=== PATIENT | male | born 1955 | race Caucasian/White ===

== ENCOUNTER → 2017-04-17 06:11 | Outpatient (CLI) | payer BC, SELFPAY ==
--- NOTE | 2017-04-17 06:19 | RAD_ITS ---
STUDY: X-RAY CHEST REASON FOR EXAM: Male, 62 years old. Chest pain. TECHNIQUE: PA and lateral views of the chest. COMPARISON: Comparison is made with prior study dated April 23, 2014. FINDINGS: The lungs are clear and expanded. Stable metallic BB overlying the left breast. There is no demonstrated pleural abnormality. Normal size heart. A left-sided ICD is seen. Normal mediastinum and leo. Normal visualized pulmonary arteries. There is atherosclerotic calcification of the aortic arch with tortuosity. There are degenerative changes of the visualized thoracic spine. Normal visualized ribs, clavicles, and shoulders. There is no demonstrated abnormality of the visualized soft tissue structures of the upper abdomen. RAD/Chest PA and Lateral IMPRESSION: No acute abnormality is seen. Stable examination. Electronically Signed: Richard Hinton MD at 15:49 EST Tel [phone], Service support ,
[2017-04-17 07:55] LABS: Absolute Lymphocyte Count 3.56 X10^3/ul (0.83-4.51); Absolute Neutrophil Count 5.2 X10^3/uL (2.0-7.7); Basophil# 0.11 X10^3/uL; Eosinophil# 0.62 X10^3/uL; Eosinophils% 5.7 % (0-5); Hematocrit 46.3 % (40-54); Lymphocyte # 3.56 X10^3/ul (4.0); Lymphocyte % 32.7 % (19-41); Mean Corp Hgb Conc 32.4 g/gl (32-36); Mean Corpuscular Hgb 31.6 pg (27.0-32.0); Mean Corpuscular Volume 97.7 fL (80-94); Mean Platelet Vol. 10.2 fl (6.2-12.0); Monocyte# 1.31 X10^3/uL; Neutrophil # 5.24 X10^3/uL (2.7-7.7); Neutrophil % 48.1 % (47-70); Platelet Count 333 K/mm3 (150-450); RBC Distribution Width CV 12.9 % (11.6-14.6); Red Blood Count 4.74 M/mm3 (4.6-6.2); White Blood Count 10.9 K/mm3 (4.4-11.0)
[2017-04-17 07:56] LABS: POSITIVE COUNT NO; POSITIVE DIFFERENTIAL NO; POSITIVE MORPHOLOGY NO
[2017-04-17 07:59] LABS: Prothrombin Time (Protime)PT. 12.5 SECONDS (11.7-14.9)
[2017-04-17 08:00] LABS: Partial Thromboplast Time 25.9 Seconds (24.1-36.2)
[2017-04-17 08:21] LABS: Anion Gap 6 (5-15); BUN 21 mg/dL (7-18); BUN/Creat Ratio 22.2 RATIO (10-20); Calcium,Total 9.6 mg/dL (8.5-10.1); Chloride 105 mmol/L (98-107); Creatinine, Serum 0.94 mg/dL (0.70-1.30); EST Glomerular Filtration Rate 86 mL/min (>60); Est Glom Filt Rate - Afr Amer 104 mL/min (>60); Glucose 90 mg/dL (74-106); Potassium 4.4 mmol/L (3.5-5.1); Sodium Level 139 mmol/L (136-145)
== END ==
PROVIDERS: Family Provider Family Medicine; PCP Family Medicine; Visit Provider Physician Assistant Medical
DX: I25.10 Atherosclerotic heart disease of native coronary artery without angina pectoris (principal); I25.5 Ischemic cardiomyopathy; I10 Essential (primary) hypertension; R07.9 Chest pain, unspecified; R06.09 Other forms of dyspnea
CPT/HCPCS: 36415; 71046; 80048; 85025; 85610; 85730

== ENCOUNTER 2017-04-20 07:48 | Day surgery (SDC) | payer BC, SELFPAY ==
[2017-04-20] VITALS (32 sets, daily range): BP systolic 106–160; BP diastolic 64–93; PULSE 60–84; RESP 11–18; TEMP 37.1–37.2; O2SAT 91–97; BMI 29.5; BMI 29.6; BMI 30.1
--- NOTE | 2017-04-20 07:50 | EKG12_ITS ---
Test Reason : PRE CATH Blood Pressure : / mmHG Vent. Rate : 061 BPM Atrial Rate : 061 BPM P-R Int : 138 ms QRS Dur : 092 ms QT Int : 432 ms P-R-T Axes : 000 -39 026 degrees QTc Int : 434 ms Normal sinus rhythm Left axis deviation Septal infarct , age undetermined Abnormal ECG Confirmed by PRASHANT ALVES, MILES ([id number]), editor producer WOLFGANG GOMEZ ([id number] on 04/23/2017 1:27:43 PM Referred By: Miles Cerda Confirmed By:MILES CERDA MD
--- NOTE | 2017-04-20 11:45 | CL.I_ITS ---
Patient Name: MOR SAAVEDRA Study Date: 04/20/2017 Performing: Chapis Courtney MD Ht: inches cm : 1955 Wt: 216.05 lbs 98 kg Age: 62 Gender: male BSA: PROCEDURE(S) PERFORMED [id number] W OR WO PTCA, SINGLE CORONARY ARTERY [id number] W OR WO PTCA, SINGLE CORONARY ARTERY CLINICAL PROFILE AND CO-MORBIDITIES Angina Classification Anginal Classification w/in 2 Weeks: CCS IV CAD Presentations: Unstable angina. CONCLUSIONS Successful PTCA/EULOGIO of the Prox RCA using 3.0x12 mm Resolute Integrity Successful PTCA/EULOGIO of the Mid LAD using Resolute Integrity 2.5x26 mm, post-dilated using 3.0 mm ball oon RECOMMENDATIONS ASA Indefinitley Brilinta for at least 12 months . INTERVENTION INFORMATION LESION SITE: RCA (Proximal) Lesion Complexity: Non-High/Non-C, culprit lesion: Yes Pre Stenosis: 99 % Pre intervention BELKIS flow: 3 PROCEDURE: Drug Eluting Stent with pre and post dilatation Post Stenosis: 0 % Post intervention BELKIS flow: 3 Lesion Devices: Medtronic 6 Fr JL4.0 100cm Guide Catheter Terumo .014 Runthrough Extra Floppy 180cm straight Faheem Sci EMERGE MR 2.50x12 BALLOON Faheem Sci EMERGE PUSH MR 1.50x15 BALLOON Medtronic Resolute RX EULOGIO 3.0x12 Faheem Sci NC EMERGE MR 3.00x12 BALLOON LESION SITE: LAD (Mid) Lesion Complexity: High/C, culprit lesion: Yes Pre Stenosis: 95 % Pre intervention BELKIS flow: 3 PROCEDURE: Drug Eluting Stent with pre and post dilatation Post Stenosis: 0 % Post intervention BELKIS flow: 3 Lesion Devices: Faheem Sci EMERGE MR 2.50x12 BALLOON Faheem Sci NC EMERGE MR 3.00x12 BALLOON Cordis 6 Fr XB3.0 100cm Guide Catheter Medtronic Resolute RX EULOGIO 3.0x26 Medtronic Resolute RX EULOGIO 2.5x26 Faheem Sci .014 Choice Xtra Support wire 182cm Faheem Sci NC EMERGE MR 3.00x15 BALLOON Faheem Sci NC EMERGE MR 3.00x15 BALLOON COMPLICATIONS No Complications PROCEDURE MEDICATIONS Fentanyl 50 mcg IV Versed 1 mg IV Fentanyl 50 mcg IV Versed 1 mg IV Fentanyl 25 mcg IV Versed 1 mg IV Oxygen: 2 L/min via nasal cannula Brilinta 180 mg PO @ 04/20/2017 10:14:28 Heparin diluted in 23cc Heparinized saline. Patient given 10cc IA of this solution. 04/20/2017 09:25: 21 Heparin 7000 unit(s) IV 04/20/2017 10:10:17 Heparin 4000 unit(s) IV 04/20/2017 10:44:42 Heparin 1000 unit(s) IV 04/20/2017 11:02:43 Heparin 1000 unit(s) IV 04/20/2017 11:11:28 Nitro 200 mcg IC 04/20/2017 10:23:21 Nitro 200 mcg IC 04/20/2017 10:23:21 Nitro 200 mcg IC 04/20/2017 10:28:46 Verapamil 2.5mg, Ntg 100mcgs, 2000 units of Heparin diluted in 23cc Heparinized saline. Patient give n 10cc IA of this solution. 04/20/2017 09:25:21 SUMMARY OF HEMODYNAMIC DATA Time AIR REST ECG 08:12:53 ECG 09:08:40 AO 131/78 (100) SA 09:28:28 LV 143/5, 29 09:35:40 LV 147/5, 33 09:35:46 LV 135/12, 32 09:37:16 LVp 144/11, 29 09:37:21 AOp 141/75 (106) 09:37:26 AO 128/73 (96) 10:12:57 Signed By Chapis Courtney MD On 04/20/2017 11:45:34 Chapis Courtney MD
[2017-04-20 11:46] LABS: ACT Activated Clotting Time 263 sec (74-137)
[2017-04-20] MEDS: 0.9% Normal Saline 1,000 ML 75 ML IV (12:00)
[2017-04-20 13:26] LABS: ACT Activated Clotting Time 191 sec (74-137)
--- NOTE | 2017-04-20 13:27 | CRPHASE1 ---
Patient Data/Charges Former Patient:: Phase II Lead Technologist In Cytogenetics:: Chapis Courtney Refer Phase II:: Yes Phase II Referral:: [facility] Start Phase II:: After follow up visit with Lead Technologist In Cytogenetics Phase I Charge:: Level I - Education Risk Factors/Lifestyle Smoking Status: Former smoker Second-Hand Smoke:: Yes - Some with coworkers Hx Hypertension: Yes Hx Diabetes Mellitus Type 1: No Hx Diabetes Mellitus Type 2: No Hx Dyslipidemia: Yes Hx Obesity: Yes Height: 1.8 m Weight:: 97.976 kg BMI: 30.1 Risk Factor for Sedentary Lifestyle: Moderate Risk Family History: Family History (Last Updated 04/13/17 @ 13:28 by Anna Kirkpatrick) Father PVD (peripheral vascular disease) Myocardial infarction Cancer Brother Kidney disease Family History: Cancer, Heart Disease Past Cardiac Illness: Arrhythmias, LV Dysfunction, Ejection Fraction, Coronary Artery Disease, Myocardial Infarction, Previous PCI w/Stent Phase I Education Given On:: [place], Nutrition, Antiplatelet medication, CHF, Smoking cessation Issues Affecting Care:: None Knowledge of Condition:: Yes Learning Preferences: Verbal, Written, Audio/Visual, Demonstration Hospital Course Presenting Symptoms:: heartburn like pain mid sternal area. 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
--- NOTE | 2017-04-20 13:35 | CASEMGMT ---
Intro role of CM to patient in room. Pt is independent, no discharge needs identified. Discussed medication change from Plavix to Brillinta. Savings card given to patient. Discussed insurance coverage related to new year and deductibles. Pt to check if his prescriptions are covered in deductibles. Questions answered. Pt denies any dc needs at this time. Vitaliy STEVENSN RN ACM
--- NOTE | 2017-04-20 13:36 | CRPHASE1_ITS ---
Patient Data/Charges Former Patient:: Phase II Loop Sewer:: Chapis Courtney Refer Phase II:: Yes Phase II Referral:: [facility] Start Phase II:: After follow up visit with Loop Sewer Phase I Charge:: Level I - Education Risk Factors/Lifestyle Smoking Status: Former smoker Second-Hand Smoke:: Yes - Some with coworkers Hx Hypertension: Yes Hx Diabetes Mellitus Type 1: No Hx Diabetes Mellitus Type 2: No Hx Dyslipidemia: Yes Hx Obesity: Yes Height: 1.8 m Weight:: 97.976 kg BMI: 30.1 Risk Factor for Sedentary Lifestyle: Moderate Risk Family History: Family History (Last Updated 04/13/17 @ 13:28 by Anna Kirkpatrick) Father PVD (peripheral vascular disease) Myocardial infarction Cancer Brother Kidney disease Family History: Cancer, Heart Disease Past Cardiac Illness: Arrhythmias, LV Dysfunction, Ejection Fraction, Coronary Artery Disease, Myocardial Infarction, Previous PCI w/Stent Phase I Education Given On:: [place], Nutrition, Antiplatelet medication, CHF, Smoking cessation Issues Affecting Care:: None Knowledge of Condition:: Yes Learning Preferences: Verbal, Written, Audio/Visual, Demonstration Hospital Course Presenting Symptoms:: heartburn like pain mid sternal area. 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
--- NOTE | 2017-04-20 13:36 | CRPH1.INSTRU ---
General Education CAD and cardiac anatomy and function:: Patient communicates acknowledgment, Needs reinforcement Explanation of diagnoses and procedures:: Patient communicates acknowledgment, Needs reinforcement Sign/Symptoms of [place]:: Patient communicates acknowledgment, Needs reinforcement Antiplatelet therapy: Patient communicates acknowledgment Proper use of NTG-SL: Patient communicates acknowledgment, Needs reinforcement Emergency procedures and activation of EMS: Patient communicates acknowledgment, Needs reinforcement Compliance of all prescribed medications: Patient communicates acknowledgment Smoking Patient Nicotine/Smoking Risk Factors Are:: Second-hand smoke Recommendations Include:: Second-hand smoke recommendation, Previous smoker; encourage continued cessation Nicotine/Smoking Response Code:: Patient communicates acknowledgment, Needs reinforcement Dyslipidemia Patient Dyslipidemia Risk Factors Are:: Total Cholesterol, Triglycerides, HDL, LDL Recommendations Include:: Lipid profile not available, Reviewed NCEP/ATP guidelines, Therapeutic Lifestyle Change dietary guidelines Dyslipidemia Response Code:: Patient communicates acknowledgment, Needs reinforcement Overweight/Obesity Patient Overweight/Obesity Risk Factors Are:: Obesity - > or = 30 Recommendations Include:: Weight loss of 5-10%, Reduced calorie diet, Exercise 5-7 times/week Overweight/Obesity:: Needs reinforcement Hypertension Patient Hypertension Risk Factors Are:: No documented hx of HTN Recommendations Include:: Maintain BP <130/85, DASH dietary guidelines, Decrease/maintain normal body weight, Moderation of ETOH Hypertension:: Patient communicates acknowledgment, Needs reinforcement Heart Disease Patient Heart Disease Risk Factors Are:: Family history of heart disease < 65 years old, Previous cardiac event Recommendations Include:: Educated family members of their risk, Educated family members of importance of prevention of heart disease Heart Disease Response Code:: Patient communicates acknowledgment, Needs reinforcement Diabetes Patient Diabetes Risk Factors Are:: No documented hx of diabetes Diabetes:: Not instructed Metabolic Syndrome Patient Metabolic Syndrome Risk Factors Are [3 of 5]:: Waist circumference > 35 [female] or 40 [male], Hypertension, Low HDL <40 [male] or < 50 [female] Recommendations Include:: Encouraged follow-up with Primary Care Physician Metabolic Syndrome Response Code:: Patient communicates acknowledgment Sedentary Patient Sedentary Risk Factors Are:: Lack of regular exercise Recommendations Include:: Aerobic exercise 5-7 times/week for 20-30 minutes continuously, Benefits of regular exercise, Discussed home walking program, Monitored Outpatient Cardiac Rehab Sedentary Response Code:: Patient communicates acknowledgment, Needs reinforcement Stress Stress Response Code:: Not instructed
--- NOTE | 2017-04-20 13:40 | CRPH1.INST_ITS ---
General Education CAD and cardiac anatomy and function:: Patient communicates acknowledgment, Needs reinforcement Explanation of diagnoses and procedures:: Patient communicates acknowledgment, Needs reinforcement Sign/Symptoms of ID:: Patient communicates acknowledgment, Needs reinforcement Antiplatelet therapy: Patient communicates acknowledgment Proper use of NTG-SL: Patient communicates acknowledgment, Needs reinforcement Emergency procedures and activation of EMS: Patient communicates acknowledgment , Needs reinforcement Compliance of all prescribed medications: Patient communicates acknowledgment Smoking Patient Nicotine/Smoking Risk Factors Are:: Second-hand smoke Recommendations Include:: Second-hand smoke recommendation, Previous smoker; encourage continued cessation Nicotine/Smoking Response Code:: Patient communicates acknowledgment, Needs reinforcement Dyslipidemia Patient Dyslipidemia Risk Factors Are:: Total Cholesterol, Triglycerides, HDL, LDL Recommendations Include:: Lipid profile not available, Reviewed NCEP/ATP guidelines, Therapeutic Lifestyle Change dietary guidelines Dyslipidemia Response Code:: Patient communicates acknowledgment, Needs reinforcement Overweight/Obesity Patient Overweight/Obesity Risk Factors Are:: Obesity - > or = 30 Recommendations Include:: Weight loss of 5-10%, Reduced calorie diet, Exercise 5 -7 times/week Overweight/Obesity:: Needs reinforcement Hypertension Patient Hypertension Risk Factors Are:: No documented hx of HTN Recommendations Include:: Maintain BP <130/85, DASH dietary guidelines, Decrease /maintain normal body weight, Moderation of ETOH Hypertension:: Patient communicates acknowledgment, Needs reinforcement Heart Disease Patient Heart Disease Risk Factors Are:: Family history of heart disease < 65 years old, Previous cardiac event Recommendations Include:: Educated family members of their risk, Educated family members of importance of prevention of heart disease Heart Disease Response Code:: Patient communicates acknowledgment, Needs reinforcement Diabetes Patient Diabetes Risk Factors Are:: No documented hx of diabetes Diabetes:: Not instructed Metabolic Syndrome Patient Metabolic Syndrome Risk Factors Are [3 of 5]:: Waist circumference > 35 [female] or 40 [male], Hypertension, Low HDL <40 [male] or < 50 [female] Recommendations Include:: Encouraged follow-up with Primary Care Physician Metabolic Syndrome Response Code:: Patient communicates acknowledgment Sedentary Patient Sedentary Risk Factors Are:: Lack of regular exercise Recommendations Include:: Aerobic exercise 5-7 times/week for 20-30 minutes continuously, Benefits of regular exercise, Discussed home walking program, Monitored Outpatient Cardiac Rehab Sedentary Response Code:: Patient communicates acknowledgment, Needs reinforcement Stress Stress Response Code:: Not instructed
[2017-04-20] MEDS: Furosemide 40 MG/4 ML Vial IV (15:51)
[2017-04-20] MEDS: Atorvastatin Calcium 80 MG Tablet PO (15:51)
[2017-04-20] MEDS: HYDROcodone Bitartrate/Apap 5/325 Tablet PO ×2 (16:45→21:22)
--- NOTE | 2017-04-20 18:07 | NURSING ---
Stent card clipped to Cardiac Rehab book and placed in patient belonging bag in patient room. Yoel education information for cardiac medications (Brilinta, lipitor & Aspirin) reviewed with patient.
--- NOTE | 2017-04-20 18:52 | CL.D_ITS ---
Patient Name: MOR SAAVEDRA Study Date: 04/20/2017 Performing: Miles Zaragoza MD Ht: inches cm : 1955 Wt: 216.3 lbs 98 kg Age: 62 Gender: male BSA: PROCEDURE(S) PERFORMED [id number] W OR WO PTCA, SINGLE CORONARY ARTERY [id number] W OR WO PTCA, SINGLE CORONARY ARTERY CLINICAL PROFILE AND INDICATIONS INDICATIONS: Unstable Angina Stress/Imaging Stress/Image Study Performed: No Angina Classification Anginal Classification w/in 2 Weeks: CCS IV CAD Presentations: Unstable angina. Unstable angina. CONCLUSIONS Elevated Left Ventricular End Diastolic Pressure Segmented LV systolic dysfunction- Mild LVEF: by LV gram 45 % [place] Multivessel CAD Left to Right Collateral Flow Aortic root: Possibly Dilated RECOMMENDATIONS Risk factor modification Medical therapy Referred for immediate PCI DESCRIPTION OF PROCEDURE The patient arrived to the procedure lab. The risks and benefits of the procedure as well as a full d escription of our services here and current unavailability of surgical backup were fully explained to the patient and/or their significant other prior to the catheterization. The Timeout was completed, verifying the correct patient and procedure. The patient's procedural site was prepped and draped in the usual fashion. Local anesthetic was given subcutaneously to right radial region with Lidocaine 2% . Using a modified Seldinger technique, arterial access was obtained via the right radial artery, a 6 Fr sheath was inserted. Left Coronary Artery selective angiography was performed in multiple views u sing a 5 Fr. 4.0 [place] catheter. Right Coronary Artery selective angiography was then performed in mu ltiple views using a 5 Fr. 4.0 [place] catheter. Left Ventriculography was performed in MEDINA projection using a 5 Fr. Pigtail catheter. LV to AO pullback pressures were then recorded. Right Coronary Artery selective angiography was then performed in multiple views using a 5 Fr. 4.0 [place] catheter.The aldo rial sheath was pulled and a TR Band was applied for hemostasis w/ 18ml air CORONARY ANGIOGRAPHY DOMINANCE: Right Dominant LEFT HEART ASSESSMENT Left Ventricular Ejection Fraction: by LV gram 45 % Anterior Hypokinesis. Apical Akinesis Elevated Left Ventricular End Diastolic Pressure LVEDP: 29 mmHg LEFT MAIN: Mild luminal irregularities LEFT ANTERIOR DECENDING ARTERY: PROX LAD: Long: Smooth: 25 % Stenosis MID LAD: Previously placed stent has an instent Hazy: 85 % restenosis, Hazy: 95 % Stenosis (Between t he two stents) DISTAL LAD: 50 % Stenosis CIRCUMFLEX ARTERY: PROX CIRC: Eccentric: 25 % Stenosis OM 1: Proximal - 25-50 % Stenosis RIGHT CORONARY ARTERY: PROX RCA: Eccentric: 25 % Stenosis, is subtotally occluded MID RCA: 25 % Stenosis DISTAL RCA: 25 % Stenosis COLLATERAL FLOW: Collateral flow from Left to Left VALVE FINDINGS: Normal Aortic Valve function Normal Mitral Valve function AORTIC ROOT: Possibly Dilated Possibly Dilated COMPLICATIONS No Complications PROCEDURE MEDICATIONS Fentanyl 50 mcg IV Versed 1 mg IV Fentanyl 50 mcg IV Versed 1 mg IV Fentanyl 25 mcg IV Versed 1 mg IV Oxygen: 2 L/min via nasal cannula Brilinta 180 mg PO @ 04/20/2017 10:14:28 Heparin diluted in 23cc Heparinized saline. Patient given 10cc IA of this solution. 04/20/2017 09:25: 21 Heparin 7000 unit(s) IV 04/20/2017 10:10:17 Heparin 4000 unit(s) IV 04/20/2017 10:44:42 Heparin 1000 unit(s) IV 04/20/2017 11:02:43 Heparin 1000 unit(s) IV 04/20/2017 11:11:28 Nitro 200 mcg IC 04/20/2017 10:23:21 Nitro 200 mcg IC 04/20/2017 10:23:21 Nitro 200 mcg IC 04/20/2017 10:28:46 Verapamil 2.5mg, Ntg 100mcgs, 2000 units of Heparin diluted in 23cc Heparinized saline. Patient give n 10cc IA of this solution. 04/20/2017 09:25:21 SUMMARY OF HEMODYNAMIC DATA Time AIR REST ECG 08:12:53 ECG 09:08:40 AO 131/78 (100) SA 09:28:28 LV 143/5, 29 09:35:40 LV 147/5, 33 09:35:46 LV 135/12, 32 09:37:16 LVp 144/11, 29 09:37:21 AOp 141/75 (106) 09:37:26 AO 128/73 (96) 10:12:57 Signed By Miles Zaragoza MD On 04/20/2017 18:52:19 Miles Zaragoza MD
[2017-04-20] MEDS: TICAGRELOR 90 MG TABLET PO (21:16)
[2017-04-20] MEDS: DiphenhydrAMINE 25 MG Capsule PO (21:21)
[2017-04-21] VITALS (11 sets, daily range): BP systolic 108–133; BP diastolic 67–96; PULSE 56–78; RESP 12–19; TEMP 36.8–37.2; O2SAT 93–95
[2017-04-21 04:35] LABS: Absolute Lymphocyte Count 2.06 X10^3/ul (0.83-4.51); Absolute Neutrophil Count 5.5 X10^3/uL (2.0-7.7); Basophil# 0.07 X10^3/uL; Basophil% 0.7 % (0-1); Eosinophil# 1.19 X10^3/uL; Eosinophils% 11.8 % (0-5); Hemoglobin 14.9 g/dl (13.0-16.5); Lymphocyte # 2.06 X10^3/ul (4.0); Lymphocyte % 20.5 % (19-41); Mean Corp Hgb Conc 33.9 g/gl (32-36); Mean Corpuscular Hgb 32.3 pg (27.0-32.0); Mean Corpuscular Volume 95.2 fL (80-94); Mean Platelet Vol. 9.7 fl (6.2-12.0); Monocyte# 1.21 X10^3/uL; Neutrophil # 5.48 X10^3/uL (2.7-7.7); Neutrophil % 54.4 % (47-70); POSITIVE COUNT NO; POSITIVE DIFFERENTIAL NO; POSITIVE MORPHOLOGY NO; Platelet Count 287 K/mm3 (150-450); RBC Distribution Width CV 12.8 % (11.6-14.6); RBC Distribution Width SD 44.4 fl (35.1-43.9); Red Blood Count 4.62 M/mm3 (4.6-6.2); White Blood Count 10.1 K/mm3 (4.4-11.0)
--- NOTE | 2017-04-21 05:55 | EKG12_ITS ---
Test Reason : AM EKG Blood Pressure : / mmHG Vent. Rate : 059 BPM Atrial Rate : 059 BPM P-R Int : 164 ms QRS Dur : 098 ms QT Int : 428 ms P-R-T Axes : 068 -42 022 degrees QTc Int : 423 ms Sinus bradycardia Left axis deviation Septal infarct , age undetermined Abnormal ECG When compared with ECG of 20-APR-2017 12:07, MANUAL COMPARISON REQUIRED, DATA IS UNCONFIRMED Confirmed by PILY ARMIJO ([id number]), newspaper editor managing WOLFGANG GOMEZ ([id number]) on 04/26/2017 3:04:05 PM Referred By: Miles Zaragoza Confirmed By:PILY ARMIJO
[2017-04-21] MEDS: Multivitamins,Therapeutic Tablet 1 TABLET PO (08:36)
[2017-04-21] MEDS: Aspirin E.C. 81 MG Tablet PO (08:36)
[2017-04-21] MEDS: Ferrous Sulfate 325 MG Tablet PO (08:36)
--- NOTE | 2017-04-21 09:18 | PCM.PN.CARD ---
Subjectve: The patient is awake and alert. He denies any ongoing chest discomfort or difficulty breathing. Objective: Vital Signs Temp Pulse Resp BP Pulse Ox 98.2 F 75 15 113/67 95 04/21/17 04:00 04/21/17 08:00 04/21/17 08:00 04/21/17 08:00 04/21/17 08:00 Oxygen Delivery Method Room Air Weight: 208 lb 12.444 oz Body Mass Index (BMI) 29.5 Intake and Output for Last 24 Hours 04/19/17 04/20/17 04/21/17 23:59 23:59 23:59 Intake Total 1283 / 1283 60 / 60 Output Total 2800 / 2800 Balance -1517 / -1517 60 / 60 General: Awake, Alert, Oriented x 3, Cooperative, No Acute Distress Neck: No JVD Lungs: Clear to auscultation Cardiovascular: Regular Rhythm, Normal S1, Normal S2 Murmur Murmur: Grade 2/6, Harsh, Mid Systolic, LLSB, LVOT Vascular: Normal Radial Pulses Abdomen: Bowel Sounds Present, Soft, Non Tender Extremities: No edema Neurological: No Focal Motor or Sensory Deficit 04/21/17 04:20: WBC 10.1, RBC 4.62, Hgb 14.9, Hct 44.0, MCV 95.2 H, MCH 32.3 H, MCHC 33.9, RDW 12.8, RDW Differential 44.4 H, Plt Count 287, MPV 9.7, Immature Gran % (Auto) 0.600, Neut % (Auto) 54.4, Lymph % (Auto) 20.5, [place] % (Auto) 12.0 H, Eos % (Auto) 11.8 H, Baso % (Auto) 0.7, Absolute Neuts (auto) 5.5, Total Counted Not Reportable Rhythm: Sinus rhythm EKG: Sinus rhythm; septal MN pattern of indeterminate age; no acute ECG changes Cardiac Cath: Please see official report PCI: Please see official report Assessment/Plan 1. Unstable angina pectoris The patient presented with symptoms concerning for unstable angina pectoris. He has undergone diagnostic cardiac catheterization. He was found to have angiographically significant appearing in-stent restenosis involving his LAD stent system and angiographically significant appearing stenosis involving his RCA system. He has subsequently undergone repeat PTCA/stent of the LAD and PTCA/stent of the RCA. He had good angiographic results. He appears to be symptomatically and hemodynamically stable at this time. He is going to continue medical management. 2. CAD status post MN-remote status post LAD PCI-remote The patient has a history of underlying CAD and MN. He is undergone previous LAD PCI on more than one occasion. He has continued medical management. He has presented back with concerns of unstable angina pectoris and has now undergone evaluation care as noted above. He will need continued medical management and outpatient follow-up. 3. Ischemic mediated cardiomyopathy The patient does have an underlying ischemic mediated cardia myopathy with diminished LV systolic function. He is without symptoms of acute CHF/pulmonary edema. He will continue combined medical management as tolerated. 4. Ventricular tachycardia status post ICD The patient does have an underlying ICD. He will continue with outpatient follow-up. 5. Hyperlipidemia The patient will continue medical management and laboratory follow-up. Overall the patient appears to be symptomatically and hemodynamically stable. He will continue medical therapy and outpatient cardiovascular follow-up. This note was generated with [employer] Dictation software. Every effort was made to ensure accuracy, however, computerized sports recruiter mistakes may persist.
--- NOTE | 2017-04-21 09:28 | PN.CARD_ITS ---
Subjectve: The patient is awake and alert. He denies any ongoing chest discomfort or difficulty breathing. Objective: Vital Signs Temp Pulse Resp BP Pulse Ox 98.2 F 75 15 113/67 95 04/21/17 04:00 04/21/17 08:00 04/21/17 08:00 04/21/17 08:00 04/21/17 08:00 Oxygen Delivery Method Room Air Weight: 208 lb 12.444 oz Body Mass Index (BMI) 29.5 Intake and Output for Last 24 Hours 04/19/17 04/20/17 04/21/17 23:59 23:59 23:59 Intake Total 1283 / 1283 60 / 60 Output Total 2800 / 2800 Balance -1517 / -1517 60 / 60 General: Awake, Alert, Oriented x 3, Cooperative, No Acute Distress Neck: No JVD Lungs: Clear to auscultation Cardiovascular: Regular Rhythm, Normal S1, Normal S2 Murmur Murmur: Grade 2/6, Harsh, Mid Systolic, LLSB, LVOT Vascular: Normal Radial Pulses Abdomen: Bowel Sounds Present, Soft, Non Tender Extremities: No edema Neurological: No Focal Motor or Sensory Deficit 04/21/17 04:20: WBC 10.1, RBC 4.62, Hgb 14.9, Hct 44.0, MCV 95.2 H, MCH 32.3 H, MCHC 33.9, RDW 12.8, RDW Differential 44.4 H, Plt Count 287, MPV 9.7, Immature Gran % (Auto) 0.600, Neut % (Auto) 54.4, Lymph % (Auto) 20.5, [place] % (Auto) 12.0 H, Eos % (Auto) 11.8 H, Baso % (Auto) 0.7, Absolute Neuts (auto) 5.5, Total Counted Not Reportable Rhythm: Sinus rhythm EKG: Sinus rhythm; septal NE pattern of indeterminate age; no acute ECG changes Cardiac Cath: Please see official report PCI: Please see official report Assessment/Plan 1. Unstable angina pectoris The patient presented with symptoms concerning for unstable angina pectoris. He has undergone diagnostic cardiac catheterization. He was found to have angiographically significant appearing in-stent restenosis involving his LAD stent system and angiographically significant appearing stenosis involving his RCA system. He has subsequently undergone repeat PTCA/stent of the LAD and PTCA /stent of the RCA. He had good angiographic results. He appears to be symptomatically and hemodynamically stable at this time. He is going to continue medical management. 2. CAD status post NE-remote status post LAD PCI-remote The patient has a history of underlying CAD and NE. He is undergone previous LAD PCI on more than one occasion. He has continued medical management. He has presented back with concerns of unstable angina pectoris and has now undergone evaluation care as noted above. He will need continued medical management and outpatient follow-up. 3. Ischemic mediated cardiomyopathy The patient does have an underlying ischemic mediated cardia myopathy with diminished LV systolic function. He is without symptoms of acute CHF/pulmonary edema. He will continue combined medical management as tolerated. 4. Ventricular tachycardia status post ICD The patient does have an underlying ICD. He will continue with outpatient follow-up. 5. Hyperlipidemia The patient will continue medical management and laboratory follow-up. Overall the patient appears to be symptomatically and hemodynamically stable. He will continue medical therapy and outpatient cardiovascular follow-up. This note was generated with [employer] Dict[employer] software. Every effort was made to ensure accuracy, however, computerized header boss mistakes may persist.
--- NOTE | 2017-04-21 09:37 | PCM.DC.SUM ---
Discharge Date and Diagnosis Date of Admission: 04/20/17 Date of Discharge: 04/21/17 - Primary Discharge Diagnosis Unstable angina pectoris - Secondary Discharge Diagnosis Chronic Problems (Last Updated 04/13/17 @ 13:33 by Anna Kirkpatrick) History of PTCA (Chronic) PTCA with stent to LAD March 2003; 11/18/03 PTCA and stenting of proximal LAD; PTCA/EULOGIO to mid-distal LAD 04/29/14. Cardiac defibrillator in place (Chronic) ICD implant April 2003; cardioverter-defibrillator replacement 03/16 Hypertension (Chronic) Old myocardial infarction (Chronic) Ischemic cardiomyopathy (Chronic) Ventricular tachyarrhythmia (Chronic) Atherosclerosis of artery of extremity with intermittent claudication (Chronic) Shortness of breath (Chronic) Nonspecific elevation of levels of transaminase and lactic acid dehydrogenase (LDH) (Chronic) S/P implantation of automatic cardioverter/defibrillator (AICD) (Chronic) March 2011 Long-term use of high-risk medication (Chronic) Hyperlipidemia (Chronic) Hyperkalemia (Chronic) Claudication (Chronic) Dizziness and giddiness (Chronic) Chest discomfort (Chronic) Cardiovascular function study, abnormal (Chronic) Atherosclerotic heart disease of [place] coronary artery without angina pectoris (Chronic) PTCA with stent to LAD March 2003; 11/18/03 PTCA and stenting of proximal LAD; PTCA/EULOGIO to mid-distal LAD 04/29/14. Hospital Course and Treatment Imaging Results: Please see cardiac catheterization and PCI reports None Procedures: Cardiac catheterization - PCI Summary of Care Provided: The patient is a 62 year old white male with a past cardiovascular history of underlying CAD, [place], ischemic mediated cardiomyopathy, status post LAD PCI-remote, ventricular tachycardia status post ICD placement, hyperlipidemia who presented for evaluation for unstable angina pectoris. The patient was brought to [facility] on 04/20/2017 for outpatient cardiovascular evaluation with diagnostic cardiac catheterization. The patient was found to have angiographically significant appearing in-stent restenosis of his LAD stents and angiographically significant appearing stenosis of his RCA system. He subsequently underwent PCI of both the LAD and RCA system with good angiographic results. He was monitored overnight in the ICU. He remains symptomatically and hemodynamically stable. On 04/21/2017 it was elected to release the patient home for continued outpatient cardiovascular follow-up. [] Discharge Diet: Low fat/ Low Cholesterol Return to work on:: 04/24/17 May shower in (days): 1 May resume sexual activity in: 1 week Call your doctor if your incision/area has: Continuous Slow Oozing, Sudden Increased Bleeding, Increased Pain/ Swelling, Increased Redness Call your doctor if you observe: Fever of 101 or Higher, Shortness of breath, Dizziness, Fainting spells, Chest pain Change Dressing in (Days):: 1 Remove Dressing in (days):: 1 Cleanse incision/area with: Soap & Water Additional Dressing/Incision Instructions:: May not drive: ?24 hours. Avoid heavy exertional activity ?1 week Home Medications: Medications to take at Discharge Aspirin [Aspirin, Baby] 81 mg PO DAILY@0800 04/27/14 Furosemide [Lasix] 20 mg PO DAILY 04/27/14 Multivitamins,Therapeutic [Multivitamin] 1 tab PO DAILY 04/27/14 Nitroglycerin [Nitrostat] 0.4 mg SUBLINGUAL Q5M PRN 04/27/14 PredniSONE 5 mg PO DAILY 04/27/14 atorvastatin 80 mg tablet 80 mg PO QDAY #90 tab 04/13/17 hydrocodone 5 mg-acetaminophen 325 mg tablet 1 cap PO Q8H PRN PRN 30 Days #120 04/13/17 metoprolol succinate ER 100 mg tablet,extended release 24 hr 100 mg PO DAILY #90 tab 04/13/17 Aspirin E.C. [Ecotrin] 81 mg PO DAILY@0800 tablet 04/21/17 Ticagrelor [Brilinta] 90 mg PO BID #60 tab 04/21/17 Following Prescrptions Were Given to Patient: Ticagrelor [Brilinta] 90 mg PO BID #60 tab Primary Care Physician: Tyrese Hall DO [Primary Care Provider] - Please Follow Up With: Miles Zaragoza MD When: As previously scheduled Disposition: Home Minutes spent on discharge:: 30 Patient Condition:: Stable Meaningful Use Info Meaningful Use Diagnoses (Choose all that apply): None applicable
--- NOTE | 2017-04-21 09:43 | DS.PCM_ITS ---
Discharge Date and Diagnosis Date of Admission: 04/20/17 Date of Discharge: 04/21/17 - Primary Discharge Diagnosis Unstable angina pectoris - Secondary Discharge Diagnosis Chronic Problems (Last Updated 04/13/17 @ 13:33 by Anna Kirkpatrick) History of PTCA (Chronic) PTCA with stent to LAD March 2003; 11/18/03 PTCA and stenting of proximal LAD; PTCA/EULOGIO to mid-distal LAD 04/29/14. Cardiac defibrillator in place (Chronic) ICD implant April 2003; cardioverter-defibrillator replacement 03/16 Hypertension (Chronic) Old myocardial infarction (Chronic) Ischemic cardiomyopathy (Chronic) Ventricular tachyarrhythmia (Chronic) Atherosclerosis of artery of extremity with intermittent claudication (Chronic) Shortness of breath (Chronic) Nonspecific elevation of levels of transaminase and lactic acid dehydrogenase ( LDH) (Chronic) S/P implantation of automatic cardioverter/defibrillator (AICD) (Chronic) March 2011 Long-term use of high-risk medication (Chronic) Hyperlipidemia (Chronic) Hyperkalemia (Chronic) Claudication (Chronic) Dizziness and giddiness (Chronic) Chest discomfort (Chronic) Cardiovascular function study, abnormal (Chronic) Atherosclerotic heart disease of [place] coronary artery without angina pectoris (Chronic) PTCA with stent to LAD March 2003; 11/18/03 PTCA and stenting of proximal LAD; PTCA/EULOGIO to mid-distal LAD 04/29/14. Hospital Course and Treatment Imaging Results: Please see cardiac catheterization and PCI reports None Procedures: Cardiac catheterization - PCI Summary of Care Provided: The patient is a 62 year old white male with a past cardiovascular history of underlying CAD, [place], ischemic mediated cardiomyopathy, status post LAD PCI-remote , ventricular tachycardia status post ICD placement, hyperlipidemia who presented for evaluation for unstable angina pectoris. The patient was brought to [facility] on 04/20/2017 for outpatient cardiovascular evaluation with diagnostic cardiac catheterization. The patient was found to have angiographically significant appearing in-stent restenosis of his LAD stents and angiographically significant appearing stenosis of his RCA system. He subsequently underwent PCI of both the LAD and RCA system with good angiographic results. He was monitored overnight in the ICU. He remains symptomatically and hemodynamically stable. On 04/21/2017 it was elected to release the patient home for continued outpatient cardiovascular follow-up. [] Discharge Diet: Low fat/ Low Cholesterol Return to work on:: 04/24/17 May shower in (days): 1 May resume sexual activity in: 1 week Call your doctor if your incision/area has: Continuous Slow Oozing, Sudden Increased Bleeding, Increased Pain/ Swelling, Increased Redness Call your doctor if you observe: Fever of 101 or Higher, Shortness of breath, Dizziness, Fainting spells, Chest pain Change Dressing in (Days):: 1 Remove Dressing in (days):: 1 Cleanse incision/area with: Soap & Water Additional Dressing/Incision Instructions:: May not drive: ?24 hours. Avoid heavy exertional activity ?1 week Home Medications: Medications to take at Discharge Aspirin [Aspirin, Baby] 81 mg PO DAILY@0800 04/27/14 Furosemide [Lasix] 20 mg PO DAILY 04/27/14 Multivitamins,Therapeutic [Multivitamin] 1 tab PO DAILY 04/27/14 Nitroglycerin [Nitrostat] 0.4 mg SUBLINGUAL Q5M PRN 04/27/14 PredniSONE 5 mg PO DAILY 04/27/14 atorvastatin 80 mg tablet 80 mg PO QDAY #90 tab 04/13/17 hydrocodone 5 mg-acetaminophen 325 mg tablet 1 cap PO Q8H PRN PRN 30 Days #120 04/13/17 metoprolol succinate ER 100 mg tablet,extended release 24 hr 100 mg PO DAILY # 90 tab 04/13/17 Aspirin E.C. [Ecotrin] 81 mg PO DAILY@0800 tablet 04/21/17 Ticagrelor [Brilinta] 90 mg PO BID #60 tab 04/21/17 Following Prescrptions Were Given to Patient: Ticagrelor [Brilinta] 90 mg PO BID #60 tab Primary Care Physician: Tyrese Hall DO [Primary Care Provider] - Please Follow Up With: Miles Zaragoza MD When: As previously scheduled Disposition: Home Minutes spent on discharge:: 30 Patient Condition:: Stable Meaningful Use Info Meaningful Use Diagnoses (Choose all that apply): None applicable
[2017-04-21] MEDS: Atorvastatin Calcium 80 MG Tablet PO (10:18)
[2017-04-21] MEDS: Metoprolol(XL)Succ 100 MG Tablet PO (10:19)
[2017-04-21] MEDS: TICAGRELOR 90 MG TABLET PO (10:19)
[2017-04-21 13:26] LABS: Anion Gap 9 (5-15); BUN 14 mg/dL (7-18); BUN/Creat Ratio 22.4 RATIO (10-20); Calcium,Total 8.7 mg/dL (8.5-10.1); Chloride 105 mmol/L (98-107); Creatinine, Serum 0.62 mg/dL (0.70-1.30); EST Glomerular Filtration Rate 139 mL/min (>60); Est Glom Filt Rate - Afr Amer 168 mL/min (>60); Estimated Creatinine Clearance 133.26 ml/min; Glucose 95 mg/dL (74-106); Sodium Level 139 mmol/L (136-145)
== END 2017-04-21 10:37 | disposition home or self-care (01) ==
LOC: CLSP 07:49 → ICU 10:34
PROVIDERS: Family Provider Family Medicine; PCP Family Medicine; Visit Provider Internal Medicine Cardiovascular Disease
DX: I25.110 Atherosclerotic heart disease of native coronary artery with unstable angina pectoris (principal); I70.219 Atherosclerosis of native arteries of extremities with intermittent claudication, unspecified extremity; I10 Essential (primary) hypertension; Z87.891 Personal history of nicotine dependence; Z77.22 Contact with and (suspected) exposure to environmental tobacco smoke (acute) (chronic); I25.5 Ischemic cardiomyopathy; I47.2 Ventricular tachycardia; I25.2 Old myocardial infarction; Z98.61 Coronary angioplasty status; Z95.810 Presence of automatic (implantable) cardiac defibrillator; R06.02 Shortness of breath; R74.0 Nonspecific elevation of levels of transaminase and lactic acid dehydrogenase [LDH]; Z79.899 Other long term (current) drug therapy; Z79.82 Long term (current) use of aspirin; Z79.01 Long term (current) use of anticoagulants; E78.5 Hyperlipidemia, unspecified; E87.5 Hyperkalemia; R42 Dizziness and giddiness; R07.89 Other chest pain; R94.39 Abnormal result of other cardiovascular function study; E66.9 Obesity, unspecified; Z68.30 Body mass index [BMI] 30.0-30.9, adult; T82.855A Stenosis of coronary artery stent, initial encounter
CPT/HCPCS: 80048; 85025; 85347; 92928; 93005; 93458; 99152; 99153; J7030; J7040; Q9967; C1725; C1769; C1874; C1887; C1894; C9600; J1940

== ENCOUNTER → 2017-10-24 14:33 | Outpatient (CLI) | payer BC, SELFPAY ==
[2017-04-20 13:36] VITALS: BMI 30.1
[2017-10-24 16:31] LABS: AST(SGOT) 24 U/L (15-37); Alanine Aminotransfer ALT/SGPT 36 U/L (16-61); Albumin, Serum 3.8 g/dL (3.2-5.0); Alkaline Phosphatase 48 U/L (45-117); Cholesterol 261 mg/dL (200); Globulin 3.5 g/dL (2.2-4.2); High Density Lipoprotein 63 mg/dL; Protein, Total 7.3 g/dL (6.4-8.2); Triglycerides 129 mg/dL; Very Low Density Lipoprotein 26 mg/dL (5-40)
== END ==
PROVIDERS: Family Provider Family Medicine; PCP Family Medicine; Visit Provider Physician Assistant Medical
DX: E78.5 Hyperlipidemia, unspecified (principal); I25.10 Atherosclerotic heart disease of native coronary artery without angina pectoris
CPT/HCPCS: 36415; 80061; 80076

== ENCOUNTER 2018-05-09 10:22 | Day surgery (SDC) | payer OTHER, SELFPAY ==
[2017-04-20 13:36] VITALS: BMI 30.1
[2018-05-03 09:19] VITALS: BMI 30.7
[2018-05-04 08:36] LABS: Bacteria 0 SEEN /hpf (None Seen); Mucous, Urine 0 SEEN /hpf (<or=2+); Red Blood Cells-Urine 0 SEEN /hpf (0-5); Squamous Epithelial Cells - UA 0 SEEN /hpf (0-5); White Blood Cells 0 SEEN /hpf (0-5)
[2018-05-04 08:43] LABS: Hematocrit 45.5 % (40-54); Hemoglobin 14.6 g/dl (13.0-16.5); Mean Corp Hgb Conc 32.1 g/gl (32-36); Mean Corpuscular Hgb 31.3 pg (27.0-32.0); Mean Corpuscular Volume 97.4 fL (80-94); Mean Platelet Vol. 10.6 fl (6.2-12.0); Platelet Count 266 K/mm3 (150-450); RBC Distribution Width SD 46.1 fl (35.1-43.9); Red Blood Count 4.67 M/mm3 (4.6-6.2); White Blood Count 8.4 K/mm3 (4.4-11.0)
[2018-05-04 08:53] LABS: International Normalized Ratio 1.1; Prothrombin Time (Protime)PT. 13.6 SECONDS (11.7-14.9)
[2018-05-04 08:55] LABS: AST(SGOT) 26 U/L (15-37); Alanine Aminotransfer ALT/SGPT 37 U/L (16-61); Albumin, Serum 3.8 g/dL (3.2-5.0); Alkaline Phosphatase 57 U/L (45-117); Anion Gap 10 (5-15); BUN 15 mg/dL (7-18); BUN/Creat Ratio 17.9 RATIO (10-20); Bilirubin, Direct 0.11 mg/dL (0.00-0.30); Calcium,Total 9.2 mg/dL (8.5-10.1); Chloride 103 mmol/L (98-107); Cholesterol 263 mg/dL (200); Creatinine, Serum 0.84 mg/dL (0.70-1.30); EST Glomerular Filtration Rate 99 mL/min (>60); Est Glom Filt Rate - Afr Amer 120 mL/min (>60); Globulin 3.7 g/dL (2.2-4.2); Glucose 109 mg/dL (74-106); High Density Lipoprotein 59 mg/dL; Potassium 4.7 mmol/L (3.5-5.1); Protein, Total 7.5 g/dL (6.4-8.2); Sodium Level 141 mmol/L (136-145); Triglycerides 191 mg/dL; Very Low Density Lipoprotein 38 mg/dL (5-40)
[2018-05-04 09:02] LABS: Color, Urine Yellow (Yellow); Glucose, Dipstick Normal (Normal); Ketone-Dipstick Negative (Negative); Leukocyte Esterase-Dipstick Negative /ul (Negative); Nitrite-Dipstick Negative (Negative); Occult Blood-Urine Negative /ul (Negative); Protein-Dipstick Negative (Negative); Urine Bilirubin Dipstick Negative (Negative); Urine Clarity Clear (Clear); Urine Urobilinogen Normal (Normal)
[2018-05-08 11:36] VITALS: BMI 30.7
--- NOTE | 2018-05-10 09:21 | CL.IE_ITS ---
Patient: MOR SAAVEDRA Study Date: 05/09/2018 Performing: Deni Burgos MD : [id number] Age: 63 Gender: male PROCEDURES PERFORMED [id number] REMOVAL+REPLACEMENT ICD-SINGLE LEAD [id number] POCKET REVISION INDICATIONS End-of-life replacement indicator PROCEDURE DETAILS The patient was brought to the Catheterization Lab in the postabsorptive nonsedated state. Infor med consent was obtained prior to the procedure. Incision was made to the left subclavicular area. D evice pocket was irrigated with antibiotic. ICD generator was attached to the lead(s) and inserted in to pocket. ICD generator was then interrogated by numerical tool programmer. Skin closure was completed with 4-0 Dino ryl. Steri-strips applied to left subclavicular incision. The patient tolerated the procedure well. Estimated Blood Loss: < 10 mls IMPLANTED / EX-PLANTED DEVICES EXPLANTED DEVICE(S): ICD Generator - Railway Signal Technician: [employer], Model # , Serial # IMPLANTED DEVICE(S): ICD Generator - Railway Signal Technician: [employer], Model # D151 , Serial # [id number] DEVICE PARAMETERS DEVICE PARAMETERS: VT detect rate- 185 VF detect rate- 220 saloni rate- 40 CONCLUSIONS / RECOMMENDATIONS Device Conclusions: Successful implantation of a dual chamber pacemaker battery change and replacemen t Device Recommendations: Follow up with Primary Care Physician PROCEDURE MEDICATIONS Fentanyl 50 mcg IV Versed 1 mg IV Fentanyl 25 mcg IV Oxygen: 2 L/min via nasal cannula Signed By Deni Burgos MD On 05/10/2018 09:20:57 Deni Burgos MD
== END 2018-05-09 14:31 | disposition home or self-care (01) ==
LOC: CLSP 10:23
PROVIDERS: Internal Medicine Cardiovascular Disease; Family Provider Family Medicine; PCP Family Medicine; Referring Provider Internal Medicine Cardiovascular Disease; Visit Provider Internal Medicine Cardiovascular Disease
DX: Z45.010 Encounter for checking and testing of cardiac pacemaker pulse generator [battery] (principal); I25.10 Atherosclerotic heart disease of native coronary artery without angina pectoris; Z95.5 Presence of coronary angioplasty implant and graft; I25.5 Ischemic cardiomyopathy; I47.2 Ventricular tachycardia; Z95.810 Presence of automatic (implantable) cardiac defibrillator; I10 Essential (primary) hypertension; E78.00 Pure hypercholesterolemia, unspecified; I25.2 Old myocardial infarction; Z79.82 Long term (current) use of aspirin; Z79.899 Other long term (current) drug therapy; Z87.891 Personal history of nicotine dependence
CPT/HCPCS: 33223; 33262; 36415; 80048; 80061; 80076; 81001; 85027; 85610; 93641; 99152; 99153; J7040; J7050

== ENCOUNTER → 2018-11-09 07:05 | Outpatient (CLI) | payer OTHER, SELFPAY ==
[2017-04-20 13:36] VITALS: BMI 30.1
[2018-11-08 08:39] VITALS: BMI 30.9
[2018-11-09 08:17] LABS: AST(SGOT) 28 U/L (15-37); Alanine Aminotransfer ALT/SGPT 45 U/L (16-61); Albumin, Serum 3.6 g/dL (3.2-5.0); Alkaline Phosphatase 54 U/L (45-117); Bilirubin, Direct 0.11 mg/dL (0.00-0.30); Cholesterol 251 mg/dL (200); Globulin 3.7 g/dL (2.2-4.2); High Density Lipoprotein 54 mg/dL; Protein, Total 7.3 g/dL (6.4-8.2); Triglycerides 199 mg/dL; Very Low Density Lipoprotein 40 mg/dL (5-40)
== END ==
PROVIDERS: Family Provider Family Medicine; PCP Family Medicine; Referring Provider Internal Medicine Cardiovascular Disease; Visit Provider Internal Medicine Cardiovascular Disease
DX: E78.00 Pure hypercholesterolemia, unspecified (principal)
CPT/HCPCS: 36415; 80061; 80076

== ENCOUNTER → 2019-03-04 09:54 | Outpatient (CLI) | payer OTHER, SELFPAY ==
[2017-04-20 13:36] VITALS: BMI 30.1
[2018-11-08 08:39] VITALS: BMI 30.9
[2019-03-04 11:14] LABS: AST(SGOT) 27 U/L (15-37); Alanine Aminotransfer ALT/SGPT 40 U/L (16-61); Albumin, Serum 3.8 g/dL (3.2-5.0); Alkaline Phosphatase 54 U/L (45-117); Bilirubin, Direct 0.14 mg/dL (0.00-0.30); Cholesterol 245 mg/dL (200); Globulin 3.4 g/dL (2.2-4.2); High Density Lipoprotein 60 mg/dL; Protein, Total 7.2 g/dL (6.4-8.2); Triglycerides 181 mg/dL; Very Low Density Lipoprotein 36 mg/dL (5-40)
== END ==
PROVIDERS: Family Provider Student in an Organized Health Care Education/Training Program; PCP Student in an Organized Health Care Education/Training Program; Referring Provider Internal Medicine Cardiovascular Disease; Visit Provider Internal Medicine Cardiovascular Disease
DX: E78.00 Pure hypercholesterolemia, unspecified (principal); I25.10 Atherosclerotic heart disease of native coronary artery without angina pectoris
CPT/HCPCS: 36415; 80061; 80076

== ENCOUNTER → 2020-05-26 06:50 | Outpatient (CLI) | payer BC, SELFPAY ==
[2017-04-20 13:36] VITALS: BMI 30.1
[2019-10-17 11:32] VITALS: BMI 30.7
[2020-05-26 07:28] LABS: Hematocrit 45.3 % (40-54); Hemoglobin 15.2 g/dL (13.0-16.5); Mean Corp Hgb Conc 33.6 g/dL (32-36); Mean Corpuscular Hgb 32.7 pg (27.0-32.0); Mean Corpuscular Volume 97.4 fL (80-94); Mean Platelet Vol. 10.1 fl (6.2-12.0); Platelet Count 284 K/mm3 (150-450); RBC Distribution Width CV 12.8 % (11.6-14.6); RBC Distribution Width SD 45.8 fl (35.1-43.9); Red Blood Count 4.65 M/mm3 (4.6-6.2); White Blood Count 8.4 K/mm3 (4.4-11.0)
[2020-05-26 08:21] LABS: ALB/GLOB Ratio 1.1 RATIO (0.9-2.4); AST(SGOT) 27 U/L (15-37); Alanine Aminotransfer ALT/SGPT 37 U/L (16-61); Albumin, Serum 3.7 g/dL (3.2-5.0); Alkaline Phosphatase 59 U/L (45-117); Anion Gap 4 (5-15); BUN 17 mg/dL (7-18); Bilirubin, Direct 0.12 mg/dL (0.00-0.30); Calcium,Total 9.5 mg/dL (8.5-10.1); Chloride 106 mmol/L (98-107); Cholesterol 277 mg/dL (200); Creatinine, Serum 0.81 mg/dL (0.70-1.30); EST Glomerular Filtration Rate 102 mL/min (>60); Est Glom Filt Rate - Afr Amer 123 mL/min (>60); Globulin 3.5 g/dL (2.2-4.2); Glucose 106 mg/dL (74-106); High Density Lipoprotein 62 mg/dL; Potassium 4.6 mmol/L (3.5-5.1); Protein, Total 7.2 g/dL (6.4-8.2); Sodium Level 136 mmol/L (136-145); Triglycerides 157 mg/dL; Very Low Density Lipoprotein 31 mg/dL (5-40)
== END ==
PROVIDERS: PCP Student in an Organized Health Care Education/Training Program; Referring Provider Internal Medicine Cardiovascular Disease; Visit Provider Internal Medicine Cardiovascular Disease
DX: E78.00 Pure hypercholesterolemia, unspecified (principal); E78.5 Hyperlipidemia, unspecified; I25.10 Atherosclerotic heart disease of native coronary artery without angina pectoris
CPT/HCPCS: 36415; 80053; 80061; 82248; 85027

== ENCOUNTER → 2021-02-24 09:39 | Outpatient (CLI) | payer BC, SELFPAY ==
[2017-04-20 13:36] VITALS: BMI 30.1
[2021-02-24 11:45] LABS: PSA,Total - Annual Screen 1.39 ng/mL (0.00-4.00)
[2021-02-24 12:24] LABS: Hepatitis C Antibody Non-Reactive (Nonreactive)
== END ==
PROVIDERS: PCP Student in an Organized Health Care Education/Training Program; Referring Provider Student in an Organized Health Care Education/Training Program; Visit Provider Student in an Organized Health Care Education/Training Program
DX: Z11.59 Encounter for screening for other viral diseases (principal); Z12.5 Encounter for screening for malignant neoplasm of prostate
CPT/HCPCS: 36415; 84153; 86803; G0103

== ENCOUNTER 2021-03-07 10:19 | Outpatient (CLI) | payer BC, SELFPAY ==
[2017-04-20 13:36] VITALS: BMI 30.1
[2021-03-07 11:19] LABS: AST(SGOT) 15 U/L (15-37); Alanine Aminotransfer ALT/SGPT 23 U/L (16-61); Albumin, Serum 3.2 g/dL (3.2-5.0); Alkaline Phosphatase 54 U/L (45-117); Bilirubin, Direct 0.12 mg/dL (0.00-0.30); Cholesterol 190 mg/dL (200); Globulin 3.7 g/dL (2.2-4.2); High Density Lipoprotein 51 mg/dL; Protein, Total 6.9 g/dL (6.4-8.2); Triglycerides 181 mg/dL; Very Low Density Lipoprotein 36 mg/dL (5-40)
== END 2021-03-07 23:59 | disposition short-term general hospital (02) ==
LOC: LAB 10:22
PROVIDERS: PCP Student in an Organized Health Care Education/Training Program; Visit Provider Internal Medicine Cardiovascular Disease
DX: E78.00 Pure hypercholesterolemia, unspecified (principal); I70.219 Atherosclerosis of native arteries of extremities with intermittent claudication, unspecified extremity; I25.10 Atherosclerotic heart disease of native coronary artery without angina pectoris
CPT/HCPCS: 36415; 80061; 80076

== ENCOUNTER → 2021-10-15 | Outpatient (CLI) | payer OTHER, SELFPAY ==
[2017-04-20 13:36] VITALS: BMI 30.1
[2021-10-15 08:12] LABS: Hematocrit 47.7 % (40-54); Hemoglobin 15.6 g/dL (13.0-16.5); Mean Corp Hgb Conc 32.7 g/dL (32-36); Mean Corpuscular Hgb 31.6 pg (27.0-32.0); Mean Corpuscular Volume 96.8 fL (80-94); Mean Platelet Vol. 10.1 fl (6.2-12.0); Platelet Count 255 K/mm3 (150-450); RBC Distribution Width CV 12.4 % (11.6-14.6); RBC Distribution Width SD 44.5 fl (35.1-43.9); Red Blood Count 4.93 M/mm3 (4.6-6.2); White Blood Count 8.4 K/mm3 (4.4-11.0)
[2021-10-15 09:38] LABS: ALB/GLOB Ratio 0.9 RATIO (0.9-2.4); AST(SGOT) 25 U/L (15-37); Alanine Aminotransfer ALT/SGPT 38 U/L (16-61); Albumin, Serum 3.6 g/dL (3.2-5.0); Alkaline Phosphatase 57 U/L (45-117); Anion Gap 4 (5-15); BUN 11 mg/dL (7-18); BUN/Creat Ratio 14.8 RATIO (10-20); Bilirubin, Direct 0.15 mg/dL (0.00-0.30); Calcium,Total 9.7 mg/dL (8.5-10.1); Chloride 107 mmol/L (98-107); Cholesterol 210 mg/dL (200); Creatinine, Serum 0.74 mg/dL (0.70-1.30); EST Glomerular Filtration Rate 112 mL/min (>60); Est Glom Filt Rate - Afr Amer 136 mL/min (>60); Globulin 3.9 g/dL (2.2-4.2); Glucose 112 mg/dL (74-106); High Density Lipoprotein 54 mg/dL; PSA,Total - Annual Screen 2.41 ng/mL (0.00-4.00); Potassium 4.7 mmol/L (3.5-5.1); Protein, Total 7.5 g/dL (6.4-8.2); Sodium Level 137 mmol/L (136-145); Triglycerides 132 mg/dL; Very Low Density Lipoprotein 26 mg/dL (5-40)
== END | disposition home or self-care (01) ==
PROVIDERS: PCP Student in an Organized Health Care Education/Training Program; Referring Provider Internal Medicine Cardiovascular Disease; Visit Provider Student in an Organized Health Care Education/Training Program
DX: R73.01 Impaired fasting glucose (principal); Z13.6 Encounter for screening for cardiovascular disorders; Z12.5 Encounter for screening for malignant neoplasm of prostate
CPT/HCPCS: 36415; 80053; 80061; 82248; 84153; 85027; G0103

== ENCOUNTER → 2022-04-29 | Outpatient (CLI) | payer OTHER, SELFPAY ==
[2017-04-20 13:36] VITALS: BMI 30.1
--- NOTE | 2022-04-29 07:48 | RAD_ITS ---
STUDY: X-RAY - PELVIS REASON FOR EXAM: Male, 67 years old. PAIN AND RA TECHNIQUE: One view of the pelvis was obtained. COMPARISON: None. FINDINGS: There is a non-specific bowel gas pattern. Normal visualized soft tissue structures. Normal bilateral iliac wings, sacroiliac joints and visualized sacrum. Normal visualized bilateral superior and inferior pubic rami. Normal pubic symphysis. Normal ischial tuberosities. Probable prosthetic calcifications. Vascular calcifications. Normal visualized right femoral head. Normal right acetabulum. Normal right hip joint. Normal visualized left femoral head. Normal left acetabulum. Normal left hip joint. RAD/Pelvis 1 or 2 Views IMPRESSION: Normal x-ray examination of the pelvis. Electronically Signed: Gareth Newsome MD at 22:22 EST ,
[2022-04-29 08:30] LABS: Absolute Lymphocyte Count 2.92 X10^3/uL (0.83-4.51); Absolute Neutrophil Count 3.3 X10^3/uL (2.0-7.7); Basophil# 0.14 X10^3/uL; Basophil% 1.8 % (0-1); Eosinophils% 5.1 % (0-5); Hematocrit 45.2 % (40-54); Hemoglobin 14.6 g/dL (13.0-16.5); Lymphocyte # 2.92 X10^3/ul (0.83-4.51); Lymphocyte % 37.4 % (19-41); Mean Corp Hgb Conc 32.3 g/dL (32-36); Mean Corpuscular Hgb 31.7 pg (27.0-32.0); Mean Corpuscular Volume 98.3 fL (80-94); Mean Platelet Vol. 10.3 fl (6.2-12.0); Monocyte# 1.03 X10^3/uL; Monocyte% 13.2 % (0-10); NRBC Flagged by Analyzer 0 % (0-5); Neutrophil # 3.28 X10^3/uL (2.7-7.7); Platelet Count 286 K/mm3 (150-450); RBC Distribution Width CV 12.9 % (11.6-14.6); RBC Distribution Width SD 46.6 fl (35.1-43.9); White Blood Count 7.8 K/mm3 (4.4-11.0)
[2022-04-29 09:01] LABS: Microalbumin,Random Urine 26.1 mg/L (NO RANGE EST.)
[2022-04-29 09:37] LABS: AST(SGOT) 20 U/L (15-37); Alanine Aminotransfer ALT/SGPT 22 U/L (16-61); Albumin, Serum 3.6 g/dL (3.2-5.0); Alkaline Phosphatase 53 U/L (45-117); Anion Gap 4 (5-15); BUN 17 mg/dL (7-18); BUN/Creat Ratio 20.4 RATIO (10-20); CRP < 2.90 mg/L (0.0-3.0); Calcium,Total 10.3 mg/dL (8.5-10.1); Chloride 110 mmol/L (98-107); Cholesterol 211 mg/dL (200); Creatinine, Serum 0.84 mg/dL (0.70-1.30); EST Glomerular Filtration Rate 98 mL/min (>60); Est Glom Filt Rate - Afr Amer 118 mL/min (>60); Globulin 3.5 g/dL (2.2-4.2); Glucose 102 mg/dL (74-106); High Density Lipoprotein 66 mg/dL; Potassium 4.1 mmol/L (3.5-5.1); Protein, Total 7.1 g/dL (6.4-8.2); Rheumatoid Factor < 10.0 IU/mL (<15); Sodium Level 142 mmol/L (136-145); Triglycerides 90 mg/dL; Uric Acid 6.6 mg/dL (3.5-7.2); Very Low Density Lipoprotein 18 mg/dL (5-40)
[2022-04-29 09:47] LABS: Erythrocyte Sedimentation Rate 5 mm/hr (0-20)
[2022-05-01 09:58] LABS: Hepatitis B Surface Antibody Non-Reactive; Hepatitis B Surface Antigen Non-Reactive (Nonreactive); Hepatitis C Antibody Non-Reactive (Nonreactive)
[2022-05-05 17:28] LABS: CCP IgG Antibodies 0 units (0-19); HLA B27 Positive (.)
== END | disposition home or self-care (01) ==
LOC: LAB 07:10
PROVIDERS: PCP Student in an Organized Health Care Education/Training Program; Referring Provider Student in an Organized Health Care Education/Training Program; Visit Provider Student in an Organized Health Care Education/Training Program
DX: M05.79 Rheumatoid arthritis with rheumatoid factor of multiple sites without organ or systems involvement (principal); I50.9 Heart failure, unspecified; I11.0 Hypertensive heart disease with heart failure; M47.897 Other spondylosis, lumbosacral region; I10 Essential (primary) hypertension; E78.5 Hyperlipidemia, unspecified; I25.10 Atherosclerotic heart disease of native coronary artery without angina pectoris; F32.A Depression, unspecified; H93.13 Tinnitus, bilateral; H91.90 Unspecified hearing loss, unspecified ear; R73.01 Impaired fasting glucose; M10.9 Gout, unspecified; Z95.810 Presence of automatic (implantable) cardiac defibrillator; Z79.52 Long term (current) use of systemic steroids; Z12.5 Encounter for screening for malignant neoplasm of prostate
CPT/HCPCS: 36415; 72170; 80053; 80061; 81374; 82043; 83036; 84550; 85025; 85652; 86140; 86200; 86431; 86706; 86803; 87340

== ENCOUNTER → 2022-12-28 | Outpatient (CLI) | payer OTHER, SELFPAY ==
[2017-04-20 13:36] VITALS: BMI 30.1
--- NOTE | 2022-12-28 07:51 | ECHOCS_ITS ---
Reason For Study: non rheumatic aortic valve Procedure This was a 2D Doppler, Color Flow transthoracic echocardiogram. The study was technically difficult. Due to body habitus. Contrast injection was performed. Exam performed in department. Left Ventricle Normal LV size. Mild concentric left ventricular hypertrophy. The left ventricular ejection fraction is 40 %. Anterior septal and apical severe hypokinesis to akinesis. Anterior hypokinesis. Right Ventricle Normal right ventricle. ICD or pacer leads identified within the right ventricle. Atria The left atrium is severely enlarged. The right atrium is moderately enlarged. ICD or pacer leads identified within the right atrium. Mitral Valve Mild (1+) mitral valve insufficiency. Tricuspid Valve The tricuspid valve is not well visualized. Aortic Valve Trisinus/trileaflet aortic valve. Mild (1+) aortic valve insufficiency. Pulmonic Valve The pulmonic valve is not well visualized. Great Vessels Normal sized aortic root. Pericardium/Pleural No pericardial effusion. Medication 22 gauge I.V. with prn adaptor inserted into right arm. Diluted definity 4.0ml given slow IV push to enhance endocardial definition. MMode/2D Measurements & Calculations LVIDd: 5.4 cm IVSd: 0.95 cm LVOT diam: 2.0 cm LVIDs: 4.4 cm LVPWd: 1.2 cm RVDd: 3.0 cm FS: 18.0 % LVOT area: 3.0 cm2 Ao root diam: 3.0 cm LAV(MOD-bp): 83.9 ml LVAd ap4: 47.5 cm2 LAV(MOD-bp) Indexed: 38.9 ml/m2 LVLd ap4: 10.5 cm LAV(MOD-sp2): 83.4 ml EDV(MOD-sp4): 177.7 ml LAV(MOD-sp4): 83.4 ml EDV(sp4-el): 182.4 ml LVAs ap4: 31.3 cm2 LVLs ap4: 10.1 cm ESV(MOD-sp4): 78.3 ml ESV(sp4-el): 81.9 ml EF(MOD-sp4): 56.0 % EF(sp4-el): 55.1 % LVAd ap2: 41.4 cm2 SV(MOD-sp4): 99.5 ml SV(MOD-sp2): 71.7 ml LVLd ap2: 10.5 cm EDV(MOD-sp2): 133.7 ml EDV(sp2-el): 139.1 ml LVAs ap2: 26.9 cm2 LVLs ap2: 9.4 cm ESV(MOD-sp2): 62.0 ml ESV(sp2-el): 64.9 ml EF(MOD-sp2): 53.6 % SV(sp4-el): 100.5 ml LA dimension(2D): 4.8 cm LA A4 area: 24.0 cm2 RA A4 area: 20.2 cm2 TAPSE: 2.4 cm Time Measurements MV dec time: 0.20 sec Doppler Measurements & Calculations MV E max tien: 119.9 cm/sec Lat Peak E' Tien: 10.0 cm/sec Med Peak E' Tien: 11.3 cm/sec MV A max tien: 42.4 cm/sec E/E' lat: 12.0 E/E' med: 10.6 MV E/A: 2.8 MV V2 max: 143.9 cm/sec MV P1/2t max tien: 131.6 cm/sec Ao V2 max: 179.1 cm/sec MV max P.3 mmHg MV P1/2t: 66.4 msec Ao max P.9 mmHg MV V2 mean: 58.2 cm/sec Ao V2 mean: 119.8 cm/sec MV mean P.9 mmHg MV dec slope: 580.4 cm/sec2 Ao mean P.5 mmHg MV V2 VTI: 39.9 cm MVA(P1/2t): 3.3 cm2 Ao V2 VTI: 39.8 cm AV (velocity ratio): 0.76 MVA(VTI): 2.3 cm2 MIAH(I,D): 2.3 cm2 MIAH(V,D): 2.1 cm2 AI max tien: 424.4 cm/sec LV V1 max: 123.3 cm/sec SV(LVOT): 90.6 ml AI max P.1 mmHg LV V1 max P.1 mmHg AI dec slope: 234.2 cm/sec2 LV V1 mean P.3 mmHg AI P1/2t: 530.8 msec LV V1 mean: 85.8 cm/sec LV V1 VTI: 30.1 cm PA V2 max: 70.3 cm/sec PA V2 mean: 52.2 cm/sec ECHO/Echo Complete W/ Contrast Interpretation Summary The study was technically difficult. Mild concentric left ventricular hypertrophy. The left ventricular ejection fraction is 40 %. Anterior septal and apical severe hypokinesis to akinesis. Anterior hypokinesis . The left atrium is severely enlarged. The right atrium is moderately enlarged. Mild (1+) mitral valve insufficiency. Mild (1+) aortic valve insufficiency. Ordering Physician: Chapis Courtney Referring Physician: Forrest Gomes Performed By: Merissa Meza, RDCS, RVT
== END | disposition home or self-care (01) ==
LOC: CVS 07:50
PROVIDERS: PCP Student in an Organized Health Care Education/Training Program; Referring Provider Internal Medicine Cardiovascular Disease; Visit Provider Internal Medicine Cardiovascular Disease
DX: I35.0 Nonrheumatic aortic (valve) stenosis (principal)
CPT/HCPCS: 93306; Q9957; A4216; C8929

== ENCOUNTER → 2024-07-24 | Outpatient (CLI) | payer OTHER, MEDICARE, SELFPAY ==
[2017-04-20 13:36] VITALS: BMI 30.1
--- NOTE | 2024-07-24 12:39 | ECHOCS_ITS ---
Reason For Study Reason For Study: CHF Procedure This was a 2D Doppler, Color Flow transthoracic echocardiogram. The study was technically difficult. Contrast injection was performed. Exam performed in department. Left Ventricle Normal LV size. The left ventricular ejection fraction is 25 %. Stage 3 diastolic dysfunction. [place] : Dyskinetic. There is moderate to severe global hypokinesis of the left ventricle. There are regional wall motion abnormalities as specified. Right Ventricle Normal RV size. ICD or pacer leads identified within the right ventricle. Normal systolic function. Mitral Valve [place] diffuse mitral valve thickening. Mild (1+) eccentric mitral valve insufficiency. Tricuspid Valve Normal tricuspid valve. Mild (1+) tricuspid valve insufficiency. Pulmonary artery systolic pressure is 36 mmHg. Aortic Valve Trisinus/trileaflet aortic valve. Mild focal aortic valve thickening. Mild (1+) aortic valve insufficiency. Medication 22 gauge I.V. with prn adaptor inserted into right arm. Diluted definity 2ml given slow IV push to enhance endocardial definition. MMode/2D Measurements & Calculations LVIDd: 5.3 cm IVSd: 0.90 cm Ao root diam: 3.0 cm LVIDs: 4.6 cm LVPWd: 0.83 cm RVDd: 4.1 cm FS: 13.6 % LAV(MOD-bp): 74.4 ml SV(MOD-sp4): 79.0 ml LVAd ap4: 49.0 cm2 LAV(MOD-bp) Indexed: 34.9 ml/m2 LVLd ap4: 9.2 cm SI(MOD-sp4): 37.1 ml/m2 LAV(MOD-sp2): 66.2 ml EDV(MOD-sp4): 205.2 ml LAV(MOD-sp4): 74.3 ml EDV(sp4-el): 222.2 ml LVAs ap4: 36.3 cm2 LVLs ap4: 8.4 cm ESV(MOD-sp4): 126.1 ml ESV(sp4-el): 133.8 ml EF(MOD-sp4): 38.5 % EF(sp4-el): 39.8 % SV(sp4-el): 88.4 ml LA A4 area: 23.6 cm2 LA dimension(2D): 4.8 cm TAPSE: 1.8 cm RA A4 area: 21.0 cm2 Time Measurements MV dec time: 0.16 sec Doppler Measurements & Calculations MV E max tien: 107.5 cm/sec Lat Peak E' Tien: 11.1 cm/sec Med Peak E' Tien: 9.5 cm/sec MV A max tien: 25.7 cm/sec E/E' lat: 9.7 E/E' med: 11.4 MV E/A: 4.2 MV V2 max: 144.5 cm/sec MV P1/2t max tien: 145.1 cm/sec Ao V2 max: 187.0 cm/sec MV max P.4 mmHg MV P1/2t: 70.9 msec Ao max P.0 mmHg MV V2 mean: 61.4 cm/sec MV dec slope: 599.2 cm/sec2 Ao V2 mean: 126.1 cm/sec MV mean P.1 mmHg Ao mean P.4 mmHg MV V2 VTI: 41.1 cm MVA(P1/2t): 3.1 cm2 Ao V2 VTI: 45.4 cm AV (velocity ratio): 0.50 AI max tien: 413.9 cm/sec LV V1 max: 85.1 cm/sec MR max tien: 418.7 cm/sec AI max P.5 mmHg LV V1 max P.9 mmHg MR max P.1 mmHg AI dec slope: 217.2 cm/sec2 LV V1 mean P.9 mmHg AI P1/2t: 558.1 msec LV V1 mean: 65.2 cm/sec LV V1 VTI: 22.7 cm TR max tien: 286.6 cm/sec TR max P.9 mmHg ECHO/Echo Complete W/ Contrast Interpretation Summary The left ventricular ejection fraction is 25 %. Normal LV size. ICD or pacer leads identified within the right ventricle. Normal systolic function. Stage 3 diastolic dysfunction. Contrast injection was performed. Ordering Physician: Forrest Villafana Referring Physician: Forrest Villafana Performed By: Ephraim Merchant RCS
== END | disposition home or self-care (01) ==
LOC: CVS 12:38
PROVIDERS: PCP Student in an Organized Health Care Education/Training Program; Referring Provider Internal Medicine Cardiovascular Disease; Visit Provider Internal Medicine Cardiovascular Disease
DX: I25.5 Ischemic cardiomyopathy (principal)
CPT/HCPCS: 93306; Q9957; A4216; C8929

== ENCOUNTER → 2024-10-29 | Outpatient (CLI) | payer MEDICARE, OTHER, SELFPAY ==
[2017-04-20 13:36] VITALS: BMI 30.1
--- NOTE | 2024-10-29 07:48 | ECHOLC_ITS ---
Reason For Study Reason For Study: DILATED CMP Procedure This was a limited 2D transthoracic echocardiogram. The study was technically difficult. D/T suboptimal parasternal imaging windows. Contrast injection was performed. Exam performed in department. Left Ventricle Normal LV size. The left ventricular ejection fraction is 35 %. Apical wall motion abnormality may reflect pacemaker activation. Right Ventricle Normal RV size. ICD or pacer leads identified within the right ventricle. Normal systolic function. Atria Normal left atrium. The right atrium is mildly enlarged. Mitral Valve Normal mitral valve. Tricuspid Valve Normal tricuspid valve. Pulmonic Valve Normal pulmonic valve. Great Vessels Mild to moderately dilated aortic root. The pulmonary artery is normal size. Inferior vena cava collapse with respiration. Pericardium/Pleural No pericardial effusion. Medication 22 gauge I.V. with prn adaptor inserted into right arm. Diluted definity 4.5ml given slow IV push to enhance endocardial definition. MMode/2D Measurements & Calculations LVIDd: 5.5 cm IVSd: 0.92 cm asc Aorta Diam: 4.8 cm LVIDs: 3.9 cm LVPWd: 1.0 cm FS: 29.5 % LAV(MOD-bp): 70.7 ml LVAd ap4: 33.9 cm2 LVAd ap2: 29.2 cm2 LAV(MOD-bp) Indexed: 33.2 ml/m2 LVLd ap4: 9.0 cm LVLd ap2: 8.3 cm LAV(MOD-sp2): 73.6 ml EDV(MOD-sp4): 103.1 ml EDV(MOD-sp2): 82.5 ml LAV(MOD-sp4): 63.8 ml EDV(sp4-el): 108.5 ml EDV(sp2-el): 87.0 ml LVAs ap4: 27.8 cm2 LVAs ap2: 23.0 cm2 LVLs ap4: 8.8 cm LVLs ap2: 8.0 cm ESV(MOD-sp4): 71.2 ml ESV(MOD-sp2): 54.7 ml ESV(sp4-el): 74.1 ml ESV(sp2-el): 55.7 ml EF(MOD-sp4): 31.0 % EF(MOD-sp2): 33.8 % EF(sp4-el): 31.7 % SV(MOD-sp4): 31.9 ml SV(MOD-sp2): 27.9 ml SV(sp4-el): 34.4 ml SI(MOD-sp4): 15.0 ml/m2 SI(MOD-sp2): 13.1 ml/m2 LA A4 area: 21.6 cm2 LA dimension(2D): 4.6 cm RA A4 area: 20.7 cm2 TAPSE: 2.3 cm ECHO/Echo Limited w/Contrast Interpretation Summary Normal LV size. The left ventricular ejection fraction is 35 %. Mild to moderately dilated aortic root. Apical wall motion abnormality may reflect pacemaker activation. ICD or pacer leads identified within the right ventricle. Ordering Physician: Pippa Weston Referring Physician: Forrest Gomes Performed By: Merissa Meza, KALEB, RVT
== END | disposition home or self-care (01) ==
LOC: CVS 07:47
PROVIDERS: PCP Student in an Organized Health Care Education/Training Program; Referring Provider Nurse Practitioner Gerontology; Visit Provider Nurse Practitioner Gerontology
DX: I25.5 Ischemic cardiomyopathy (principal)
CPT/HCPCS: 93308; Q9957; A4216; C8924

== ENCOUNTER → 2025-02-09 | Outpatient (CLI) | payer MEDICARE, OTHER, SELFPAY ==
[2017-04-20 13:36] VITALS: BMI 30.1
[2025-02-09] VITALS (7 sets, daily range): BP systolic 137–154; BP diastolic 62–78; PULSE 49–65; RESP 16; O2SAT 93–96
--- NOTE | 2025-02-09 12:02 | MRI_ITS ---
PROCEDURE: SPINE CERVICAL (ROUTINE) 02/09/2025 REASON FOR EXAM: CARPAL TUNNEL SYNDROME, RIGHT AND LEFT UPPER LIMB TECHNIQUE: Procedure Code: MRISPC Modality: MR Procedure: SPINE CERVICAL (ROUTINE) Multiplanar and multisequence images were obtained without IV contrast administration. COMPARISON: None FINDINGS: Vertebrae: Cervical vertebral body heights are preserved. Bone marrow signal is unremarkable. Alignment: Normal. No spondylolisthesis. Spinal Cord: Cervical spinal cord is of normal size and signal intensities. Structures at the foramen magnum are unremarkable. C1-C2: Predental space is normal. There is some synovial hypertrophy that is mild. Foramen magnum is clear and there is no stenosis at that level. C2-3: Prxj-aq-[id number] facet hypertrophy on the right. Minimal facet hypertrophy on the left. Borderline narrowing right exit foramen from facet disease. No central stenosis. C3-4: Minimal, diffuse disc bulge and uncinate spurring. Central stenosis to 8.6 mm AP. Scant CSF is seen around the cord. No abnormal cord signal. Minimal facet hypertrophy. Bilateral mild exit foraminal narrowing mainly from uncinate spur and disc disease.. C4-5: Minimal, diffuse disc bulge, marginal endplate spurring and uncinate spurring. Severe facet hypertrophy. Marked central stenosis to 6.7 mm AP with the effacement of the surrounding CSF and some mild flattening of the cord. There is no abnormal cord signal. Bilateral exit foramina are narrowed from disc osteophyte, uncinate spur and facet disease. C5-6: Lqqb-fk-xwminrfm loss of disc height. Mild, diffuse disc protrusion and uncinate spurring. Moderate right facet hypertrophy and mild left facet hypertrophy. Borderline central stenosis to 10 mm AP. CSF is seen around the cord. No abnormal cord signal. [id number]-wyqhkax-[id number]-left exit foraminal narrowing. Right side is largely from an uncinate spur and facet hypertrophy. C6-7: Minimal, diffuse disc bulge. Borderline central stenosis, but there is CSF around the cord. No abnormal cord signal. Foramina are borderline narrowed but likely clear. C7-T1: Normal MRI/Spine Cervical (Routine) IMPRESSION: 1. Multilevel degenerative disc disease, uncinate spurring and facet hypertrop hy with central stenosis and exit foraminal narrowing outlined above Reading Location: [id number]
--- NOTE | 2025-02-09 12:02 | MRI_ITS ---
PROCEDURE: SPINE LUMBAR (ROUTINE) 02/09/2025 REASON FOR EXAM: LUMBAR STENOSIS TECHNIQUE: Procedure Code: MRISPL Modality: MR Procedure: SPINE LUMBAR (ROUTINE) COMPARISON: None FINDINGS: Vertebrae: No fracture seen. Minimal bone marrow edema superior endplate of L4. patient has undergone laminectomy at L3 and L4. Alignment: Lumbar lordosis is preserved. Conus Medullaris: Terminates at T12/L1. Normal signal. T12-L1: Normal L1-2: Mild disc desiccation. No central stenosis or exit foraminal narrowing. L2-3: Mild disc desiccation. Mild, diffuse disc bulge is present that is very slightly asymmetric to the left of the level of the foramen and extraforaminal. Mild thickening of ligamentum flavum. Mild facet hypertrophy. No central stenosis. Borderline narrowing of the exit foramina but there is a small amount of fat around the nerve roots. Correlate with L2 radiculopathy. L3-4: Mild disc desiccation. Laminectomy. [id number]-fo-vzmplsmv, diffuse disc bulge. Minimal facet hypertrophy with facet joint effusions. Central canal is widely patent but there is significant exit foraminal narrowing from disc and facet bilaterally. Correlate with bilateral L3 radiculopathy. L4-5: Mild disc desiccation. Laminectomy. Moderate, diffuse disc bulge. Severe right facet hypertrophy. Moderate left facet hypertrophy. There is encroachment of the central canal from disc and facet disease. This contacts the traversing L5 nerve roots in the sub foraminal zone. Also there is exit foraminal narrowing, vufhq-jkyxyvn-rprn-left from disc and facet disease. Correlate with L4 and L5 radiculopathy. L5-S1: Minimal disc desiccation. Mild, diffuse disc bulge. Minimal facet hypertrophy. The exiting nerve roots contact the facets posteriorly and possibly the bulging disc anteroinferiorly. Correlate with L5 radiculopathy. Sacrum: Bone demineralization. No fracture seen, but imaging is limiting MRI/Spine Lumbar (Routine) IMPRESSION: 1. Lower lumbar postsurgical change with laminectomy at L3 and L4 2. Multilevel degenerative disc disease with multiple sites of exit foraminal narrowing outlined above. Reading Location: [id number]
== END | disposition home or self-care (01) ==
LOC: MRI 11:56
PROVIDERS: PCP Student in an Organized Health Care Education/Training Program; Referring Provider Orthopaedic Surgery; Visit Provider Orthopaedic Surgery
DX: M48.061 Spinal stenosis, lumbar region without neurogenic claudication (principal); G56.03 Carpal tunnel syndrome, bilateral upper limbs
CPT/HCPCS: 72141; 72148

== ENCOUNTER → 2025-02-18 | Outpatient (CLI) | payer MEDICARE, OTHER, SELFPAY ==
[2017-04-20 13:36] VITALS: BMI 30.1
--- OUTSIDE RECORDS SUMMARY | 2025-02-18 06:56 | XMS RPT_ITS | CCD ---
Author Organization [facility] Care Team Providers [facility] Consultant Name Role Phone JOSE ETIENNE DO Primary Care Physician [phone] Dr. Jose Etienne Primary Care Provider [phone] Dr. Jose Etienne Referring Provider [phone] Monica Guevara Attending Provider Unavailable Dr. Jose Etienne Primary Care Provider [phone] Dr. Jose Etienne Referring Provider [phone] Monica Guevara Attending Provider Unavailable Dr. Chapis Courtney Attending Provider Enrico ADAMSON, SPEECH AND LANGUAGE ASSISTANT-C Pippa Attending Provider HALKO DO, JOSE Primary Care Unavailable HALKO DO, JOSE Attending Unavailable HALKO DO, JOSE Primary Care Unavailable HALKO DO, JOSE Attending Unavailable HALKO DO, JOSE Attending Unavailable HALKO DO, JOSE Primary Care Unavailable HALKO DO, JOSE Attending Unavailable HALKO DO, JOSE Primary Care Unavailable HALKO DO, JOSE Attending Unavailable HALKO DO, JOSE Primary Care Unavailable HALKO DO, JOSE Primary Care Unavailable LISETH BELTRAN Attending Normani lisale HALKO DO, JOSE Attending Unavailable HALKO DO, JOSE Primary Care Unavailable KERRI DAVIDSON MD Attending Unavailable HALKO DO, JOSE Primary Care Unavailable HALKO DO, JOSE Primary Care Unavailable MIGDALIA LAL Attending Unavailable MALACHI REDMOND PA-C Unavailabl e HALKO DO, JOSE Primary Care Unavailable MIGDALIA LAL Attending Unavailable Dr. Jose Etienne DO Primary Care Provider Dr. Jose Etienne DO Referring Provider Monica Geuvara Attending Provider Unavailable Enrico ADAMSON-C, Pippa Attending Provider Dr. Jose Villafana MD Attending Provider Broderick ALVES, Dr. Clayton Referring Provider Loretta ALVES, Dr. Cheema Attending Provider Jaimie LEE, Dr. Clayton Primary Care Provider Loretta ALVES, Dr. Cheema Attending Provider Dr. Deni Burgos MD Referring Provider Jaimie LEE, Dr. Clayton Referring Provider Jaimie LEE, Jose Primary Care Provider [phone] Italo RN, Meagan Unavailable Unavailable Loretta ALVES, Dr. Cheema Referring Provider Enrico SPEECH AND LANGUAGE ASSISTANT-C, Pippa Referring Provider [phone] Layla DUVALL, Romelia Unavailable NONE, NONE Unavailable Unavailable Jaimie LEE Zana Unavailable Brody ALVES, Shanel Hinton Unavailable [phone] Wilder ROBERTSONN-FOREST FIRE SPECIALIST SUPERVISOR, Louise Unavailable [phone] Monica Guevara Attending Provider Unavailable Dr. Jose Etienne DO Primary Care Physician [phone] Dr. Deni Burgos MD Attending Physician Enrico ADAMSON-Florin, Pippa Attending Physician Dr. Jose Villafana MD Attending Physician [phone] Monica Guevara Attending Physician Unavailable SHANEL CHANDLER Attending Unavailable HALKO, JOSE Primary Care Unavailable SHANEL CHANDLER Admitting Unavailable SHANEL CHANDLER Attending Unavailable HALKO, JOSE Primary Care Unavailable Halko, Jose Primary Care Unavailable Loretta, [place] Attending Unavailable Loretta, [place] Referring Unavailable Halko, Jose Primary Care Unavailable Enrico SPEECH AND LANGUAGE ASSISTANT, Pippa Attending Unavailable Halko, Jose Referring Unavailable Loretta, Deni Attending Unavailable Loretta, Deni Referring Unavailable Halko, Jose Primary Care Unavailable Loretta, [place] Attending Unavailable Halko, Jose Primary Care Unavailable Loretta, [place] Attending Unavailable Halko, Jose Primary Care Unavailable Enrico SPEECH AND LANGUAGE ASSISTANT, Pippa Attending Unavailable Enrico SPEECH AND LANGUAGE ASSISTANT, Pippa Referring Unavailable Halko, Jose Primary Care Unavailable Villafana, Jose Attending Unavailable Villafana, Jose Referring Unavailable Halko, Jose Primary Care Unavailable Enrico ADAMSON, Pippa Attending Unavailable Halko, Jose Primary Care Unavailable Loretta, Deni Attending Unavailable Halko, Jose Primary Care Unavailable Villafana, Jose Attending Unavailable Halko, Jose Primary Care Unavailable Halko, Jose Referring Unavailable Loretta, Deni Attending Unavailable Loretta, Deni Referring Unavailable Halko, Jose Primary Care Unavailable Loretta, Deni Attending Unavailable Halko, Jose Primary Care Unavailable Enrico SPEECH AND LANGUAGE ASSISTANT, Pippa Attending Unavailable Halko, Jose Referring Unavailable Halko, Jose Primary Care Unavailable Loretta, [place] Attending Unavailable Loretta, Deni Referring Unavailable Halko, Jose Primary Care Unavailable Caleb Tran DO Unavailable [phone] Yen Phillips Unavailable Allergies Allergy Classification Reported Allergen(s) Allergy Type Date of Onset Reaction(s) Facility (18 sources) ceFAZolin; Translations: [cefazolin] Drug Allergy 10-03-19 Unknown [facility] (20 sources) Lisinopril; Translations: [lisinopril] Drug Allergy 02-10-20 Unknown (qualifier value) [facility] (20 sources) rosuvastatin; Translations: [rosuvastatin] Drug Allergy 07-15-19 Liver damage (disorder) [facility] (9 sources) ceFAZolin; Translations: [cefazolin sodium] Drug Allergy 02-10-20 Unknown [facility] (9 sources) rosuvastatin; Translations: [rosuvastatin calcium] Drug Allergy 02-10-20 Unknown [facility] (3 sources) Lisinopril Propensity to adverse reactions 10-03-19 [facility] (3 sources) Sulfasalazine Propensity to adverse reactions 10-03-19 [facility] (6 sources) ceFAZolin Drug Allergy 07-15-19 [facility] (6 sources) Lisinopril Drug Allergy 07-15-19 [facility] (1 source) Lisinopril Drug Allergy 08-12-19 [facility] Repository Medications Current Medications Medication Drug Class(es) Dates Sig (Normalized) Sig (Original) alendronic acid 10 mg oral tablet (20 sources) Bisphosphonate Start: 07-28-2021 End: 07-15-2024 take 1 tablet by mouth once daily alendronate (Fos amax) 10 MG tablet every other day. Active aspirin 81 mg delayed release oral tablet (20 sources) Platelet Aggregation Inhibitor, Nonsteroidal Anti-inflammatory Drug Start: 11-07-2018 aspirin 81 mg ora l delayed release tablet Dose : 81 mg = 1 tab(s), Oral, qDay, 0 Refill(s) Start Date: 11/07/18 Status: Ordered Repeat number: 1 Start: 11-07-2018 aspirin 81 mg oral delayed release tablet Dose : 81 mg = 1 tab(s), Oral, qDay, 0 Refill(s) Start Date: 11/07/18 Status: Ordered Start: 04-21-2017 End: 10-24-2017 take 1 tablet by mouth once daily Aspirin 81 MG tablet Discontinued 81 mg PO DAILY@0800 0 April 21, 2017 1:00am October 24, 2017 9:47am Start: 04-27-2014 End: 07-24-2024 take 1 tablet by mouth once daily Aspirin 81 MG tablet,chewable Discontinued 81 mg PO DAILY@0800 April 27, 2014 1:00am July 24, 2024 10:28am heart benzonatate 100 mg oral capsule (1 source) Non-narcotic Antitussive Start: 06-30-2024 End: 07-10-2024 benzonatate 100 mg oral capsule Dose : 100 mg = 1 cap(s), Oral, TID, PRN as needed for cough, X 10 day(s), # 30 cap(s), 0 Refill(s), 07/10/24 2:30:00 PM EDT, Pharmacy: [facility]/pharmacy #[id number], Cough, 179.1, cm, 06/16/24 6:23:00 EDT, Height, kg, 06/16/24 6:23:00 EDT, Dosing Weight Start Date: 06/30/24 Stop Date: 07/10/24 Status: Ordered Quantity: 30.0 Unit: cap(s) Repeat number: 1 Indications: Cough, unspecified; ciprofloxacin 500 mg oral tablet (1 source) Quinolone Antimicrobial Start: 12-26-2023 End: 01-02-2024 Cipro 500 mg oral tablet Dose : 500 mg = 1 tab(s), Oral, q12h, X 7 day(s), # 14 tab(s), 0 Refill(s), 01/02/24 3:23:00 PM EDT, Pharmacy: [facility]/pharmacy #[id number], Acute cystitis with hematuria, 180, cm, 12/26/23 14:33:00 EDT, Height, 94.6, kg, 12/26/23 14:33:00 EDT, Dosing Weight Start Date: 12/26/23 Stop Date: 01/02/24 Status: Ordered clopidogrel 75 mg oral tablet (20 sources) [id number] Platelet Inhibitor Start: 12-06-2022 End: 01-01-2024 take 1 tablet by mouth once daily Start: 04-27-2014 End: 04-21-2017 take 1 tablet by mouth once daily Clopidogrel 75 MG tablet Discontinued 75 mg PO DAILY April 27, 2014 1:00am April 21, 2017 10:31am cholesterol [facility] (14 sources) Start: 03-27-2023 DME [facility] See Instructions, dx G56.00; dispense one right cock-up wrist brace sized to fit patient, # 1 EA, 0 Refill(s), 99.9 Start Date: 03/27/23 Status: Ordered Quantity: 1.0 Unit: EA Repeat number: 1 Start: 03-27-2023 DME [facility] ous See Instructions, dx G56.00; dispense one left cock-up wrist brace sized to fit patient, # 1 EA, 0 Refill(s), 99.9 Start Date: 03/27/23 Status: Ordered Quantity: 1.0 Unit: EA Repeat number: 1 Start: 03-27-2023 DME [facility]ISCellane ous See Instructions, dx G56.00; dispense one right cock-up wrist brace sized to fit patient, # 1 EA, 0 Refill(s), 99.9 Start Date: 03/27/23 Status: Ordered Start: 03-27-2023 DME [facility]IS[facility]ane ous See Instructions, dx G56.00; dispense one left cock-up wrist brace sized to fit patient, # 1 EA, 0 Refill(s), 99.9 Start Date: 03/27/23 Status: Ordered docusate sodium 100 mg oral capsule (2 sources) Start: 10-11-2024 End: 11-10-2024 docusate sodium (Colace) 100 MG capsule Take 1 capsule (100 mg) by mouth 2 times daily. Take by mouth twice daily 60 capsule 10/11/2024 11/10/2024 Active doxycycline hyclate 100 mg oral tablet (2 sources) Tetracycline-clas s Drug Start: 06-30-2024 End: 07-07-2024 doxycycline hyclate 100 mg oral tablet Dose : 100 mg = 1 tab(s), Oral, BID, X 7 day(s), # 14 tab(s), 0 Refill(s), 07/07/24 2:35:00 PM EDT, Pharmacy: [facility]/pharmacy #[id number], Acute sinus infection, 179.1, cm, 06/16/24 6:23:00 EDT, Height, 93.6, kg, 06/16/24 6:23:00 EDT, Dosing Weight Start Date: 06/30/24 Stop Date: 07/07/24 Status: Ordered Quantity: 14.0 Unit: tab(s) Repeat number: 1 Indications: Acute sinusitis, unspecified; Start: 08-22-2022 End: 09-05-2022 doxycycline hyclate 100 mg o ral capsule Dose : 100 mg = 1 cap(s), Oral, BID, X 14 day(s), # 28 cap(s), 0 Refill(s), 09/05/22 8:37:00 EDT, [facility]: [facility][id number], 180.3, cm, 08/22/22 8:19:00 EDT, Height, 96.2 Start Date: 08/22/22 Stop Date: 09/05/22 Status: Ordered empagliflozin 10 mg oral tablet (15 sources) Sodium-Glucose Cotransporter 2 Inhibitor Start: 07-24-2024 take 1 tablet by mouth once daily in the morning Start: 07-24-2024 End: 07-24-2024 take 1 tablet by mouth once daily in the morning Empagliflozin (Jardiance) 25 mg tablet Discontinued 25 mg PO EVERY MORNING 30 July 24, 2024 12:00am July 24, 2024 5:31pm furosemide 40 mg oral tablet (20 sources) Loop Diuretic Start: 08-11-2024 End: 10-11-2024 take 1 tablet by mouth once daily Start: 07-31-2024 End: 08-11-2024 take 2 tablets by mouth once daily Furosemide 20 mg tablet Discontinued 40 mg PO DAILY July 31, 2024 12:54pm August 11, 2024 8:43am Start: 04-27-2014 End: 08-11-2024 take 1 tablet by mouth once daily Furosemide 20 mg tablet Discontinued 40 mg PO DAILY 90 July 31, 2024 12:54pm August 11, 2024 8:43am water pill Multivitamin preparation (14 sources) Start: 11-07-2018 take 1 tablet by mouth once daily Multivitamin Dose = 1 tab(s), Oral, Daily, 0 Refill(s) Start Date: 11/07/18 Status: Ordered Repeat number: 1 Start: 11-07-2018 take 1 tablet by deb once daily Multivitamin Dose = 1 tab(s), Oral, Daily, 0 Refill(s) Start Date: 11/07/18 Status: Ordered oxyCODONE hydrochloride 5 mg oral tablet (8 sources) Opioid Agonist Start: 10-11-2024 End: 10-16-2024 take 2 tablets by mouth every six hours as needed for pain and pain, then take 1 tablet by mouth every six hours as needed for pain and pain oxyCODONE (Roxicodone) 5 MG immediate release tablet Indications: Encounter for postoperative care Take 2 tablets (10 mg) by mouth every 6 hours as needed for severe pain (7-10) for up to 5 days. Take one pill as needed for pain every six hours 40 tablet 10/11/2024 10/16/2024 Active Start: 10-11-2024 End: 10-11-2024 take 1 tablet by mouth every six hours as needed for pain and pain, then take 1 tablet by mouth every six hours as needed for pain and pain oxyCODONE (Roxicodone) 5 MG immediate release tablet Indications: Encounter for postoperative care Take 1 tablet (5 mg) by mouth every 6 hours as needed for severe pain (7-10) for up to 5 days. Take one pill as needed for pain every six hours 20 tablet 10/11/2024 10/11/2024 Discontinued Start: 10-10-2024 End: 10-11-2024 take 1 tablet by mouth every four hours as needed for pain 10 mg, Oral, Every 4 hours PRN, moderate pain (4-6), Starting on Sun10/10/24 at 1006, Phase II/On Unit tamsulosin hydrochloride 0.4 mg oral capsule (20 sources) alpha-Adrenergic Joselo Start: 12-06-2022 End: 10-11-2024 take 1 capsule by mouth once daily TART RON PO (3 sources) TART RON PO every evening. Active Completed/Discontinued Medications Medication Drug Class(es) Dates Sig (Normalized) Sig (Original) acetaminophen 500 mg oral tablet (6 sources) Start: 10-10-2024 End: 10-11-2024 1,000 mg, Oral, 3 times daily, First dose (after last modification) on Sun10/10/24 at 1400, Phase II/On Unit, Maximum dose of acetaminophen is 4000 mg from all sources in 24 hours. Start: 10-09-2024 End: 10-10-2024 take 1 dose by mouth four times daily, then take 4000 mg by mouth every twenty-four hours 650 mg, Oral, Every 6 hours scheduled (4 times per day), First dose on Sun10/09/24 at 1200, Phase II/On Unit, Maximum dose of acetaminophen is 4000 mg from all sources in 24 hours. Start: 10-09-2024 End: 10-09-2024 take 1000 mg by mouth once, then take 4000 mg by mouth every twenty-four hours 1,000 mg, Oral, Once, On Sun10/09/24 at 0600, For 1 dose, Preprocedure, Maximum dose of acetaminophen is 4000 mg from all sources in 24 hours. Do not administer if patient has taken tylenol Start: 10-09-2024 End: 10-09-2024 take 1000 mg by mouth once, then take 4000 mg by mouth every twenty-four hours 1,000 mg, Oral, Once, On Sun10/09/24 at 0600, For 1 dose, Preprocedure, Maximum dose of acetaminophen is 4000 mg from all sources in 24 hours. Do not administer if patient has taken tylenol acetaminophen 325 mg / HYDROcodone bitartrate 5 mg oral tablet (20 sources) Opioid Agonist Start: 04-22-2024 End: 05-22-2024 take 1 tablet by mouth every six hours Wells 325- 5 mg oral tablet Dose = 1 tab(s), Oral, q6hr, oarrs appropriate; to be filled on or after 04/20/2024, # 120 tab(s), 0 Refill(s), [id number], Generalized osteoarthritis Chronic pain, 180, cm, 04/22/24 7:56:00 EST, Height, 94.4, kg, 04/22/24 7:56:00 EST, Dosing Weight Start Date: 04/22/24 Stop Date: 05/22/24 Status: Ordered Quantity: 120.0 Unit: tab(s) Repeat number: 1 Indications: Polyosteoarthritis, unspecified; Other chronic pain; Start: 12-25-2023 End: 02-16-2024 take 1 tablet by mouth every six hours Wells 325- 5 mg oral tablet Dose = 1 tab(s), Oral, q6hr, oarrs appropriate; to be filled on or after 01/24/2024, # 120 tab(s), 0 Refill(s), [id number], Generalized osteoarthritis Chronic pain, 180, cm, 01/17/24 9:05:00 EST, Height, 94.1, kg, 01/17/24 9:00:00 EST, Dosing Weight Start Date: 01/17/24 Stop Date: 02/16/24 Status: Ordered Start: 08-28-2023 End: 09-27-2023 take 1 tablet by mouth every six hours Wells 325- 5 mg oral tablet Dose = 1 tab(s), Oral, q6hr, oarrs appropriate; to be filled on or after 08/28/2023, # 120 tab(s), 0 Refill(s), [id number], Generalized osteoarthritis Chronic pain, 179.2, cm, 08/28/23 8:59:00 EDT, Height, 97.9, kg, 08/28/23 8:59:00 EDT, Dosing Weight Start Date: 08/28/23 Stop Date: 09/27/23 Status: Ordered Start: 02-22-2021 End: 06-21-2023 take 1 tablet by mouth every six hours Wells 325- 5 mg oral tablet Dose = 1 tab(s), Oral, q6hr, oarrs appropriate; to be filled on or after 05/28/2023, # 120 tab(s), 0 Refill(s), [facility]acy: [facility] #[id number], Generalized osteoarthritis Chronic pain, 180, cm, 05/22/23 8:41:00 EDT, Height, 101.2, kg, 05/22/23 8:41:00 EDT, Dosing Weight Start Date: 05/22/23 Stop Date: 06/21/23 Status: Ordered Start: 02-22-2021 take 1 tablet by deb th every six hours Hydrocodone-Acetaminophen Active 1 TABLET PO EVERY 6 HOURS 120 February 22, 2021 3:45pm Start: 12-27-2020 End: 01-26-2021 take 1 tablet by mouth every six hours Wells 325- 5 mg oral tablet Dose = 1 tab(s), Oral, q6hr, oarrs appropriate; to be filled on or after 01/05/2021, # 120 tab(s), 0 Refill(s), [facility]acy: [id number] [facility] [place], Chronic pain Generalized osteoarthritis, 180.5, cm, 12/27/20 8:51:00 EDT, Height, 99.4, kg, 12/27/20 8... Start Date: 12/27/20 Stop Date: 01/26/21 Status: Ordered Start: 04-13-2017 End: 02-22-2021 Hydrocodone-Acetaminophen 5- 325 mg tablet Discontinued 1 NMA PO EVERY 8 HOURS NEEDED as needed for Pain 120 30 0 April 13, 2017 1:00am February 22, 2021 3:47pm Start: 04-13-2017 End: 02-22-2021 take 1 capsule by mouth every eight hours as needed Hydrocodone-Acetaminophen Discontinued 1 CAP PO EVERY 8 HOURS NEEDED 120 30 April 13, 2017 1:00am February 22, 2021 3:47pm Start: 04-27-2014 End: 04-13-2017 Hydrocodone-Acetaminophen 1 EACH tablet Discontinued 1 {tbl} PO EVERY 4 HOURS NEEDED as needed for Pain April 27, 2014 1:00am April 13, 2017 4:51pm Start: 04-27-2014 End: 04-13-2017 take 1 tablet by mouth every four hours as needed Hydrocodone-Acetaminophen Discontinued 1 TABLET PO EVERY 4 HOURS NEEDED April 27, 2014 1:00am April 13, 2017 4:51pm take 1 tablet by deb th every four to six hours as needed for pain hydrocodone 5 mg-acetaminophen 325 mg tablet 1 tablet by mouth every four to six hours as needed for pain active Meagan Phillips [facility] apixaban 5 mg oral tablet (11 sources) Factor Xa Inhibitor Start: 02-04-2021 End: 05-31-2021 take 1 tablet by mouth twice daily Apixaban (Eliquis) 5 mg tablet Discontinued 5 mg PO TWICE A DAY February 22, 2021 1:00am May 31, 2021 9:00am Start: 02-02-2021 End: 02-03-2021 Eliquis 5 mg oral tablet Dos e : 10 mg = 2 tab(s), Oral, BID, # 4 tab(s), 0 Refill(s), Pharmacy: [facility] [address], 182.9, cm, 01/16/21 21:37:00 EST, Height, 91.9, kg, 01/16/21 21:37:00 EST, Dosing Weight Start Date: 02/02/21 Stop Date: 02/03/21 Status: Ordered atorvastatin 80 mg oral tablet (20 sources) HMG-CoA Reductase Inhibitor Start: 04-13-2017 End: 10-24-2017 take 1 tablet by mouth once daily Atorvastatin 80 mg tablet Discontinued 80 mg PO daily 90 3 April 13, 2017 5:21pm October 24, 2017 9:48am Start: 04-13-2017 End: 04-13-2017 Atorvastatin 80 mg tablet Discontinued PO 30 30 0 April 13, 2017 1:00am April 13, 2017 5:24pm Start: 04-27-2014 End: 04-13-2017 take 1 tablet by mouth at bedtime Atorvastatin 40 MG tablet Discontinued 40 mg PO AT BEDTIME April 27, 2014 1:00am April 13, 2017 4:52pm calcium chloride 0.0014 meq/ml / potassium chloride 0.004 meq/ml / sodium chloride 0.103 meq/ml / sodium lactate 0.028 meq/ml injectable solution (2 sources) Start: 10-09-2024 End: 10-09-2024 take 50 mL intravenously every hour 50 mL/hr, IntraVENous, Continuous, Starting on Sun10/09/24 at 0600, Preprocedure, Upon admission to sameday - please start iv if patient does not have iv access. Use 500ml NS for patients on dialysis. ron allergenic extract (9 sources) Start: 02-21-2022 End: 03-23-2022 take 15 mL by mouth twice daily Ron Extract Ron Extract, 15 mL, Oral, BID, # 900 mL, 0 Refill(s), Pharmacy: [facility] #[id number], 180.3, cm, 02/21/22 7:54:00 EST, Height, 94.6 Start Date: 02/21/22 Stop Date: 03/23/22 Status: Ordered Quantity: 900.0 Unit: mL Repeat number: 1 Start: 02-21-2022 End: 03-23-2022 take 15 mL by mouth twice daily Ron Extract Ron Extract, 15 mL, Oral, BID, # 900 mL, 0 Refill(s), Pharmacy: [facility] #[id number], 180.3, cm, 02/21/22 7:54:00 EST, Height, 94.6 Start Date: 02/21/22 Stop Date: 03/23/22 Status: Ordered cholecalciferol 0.025 mg oral tablet (10 sources) Vitamin D Start: 10-10-2024 End: 10-11-2024 take 25 ug by mouth once daily in the evening 25 mcg, Oral, Every evening, First dose on Sun10/10/24 at 1800 Start: 03-17-2024 cholecalcifero l 125 mcg (5000 intl units) oral tablet Dose : 125 mcg = 1 tab(s), Oral, qDay, # 100 tab(s), 1 Refill(s), Pharmacy: [facility]/pharmacy #[id number], 180, cm, 03/17/24 13:22:00 EST, Height, kg, 03/17/24 13:22:00 EST, Dosing Weight Start Date: 03/17/24 Status: Ordered Quantity: 100.0 Unit: tab(s) Repeat number: 2 Start: 11-23-2023 cholecalcifero l 125 mcg (5000 intl units) oral tablet Dose : 125 mcg = 1 tab(s), Oral, qDay, # 100 tab(s), 1 Refill(s), Pharmacy: [facility]/pharmacy #[id number], 179.2, cm, 09/25/23 8:06:00 EDT, Height, kg, 09/25/23 8:08:00 EDT, Dosing Weight Start Date: 11/23/23 Status: Ordered Start: 07-26-2023 cholecalcifero l 50 mcg (2000 intl units) oral capsule Dose : 100 mcg = 2 cap(s), Oral, Daily, 0 Refill(s) Start Date: 07/26/23 Status: Ordered dapagliflozin 5 mg oral tablet (2 sources) Sodium-Glucose Cotransporter 2 Inhibitor Start: 10-10-2024 End: 10-11-2024 take 5 mg by mouth once daily 5 mg, Oral, Daily, First dose on Sun10/10/24 at 0900 ezetimibe 10 mg oral tablet (20 sources) Dietary Cholesterol Absorption Inhibitor Start: 05-26-2020 End: 10-11-2024 take 1 tablet by mouth once daily Ezetimibe (Zetia) 10 mg tablet Discontinued 10 mg PO DAILY 90 July 19, 2022 8:22am November 26, 2023 4:27pm gabapentin 300 mg oral capsule (4 sources) Anti-epileptic Agent Start: 06-03-2024 End: 07-03-2024 gabapentin 300 mg oral capsule Dose : 300 mg = 1 cap(s), Oral, TID, # 90 cap(s), 0 Refill(s), Pharmacy: [facility]/pharmacy #[id number], Lumbar radiculopathy Neck pain, 177, cm, 06/03/24 8:55:00 EDT, Height, 95.5, kg, 06/03/24 8:55:00 EDT, Dosing Weight Start Date: 06/03/24 Stop Date: 07/03/24 Status: Ordered Quantity: 90.0 Unit: cap(s) Repeat number: 1 Indications: Radiculopathy, lumbar region; Cervicalgia; HYDROmorphone (Dilaudid) injection 0.25 mg (2 sources) Start: 10-09-2024 End: 08-09-2025 take 0.25 mg intravenously every four hours as needed for pain HYDROmorphone (Dilaudid) injection 0.25 mg lidocaine 0.04 mg/mg medicated patch (2 sources) Antiarrhythmic, Amide Local Anesthetic Start: 10-09-2024 End: 10-11-2024 apply 1 dose topically once daily, then apply 1 dose topically every twelve hours 1 patch, Topical, Administer over 12 Hours, Daily, First dose on Sun10/09/24 at 1315, Apply patch to affected area. Patch may remain in place for up to 12 hours in any 24 hour period. losartan potassium 25 mg oral tablet (20 sources) Angiotensin 2 Receptor Joselo Start: 02-22-2021 End: 03-11-2021 Losartan 25 mg tablet Discontinued 12.5 mg PO DAILY February 22, 2021 1:00am March 11, 2021 4:11pm Start: 02-22-2021 End: 03-11-2021 take 12.5 mg by mouth once daily Losartan Discontinued 12.5 MG PO DAILY February 22, 2021 1:00am March 11, 2021 4:11pm Start: 02-02-2021 End: 10-11-2024 take 1 tablet by mouth once daily Losartan 25 mg tablet Discontinued 25 mg PO DAILY 90 December 19, 2022 12:42pm November 26, 2023 4:27pm methocarbamol 500 mg oral tablet (6 sources) Muscle Relaxant Start: 10-10-2024 End: 10-11-2024 take 1 dose by mouth three times daily 500 mg, Oral, Every 8 hours scheduled (3 times per day), First dose (after last modification) on Sun10/10/24 at 1400 Start: 10-09-2024 End: 10-10-2024 take 1 tablet by mouth every eight hours as needed 1,000 mg, Oral, Every 8 hours PRN, muscle spasms, Starting on Sun10/09/24 at 1307 Start: 10-09-2024 End: 10-09-2024 1,000 mg, IntraVENous, Admin ister over 5 Minutes, Once, On Sun10/09/24 at 1015, For 1 dose, Recovery (only), Maximum dose: 3 g/day for no more than 3 consecutive days 24 hr metoprolol succinate 100 mg extended release oral tablet (20 sources) beta-Adrenergic Joselo Start: 10-10-2024 End: 10-11-2024 take 100 mg by mouth once daily 100 mg, Oral, Daily, First dose on Sun10/10/24 at 0900, Do not crush or chew. Start: 02-11-2024 take 2 tablets by mo uth twice daily Start: 04-24-2023 End: 07-15-2024 metoprolol succinate 100 mg oral TABLET extended release Dose : 150 mg = 1.5 tab(s), Oral, qDay, # 135 tab(s), 1 Refill(s), Pharmacy: [facility]/pharmacy #[id number], 180, cm, 01/17/24 9:05:00 EST, Height, kg, 01/17/24 9:00:00 EST, Dosing Weight Start Date: 01/17/24 Stop Date: 07/15/24 Status: Ordered Quantity: 135.0 Unit: tab(s) Repeat number: 2 Start: 12-19-2022 End: 03-19-2023 metoprolol succinate 100 mg oral TABLET extended release Dose : 150 mg = 1.5 tab(s), Oral, qDay, # 135 tab(s), 0 Refill(s), Pharmacy: [facility] #[id number], 180, cm, 12/19/22 8:31:00 EDT, Height, kg, 12/19/22 8:31:00 EDT, Dosing Weight Start Date: 12/19/22 Stop Date: 03/19/23 Status: Ordered Start: 12-06-2022 End: 02-11-2024 take 1 tablet by mouth once daily Metoprolol Succinate 200 mg tablet extended release 24 hr Discontinued 200 mg PO DAILY 90 December 06, 2022 12:00am February 11, 2024 9:53am Start: 03-31-2021 End: 05-31-2021 take 1 tablet by mouth once daily Metoprolol Succinate 100 mg tablet extended release 24 hr Discontinued 0 .ROUTE .COMPLEX 90 March 31, 2021 7:24pm May 31, 2021 9:18am take 1 tablet by mouth once daily Start: 03-31-2021 End: 05-31-2021 take 1 tablet by mouth once daily Metoprolol Succinate 100 mg tablet extended release 24 hr Discontinued 0 .ROUTE .COMPLEX 90 March 31, 2021 7:24pm May 31, 2021 9:18am take 1 tablet by mouth once daily Start: 03-31-2021 End: 05-31-2021 take 1 tablet by mouth once daily Metoprolol Succinate Discontinued 0 .ROUTE .COMPLEX 90 March 31, 2021 7:24pm May 31, 2021 9:18am take 1 tablet by mouth once daily Start: 03-31-2021 End: 05-31-2021 take 1 tablet by mouth once daily Metoprolol Succinate Discontinued 0 .ROUTE .COMPLEX 90 March 31, 2021 6:24pm May 31, 2021 8:18am take 1 tablet by mouth once daily Start: 03-22-2021 End: 03-23-2021 Metoprolol Succinate 25 mg t ablet extended release 24 hr Discontinued 50 mg PO TWICE A DAY March 22, 2021 11:01am March 23, 2021 10:00am Start: 03-22-2021 End: 03-23-2021 take 50 mg by mouth twice daily Metoprolol Succinate Discontinued 50 MG PO TWICE A DAY March 22, 2021 11:01am March 23, 2021 10:00am Start: 03-22-2021 End: 12-12-2022 take 1 tablet by mouth once daily Metoprolol Succinate 100 mg tablet extended release 24 hr Discontinued 100 mg PO DAILY 90 March 31, 2022 1:37pm December 12, 2022 10:55am Start: 02-23-2021 Metoprolol Suc cinate ER 25 mg oral TABLET extended release Dose : 25 mg = 1 tab(s), Oral, BID, 0 Refill(s) Start Date: 02/23/21 Status: Ordered Start: 02-22-2021 End: 03-22-2021 take 1 tablet by mouth twice daily Metoprolol Succinate 25 mg tablet extended release 24 hr Discontinued 25 mg PO TWICE A DAY February 22, 2021 4:45pm March 22, 2021 11:01am Start: 02-22-2021 End: 02-22-2021 take 2 tablets by mouth twice daily Metoprolol Succinate 25 mg tablet extended release 24 hr Discontinued 12.5 mg PO TWICE A DAY February 22, 2021 1:00am February 22, 2021 4:46pm Start: 02-22-2021 End: 02-22-2021 take 12.5 mg by mouth twice daily Metoprolol Succinate Discontinued 12.5 MG PO TWICE A DAY February 22, 2021 1:00am February 22, 2021 4:46pm Start: 02-02-2021 take 1 tablet by deb th once daily Toprol-XL 25 mg oral tablet, extended release Dose : 12.5 mg = 0.5 tab(s), Oral, BIDM, please cancel initial 50mg daily dose. This is the correct dose, # 30 tab(s), 0 Refill(s), Pharmacy: [id number], 182.9, cm, 01/16/21 21:37:00 EST, Height, kg, 01/16/21 21:37:00 EST, Dosing Weight Start Date: 02/02/21 Status: Ordered Start: 11-07-2018 Metoprolol Suc cinate ER 100 mg oral tablet, extended release Dose : 100 mg = 1 tab(s), Oral, qDay, 0 Refill(s) Start Date: 11/07/18 Status: Ordered Start: 04-13-2017 End: 02-22-2021 take 1 tablet by mouth once daily Metoprolol Succinate 100 mg tablet extended release 24 hr Discontinued 0 .ROUTE .COMPLEX 90 4 May 27, 2020 8:47am February 22, 2021 3:45pm take 1 tablet by mouth once daily Start: 04-27-2014 End: 04-13-2017 take 1 tablet by mouth once daily Metoprolol Succinate 50 MG tablet Discontinued 50 mg PO DAILY April 27, 2014 1:00am April 13, 2017 5:24pm take 1 tablet by deb every twenty-four hours metoprolol succinate ER 100 mg tablet,extended release 24 hr 1 tablet by mouth as directed active Meagan Phillips LPN [facility] 1 ml morphine sulfate 4 mg/ml cartridge (2 sources) Opioid Agonist Start: 10-09-2024 End: 10-09-2024 1 mg, IntraVENous, Once, On Elizabeth 10/09/24 at 1015, For 1 dose, Recovery (only), Protect from light. Discard any unusued portion. Do not use if color is darker than pale yellow or contains a precipate. Multivitamin With Folic Acid (2 sources) Start: 04-27-2014 End: 07-12-2020 take 1 tablet by mouth once daily Multivitamin With Folic Acid Discontinued 1 TABLET PO DAILY April 27, 2014 1:00am July 12, 2020 11:07am Start: 04-27-2014 End: 07-12-2020 take 1 tablet by mouth once daily Multivitamin With Folic Acid Discontinued 1 TABLET PO DAILY April 27, 2014 12:00am July 12, 2020 10:07am Multivitamin With Folic Acid 1 TABLET tablet (6 sources) Start: 04-27-2014 End: 07-12-2020 take 1 tablet by mouth once daily Multivitamin With Folic Acid 1 TABLET tablet Discontinued 1 {tbl} PO DAILY April 27, 2014 1:00am July 12, 2020 11:07am 1 ml naloxone hydrochloride 0.4 mg/ml injection (2 sources) Opioid Antagonist Start: 10-09-2024 End: 10-11-2024 0.4 mg, IntraVENous, Every 5 min PRN, opioid reversal, respiratory depression, Starting on Sun10/09/24 at 1147, +++ For RR nitroglycerin 0.4 mg sublingual tablet (20 sources) Nitrate Vasodilator Start: 04-27-2014 End: 07-12-2020 Nitroglycerin 0.4 mg tablet, sublingual Discontinued 0.4 mg SL Q5M as needed for Chest Pain 27 05June 09, 2019 9:06am July 12, 2020 11:07am Start: 04-27-2014 End: 07-12-2020 Nitroglycerin Discontinued 0 .4 MG SL Q5M June 09, 2019 9:06am July 12, 2020 11:07am ondansetron ODT (Zofran-ODT) disintegrating tablet 4 mg (2 sources) Start: 10-09-2024 End: 10-11-2024 take 1 tablet by mouth every eight hours as needed for nausea and vomiting ondansetron ODT (Zofran-ODT) disintegrating tablet 4 mg polyethylene glycol [id number] [id number] mg powder for oral solution (2 sources) Osmotic Laxative Start: 10-09-2024 End: 10-11-2024 take 17 g by mouth every twenty-four hours as needed for constipation 17 g, Oral, Daily PRN, constipation, Starting on Sun10/09/24 at 1131, Phase II/On Unit, 1st line for treatment of constipation - give scheduled if no bowel movement in past 24 hours. pravastatin sodium 40 mg oral tablet (20 sources) HMG-CoA Reductase Inhibitor Start: 10-09-2024 End: 10-11-2024 take 80 mg by mouth once daily in the evening 80 mg, Oral, Every evening, First dose on Sun10/09/24 at 2100 Start: 03-07-2019 End: 09-03-2024 take 1 tablet by mouth once daily Pravastatin 80 mg tablet Discontinued 80 mg PO DAILY 90 September 01, 2024 12:01pm September 03, 2024 11:06am Start: 11-21-2018 End: 03-13-2019 take 2 tablets by mouth once daily Pravastatin 40 mg tablet Discontinued 80 mg PO DAILY 30 November 21, 2018 5:10pm March 13, 2019 4:31pm Start: 11-21-2018 End: 03-13-2019 take 80 mg by mouth once daily Pravastatin Discontinue d 80 MG PO DAILY November 21, 2018 5:10pm March 13, 2019 4:31pm Start: 09-11-2018 End: 11-21-2018 take 1 tablet by mouth once daily Pravastatin 40 mg tablet Discontinued 40 mg PO DAILY 30 September 11, 2018 11:52am November 21, 2018 5:11pm Start: 10-29-2017 End: 09-11-2018 take 1 tablet by mouth once daily Pravastatin 20 mg tablet Discontinued 20 mg PO DAILY 30 October 29, 2017 12:00am September 11, 2018 11:52am predniSONE 1 mg oral tablet (20 sources) Start: 10-10-2024 End: 10-11-2024 take 2 mg by mouth once daily 2 mg, Oral, Daily, First dose on Sun10/10/24 at 0900 Start: 07-24-2024 take 3 mg by mouth once daily Start: 04-22-2024 End: 06-21-2024 take 1 tablet by mouth once daily predniSONE 1 mg oral tablet Dose : 3 mg = 3 tab(s), Oral, qDay, on taper, take 6 mg daily prednisone for 2 weeks, then decrease to 5 mg daily for 2 weeks, then 4 mg daily for 2 weeks, then 3 mg daily, # 90 tab(s), 1 Refill(s), Pharmacy: [facility]/pharmacy #[id number], 180, cm, 04/22/24 7:56:00 EST, Height, kg, 04/22/24 7:56:00 EST, Dosing Weight Start Date: 04/22/24 Stop Date: 06/21/24 Status: Ordered Quantity: 90.0 Unit: tab(s) Repeat number: 2 Start: 02-11-2024 End: 07-24-2024 take 1 tablet by mouth once daily Prednisone 20 mg tablet Discontinued 20 mg PO daily February 11, 2024 1:00am July 24, 2024 10:10am take for 2 weeks Start: 01-17-2024 take 3 tablets by mo uth once daily, then take 2 tablets by mouth once daily, then take 1 tablet by mouth once daily predniSONE 20 mg oral tablet See Instructions, start 3 tabs daily x7 days, then 2 tabs daily x14 days, then 1 tab daily, # 70 tab(s), 0 Refill(s), [id number] 180, cm, 01/17/24 9:05:00 EST, Height, kg, 01/17/24 9:00:00 EST, Dosing Weight Start Date: 01/17/24 Status: Ordered Start: 01-24-2022 End: 01-29-2022 predniSONE 50 mg oral tablet Dose : 50 mg = 1 tab(s), Oral, qDayM, X 5 day(s), # 5 tab(s), 0 Refill(s), 01/29/22 10:57:00 EST, Pharmacy: [id number] #[id number], 180.3, cm, 01/24/22 10:30:00 EST, Height Start Date: 01/24/22 Stop Date: 01/29/22 Status: Ordered Start: 01-14-2021 End: 01-19-2021 predniSONE 20 mg oral tablet Dose : 40 mg = 2 tab(s), Oral, qDayM, X 5 day(s), # 10 tab(s), 0 Refill(s), 01/19/21 18:25:00 EST, Pharmacy: [facility] 180.5, cm, 01/03/21 9:41:00 EDT, Height, kg, 01/03/21 9:41:00 EDT, Dosing Weight Start Date: 01/14/21 Stop Date: 01/19/21 Status: Ordered Start: 04-27-2014 End: 07-24-2024 take 1 tablet by mouth once daily Prednisone 5 MG tablet Discontinued 5 mg PO DAILY April 27, 2014 1:00am July 24, 2024 10:11am arthritis take 2 tablets by mo uth once daily predniSONE (Deltasone) 1 MG tablet Take 2 mg by mouth daily. Active spironolactone 25 mg oral tablet (16 sources) Aldosterone Antagonist Start: 10-10-2024 End: 10-11-2024 take 12.5 mg by mouth once daily in the evening 12.5 mg, Oral, Every evening, First dose on Sun10/10/24 at 1800 Start: 07-24-2024 Start: 07-24-2024 End: 08-11-2024 take 1 tablet by mouth once daily Spironolactone 25 mg tablet Discontinued 25 mg PO daily 30 July 24, 2024 12:00am August 11, 2024 8:43am ticagrelor 90 mg oral tablet (20 sources) Start: 07-19-2021 End: 12-12-2022 take 1 tablet by mouth twice daily Ticagrelor (Brilinta) 90 mg tablet Discontinued 0 .ROUTE .COMPLEX 60 September 07, 2022 4:42pm November 29, 2022 2:36pm take 1 tablet by mouth twice a day Start: 05-31-2021 End: 07-19-2021 take 1 tablet by mouth once daily Ticagrelor (Brilinta) 90 mg tablet Discontinued 90 mg PO DAILY May 31, 2021 12:00am July 19, 2021 4:44pm Start: 04-21-2021 ticagrelor 60 mg oral tablet Dose : 60 mg = 1 tab(s), Oral, qDay, # 60 tab(s), 0 Refill(s) Start Date: 04/21/21 Status: Ordered Start: 04-21-2017 End: 02-22-2021 take 1 tablet by mouth twice daily Ticagrelor 90 mg tablet Discontinued 90 mg PO TWICE A DAY 60 November 01, 2020 5:03pm February 22, 2021 3:46pm Problems Active Problems Problem Classification Problem Date Documented Date Episodic/Chronic Anxiety disorders (15 sources) Anxiety 02-07-2019 Chronic Cardiac dysrhythmias (20 sources) Ventricular tachycardia; Translations: [Ventricular premature beats] Onset: 5 06-09-2019 Chronic Cardiac dysrhythmias (1 source) Palpitations 03-22-2021 Episodic Complication of device; implant or graft (4 sources) Disorder of urinary stent 02-07-2019 Episodic Complications of surgical procedures or medical care (3 sources) Under anesthesia; Translations: [Unintended awareness under general anesthesia during procedure, initial encounter] Onset: 5 10-02-2024 Episodic Conditions associated with dizziness or vertigo (8 sources) Dizziness and giddiness; Translations: [Dizziness and giddiness] 04-17-2018 Episodic Conduction disorders (20 sources) Automatic implantable cardiac defibrillator in situ; Translations: [Cardiac pacemaker in situ] Onset: 9 02-07-2019 Chronic Comment on above: cardioverter-defibri llator replacement 03/16D implant April 2003;cardioverter-defibrillator replacement 03/16; Generator change 05/10/18 Congestive heart failure; nonhypertensive (12 sources) Heart failure with reduced ejection fraction 02-12-2021 Chronic Coronary atherosclerosis and other heart disease (20 sources) Congestive heart failure stage B due to ischemic cardiomyopathy; Translations: [Coronary arteriosclerosis in [place] artery] Onset: 5 02-07-2019 Chronic Comment on above: PTCA with stent to L AD March 2003; 11/18/03 PTCA and stenting of proximal LAD; PTCA/EULOGIO to mid-distal LAD 04/29/14; Successful PTCA/EULOGIO of the Prox RCA using 3.0x12 mm Resolute IntegritySuccessful PTCA/EULOGIO of the Mid LAD using Resolute Integrity 2.5x26 mm, post-dilated using 3.0 mm balloon 04/2017. Diabetes mellitus without complication (16 sources) Hyperglycemia; Translations: [Impaired fasting glycemia] 05-28-2020 Episodic Disorders of lipid metabolism (20 sources) Hyperlipidemia; Translations: [Pure hypercholesterolemia] 02-07-2019 Chronic Essential hypertension (20 sources) Hypertensive disorder; Translations: [Essential hypertension] 02-07-2019 Chronic Fluid and electrolyte disorders (20 sources) Hyperkalemia; Translations: [Hyperkalemia] 11-06-2018 Episodic Gout and other crystal arthropathies (11 sources) Gout; Translations: [Gout, unspecified] 02-21-2022 Chronic Heart valve disorders (20 sources) Aortic stenosis, non-rheumatic ; Translations: [Nonrheumatic aortic (valve) stenosis] 02-09-2022 Chronic Hyperplasia of prostate (10 sources) Nocturia due to benign prostatic hypertrophy; Translations: [Benign prostatic hyperplasia with lower urinary tract symptoms] Onset: 4 11-28-2022 Chronic Hypertension with complications and secondary hypertension (11 sources) Hypertensive heart disease with congestive heart failure; Translations: [Hypertensive heart failure] 05-23-2022 Chronic Immunizations and screening for infectious disease (10 sources) Human leukocyte antigen B27 test positive 05-23-2022 Episodic Nonspecific chest pain (8 sources) Chest discomfort; Translations: [Other chest pain] 04-13-2017 Episodic Nutritional deficiencies (4 sources) Vitamin D deficiency 01-17-2024 Chronic Osteoarthritis (15 sources) Degenerative joint disease involving multiple joints 02-07-2019 Chronic Other aftercare (8 sources) H/O: high risk medication; Translations: [Other parts counterman (current) drug therapy] 04-13-2017 Episodic Other aftercare (2 sources) Other usp (current) drug therapy; Translations: [Other usp (current) drug therapy] Onset: 4 Episodic Other aftercare (6 sources) Postoperative visit; Translations: [Encounter for other specified surgical aftercare] Onset: 5 10-09-2024 Episodic Other aftercare (2 sources) Encounter for other specified surgical aftercare; Translations: [Encounter for other specified surgical aftercare] Onset: 5 Episodic Other bone disease and musculoskeletal deformities (15 sources) Osteopenia 02-07-2019 Episodic Other connective tissue disease (4 sources) Polymyalgia rheumatica 01-28-2024 Chronic Other connective tissue disease (12 sources) Pain in toe; Translations: [Pain in unspecified toe(s)] Episodic Other connective tissue disease (10 sources) Rupture of tendon of biceps, long head 03-28-2022 Episodic Other connective tissue disease (8 sources) Triggering of digit 12-19-2022 Episodic Other endocrine disorders (4 sources) Secondary hyperparathyroidism 01-17-2024 Chronic Other infections; including parasitic (10 sources) Erythema chronica migrans 08-22-2022 Episodic Other injuries and conditions due to external causes (1 source) At low risk for fall 06-29-2021 Episodic Other injuries and conditions due to external causes (10 sources) Chilblains 07-20-2022 Episodic Other liver diseases (8 sources) Elevated levels of transaminase & lactic acid dehydrogenase; Translations: [Elevation of level of transaminase and lactic acid dehydrogenase (LDH)] 04-13-2017 Episodic Other lower respiratory disease (5 sources) Fibrosis of lung; Translations: [Pulmonary fibrosis, unspecified] Onset: Chronic Comment on above: seen on CT 02/2024 Other lower respiratory disease (11 sources) Hypoxemia 03-22-2021 Episodic Other lower respiratory disease (8 sources) Dyspnea; Translations: [Shortness of breath] 04-13-2017 Episodic Other nervous system disorders (8 sources) Carpal tunnel syndrome 03-27-2023 Chronic Other nervous system disorders (7 sources) Neuropathy 04-24-2023 Chronic Other nervous system disorders (3 sources) Paresthesia of hand ; Translations: [Paresthesia of skin] Onset: 12-18-2024 Episodic Other nutritional; endocrine; and metabolic disorders (10 sources) Body mass index 30+ - obesity 07-20-2020 Chronic Other nutritional; endocrine; and metabolic disorders (14 sources) Obesity 07-20-2020 Chronic Other nutritional; endocrine; and metabolic disorders (6 sources) Hypercalcemia 08-28-2023 Chronic Other nutritional; endocrine; and metabolic disorders (1 source) Body mass index 25-29 - overweight 08-23-2021 Episodic Other screening for suspected conditions (not mental disorders or infectious disease) (17 sources) Viral screening status; Translations: [Abnormal results of cardiovascular function studies] 07-20-2020 Episodic Other skin disorders (10 sources) Dystrophia unguium 07-20-2022 Episodic Other upper respiratory infections (10 sources) Sinusitis 04-25-2022 Chronic Other upper respiratory infections (15 sources) Acute upper respiratory infection 02-07-2019 Episodic Peripheral and visceral atherosclerosis (20 sources) Peripheral vascular disease; Translations: [Intermittent claudication due to atherosclerosis of artery of limb] 06-09-2019 Chronic Phlebitis; thrombophlebitis and thromboembolism (12 sources) Deep venous thrombosis of lower extremity; Translations: [Deep venous thrombosis of tibial vein] 02-12-2021 Episodic Pneumonia (except that caused by tuberculosis or sexually transmitted disease) (12 sources) Pneumonia (except that caused by tuberculosis or sexually transmitted disease) 02-12-2021 Residual codes; unclassified (15 sources) Chronic pain 02-07-2019 Episodic Residual codes; unclassified (15 sources) Immunization due 11-28-2019 Episodic Residual codes; unclassified (10 sources) Screening due 02-21-2022 Episodic Residual codes; unclassified (3 sources) Difficult venous access; Translations: [Other specified health status] Onset: 5 10-02-2024 Episodic Residual codes; unclassified (7 sources) Other specified postprocedural states; Translations: [Other postprocedural status] Onset: 5 10-24-2024 Episodic Respiratory failure; insufficiency; arrest (adult) (1 source) Acute respiratory failure 02-12-2021 Episodic Rheumatoid arthritis and related disease (10 sources) Rheumatoid arthritis 04-25-2022 Chronic Screening and history of mental health and substance abuse codes (15 sources) Ex-smoker 02-07-2019 Episodic Comment on above: quit 2004, age 47, s moked for 30 yrs, 2-3 ppd Spondylosis; intervertebral disc disorders; other back problems (19 sources) Neck pain; Translations: [Spinal stenosis of lumbar region] Onset: 5 07-04-2024 Episodic Substance-related disorders (15 sources) Continuous opioid dependence 08-01-2019 Chronic Unclassified (15 sources) Drug therapy finding 02-07-2019 Unclassified (15 sources) Long-term current use of steroid 03-07-2019 Unclassified (20 sources) Patient encounter status 07-20-2020 Urinary tract infections (7 sources) Acute cystitis; Translations: [Acute cystitis with hematuria] Onset: 4 12-26-2023 Episodic Viral infection (11 sources) Disease caused by 2019-nCoV 03-22-2021 Past or Other Problems Problem Classification Problem Date Documented Da te Episodic/Chronic Coronary atherosclerosis and other heart disease (20 sources) Stented coronary artery; Translations: [Presence of coronary angioplasty implant and graft] Onset: 04-05-2017 06-09-2019 Episodic Comment on above: PTCA with stent to L AD March 2003; 11/18/03 PTCA and stenting of proximal LAD; PTCA/EULOGIO to mid-distal LAD 04/29/14; Successful PTCA/EULOGIO of the Prox RCA using 3.0x12 mm Resolute Integrity;Successful PTCA/EULOGIO of the Mid LAD using Resolute Integrity 2.5x26 mm, post-dilated using 3.0 mm balloon 04/2017. Substance-related disorders (2 sources) Opioid use, unspecified, uncomplicated; Translations: [Opioid use, unspecified, uncomplicated] Onset: 05-22-2023 Episodic Results Test Name Value Interpretation Reference Range Facility Relevant diagnostic tests/la boratory data Narrativeon 01-09-2025 EMG HX of the left leg on 01/01/2025 at [facility] Work Phone: Fall risk assessment no [employer] Work Phone: MEDS REVIEW Done [employer] Work Phone: MEDS REVIEWD Medications reviewed with changes [employer] Work Phone: Relevant diagnostic tests/la boratory data Narrativeon 12-18-2024 MEDS REVIEW Done [employer] Work Phone: MEDS REVIEWD Medications reviewed without changes [employer] Work Phone: Relevant diagnostic tests/la boratory data Narrativeon 11-28-2024 Fall risk assessment no [employer] Work Phone: MEDS REVIEW Documentation of cur rent medications (procedure) [employer] Work Phone: MEDS REVIEWD Medications reviewed without changes [employer] Work Phone: Relevant diagnostic tests/la boratory data Narrativeon 11-26-2024 Fall risk assessment no [employer] Work Phone: MEDS REVIEWD Medications reviewed without changes [employer] Work Phone: Relevant diagnostic tests/la boratory data Narrativeon 11-24-2024 Fall risk assessment no [employer] Work Phone: MEDS REVIEWD Medications reviewed without changes [employer] Work Phone: Pacemaker Checkon 11-17-2024 Pacemaker Check [facility] [address] [place] [address] Pacemaker Check Date of Service: 11/17/241642 MR#: [id number] Acct: [id number] Name: CLIFFORD ALONZO Rep #: [id number] : 1955 From: Monica Guevara Age/Sex: 69/M Location: [facility] [place] Status: Signed Billing Codes ICD Device Billin ICD Dev Prog Eval, Single Assessment and Plan Assessment and Plan (1) History of implantable cardiac defibrillator (ICD): Status: Chronic Comment: cardioverter-defibrillator replacement 03/16D implant April 2003;cardioverter-defibril lator replacement 03/16; Generator change 05/10/18 (2) Ischemic cardiomyopathy: Status: Chronic (3) Ventricular tachyarrhythmia: Status: Chronic 11/17/241642 Date Monica Raber Niru Signature: Date (if applicable) CC: Normal [facility] Relevant diagnostic tests/la boratory data Narrativeon 11-13-2024 Fall risk assessment no [employer] Work Phone: MEDS REVIEW Done [employer] Work Phone: MEDS REVIEWD Medications reviewed with changes [employer] Work Phone: Relevant diagnostic tests/la boratory data Narrativeon 11-10-2024 Fall risk assessment no [employer] Work Phone: MEDS REVIEW Documentation of cur rent medications (procedure) [employer] Work Phone: MEDS REVIEW Done [employer] Work Phone: MEDS REVIEWD Medications reviewed without changes [employer] Work Phone: Limited echocardiogram repor tOrdered By: Deni Burgos on 11-03-2024 Study report [facility] [place] [address] Echo Limited w/Contrast 10/29/24 0753 MR#: [id number] Acct: [id number] Name: CLIFFORD ALONZO Rep #:[id number] : 1955 69 From: Deni Carmona Attending Dr: Pippa Weston, SPEECH AND LANGUAGE ASSISTANT-C S tatus: REG CLI Ordering Dr: Pippa Weston SPEECH AND LANGUAGE ASSISTANT SPEECH AND LANGUAGE ASSISTANT-C Radames e: 10/29/24 Location: [facility] Sex: M C Admitted: Reason For Study Reason For Study: DILATED CMP Procedure This was a limited 2D transthoracic echocardiogram. The study was technically difficult. D/T suboptimal parasternal imaging windows. Contrast injection was performed. Exam performed in department. Left Ventricle Normal LV size. The left ventricular ejection fraction is 35 %. Apical wall motion abnormality may reflect pacemaker activation. Right Ventricle Normal RV size. ICD or pacer leads identified within the right ventricle. Normalsystolic function. Atria Normal left atrium. The right atrium is mildly enlarged. Mitral Valve Normal mitral valve. Tricuspid Valve Normal tricuspid valve. Pulmonic Valve Normal pulmonic valve. Great Vessels Mild to moderately dilated aortic root. The pulmonary artery is normal size. Inferior vena cava collapse with respiration. Pericardium/Pleural No pericardial effusion. Medication 22 gauge I.V. with prn adaptor inserted into right arm. Diluted definity 4.5ml given slow IV push to enhance endocardial definition. MMode/2D Measurements & Calculations LVIDd: 5.5 cm IVSd: 0.92 cm asc Aorta Diam: 4.8 cm LVIDs: 3.9 cm LVPWd: 1.0 cm FS: 29.5 % __ LAV(MOD-bp): 70.7 ml LVAd ap4: 33.9 cm2 LVAd ap2: 29.2 cm2 LAV(MOD-bp) Indexed: 33.2 ml/m2 LVLd ap4: 9.0 cm LVLd ap2: 8.3 cm LAV(MOD-sp2): 73.6 ml EDV(MOD-sp4): 103.1 ml EDV(MOD-sp2): 82.5 ml LAV(MOD-sp4): 63.8 ml EDV(sp4-el): 108.5 ml EDV(sp2-el): 87.0 ml LVAs ap4: 27.8 cm2 LVAs ap2: 23.0 cm2 LVLs ap4: 8.8 cm LVLs ap2: 8.0 cm ESV(MOD-sp4): 71.2 ml ESV(MOD-sp2): 54.7 ml ESV(sp4-el): 74.1 ml ESV(sp2-el): 55.7 ml EF(MOD-sp4): 31.0 % EF(MOD-sp2): 33.8 % EF(sp4-el): 31.7 % SV(MOD-sp4): 31.9 ml SV(MOD-sp2): 27.9 ml SV(sp4-el): 34.4 ml SI(MOD-sp4): 15.0 ml/m2 SI(MOD-sp2): 13.1 ml/m2 __ LA A4 area: 21.6 cm2 LA dimension(2D): 4.6 cm RA A4 area: 20.7 cm2 __ TAPSE: 2.3 cm ECHO/Echo Limited w/Contrast Interpretation Summary Normal LV size. The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 Surgical History[2] Medications: Scheduled PRN Scheduled Meds[3] PRN Meds[4] Continuous Continuous Meds[5] Allergies: Ancef [cefazolin], Azulfidine [sulfasalazine], Lisinopril, and Rosuvastatin Social History: Social History Socioeconomic History Marital status: Spouse name: Not on file Number of children: Not on file Years of education: Not on file Highest education level: Not on file Occupational History Not on file Tobacco Use Smoking status: Former Average packs/day: 2.0 packs/day for 32.0 years (64.0 ttl pk-yrs) Types: Cigarettes Start date: 1971 Smokeless tobacco: Never Vaping Use Vaping status: Never Used Substance and Sexual Activity Alcohol use: Yes Comment: 2 BEERS - 2-3 TIMES A WEEK Drug use: Never Sexual activity: Not on file Other Topics Concern Not on file Social History Narrative Not on file Social Drivers of Health Financial Resource Strain: Not on file Food Insecurity: Not on file Transportation Needs: Not on file Physical Activity: Not on file Stress: Not on file Social Connections: Not on file Intimate Partner Violence: Not At Risk (10/09/2024) Humiliation, Afraid, Rape, and Kick questionnaire Fear of Current or Ex-Partner: No Emotionally Abused: No Physically Abused: No Sexually Abused: No Housing Stability: Unknown (10/09/2024) Housing Stability Vital Sign Unable to Pay for Housing in the Last Year: No Number of Times Moved in the Last Year: Not on file Homeless in the Last Year: No Family History: Family History[6] REVIEW OF SYSTEMS: 10 point ROS obtained, as per HPI, otherwise NEG Physical Exam: Vitals: BP 119/57 (BP Location: Right arm, Patient Position: Sitting) Pulse 62 Temp 36.6 ?C (97.9 ?F) (Temporal) Resp 18 SpO2 93% BMI Classification: Overweight (BMI 25.0-29.9) Pulse Ox: SpO2 Av.4 % Min: 92 % Max: 100 % Supplemental O2: O2 Flow Rate (L/min): 2 L/min Physical Exam Vitals and nursing note reviewed. Constitutional: General: He is not in acute distress. Appearance: Normal appearance. He is not ill-appearing, toxic-appearing or diaphoretic. HENT: Head: Normocephalic and atraumatic. Right Ear: External ear normal. There is no impacted cerumen. Left Ear: External ear normal. There is no impacted cerumen. Nose: Nose normal. Mouth/Throat: Mouth: Mucous membranes are moist. Pharynx: Oropharynx is clear. Eyes: General: Right eye: No discharge. Left eye: No discharge. Conjunctiva/sclera: Conjunctivae normal. Cardiovascular: Rate and Rhythm: Normal rate and regular rhythm. Pulses: Normal pulses. Pulmonary: Effort: Pulmonary effort is normal. Breath sounds: Normal breath sounds. Abdominal: General: Bowel sounds are normal. Palpations: Abdomen is soft. Musculoskeletal: General: Tenderness present. Skin: General: Skin is warm and dry. Capillary Refill: Capillary refill takes less than 2 seconds. Neurological: Mental Status: He is alert and oriented to person, place, and time. Psychiatric: Mood and Affect: Mood normal. Behavior: Behavior normal. Thought Content: Thought content normal. Judgment: Judgment normal. LABS: No results found for this or any previous visit (from the past 24 hours). Urine Culture: No results found for this or any previous visit. IMAGING: See report Assessment Data: (CAT1) Reviewed 3 or more notes from different specialty or health system (each=1). (CAT1) Reviewed 3 or more labs/studies ordered by another provider not previously counted (each=1, panels count as 1). (CAT3) Mgmt of the patient was discussed with Dr. Donald, who stated, in summary: Patient currently medically stable and all meds ordered (more content not included)... [facility] No Panel Informationon 10-09 There is no interpre tation needed for this exam. IMAGING Nursing Noteon 08-07-2025 Nursing Note REPORT GIVEN TO THE FLOOR. PAULA RN TOOK REPORT FOR YNE RN [facility] Nursing Note FAMILY NOTIFIED OF PATIENTS ROOM NUMBER [facility] Nursing Note FAMILY NOTIFIED [facility] Op Noteon 10-09-2024 Op Note OPERATIVE NOTE Patient Name: Clifford Alonzo : 1955 DATE OF PROCEDURE: 10/09/2024 SURGEON: Shanel Chandler MD PREOPERATIVE DIAGNOSES: Spinal stenosis POSTOPERATIVE DIAGNOSES: Same PROCEDURE: Laminectomy L3-L4 INDICATION FOR PROCEDURE: Recalcitrant neurogenic claudication DESCRIPTION OF PROCEDURE: Patient was taken the operating room timeout was done for patient procedure back was prepped and draped. Skin incision was made through skin subtendinous tissue down the deep fascia. Deep fascia was incised. Spinous process clamp was put on L4 x-ray confirmed the level. Soft tissue stripped off L3-L4 preserve the joint capsule was exposed in the pars. Midline laminectomy was carried out at L3 and L4 with the use of bur rongeur and Kerrisons bilateral foraminotomies L3-4 L4-5 carried out with Kerrisons thus decompressing the bilateral exiting L3 and L4 nerve roots all which were free hemostasis achieved wound irrigated vancomycin powder put in the wound drain was placed sewn in muscle and deep fascia was closed with 1 Vicryl 0 Vicryl fat to subcu Dermabond nancy [facility] Op Note Date: 10/09/2024 Locat ion: [facility] OR Name: Clifford Alonzo, : 1955, Diagnosis Pre-op Diagnosis * Spinal stenosis, lumbar region without neurogenic claudication [M48.061] Post-op Diagnosis * Spinal stenosis, lumbar region without neurogenic claudication [M48.061] Procedures POSTERIOR LAMINECTOMY LUMBAR 3,4 47938 - AL SALOMON FACETECTOMY & FORAMOTOMY 1 VRT SGM LUMBAR POSTERIOR LAMINECTOMY LUMBAR 3,4 59602 - AL SALOMON FACETECTOMY&FORAMOT 1 VRT SGM EA ADDL [facility] Surgeons * Shanel Chandler - Primary Procedure Summary Anesthesia: General ASA: IV Estimated Blood Loss: 150 mL Drains: Closed/Suction Drain Left;Midline Back Accordion (Active) Site Description Unable to view 10/09/24 1000 Dressing Status Clean, dry & intact 10/09/24 1000 Drainage Appearance Bloody 10/09/24 1000 Status To bulb suction 10/09/24 1000 Urethral Catheter Straight-tip (Active) Site Assessment Clean;Skin intact 10/09/24 1000 Securement Method Securing device 10/09/24 1000 Catheter Best Practices Bag below bladder;Catheter secured to thigh 10/09/24 1000 Catheter Status Draining 10/09/24 1000 Staff: Legal Service Specialist: Araceli Brewer RN Scrub Person: Silvestre Stoddard Findings: see op-note Complications: None; patient tolerated the procedure well. Specimens Collected: Order Name Source Comment Collection Info Order Time POTASSIUM WITH MG REFLEX For patients on dialysis to draw potassium day of surgery 10/09/2024 5:54 AM PROTHROMBIN TIME If patient on coumadin within 4 days prior. 10/09/2024 5:54 AM Wound Class: Class I: Clean Blood Products: None Prophylactic Antibiotics: Procedure appropriate prophylactic antibiotic(s) given within 1 hour of surgical incision (two hours if receiving Vancomycin or flouroquinolone) Post-op plan: -Pull drain when output <25cc -Spinal precautions -PT/OT -Ortho to follow [facility] Progress Noteon 10-07-2024 Progress Note 10/07/24 1119 OTHER Plan for discharge Home (outpatient [facility] for PT if needed) Living Arrangements Who will transport you home post surgery? brother or daughter Type of residence: Private residence Number of floors 2 (first floor has patients bedroom, kitchen and bathroom) Ramp or stairs to enter? Stairs Number of entry steps 4 Bed/Bath Levels Both first floor Bathroom Walk-in shower Lives with Children (son lives with him) Support Systems Family members Activities of Daily Living (ADL) Ambulation Independent Bathing/Dressing Independent Elimination/Continence/Boo leting Independent Feeding Independent Additional information Using a device to help walk? (Cane, walker, rollator)? N Post-Op Plan Facility list provided to patient? Declined Concerns about post-op plan No questions or concerns. The patient plans on going to [facility] outpatient PT if needed. [facility] ECG 12-LEADon 10-04-2024 ECG 12-LEAD IMPRESSION: Sinus bradycardia Borderline prolonged AL interval IVCD Electronically Signed On 10-04-2024 11:52:52 EDT by Gera Ivory [facility] [id number] 10-02-2024 [id number] Medication List Accurate as of October 02, 2024 1:00 PM. Always use your most recent med list. alendronate 10 MG tablet Commonly known as: Fosamax Medication Adjustments for Surgery: Take night before surgery Notes to patient: OKAY TO TAKE THIS MEDICATION THE NIGHT BEFORE SURGERY. HOLD THE MORNING OF SURGERY. aspirin 81 MG EC tablet Medication Adjustments for Surgery: Other (Comment) Notes to patient: PATIENT INSTRUCTED TO START TAKING ASPIRIN 81MG MEDICATION WHILE OFF OF PLAVIX PRIOR TO SURGERY. cholecalciferol 25 MCG (1000 UT) tablet Commonly known as: Vitamin D-3 Medication Adjustments for Surgery: Other (Comment) Notes to patient: HOLD 7 DAYS PRIOR TO SURGERY. START HOLDING NOW. clopidogrel 75 MG tablet Commonly known as: Plavix Medication Adjustments for Surgery: Stop 5 days before surgery ezetimibe 10 MG tablet Commonly known as: Zetia Medication Adjustments for Surgery: Take night before surgery Notes to patient: OKAY TO TAKE THE NIGHT BEFORE SURGERY. HOLD THE MORNING OF SURGERY. furosemide 40 MG tablet Commonly known as: Lasix Medication Adjustments for Surgery: Take night before surgery Notes to patient: OKAY TO TAKE THE NIGHT BEFORE SURGERY. HOLD THE MORNING OF SURGERY. HYDROcodone-acetaminophen 5-325 MG tablet Commonly known as: Wells Medication Adjustments for Surgery: Take morning of surgery Notes to patient: IF NEEDED Jardiance 10 MG Generic drug: empagliflozin Medication Adjustments for Surgery: Stop 3 days before surgery Notes to patient: STOP 3 DAYS PRIOR TO SURGERY PER INCIDENT RESPONSE ENGINEER INSTRUCTIONS. losartan 25 MG tablet Commonly known as: Cozaar Medication Adjustments for Surgery: Take night before surgery Notes to patient: OKAY TO TAKE THE NIGHT BEFORE SURGERY. HOLD THE MORNING OF SURGERY. metoprolol succinate XL 100 MG 24 hr tablet Commonly known as: Toprol-XL Medication Adjustments for Surgery: Take morning of surgery pravastatin 80 MG tablet Commonly known as: Pravachol Medication Adjustments for Surgery: Take night before surgery predniSONE 1 MG tablet Commonly known as: Deltasone Medication Adjustments for Surgery: Take morning of surgery spironolactone 25 MG tablet Commonly known as: Aldactone Medication Adjustments for Surgery: Take night before surgery Notes to patient: OKAY TO TAKE THE NIGHT BEFORE SURGERY. HOLD THE MORNING OF SURGERY. tamsulosin 0.4 MG 24 hr capsule Commonly known as: Flomax Medication Adjustments for Surgery: Take night before surgery TART RON PO Medication Adjustments for Surgery: Other (Comment) Notes to patient: HOLD 7 DAYS PRIOR TO SURGERY. START HOLDING NOW. Additional Instructions: You may take your prescription pain medication. You may take Tylenol for pain. NO Motrin, ibuprofen or Advil for 7 days prior to surgery or longer if instructed by your surgeon. NO Aleve or Naprosyn for 7 days prior to surgery or longer if instructed by your surgeon. IF YOU TAKE BLOOD THINNERS OR ASPIRIN: PATIENT INSTRUCTED TO START TAKING ASPIRIN 81MG MEDICATION WHILE OFF OF PLAVIX PRIOR TO SURGERY. STOP PLAVIX MEDICATION 5 DAYS PRIOR TO SURGERY. Follow any instructions given to you by Dr. CHANDLER Shower with an antibacterial soap such as Dial or Safeguard or shower kit provided to you before coming to the hospital. No makeup, lotion, powder, deodorant or body sprays. No hair products. Remove all jewelry and leave it at home. Wear loose comfortable clothing to go home in. You may brush your teeth morning of surgery. Do not wear contacts day of surgery. No marijuana (THC), smoking, vaping, chewing tobacco, snuff, cigars, or alcohol for 24 hours prior to surgery. Please arrange for a responsible adult to drive you home after your surgery and that there is a responsible adult with you for 24 hours post discharge. If you have specific questions, please call your surgeon. You will receive a call the day before your surgery to verify your arrival time and date. You will be asked to arrive at least two hours prior to your scheduled surgery time. Please bring your [facility] Surgical folder and medication list with you day of surgery. We encourage you to write down any questions you may have for the surgeon, anesthesiologist, or other members of the surgical team and bring it with you the day of surgery. Please bring photo ID and insurance information. [facility] [id number] 10-02-2024 [id number] Left voice message f or surgery scheduling letting them know patient has a [employer] ICD. [facility] [id number] Messaged Ligia greene, PARTNER MARKETING INTERN-FOREST FIRE SPECIALIST SUPERVISOR from Anesthesia, via Secure Chat, regarding patient having taken Vitamin and Tart Ron today, 10/02/24, with surgery on 10/09/24. Ligia replied, via Secure Chat, thank you. [facility] BASIC METABOLIC PANELon 07-3 Anion gap [Moles/Vol] 10 mmol/L Normal 3-13 [facility] Comment on above: Performed By: #### L AB15 #### Vp Of Marketing: YEN SERNA ([phone]) [facility]) [address] [place] [address] Calcium [Mass/Vol] 10.6 mg/dL High 8.8-10.0 [facility] Comment on above: Performed By: #### L AB15 #### Vp Of Marketing: YEN SERNA ([id number]) [facility]) [address] [place] [address] Chloride [Moles/Vol] 104 mmol/L Normal 98-107 [facility] Comment on above: Performed By: #### L AB15 #### Vp Of Marketing: YEN SERNA ([id number]) [facility] ([facility]) [address] [place] [address] CO2 [Moles/Vol] 23 mmol/L Normal 23-31 [facility] Comment on above: Performed By: #### L AB15 #### Vp Of Marketing: YEN SERNA ([id number]) [facility]) [address] [place] [address] Creatinine [Mass/Vol] 0.74 mg/dL Normal 0.72-1.25 [facility] Comment on above: Performed By: #### L AB15 #### Vp Of Marketing: YEN SERNA ([id number]) [facility]) [address] [place] [address] GLOMERULAR FILTRATION RATE ML/MIN/1.73 SQ M.PREDICTED >90.0 Normal >60.0 [facility] Comment on above: Result Comment: Calc ulation based on the Chronic Kidney Disease Epidemiology Collaboration (CKD-EPI) equation refit without adjustment for race Performed By: #### L AB15 #### Vp Of Marketing: YEN SERNA ([id number]) [facility]) [address] [place] [address] Glucose [Mass/Vol] 93 mg/dL Normal 82-115 [facility] Comment on above: Performed By: #### L AB15 #### Vp Of Marketing: YEN SERNA ([id number]) [facility] ([facility]) [address] [place] [address] Potassium [Moles/Vol] 4.2 mmol/L Normal 3.5-5.1 [facility] Comment on above: Result Comment: Plas ma potassium values may be up to 0.5 mmol/L lower than serum values. Performed By: #### L AB15 #### Vp Of Marketing: YEN SERNA ([id number]) [facility] ([facility]) [address] [place] [address] Sodium [Moles/Vol] 137 mmol/L Normal 136-145 [facility] Comment on above: Performed By: #### L AB15 #### Vp Of Marketing: YEN SERNA ([id number]) [facility] ([facility]) [address] [place] [address] Urea nitrogen [Mass/Vol] 14 mg/dL Normal 9-23 [facility] Comment on above: Performed By: #### L AB15 #### Vp Of Marketing: YEN SERNA ([id number]) [facility] ([facility]) [address] [place] [address] CBC (HEMOGRAM)on 10-02-2024 Erythrocyte distribution width (RBC) [Ratio] 12.7 % Normal 11.5-15.0 [facility] Comment on above: Performed By: #### L AB294 ####Vp Of Marketing: YEN SERNA ([id number])[facility])[address] [place] [address] Hematocrit (Bld) [Volume fraction] 47.7 % Normal 40.0-52.0 [facility] Comment on above: Performed By: #### L AB294 ####Vp Of Marketing: YEN SERNA ([id number])[facility] ([facility])[address] [place] [address] Hemoglobin (Bld) [Mass/Vol] 15.8 g/dL Normal 13.0-18.0 [facility] Comment on above: Performed By: #### L AB294 ####Vp Of Marketing: YEN SERNA ([id number])[facility] ([facility])[address] [place] [address] MCH (RBC) [Entitic mass] 31.2 pg Normal 26.0-34.0 [facility] Comment on above: Performed By: #### L AB294 ####Vp Of Marketing: YEN SERNA ([id number])[facility])[address] [place] [address] MCHC 33.1 % Normal 30.5-36.0 [facility] Comment on above: Performed By: #### L AB294 ####Vp Of Marketing: YEN SERNA ([id number])[facility] ([facility])[address] [place] [address] MCV (RBC) [Entitic vol] 94.3 fL Normal 77.0-99.0 [facility] Comment on above: Performed By: #### L [id number] ####Vp Of Marketing: YEN SERNA ([id number])[facility] ([facility])[address] [place] [address] Platelet mean volume (Bld) [Entitic vol] 10.1 fL Normal 9.0-12.7 [facility] Comment on above: Performed By: #### L [id number] ####Vp Of Marketing: YEN SERNA ([id number])[facility] ([facility])[address] [place] [address] Platelets (Bld) [#/Vol] 250 10*3/uL Normal 140-440 [facility] Comment on above: Performed By: #### L [id number] ####Vp Of Marketing: YEN SERNA ([id number])[facility] ([facility])[address] [place] [address] RBC (Bld) [#/Vol] 5.06 10*6/uL Normal 4.40-5.90 [facility] Comment on above: Performed By: #### L AB294 ####Vp Of Marketing: YEN HOLLISRosalio ([id number])[facility])[address] [place] [address] WBC (Bld) [#/Vol] 8.3 10*3/uL Normal 3.6-10.7 [facility] Comment on above: Performed By: #### L [id number] ####Vp Of Marketing: YEN SERNA ([id number])[facility] ([facility])[address] [place] [address] Progress Noteon 10-02-2024 Progress Note [facility] Olmosmehuljesus : 1955 Primary Care Physician: Jose Etienne, DO The patient and/or family/surrogate voluntarily agreed to participate in ACP services. Patient?s cognitive capacity: A&O x3 Code Status: [x] [FULL CODE - Continue all advanced life support: CPR,intubation,invasive procedures] [_] [DNR-CCA - DO NOT do CPR, intubation] [_] [DNR-HOSPITAL INSURANCE CLERK - Comfort care only] [_] DNR form [was/was not] signed Summary of discussion: The patient health care POA/ surrogate is the following: None. [Condition that instigated the ACP on this DOS, relevant PMH, functional status, goals of care, and whom this was discussed with including names and relationship to the patient, and any relevant advance care documentation discussion] I answered all the patient/family questions that I could within the range and scope of the current medical situation. We discussed the medical conditions, risks, benefits, outcomes, and goals of care at this time for the patient's medical issues at hand in the face of the patient's chronic issues and current presentation. Total time spent: 2 minutes were spent discussing the patient's resuscitation status, advance care planning, and end of life care, with patient and/or family/surrogate. Nuris Waldron APRN - FOREST FIRE SPECIALIST SUPERVISOR [employer] 10/02/2024, 2:28 PM [facility] Cardiology Visit Reporton Cardiology Visit Report [facility] [address] [place] [address] OFFICE VISIT Date of Service: 08/11/24 MR#: [id number] Acct: [id number] Name: CLIFFORD ALONZO Rep #: [id number] : 1955 Provider: MARIO quintana Age/Sex: 69/M Location: [facility] [place] Status: Signed HPI HPI History of Present Illness Details: Patient is a 69-year-old white male who presents today for cardiovascular follow-up visit. The patient reports that he is doing fairly well in his home environment he is up and about regular activity levels he has had no recurrence of his anginal symptoms which was a burning mid retrosternal discomfort. He does have a history of significant myalgias and what he describes as inability to actually move that is resolved with aggressive prednisone treatment. He is scheduled to see rheumatology for possible rheumatoid arthritis March 10, 2024. The patient has a known history of coronary disease status post stenting of the LAD and right coronary artery last intervention was 2018. He also has a ischemic cardiomyopathy last EF December 28, 2022 by echo was 40% this is stable. His echocardiogram on 07/24/2024 decreased ejection fraction of 25%. He actually has an ICD implanted in 2003 he has had 2 battery changes done. The patient also carries a history of hyperlipidemia labs are to be reviewed by his primary care physician who monitors his lipids. The patient also has a history of mild aortic insufficiency 1+ and 1+ mitral insufficiency the left atrium is severely dilated the right atrium is moderately enlarged. From a cardiac standpoint, the patient is doing well. He does acknowledge occasional palpitations. He denies chest pain, pressure or heaviness. He does acknowledge SOB with climbing stairs-this is nothing new or worsening. He denies Orthopnea, and PND. He does not have bleeding issues; no blood in urine, stool, or nosebleeds. He denies any decrease in energy level, myalgias, or claudication. He does not have edema, or sudden weight gain. He denies lightheadedness, dizziness, syncopal or near syncopal episodes, and headaches. Intake Vital Signs 07/24/24 10:08 08/11/24 06:48 Height 5 ft 11 in 5 ft 11 in Weight: 201 lb BMI 28.0 BP 144/88 H Blood Pressure Location Lt brachial Position Sitting Respiration 18 Pulse 65 Pulse Source Monitor Pulse Oximetry (%) 94 Intake Visit Reasons: SEE NOTES Plastic Sheets Supervisor Required: No Is patient in pain?: No Allergies cefazolin sodium (From Ancef) Allergy (Verified 08/11/24 08:37) Unknown rosuvastatin calcium (From Crestor) Allergy (Verified 08/11/24 08:37) Unknown lisinopril Adverse Reaction (Severe, Verified 08/11/24 08:37) Mouth Sores Medications ???Medication ???Instructions ???Recorded ???Confirmed ???Type nitroglycerin 0.4 mg sublingual 0.4 mg sublingual Q5M PRN Chest 08/11/24 Rx tablet Pain #25 tabs hydrocodone-acetaminophen 5-325mg 1 tab PO Q6H PRN Pain 30 days #12 0 02/22/21 08/11/24 History 5mg-325mg tabs alendronate 10 mg tablet 10 mg PO DAILY 08/08/21 08/11/24 H istory tamsulosin 0.4 mg capsule 0.4 mg PO DAILY 12/06/22 08/11/24 History pravastatin 80 mg tablet 80 mg PO DAILY #90 tabs 10/23/23 0 08/11/24 Rx ezetimibe 10 mg tablet (Zetia) 10 mg PO DAILY #90 tabs 11/26/23 0 08/11/24 Rx losartan 25 mg tablet 25 mg PO DAILY #90 tabs 11/26/23 0 08/11/24 Rx clopidogrel 75 mg tablet (Plavix) 75 mg PO DAILY #90 tabs 01/01/24 08/11/24 Rx metoprolol succinate 100 mg 50 mg PO BID 02/11/24 08/11/24 His tory tablet,extended release 24 hr empagliflozin 10 mg tablet 10 mg PO QAM #30 tabs 07/24/2411/27 Rx prednisone 5 mg tablet 3 mg PO DAILY arthritis 07/24/24 0 08/11/24 History furosemide 40 mg tablet 40 mg PO DAILY water pill #90 tabs 08/11/24 08/11/24 Rx spironolactone 25 mg tablet 12.5 mg (1/2 x 25 mg) PO QDAY #30 08/11/24 08/11/24 Rx tabs Ejection fraction %: 25 Have you fallen in the past year?: No PFSH Medical History Aortic valve stenosis, nonrheumatic Pure hypercholesterolemia Presence of stent in coronary artery ( 04/20/17) Essential hypertension Old myocardial infarction Ischemic cardiomyopathy Ventricular tachyarrhythmia Atherosclerosis of artery of extremity with intermittent claudication Shortness of breath Nonspecific elevation of levels of transaminase and lactic acid dehydrogenase (LDH) Long-term use of high-risk medication Hyperkalemia Claudication Chest discomfort Cardiovascular function study, abnormal Atherosclerotic heart disease of [place] coronary artery without angina pectoris Surgical History History of bilateral cataract extraction History o (more content not included)... Normal [facility] Cardiology Visit Reporton Cardiology Visit Report [facility] [place] [address] OFFICE VISIT Date of Service: 07/24/24 MR#: [id number] Acct: [id number] Name: CLIFFORD ALONZO Rep #: [id number] : 1955 Provider: MARIO quintana Age/Sex: 69/M [place] [facility] [place] Status: Signed HPI HPI History of Present Illness Details: Patient is a 69-year-old white male who presents today for cardiovascular follow-up visit. The patient reports that he is doing fairly well in his home environment he is up and about regular activity levels he has had no recurrence of his anginal symptoms which was a burning mid retrosternal discomfort. He does have a history of significant myalgias and what he describes as inability to actually move that is resolved with aggressive prednisone treatment. He is scheduled to see rheumatology for possible rheumatoid arthritis March 10, 2024. The patient has a known history of coronary disease status post stenting of the LAD and right coronary artery last intervention was 2018. He also has a ischemic cardiomyopathy last EF December 28, 2022 by echo was 40% this is stable. He actually has an ICD implanted in 2003 he has had 2 battery changes done. The patient also carries a history of hyperlipidemia labs are to be reviewed by his primary care physician who monitors his lipids. The patient also has a history of mild aortic insufficiency 1+ and 1+ mitral insufficiency the left atrium is severely dilated the right atrium is moderately enlarged. From a cardiac standpoint, the patient is doing well. He denies any palpitations, chest pain, pressure or heaviness. He denies SOB, Orthopnea, and PND. He does not have bleeding issues; no blood in urine, stool, or nosebleeds. He denies any decrease in energy level, myalgias, or claudication. He does not have edema, or sudden weight gain. He denies lightheadedness, dizziness, syncopal or near syncopal episodes, and headaches. Intake Vital Signs 02/11/24 08:50 07/24/24 06:47 07/24/24 10:08 Height 5 ft 11 in 5 ft 11 in 5 ft 11 in Weight: 205 lb BMI 28.5 BP 125/69 H Blood Pressure Location Lt brachial Position Sitting Respiration 18 Pulse 64 Pulse Source Monitor Pulse Oximetry (%) 95 Intake Visit Reasons: Surgical Clearance/6 M FU/Sees Debora @ 10 Plastic Sheets Supervisor Required: No Is patient in pain?: No Allergies cefazolin sodium (From Ancef) Allergy (Verified 07/24/24 10:28) Unknown rosuvastatin calcium (From Crestor) Allergy (Verified 07/24/24 10:28) Unknown lisinopril Adverse Reaction (Severe, Verified 07/24/24 10:28) Mouth Sores Medications ???Medication ???Instructions ???Recorded ???Confirmed ???Type nitroglycerin 0.4 mg sublingual 0.4 mg sublingual Q5M PRN Chest 07/24/24 Rx tablet Pain #25 tabs hydrocodone-acetaminophen 5-325mg 1 tab PO Q6H PRN Pain 30 days #12 0 02/22/21 07/24/24 History 5mg-325mg tabs alendronate 10 mg tablet 10 mg PO DAILY 08/08/21 07/24/24 H istory tamsulosin 0.4 mg capsule 0.4 mg PO DAILY 12/06/22 07/24/24 History pravastatin 80 mg tablet 80 mg PO DAILY #90 tabs 10/23/23 0 07/24/24 Rx ezetimibe 10 mg tablet (Zetia) 10 mg PO DAILY #90 tabs 11/26/23 0 07/24/24 Rx losartan 25 mg tablet 25 mg PO DAILY #90 tabs 11/26/23 0 07/24/24 Rx furosemide 20 mg tablet 20 mg PO DAILY water pill #90 tabs 11/28/23 07/24/24 Rx clopidogrel 75 mg tablet (Plavix) 75 mg PO DAILY #90 tabs 01/01/24 07/24/24 Rx metoprolol succinate 100 mg 50 mg PO BID 02/11/24 07/24/24 His tory tablet,extended release 24 hr empagliflozin 10 mg tablet 10 mg PO QAM #30 tabs 07/24/24 Rx prednisone 5 mg tablet 3 mg PO DAILY arthritis 07/24/24 0 07/24/24 History spironolactone 25 mg tablet 25 mg PO QDAY #30 tabs 07/24/24 Rx Ejection fraction %: 40 Have you fallen in the past year?: No Nurse's Note: Patient had EKG at [facility]- did not request copy to be sent here. [facility] Medical History (Reviewed 07/24/24 @ 17:21 by Pippa Weston SPEECH AND LANGUAGE ASSISTANT, SPEECH AND LANGUAGE ASSISTANT-C) Aortic valve stenosis, nonrheumatic Pure hypercholesterolemia Presence of stent in coronary artery ( 04/20/17) Essential hypertension Old myocardial infarction Ischemic cardiomyopathy Ventricular tachyarrhythmia Atherosclerosis of artery of extremity with intermittent claudication Shortness of breath Nonspecific elevation of levels of transaminase and lactic acid dehydrogenase (LDH) Long-term use of high-risk medication Hyperkalemia Claudication Chest discomfort Cardiovascular function study, abnormal Atherosclerotic heart disease of [place] coronary artery without angina pectoris Surgical History History of bilateral cataract extraction History of implantable cardiac defibrillator (IC (more content not included)... Normal [facility] Echo Complete W/ Contraston 07-24-2024 Echo Complete W/ Contrast [facility] [address] [place] [address] Echo Complete W/ Contrast 07/24/24 1252 MR#: [id number] Acct: [id number] Name: CLIFFORD ALONZO Rep #: [id number] : 1955 69 From: Deni Burgos MD Attending Dr: Dr. Jose Villafana MD Status: [facility] Ordering Dr: Jose Villafana MD Date: 07/24/24 Location: [facility] Sex: M C Admitted: Reason For Study Reason For Study: CHF Procedure This was a 2D Doppler, Color Flow transthoracic echocardiogram. The study was technically difficult. Contrast injection was performed. Exam performed in department. Left Ventricle Normal LV size. The left ventricular ejection fraction is 25 %. Stage 3 diastolic dysfunction. [place] : Dyskinetic. There is moderate to severe global hypokinesis of the left ventricle. There are regional wall motion abnormalities as specified. Right Ventricle Normal RV size. ICD or pacer leads identified within the right ventricle. Normal systolic function. Mitral Valve Bileaflet diffuse mitral valve thickening. Mild (1+) eccentric mitral valve insufficiency. Tricuspid Valve Normal tricuspid valve. Mild (1+) tricuspid valve insufficiency. Pulmonary artery systolic pressure is 36 mmHg. Aortic Valve Trisinus/trileaflet aortic valve. Mild focal aortic valve thickening. Mild (1+) aortic valve insufficiency. Medication 22 gauge I.V. with prn adaptor inserted into right arm. Diluted definity 2ml given slow IV push to enhance endocardial definition. MMode/2D Measurements Calculations LVIDd: 5.3 cm IVSd: 0.90 cm Ao root diam: 3.0 cm LVIDs: 4.6 cm LVPWd: 0.83 cm RVDd: 4.1 cm FS: 13.6 % LAV(MOD-bp): 74.4 ml SV(MOD-sp4): 79.0 ml LVAd ap4: 49.0 cm2 LAV(MOD-bp) Indexed: 34.9 ml/m2 LVLd ap4: 9.2 cm SI(MOD-sp4): 37.1 ml/m2 LAV(MOD-sp2): 66.2 ml EDV(MOD-sp4): 205.2 ml LAV(MOD-sp4): 74.3 ml EDV(sp4-el): 222.2 ml LVAs ap4: 36.3 cm2 LVLs ap4: 8.4 cm ESV(MOD-sp4): 126.1 ml ESV(sp4-el): 133.8 ml EF(MOD-sp4): 38.5 % EF(sp4-el): 39.8 % SV(sp4-el): 88.4 ml LA A4 area: 23.6 cm2 LA dimension(2D): 4.8 cm TAPSE: 1.8 cm RA A4 area: 21.0 cm2 Time Measurements MV dec time: 0.16 sec Doppler Measurements Calculations MV E max isaías: 107.5 cm/sec Lat Peak E' Isaías: 11.1 cm/sec Med Peak E' Isaías: 9.5 cm/sec MV A max isaías: 25.7 cm/sec E/E' lat: 9.7 E/E' med: 11.4 MV E/A: 4.2 MV V2 max: 144.5 cm/sec MV P1/2t max isaías: 145.1 cm/sec Ao V2 max: 187.0 cm/sec MV max P.4 mmHg MV P1/2t: 70.9 msec Ao max P.0 mmHg MV V2 mean: 61.4 cm/sec MV dec slope: 599.2 cm/sec2 Ao V2 mean: 126.1 cm/sec MV mean P.1 mmHg Ao mean P.4 mmHg MV V2 VTI: 41.1 cm MVA(P1/2t): 3.1 cm2 Ao V2 VTI: 45.4 cm AV (velocity ratio): 0.50 AI max isaías: 413.9 cm/sec LV V1 max: 85.1 cm/sec MR max isaías: 418.7 cm/sec AI max P.5 mmHg LV V1 max P.9 mmHg MR max P.1 mmHg AI dec slope: 217.2 cm/sec2 LV V1 mean P.9 mmHg AI P1/2t: 558.1 msec LV V1 mean: 65.2 cm/sec LV V1 VTI: 22.7 cm TR max isaías: 286.6 cm/sec TR max P.9 mmHg ECHO/Echo Complete W/ Contrast Interpretation Summary The left ventricular ejection fraction is 25 %. Normal LV size. ICD or pacer leads identified within the right ventricle. Normal systolic function. Stage 3 diastolic dysfunction. Contrast injection was performed. Ordering Physician: Jose Villafana Referring Physician: Jose Villafana Performed By: Ephraim Merchant RCS 07/24/24 1443 Date Deni Burgos MD CC: Dr. Jose Etienne DO; Dr. Jose Villafana MD Date Dictated: 07/24/24 1252 Date Transcribed: 07/24/24 1443 Sushi Chef: Signed Normal [facility] Echocardiogram study reportO rdered By: Deni Burgos on 07-24-2024 Study report [facility] [address] [place] [address] Echo Complete W/ Contrast 07/24/24 1252 MR#: [id number] Acct: [id number] Name: CLIFFORD ALONZO Rep #:[id number] : 1955 69 From: Deni Carmona Attending Dr: Dr. Jose Villafana MD Status: REG CLI Ordering Dr: Jose Villafana MD Date: 07/24/24 Location: [facility] Sex: M C Admitted: Reason For Study Reason For Study: CHF Procedure This was a 2D Doppler, Color Flow transthoracic echocardiogram. The study was technically difficult. Contrast injection was performed. Exam performed in department. Left Ventricle Normal LV size. The left ventricular ejection fraction is 25 %. Stage 3 diastolic dysfunction. [place] : Dyskinetic. There is moderate to severe global hypokinesis of the left ventricle. There are regional wall motion abnormalities as specified. Right Ventricle Normal RV size. ICD or pacer leads identified within the right ventricle. Normalsystolic function. Mitral Valve Bileaflet diffuse mitral valve thickening. Mild (1+) eccentric mitral valve insufficiency. Tricuspid Valve Normal tricuspid valve. Mild (1+) tricuspid valve insufficiency. Pulmonary artery systolic pressure is 36 mmHg. Aortic Valve Trisinus/trileaflet aortic valve. Mild focal aortic valve thickening. Mild (1+) aortic valve insufficiency. Medication 22 gauge I.V. with prn adaptor inserted into right arm. Diluted definity 2ml given slow IV push to enhance endocardial definition. MMode/2D Measurements & Calculations LVIDd: 5.3 cm IVSd: 0.90 cm Ao root diam: 3.0 cm LVIDs: 4.6 cm LVPWd: 0.83 cm RVDd: 4.1 cm FS: 13.6 % __ LAV(MOD-bp): 74.4 ml SV(MOD-sp4): 79.0 ml LVAd ap4: 49.0 cm2 LAV(MOD-bp) Indexed: 34.9 ml/m2 LVLd ap4: 9.2 cm SI(MOD-sp4): 37.1 ml/m2 LAV(MOD-sp2): 66.2 ml EDV(MOD-sp4): 205.2 ml LAV(MOD-sp4): 74.3 ml EDV(sp4-el): 222.2 ml LVAs ap4: 36.3 cm2 LVLs ap4: 8.4 cm ESV(MOD-sp4): 126.1 ml ESV(sp4-el): 133.8 ml EF(MOD-sp4): 38.5 % EF(sp4-el): 39.8 % __ SV(sp4-el): 88.4 ml LA A4 area: 23.6 cm2 LA dimension(2D): 4.8 cm __ TAPSE: 1.8 cm RA A4 area: 21.0 cm2 Time Measurements MV dec time: 0.16 sec Doppler Measurements & Calculations MV E max isaías: 107.5 cm/sec Lat Peak E' Isaías: 11.1 cm/sec Med Peak E' Isaías: 9.5 cm/sec MV A max isaías: 25.7 cm/sec E/E' lat: 9.7 E/E' med: 11.4 MV E/A: 4.2 MV V2 max: 144.5 cm/sec MV P1/2t max isaías: 145.1 cm/sec Ao V2 max: 187.0 cm/sec MV max P.4 mmHg MV P1/2t: 70.9 msec Ao max P.0 mmHg MV V2 mean: 61.4 cm/sec MV dec slope: 599.2 cm/sec2 Ao V2 mean: 126.1 cm/sec MV mean P.1 mmHg Ao mean P.4 mmHg MV V2 VTI: 41.1 cm MVA(P1/2t): 3.1 cm2 Ao V2 VTI: 45.4 cm AV (velocity ratio): 0.50 __ AI max isaías: 413.9 cm/sec LV V1 max: 85.1 cm/sec MR max isaías: 418.7 cm/sec AI max P.5 mmHg LV V1 max P.9 mmHg MR max P.1 mmHg AI dec slope: 217.2 cm/sec2 LV V1 mean P.9 mmHg AI P1/2t: 558.1 msec LV V1 mean: 65.2 cm/sec LV V1 VTI: 22.7 cm TR max isaías: 286.6 cm/sec TR max P.9 mmHg ECHO/Echo Complete W/ Contrast Interpretation Summary The left ventricular ejection fraction is 25 %. Normal LV size. ICD or pacer leads identified within the right ventricle. Normal systolic function. Stage 3 diastolic dysfunction. Contrast injection was performed. Ordering Physician: Jose Villafana Referring Physician: Jose Villafana Performed By: Ephraim Merchant RCS 07/24/24 1443 Date _ Deni Burgos MD CC: Dr. Jose Etienne DO; Dr. Jose Villafana MD ~ Date Dictated: 07/24/24 1252 Date Transcribed: 07/24/24 1443 Sushi Chef: Signed [facility] Work Phone: Pacemaker Checkon 07-24-2024 Pacemaker Check [facility] [address] [place] [address] Pacemaker Check Date of Service: 07/24/24 1034 MR#: [id number] Acct: [id number] Name: CLIFFORD ALONZO Rep #: [id number] : 1955 From: Monica Guevara Age/Sex: 69/M Location[place] [facility] [place] Status: Signed Billing Codes ICD Device Billin ICD Dev Prog Eval, Single Assessment and Plan Assessment and Plan (1) History of implantable cardiac defibrillator (ICD): Status: Chronic Comment: cardioverter-defibrillator replacement 03/16D implant April 2003;cardioverter-defibril lator replacement 03/16; Generator change 05/10/18 (2) Ischemic cardiomyopathy: Status: Chronic (3) Ventricular tachyarrhythmia: Status: Chronic 07/24/24 1035 Date Monica Guevara Cosigner Signature: Date (if applicable) CC: [facility] CT SPINE CERVICAL W/ CONTRAS Ton 06-16-2024 CT SPINE CERVICAL W/ CONTRAST ORIGINAL EXAMINATION: CT OF THE CERVICAL SPINE WITH INTRATHECAL CONTRAST 06/16/2024 9:47 am: TECHNIQUE: CT of the cervical spine was performed after the administration of intrathecal contrast with multiplanar reconstructed images provided for interpretation. Dose modulation, iterative reconstruction, and/or weight based adjustment of the mA/kV was utilized to reduce the radiation dose to as low as reasonably achievable. COMPARISON: Cervical myelogram 06/16/2024. HISTORY: ORDERING SYSTEM PROVIDED HISTORY: Reason for Exam: CT myelogram cervical FINDINGS: BONES/ALIGNMENT: There is normal alignment of the spine. The vertebral body heights are maintained. No destructive osseous lesion is seen. Multilevel hypertrophic facet arthropathy. SOFT TISSUES: There is no prevertebral soft tissue swelling. C2-C3: There is no significant disc protrusion, spinal canal stenosis or neural foraminal narrowing. C3-C4: There is no significant disc protrusion, spinal canal stenosis or neural foraminal narrowing. C4-C5: There is no significant disc protrusion, spinal canal stenosis or neural foraminal narrowing. C5-C6: There is no significant disc protrusion or canal stenosis. Moderate left bony foraminal narrowing. C6-C7: There is no significant disc protrusion, spinal canal stenosis or neural foraminal narrowing. C7-T1: There is no significant disc protrusion, spinal canal stenosis or neural foraminal narrowing. SOFT TISSUES: There is no prevertebral soft tissue swelling. Biapical interstitial fibrosis and vascular congestion noted. IMPRESSION: No herniated disc or nerve root impingement. Moderate left bony foraminal narrowing C5-C6. Interpreted by: Jagjit Carr Preliminary Report By: Jagjit Carr Electronically signed By Jagjit Carr Dictated Date: 06/16/2024 9:51:25 AM Prelim Date: 06/16/2024 9:54:10 AM Sign Date: 06/16/2024 9:54:10 AM Ordering Provider: MIGDALIA LAL [facility] MAIN CT SPINE LUMBAR W/CONTRASTon 06-16-2024 CT SPINE LUMBAR W/CONTRAST ORIGINAL EXAMINATION: CT OF THE LUMBAR SPINE WITH INTRATHECAL CONTRAST 06/16/2024 9:48 am: TECHNIQUE: CT of the lumbar spine was performed after the administration of intrathecal contrast with multiplanar reconstructed images provided for interpretation. Dose modulation, iterative reconstruction, and/or weight based adjustment of the mA/kV was utilized to reduce the radiation dose to as low as reasonably achievable. COMPARISON: LUMBAR MYELOGRAM 06/16/2024. None. HISTORY: ORDERING SYSTEM PROVIDED HISTORY: Reason for Exam: Ct myelogram lumbar FINDINGS: BONES/ALIGNMENT: There is normal alignment of the spine. The vertebral body heights are maintained. No osseous destructive lesion is seen. SOFT TISSUES: No paraspinal mass is seen. L1-L2: There is no significant disc protrusion, central spinal canal stenosis or neural foraminal narrowing. L2-L3: There is no significant disc protrusion, central spinal canal stenosis or neural foraminal narrowing. L3-L4: Annular broad-based protrusion of disc with severe central canal stenosis and bilateral foraminal narrowing. L4-L5: Broad-based annular bulging of disc with moderate canal stenosis. Hypertrophic facet arthropathy with severe right foraminal narrowing. L5-S1: There is no significant disc protrusion, central spinal canal stenosis or neural foraminal narrowing. IMPRESSION: Broad-based protrusion of disc at L3-L4 with severe canal stenosis. Annular protrusion of disc at L4-L5 with moderate canal and severe right foraminal narrowing. Interpreted by: Jagjit Carr Preliminary Report By: Jagjit Carr Electronically signed By Jagjit Carr Dictated Date: 06/16/2024 9:54:21 AM Prelim Date: 06/16/2024 9:57:08 AM Sign Date: 06/16/2024 9:57:08 AM Ordering Provider: MIGDALIA LAL [facility] MAIN LABORATORYOrdered By: SYSTEM SYSTEM on 06-16-2024 Platelets (Bld) [#/Vol] 210 103/mcL Normal 150 - 450 10^3/mcL Workflow SS PT Coag (PPP) [Time] 12.0 s Normal 9.0 - 1 4.4 seconds [facility] SS Comment on above: Interpretive Data: E ffective 09/17/07, Protime results may be affected by some antibiotics (i.e. Ciprofloxacin, Azithromycin, Bactrim) which may potentiate the action of oral anticoagulants, with further increases in Protime/INR. PT International Ratio 1.0 ratio Invalid Interpretation Code HemoHvictor manuel SS Comment on above: Interpretive Data: T he [employer] (CHEST, 1992, 102:312S-25S) recommended therapeutic range for oral anticoagulant therapy is: LOW RISK: Prophylaxis of venous thrombosis INR: 2.0-3.0 Treatment of pulmonary embolism 2.0-3.0 Prevention of systemic embolism 2.0-3.0 HIGH RISK: Mechanical prosthetic valves 2.5-3.5 PLTon 06-16-2024 Platelet 210 10 3/mcL Normal 150-450 [facility] Comment on above: Performed By: #### P RO, PLT #### [facility] [address] [place] [id number] PROon 06-16-2024 INR Coag (PPP) [Relative time] 1.0 {INR} Normal [facility] Comment on above: Result Comment: The [employer] (CHEST, 1992, 102:312S-25S) recommended therapeutic range for oral anticoagulant therapy is: LOW RISK: Prophylaxis of venous thrombosis INR: 2.0-3.0 Treatment of pulmonary embolism 2.0-3.0 Prevention of systemic embolism 2.0-3.0 HIGH RISK: Mechanical prosthetic valves 2.5-3.5 Performed By: #### P RO, PLT #### [facility] [address] [place] [id number] PT Coag (PPP) [Time] 12.0 s Normal 9.0-14.4 [facility] Comment on above: Result Comment: Effe ctive 09/17/07, Protime results may be affected by some antibiotics (i.e. Ciprofloxacin, Azithromycin, Bactrim) which may potentiate the action of oral anticoagulants, with further increases in Protime/INR. Performed By: #### P RO, PLT #### [facility] [address] [place] [id number] Cardiology Visit Reporton Cardiology Visit Report [facility] [address] [place] [address]. [address] [place], [place] [id number] OFFICE VISIT Date of Service: 02/11/24 MR#: [id number] Acct: [id number] Name: CLIFFORD ALONZO Rep #: [id number] : 1955 Provider: Dr. Jose walsh MD Age/Sex: 68/M Location: [facility] [place] Status: Signed HPI HPI History of Present Illness Details: Patient is a 68-year-old white male that comes in for monitoring of his cardiovascular disease. The patient reports that he is doing fairly well in his home environment he is up and about regular activity levels he has had no recurrence of his anginal symptoms which was a burning mid retrosternal discomfort. He does have a history of significant myalgias and what he describes as inability to actually move that is resolved with aggressive prednisone treatment. He is scheduled to see rheumatology for possible rheumatoid arthritis March 10, 2024. The patient has a known history of coronary disease status post stenting of the LAD and right coronary artery last intervention was 2018. He also has a ischemic cardiomyopathy last EF December 28, 2022 by echo was 40% this is stable. The patient is on guideline directed medical therapy. He actually has an ICD implanted in 2003 he has had 2 battery changes done. The patient's interrogation today showed less than 1% V paced he has a 12-year battery life expectancy he had no VT or VF documented the patient has never been shocked by his report. The patient does not have remote monitoring available. The patient also carries a history of hyperlipidemia labs are to be reviewed by his primary care physician who monitors his lipids. The patient also has a history of mild aortic insufficiency 1+ and 1+ mitral insufficiency the left atrium is severely dilated the right atrium is moderately enlarged. The patient denies any PND orthopnea denies any lower extremity edema he reports he is doing fairly well in his home environment. Intake Vital Signs 07/05/23 08:51 02/11/24 08:50 Height 5 ft 11 in 5 ft 11 in Weight: 204 lb BMI 28.4 BP 162/85 H Blood Pressure Location Rt brachial Position Sitting Respiration 18 Pulse 52 L Pulse Source Monitor Pulse Oximetry (%) 93 Oxygen Delivery Method room air Intake Visit Reasons: 6 M FU/DEBORA @ 8:30 Plastic Sheets Supervisor Required: No Accompanied by: Self Is patient in pain?: No Allergies cefazolin sodium (From Ancef) Allergy (Verified 02/11/24 08:50) Unknown rosuvastatin calcium (From Crestor) Allergy (Verified 02/11/24 08:50) Unknown lisinopril Adverse Reaction (Severe, Verified 02/11/24 08:50) Mouth Sores Medications ???Medication ???Instructions ???Recorded ???Confirmed ???Type aspirin 81 mg chewable tablet 81 mg PO DAILY@0800 heart 04/27/14 02/11/24 History prednisone 5 mg tablet 5 mg PO DAILY arthritis 04/27/14 02/11/24 History nitroglycerin 0.4 mg sublingual 0.4 mg sublingual Q5M PRN Chest 07/12/20 02/11/24 Rx tablet Pain #25 tabs hydrocodone-acetaminophen 5-325mg 1 tab PO Q6H PRN Pain 30 days #120 02/22/21 02/11/24 History 5mg-325mg tabs alendronate 10 mg tablet 10 mg PO DAILY 08/08/21 02/11/24 History tamsulosin 0.4 mg capsule 0.4 mg PO DAILY 12/06/22 02/11/24 History pravastatin 80 mg tablet 80 mg PO DAILY #90 tabs 10/23/23 02/11/24 Rx ezetimibe 10 mg tablet (Zetia) 10 mg PO DAILY #90 tabs 11/26/23 02/11/24 Rx losartan 25 mg tablet 25 mg PO DAILY #90 tabs 11/26/23 02/11/24 Rx furosemide 20 mg tablet 20 mg PO DAILY water pill #90 tabs 11/28/23 02/11/24 Rx clopidogrel 75 mg tablet (Plavix) 75 mg PO DAILY #90 tabs 01/01/24 02/11/24 Rx metoprolol succinate 100 mg 50 mg PO BID 02/11/24 02/11/24 History tablet,extended release 24 hr prednisone 20 mg tablet 20 mg PO QDAY 02/11/24 02/11/24 History Ejection fraction %: 40 Have you fallen in the past year?: Yes PFSH Medical History Aortic valve stenosis, nonrheumatic Pure hypercholesterolemia Presence of stent in coronary artery ( 04/20/17) Essential hypertension Old myocardial infarction Ischemic cardiomyopathy Ventricular tachyarrhythmia Atherosclerosis of artery of extremity with intermittent claudication Shortness of breath Nonspecific elevation of levels of transaminase and lactic acid dehydrogenase (LDH) Long-term use of high-risk medication Hyperkalemia Claudication Chest discomfort Cardiovascular function study, abnormal Atherosclerotic heart disease of [place] coronary artery without angina pectoris Surgical History History of bilateral cataract extraction History of implantable cardiac defibrillator (ICD) (05/10/18) Presence of coronary angioplasty implant and graft Family History ... Normal [facility] Pacemaker Checkon 02-11-2024 Pacemaker Check [facility] [address] [place] [address] Pacemaker Check Date of Service: 02/11/24 1309 MR#: [id number] Acct: [id number] Name: CLIFFORD ALONZO Rep #: [id number] : 1955 From: Monica Guevara Age/Sex: 68/M Location: [facility] [place] Status: Signed Billing Codes ICD Device Billin ICD Dev Prog Eval, Single Assessment and Plan Assessment and Plan (1) History of implantable cardiac defibrillator (ICD): Status: Chronic Comment: cardioverter-defibrillator replacement 03/16D implant April 2003;cardioverter-defibril lator replacement 03/16; Generator change 05/10/18 (2) Ventricular tachyarrhythmia: Status: Chronic 02/11/24 1310 Date Monica Marrufo Signature: Date (if applicable) CC: Normal [facility] CT ABD/PELVIS W/ IV CONTRAST ONLYon 02-07-2024 CT ABD/PELVIS W/ IV CONTRAST ONLY ORIGINAL EXAMINATION: CT OF THE ABDOMEN AND PELVIS WITH CONTRAST 02/07/2024 9:48 am TECHNIQUE: CT of the abdomen and pelvis was performed with the administration of intravenous contrast. Multiplanar reformatted images are provided for review. Automated exposure control, iterative reconstruction, and/or weight based adjustment of the mA/kV was utilized to reduce the radiation dose to as low as reasonably achievable. COMPARISON: None. 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 Minor degenerative changes are noted in the spine. Minor left SI joint degenerative changes are noted as well. A bone island is noted at the body of the sacrum. Liver, spleen, adrenal glands and pancreas are unremarkable. Left midpole nephrolithiasis is present with 2 adjacent 3-4 mm stones. No other kidney abnormality, no ureteral stone seen. No adenopathy, free air or free fluid is evident. The urinary bladder is not well distended for assessment. Very minor scattered colonic diverticulosis is present, without diverticulitis. No other GI tract abnormality seen. No additional contributory finding. IMPRESSION: 1. Nonobstructive left nephrolithiasis. 2. Mild diverticulosis without diverticulitis. 3. No other significant finding. Interpreted by: Jose Pierre MD Preliminary Report By: Jose Pierre MD Electronically signed By Jose Pirere MD Dictated Date: 02/07/2024 9:48:48 AM Prelim Date: 02/07/2024 9:51:34 AM Sign Date: 02/07/2024 9:51:34 AM Ordering Provider: JOSE ETIENNE [facility] CT THORAX W/ CONTRASTon CT THORAX W/ CONTRAST ORIGINAL EXAMINATION: CT OF THE CHEST WITH CONTRAST 02/07/2024 9:47 am TECHNIQUE: CT of the chest was performed with the administration of intravenous contrast. Multiplanar reformatted images are provided for review. Automated exposure control, iterative reconstruction, and/or weight based adjustment of the mA/kV was utilized to reduce the radiation dose to as low as reasonably achievable. 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 There are mild degenerative changes noted in the spine. No acute osseous abnormality identified. Mild interstitial pulmonary fibrosis is evident. No focal area of consolidation is visible, and there is no pleural fluid present. No mediastinal adenopathy is evident. Coronary calcification noted. No additional contributory abnormality seen. IMPRESSION: Mild interstitial pulmonary fibrosis. No superimposed acute finding. No other pertinent abnormality. Interpreted by: Jose Pierre MD Preliminary Report By: Jose Pierre MD Electronically signed By Jose Pierre MD Dictated Date: 02/07/2024 9:51:44 AM Prelim Date: 02/07/2024 9:54:11 AM Sign Date: 02/07/2024 9:54:11 AM Ordering Provider: JOSE Carroll [facility] SAM SCREEN, IFA, W/REFL TITE R AND PATTERNon 01-26-2024 SAM SCREEN, IFA Negative Normal NEGATIVE [facility] Comment on above: Result Comment: SAM IFA is a first line screen for detecting the presence of up to approximately 150 autoantibodies in various autoimmune diseases. A negative SAM IFA result suggests an SAM-associated autoimmune disease is not present at this time, but is not definitive. If there is high clinical suspicion for Sjogren's syndrome, testing for anti-SS-A/Ro antibody should be considered. Anti-Savanah-1 antibody should be considered for clinically suspected inflammatory myopathies. AC-0: Negative International Consensus on SAM Patterns (https://doi.org/10.1515/tzuw-9593-5953) For additional information, please refer to http://education.[employer].Groupjump/faq/LYF525 (This link is being provided for informational/ educational purposes only.) Performed By: #### 9 05, 46739, 496, 6399, 49258, 7600 #### [facility] [address], [address] [place], [place] [id number] [employer]: Jax Al MD C-REACTIVE PROTEINon 024 CRP [Mass/Vol] 18.9 mg/L High <8.0 [facility] Comment on above: Performed By: #### 9 05, 90565, 496, 6399, 17677, 7600 #### [facility] [address], [address] [place], [place] [id number] [employer] Of [employer]: Jax Al MD CALCIUM, IONIZEDon 4 CALCIUM, IONIZED 5.9 mg/dL High 4.7-5.5 [facility] Comment on above: Performed By: #### 9 05, 49307, 496, 6399, 61766, 7600 #### [facility] [address], [address] [place] [address] [employer]: Jax Al MD CBC (INCLUDES DIFF/PLT)on Basophils (Bld) [#/Vol] 0.11 10*3/uL Normal 0-200 [facility] Comment on above: Performed By: #### 9 05, 98338, 496, 6399, 69503, 7600 #### [facility] [address], [address] [place] [address] [employer]: Jax Al MD Basophils/100 WBC (Bld) 1.1 % Normal [facility] Comment on above: Performed By: #### 9 05, 24278, 496, 6399, 77449, 7600 #### [facility] [address], [address] [place] [address] [employer]: Jax Al MD COMMENT Normal [facility] Comment on above: Result Comment: We received your handwritten test order and performed CBC with differential (includes hemogram, platelet count and WBC with automated differential). If you intended to order a CBC without differential or another test, please contact us at [phone] Correlsense ( [phone] to adjust the billing appropriately. Performed By: #### 9 05, 40023, 496, 6399, 61316, 7600 #### [facility] [address], [address] [place] [address] [employer]: Jax Al MD Result Comment: We r eceived a handwritten test order for Vitamin D and performed 65283, Vitamin D, 25-OH,Total,IA test. If this is not what you intended to order, please contact your local medical collections representative immediately so that we may adjust our billing appropriately. You may also inquire about alternative or additional testing. For additional information, please refer to http://education.[employer].Groupjump/faq/TAD167 (This link is being provided for informational/ educational purposes only.) Eosinophils (Bld) [#/Vol] 0.33 10*3/uL Normal 15-500 [facility] Comment on above: Performed By: #### 9 05, 94612, 496, 6399, 17796, 7600 #### [facility] [place] [address] [employer]: Jax Al MD Eosinophils/100 WBC (Bld) 3.3 % Normal [facility] Comment on above: Performed By: #### 9 05, 07319, 496, 6399, 53566, 7600 #### [facility] [place] [address] [employer]: Jax Al MD Erythrocyte distribution width (RBC) [Ratio] 11.7 % Normal 11.0-15.0 [facility] Comment on above: Performed By: #### 9 05, 41872, 496, 6399, 53363, 7600 #### [facility] [place] [address] [employer]: Jxa Al MD Hematocrit (Bld) [Volume fraction] 44.0 % Normal 38.5-50.0 [facility] Comment on above: Performed By: #### 9 05, 27888, 496, 6399, 60026, 7600 #### [facility] [place] [address] [employer]: Jax Al MD Hemoglobin (Bld) [Mass/Vol] 14.7 g/dL Normal 13.2-17.1 [facility] Comment on above: Performed By: #### 9 05, 30647, 496, 6399, 96519, 7600 #### [facility] [place] [address] [employer]: Jax Al MD Lymphocytes (Bld) [#/Vol] 2.06 10*3/uL Normal 850-3900 [facility] Comment on above: Performed By: #### 9 05, 57102, 496, 6399, 58937, 7600 #### [facility] of [address], [address] [place] [address] [employer]: Jax Al MD Lymphocytes/100 WBC (Bld) 20.6 % Normal [facility] Comment on above: Performed By: #### 9 05, 27528, 496, 6399, 23873, 7600 #### [facility] [place] [address] [employer]: Jax Al MD MCH (RBC) [Entitic mass] 31.4 pg Normal 27.0-33.0 [facility] Comment on above: Performed By: #### 9 05, 52504, 496, 6399, 86302, 7600 #### [facility] [place] [address] [employer]: Jax Al MD MCHC (RBC) [Mass/Vol] 33.4 g/dL Normal 32.0-36.0 [facility] Comment on above: Result Comment: For adults, a slight decrease in the calculated MCHC value (in the range of 30 to 32 g/dL) is most likely not clinically significant; however, it should be interpreted with caution in correlation with other red cell parameters and the patient's clinical condition. Performed By: #### 9 05, 38234, 496, 6399, 54790, 7600 #### [facility] [place] [address] [employer]: Jax Al MD MCV (RBC) [Entitic vol] 94.0 fL Normal 80.0-100.0 [facility] Comment on above: Performed By: #### 9 05, 80579, 496, 6399, 25991, 7600 #### [facility] [place] [address] [employer]: Jax Al MD Monocytes (Bld) [#/Vol] 1.21 10*3/uL High 200-950 [facility] Comment on above: Performed By: #### 9 05, 85485, 496, 6399, 19274, 7600 #### [facility] [place] [address] [employer]: Jax Al MD Monocytes/100 WBC (Bld) 12.1 % Normal [facility] Comment on above: Performed By: #### 9 05, 41888, 496, 6399, 06714, 7600 #### [facility] [place] [address] [employer]: Jax Al MD Neutrophils (Bld) [#/Vol] 6.29 10*3/uL Normal 8253-9426 [facility] Comment on above: Performed By: #### 9 05, 61965, 496, 6399, 68536, 7600 #### [facility] [place] [address] [employer]: Jax Al MD Neutrophils/100 WBC (Bld) 62.9 % Normal [facility] Comment on above: Performed By: #### 9 05, 63302, 496, 6399, 02801, 7600 #### [facility] [place] [address] [employer]: Jax Al MD Platelet mean volume (Bld) [Entitic vol] 10.2 fL Normal 7.5-12.5 [facility] Comment on above: Performed By: #### 9 05, 35824, 496, 6399, 03544, 7600 #### [facility] [place] [address] [employer]: Jax Al MD Platelets (Bld) [#/Vol] 345 10*3/uL Normal 140-400 [facility] Comment on above: Performed By: #### 9 05, 23573, 496, 6399, 55671, 7600 #### [facility] [place] [address] [employer]: Jax Al MD RBC (Bld) [#/Vol] 4.68 10*6/uL Normal 4.20-5.80 [facility] Comment on above: Performed By: #### 9 05, 27877, 496, 6399, 48290, 7600 #### [facility] [address], [address] [place] [address] [employer]: Jax Al MD WBC (Bld) [#/Vol] 10.0 10*3/uL Normal 3.8-10.8 [facility] Comment on above: Performed By: #### 9 05, 39094, 496, 6399, 88357, 7600 #### [facility] [address], [address] [place] [address] [employer]: Jax Al MD HEMOGLOBIN A1con 01-26-2024 HEMOGLOBIN A1c 5.3 % of total Hgb Normal <5.7 [facility] Comment on above: Result Comment: For the purpose of screening for the presence of diabetes: <5.7% Consistent with the absence of diabetes 5.7-6.4% Consistent with increased risk for diabetes (prediabetes) > or =6.5% Consistent with diabetes This assay result is consistent with a decreased risk of diabetes. Currently, no consensus exists regarding use of hemoglobin A1c for diagnosis of diabetes in children. According to [place] Diabetes Association (ADA) guidelines, hemoglobin A1c <7.0% represents optimal control in non- diabetic patients. Different metrics may apply to specific patient populations. Standards of Medical Care in Diabetes(ADA). Your request to have a duplicate copy faxed has been acknowledged. Queued to: [id number] Queued to: [phone] Performed By: #### 9 05, 37038, 496, 6399, 61537, 7600 #### [facility] [address], [address] [place] [address] [employer] Of [employer]: Jax Al MD HEPATIC FUNCTION PANELon Albumin [Mass/Vol] 4.3 g/dL Normal 3.6-5.1 [facility] Comment on above: Performed By: #### 9 05, 62945, 496, 6399, 55361, 7600 #### [facility] [address], [address] [place] [address] [employer] Of [employer]: Jax Al MD Albumin/Globulin [Mass ratio] 1.6 {ratio} Normal 1.0-2.5 [facility] Comment on above: Performed By: #### 9 05, 96307, 496, 6399, 01552, 7600 #### [facility] [place] [address] [employer]: Jax Al MD ALP [Catalytic activity/Vol] 70 U/L Normal 35-144 [facility] Comment on above: Performed By: #### 9 05, 03632, 496, 6399, 90125, 7600 #### [facility] [place] [address] [employer]: Jax Al MD ALT [Catalytic activity/Vol] 30 U/L Normal 9-46 [facility] Comment on above: Performed By: #### 9 05, 43584, 496, 6399, 74583, 7600 #### [facility] [place] [address] [employer]: Jax Al MD AST [Catalytic activity/Vol] 26 U/L Normal 10-35 [facility] Comment on above: Performed By: #### 9 05, 58683, 496, 6399, 80097, 7600 #### [facility] [place] [address] [employer]: Jax Al MD Bilirubin [Mass/Vol] 0.7 mg/dL Normal 0.2-1.2 [facility] Comment on above: Performed By: #### 9 05, 74739, 496, 6399, 78280, 7600 #### [facility] [place] [address] [employer]: Jax Al MD BILIRUBIN, INDIRECT 0.5 mg/dL (calc) Normal 0.2-1.2 [facility] Comment on above: Performed By: #### 9 05, 29124, 496, 6399, 00601, 7600 #### [facility] [place] [address] [employer]: Jax Al MD Bilirubin.indirect [Mass/Vol] 0.2 mg/dL Normal < OR = 0.2 [facility] Comment on above: Performed By: #### 9 05, 51289, 496, 6399, 86391, 7600 #### [facility] [place] [address] [employer]: Jax Al MD Globulin (S) [Mass/Vol] 2.7 g/dL Normal 1.9-3.7 [facility] Comment on above: Performed By: #### 9 05, 03503, 496, 6399, 42337, 7600 #### [facility] [place] [address] [employer]: Jax Al MD Protein [Mass/Vol] 7.0 g/dL Normal 6.1-8.1 [facility] Comment on above: Performed By: #### 9 05, 99739, 496, 6399, 63483, 7600 #### [facility] [place] [address] [employer]: Jxa Al MD LIPID PANEL, [place] [address]-2 Cholesterol [Mass/Vol] 197 mg/dL Normal <200 [facility] Comment on above: Order Comment: FASTI NGFASTING:YESFASTING: YES Performed By: #### 9 05, 87986, 496, 6399, 06768, 7600 #### [facility] [place] [address] [employer]: Jax Al MD Cholesterol in HDL [Mass/Vol] 68 mg/dL Normal > OR = 40 [facility] Comment on above: Order Comment: FASTI NGFASTING:YESFASTING: YES Performed By: #### 9 05, 49122, 496, 6399, 08052, 7600 #### [facility] [place] [address] [employer]: Jax Al MD Cholesterol in LDL [Mass/Vol] 114 mg/dL High [facility] Comment on above: Order Comment: FASTI NGFASTING:YESFASTING: YES Result Comment: Refe rence range: <100 Desirable range <100 mg/dL for primary prevention; <70 mg/dL for patients with CHD or diabetic patients with > or = 2 CHD risk factors. LDL-C is now calculated using the Danisha calculation, which is a validated novel method providing better accuracy than the Friedewald equation in the estimation of LDL-C. Randal SS et al. ABUNDIO. 2013;310(19): 6675-8726 (http://education.[employer]/faq/OZK196) Performed By: #### 9 05, 83290, 496, 6399, 00833, 7600 #### [facility] [address], [address] [place] [address] [employer]: Jax Al MD Cholesterol.total/Ch olesterol in HDL [Mass ratio] 2.9 {ratio} Normal <5.0 [facility] Comment on above: Order Comment: FASTI NGFASTING:YESFASTING: YES Performed By: #### 9 05, 28415, 496, 6399, 62976, 7600 #### [facility] [address], [address] [place] [address] [employer]: Jax Al MD NON HDL CHOLESTEROL 129 mg/dL (calc) Normal <130 [facility] Comment on above: Order Comment: FASTI NGFASTING:YESFASTING: YES Result Comment: For patients with diabetes plus 1 major ASCVD risk factor, treating to a non-HDL-C goal of <100 mg/dL (LDL-C of <70 mg/dL) is considered a therapeutic option. Performed By: #### 9 05, 57254, 496, 6399, 85877, 7600 #### [facility] [address], [address] [place] [address] [employer]: Jax Al MD Triglyceride [Mass/Vol] 60 mg/dL Normal <150 [facility] Comment on above: Order Comment: FASTI NGFASTING:YESFASTING: YES Performed By: #### 9 05, 05291, 496, 6399, 58154, 7600 #### [facility] of [address], [address] [place] [address] [employer]: Jax Al MD MAGNESIUMon 01-26-2024 Magnesium [Mass/Vol] 1.9 mg/dL Normal 1.5-2.5 [facility] Comment on above: Performed By: #### 9 05, 94941, 496, 6399, 06225, 7600 #### [facility] of [address], [address] [place] [address] [employer]: Jax Al MD NEUROLOGY ANTIBODY, LINE BLO Ton 01-26-2024 AGNA/SOX1 AB, LB 20 SI High <11 [facility] Comment on above: Performed By: #### 9 05, 33420, 496, 6399, 24292, 7600 #### [facility] of [address], [address] [place] [address] [employer]: Jax Al MD AMPHIPHYSIN AB, LB <11 Normal <11 [facility] Comment on above: Performed By: #### 9 05, 37582, 496, 6399, 94200, 7600 #### [facility] of [address], [address] [place] [address] [employer]: Jax Al MD ANNA1 (HU) AB, LB <11 Normal <11 [facility] Comment on above: Performed By: #### 9 05, 05280, 496, 6399, 79953, 7600 #### [facility] of [address], [address] [place] [address] [employer]: Jax Al MD ANNA2 (RI) AB, LB <11 Normal <11 [facility] Comment on above: Performed By: #### 9 05, 69791, 496, 6399, 03712, 7600 #### [facility] of [address], [address] [place] [address] [employer]: Jax Al MD CRMP5/CV2 AB, LB <11 Normal <11 [facility] Comment on above: Performed By: #### 9 05, 82374, 496, 6399, 14140, 7600 #### [facility] [address], [address] [place] [address] [employer]: Jax Al MD GAD65 AB, LB <11 Normal <11 [facility] Comment on above: Performed By: #### 9 05, 01031, 496, 6399, 09284, 7600 #### [facility] [place] [address] [employer]: Jax Al MD MA2/TA AB, LB <11 Normal <11 [facility] Comment on above: Performed By: #### 9 05, 41638, 496, 6399, 94541, 7600 #### [facility] [place] [address] [employer]: Jax Al MD PATROLLER TR (DNER) AB, LB <11 Normal <11 [facility] Comment on above: Result Comment: This test was developed and its analytical performance characteristics have been determined by [employer]. It has not been cleared or approved by FDA. This assay has been validated pursuant to the CLIA regulations and is used for clinical purposes. Performed By: #### 9 05, 98792, 496, 6399, 98616, 7600 #### [facility] [place] [address] [employer]: Jax Al MD PCA1 (YO) AB, LB <11 Normal <11 [facility] Comment on above: Performed By: #### 9 05, 77087, 496, 6399, 95086, 7600 #### [facility] [place] [address] [employer]: Jax Al MD RECOVERIN AB, LB <11 Normal <11 [facility] Comment on above: Performed By: #### 9 05, 08508, 496, 6399, 79855, 7600 #### [facility] [address], [address] [place] [address] [employer]: Jax Al MD TITIN AB, LB <11 Normal <11 [facility] Comment on above: Performed By: #### 9 05, 48099, 496, 6399, 11739, 7600 #### [facility] [place] [address] [employer]: Jax Al MD [facility] AB, LB <11 Normal <11 [facility] Comment on above: Performed By: #### 9 05, 88911, 496, 6399, 42674, 7600 #### [facility] [address], [address] [place] [address] [employer]: Jax Al MD PSA, TOTALon 01-26-2024 PSA, TOTAL 1.24 ng/mL Normal < OR = 4.00 [facility] Comment on above: Result Comment: The total PSA value from this assay system is standardized against the WHO standard. The test result will be approximately 20% lower when compared to the equimolar-standardized total PSA (Eliana Beatriz). Comparison of serial PSA results should be interpreted with this fact in mind. This test was performed using the Siemens chemiluminescent method. Values obtained from different assay methods cannot be used interchangeably. PSA levels, regardless of value, should not be interpreted as absolute evidence of the presence or absence of disease. Performed By: #### 9 05, 31261, 496, 6399, 37303, 7600 #### [facility] [address], [address] [place] [address] [employer]: Jax Al MD PTH, INTACT AND CALCIUMon Calcium [Mass/Vol] 10.8 mg/dL High 8.6-10.3 [facility] Comment on above: Performed By: #### 9 05, 14872, 496, 6399, 69141, 7600 #### [facility] [address], [address] [place] [address] [employer]: Jax Al MD PARATHYROID HORMONE, INTACT 127 pg/mL High 16-77 [facility] Comment on above: Result Comment: Interpretive Guide Intact PTH Calcium ------- Normal Parathyroid Normal Normal Hypoparathyroidism Low or Low Normal Low Hyperparathyroidism Primary Normal or High High Secondary High Normal or Low Tertiary High High Non-Parathyroid Hypercalcemia Low or Low Normal High Performed By: #### 9 05, 35556, 496, 6399, 95872, 7600 #### [facility] [place] [address] [employer]: Jax Al MD RENAL FUNCTION PANELon 01-25 Chloride [Moles/Vol] 103 mmol/L Normal 98-110 [facility] Comment on above: Performed By: #### 9 05, 78885, 496, 6399, 08230, 7600 #### [facility] [place] [address] [employer]p Of Marketing: Jax Al MD CO2 [Moles/Vol] 27 mmol/L Normal 20-32 [facility] Comment on above: Performed By: #### 9 05, 08760, 49, 6399, 41658, 7600 #### [facility] [place] [address] [employer] Of Marketing: Jax Al MD Creatinine [Mass/Vol] 0.61 mg/dL Low 0.70-1.35 [facility] Comment on above: Performed By: #### 9 05, 65451, 496, 6399, 94673, 7600 #### [facility] [place] [address] [employer] Of Marketing: Jax Al MD GFR/1.73 sq M.predicted among non-blacks MDRD (S/P/Bld) [Vol rate/Area] 105 mL/min/{1.73_m2} Normal > OR = 60 [facility] Comment on above: Performed By: #### 9 05, 49965, 496, 6399, 73783, 7600 #### [facility] [place] [address] [employer] Of Marketing: Jax Al MD Glucose [Mass/Vol] 99 mg/dL Normal 65-99 [facility] Comment on above: Result Comment: Fasting reference interval Performed By: #### 9 05, 92532, 496, 6399, 28555, 7600 #### [facility] of [place] [address] [employer] Of Marketing: Jax Al MD Phosphate [Mass/Vol] 2.6 mg/dL Normal 2.1-4.3 [facility] Comment on above: Performed By: #### 9 05, 86841, 496, 6399, 58035, 7600 #### [facility] of [address], [address] [place] [address] Vp Of Marketing: Jax Al MD Potassium [Moles/Vol] 4.3 mmol/L Normal 3.5-5.3 [facility] Comment on above: Performed By: #### 9 05, 11892, 496, 6399, 77722, 7600 #### [facility] of [address], [address] [place] [address] [employer] Of Marketing: Jax Al MD Sodium [Moles/Vol] 140 mmol/L Normal 135-146 [facility] Comment on above: Performed By: #### 9 05, 85282, 496, 6399, 37515, 7600 #### [facility] of [place] [address] [employer] Of Marketing: Jax Al MD Urea nitrogen [Mass/Vol] 11 mg/dL Normal 7-25 [facility] Comment on above: Performed By: #### 9 05, 74493, 496, 6399, 97768, 7600 #### [facility] of [place] [address] [employer] Of Marketing: Jax Al MD Urea nitrogen/Creatinine [Mass ratio] 18 mg/mg Normal 6-22 [facility] Comment on above: Performed By: #### 9 05, 24234, 496, 6399, 10677, 7600 #### [facility] of [place] [address] [employer] Of Marketing: Jax Al MD RHEUMATOID FACTORon 01-26-20 RHEUMATOID FACTOR <10 Normal <14 [facility] Comment on above: Performed By: #### 9 05, 79703, 496, 6399, 59328, 7600 #### [facility] [address], [address] [place] [address] [employer]p Of Marketing: Jax Al MD SED RATE BY MODIFIED WESTERG RENon 01-26-2024 SED RATE BY MODIFIED WESTERGREN 6 mm/h Normal < OR = 20 [facility] Comment on above: Performed By: #### 9 05, 66653, 496, 6399, 82571, 7600 #### [facility] [address], [address] [place] [address] Vp Of Marketing: Jax Al MD URIC ACIDon 01-26-2024 Urate [Mass/Vol] 6.3 mg/dL Normal 4.0-8.0 [facility] Comment on above: Result Comment: Ther apeutic target for gout patients: <6.0 mg/dL Performed By: #### 9 05, 87195, 496, 6399, 49320, 7600 #### [facility] [address], [address] [place] [address] Vp Of Marketing: Jax Al MD VITAMIN D,25-OH,TOTAL,IAon 1 03-27-2023 VITAMIN D,25-OH,TOTAL,IA 29 ng/mL Low 30-100 [facility] Comment on above: Result Comment: Cassidy min D Status 25-OH Vitamin D: Deficiency: <20 ng/mL Insufficiency: 20 - 29 ng/mL Optimal: > or = 30 ng/mL For 25-OH Vitamin D testing on patients on D2-supplementation and patients for whom quantitation of D2 and D3 fractions is required, the [facility]ure[facility](TM) 25-OH VIT D, (D2,D3), LC/MS/MS is recommended: order code 42398 (patients >2yrs). Performed By: #### 9 05, 07470, 496, 6399, 94133, 7600 #### [facility] [address], [address] [place] [address] [employer] Of Marketing: Jax Al MD No Panel Informationon 12-25 Culture Urine No growth at 48 hours. [facility] Work Phone: CALCIUM, IONIZEDon 4 CALCIUM, IONIZED 5.8 mg/dL High 4.7-5.5 [facility] Comment on above: Performed By: #### 9 05, 77257, 496, 6399, 68200, 7600 #### [facility] [address], [address] [place] [address] [employer] Of Marketing: Jax Al MD MAGNESIUMon 11-23-2023 Magnesium [Mass/Vol] 1.9 mg/dL Normal 1.5-2.5 [facility] Comment on above: Performed By: #### 1 7306, 8837, 622, 306, 70051 #### [facility] [address], [address] [place] [address] [employer] Of Marketing: Jax Al MD PTH, INTACT AND CALCIUMon Calcium [Mass/Vol] 10.9 mg/dL High 8.6-10.3 [facility] Comment on above: Order Comment: FASTI NG:NO FASTING: NO Performed By: #### 1 7306, 8837, 622, 306, 36831 #### [facility] [address], [address] [place] [address] [employer] Of Marketing: Jax Al MD PARATHYROID HORMONE, INTACT 102 pg/mL High 16-77 [facility] Comment on above: Order Comment: FASTI NG:NO FASTING: NO Result Comment: Interpretive Guide Intact PTH Calcium ------- Normal Parathyroid Normal Normal Hypoparathyroidism Low or Low Normal Low Hyperparathyroidism Primary Normal or High High Secondary High Normal or Low Tertiary High High Non-Parathyroid Hypercalcemia Low or Low Normal High Performed By: #### 1 7306, 8837, 622, 306, 62553 #### [facility] [address], [address] [place] [address] [employer] Of Marketing: Jax Al MD RENAL FUNCTION PANEL 11-22 Albumin [Mass/Vol] 4.3 g/dL Normal 3.6-5.1 [facility] Comment on above: Performed By: #### 1 7306, 8837, 622, 306, 37851 #### [facility] [place] [address] [employer] Of [employer]: Jax Al MD Chloride [Moles/Vol] 103 mmol/L Normal 98-110 [facility] Comment on above: Performed By: #### 1 7306, 8837, 622, 306, 60917 #### [facility] [place] [address] [employer] Of Marketing: Jax Al MD CO2 [Moles/Vol] 26 mmol/L Normal 20-32 [facility] Comment on above: Performed By: #### 1 73, 8837, 622, 306, 95855 #### [facility] [place] [address] [employer] Of [employer]: Jax Al MD Creatinine [Mass/Vol] 0.65 mg/dL Low 0.70-1.35 [facility] Comment on above: Performed By: #### 1 7306, 8837, 622, 306, 67698 #### [facility] [place] [address] [employer] Of [employer]: Jax Al MD GFR/1.73 sq M.predicted among non-blacks MDRD (S/P/Bld) [Vol rate/Area] 103 mL/min/{1.73_m2} Normal > OR = 60 [facility] Comment on above: Performed By: #### 1 7306, 8837, 622, 306, 81271 #### [facility] [place] [address] [employer] Of [employer]: Jax Al MD Glucose [Mass/Vol] 139 mg/dL Normal 65-139 [facility] Comment on above: Result Comment: Non-fasting reference interval For someone without known diabetes, a glucose value >125 mg/dL indicates that they may have diabetes and this should be confirmed with a follow-up test. Performed By: #### 1 73, 8837, 622, 306, 98875 #### [facility] [place] [address] [employer] Of [employer]: Jax Al MD Phosphate [Mass/Vol] 2.8 mg/dL Normal 2.1-4.3 [facility] Comment on above: Performed By: #### 1 73, 37, 622, 306, 72330 #### [facility] [place] [address] [employer] Of Marketing: Jax Al MD Potassium [Moles/Vol] 4.4 mmol/L Normal 3.5-5.3 [facility] Comment on above: Performed By: #### 1 73, 8836, 622, 306, 80726 #### [facility] [place] [address] [employer] Of [employer]: Jax Al MD Sodium [Moles/Vol] 137 mmol/L Normal 135-146 [facility] Comment on above: Performed By: #### 1 73, 37, 622, 306, 40765 #### [facility] [place] [address] [employer] Of Marketing: aJx Al MD Urea nitrogen [Mass/Vol] 12 mg/dL Normal 7-25 [facility] Comment on above: Performed By: #### 1 73, 37, 62, 306, 37085 #### [facility] [place] [address] [employer] Of Marketing: Jax Al MD Urea nitrogen/Creatinine [Mass ratio] 18 mg/mg Normal 6-22 [facility] Comment on above: Performed By: #### 1 73, 8837, 622, 306, 29118 #### [facility] [place] [address] [employer] Of Marketing: Jax Al MD VITAMIN D,25-OH,TOTAL,IAon 0 9-20-2024 VITAMIN D,25-OH,TOTAL,IA 29 ng/mL Low 30-100 [facility] Comment on above: Result Comment: Cassidy min D Status 25-OH Vitamin D: Deficiency: <20 ng/mL Insufficiency: 20 - 29 ng/mL Optimal: > or = 30 ng/mL For 25-OH Vitamin D testing on patients on D2-supplementation and patients for whom quantitation of D2 and D3 fractions is required, the [facility]ure[facility](TM) 25-OH VIT D, (D2,D3), LC/MS/MS is recommended: order code 15953 (patients >2yrs). See Note 1 Note 1 For additional information, please refer to http://education.[employer].Groupjump/faq/FBS174 (This link is being provided for informational/ educational purposes only.) Performed By: #### 9 05, 19812, 496, 6399, 69757, 7600 #### [facility] [address], [address] [place] [id number] [employer] Of Marketing: Jax Al MD LABORATORYOrdered By: Chano Cook on 08-28-2023 Amphetamines Screen Ql (U) Negative *NA* (08/28/23 9:06 AM) Invalid Interpretation Code AO ADM SS Barbiturates Screen Ql (U) Negative *NA* (08/28/23 9:06 AM) Invalid Interpretation Code AO ADM SS Benzodiazepines Ql (U) Negative *NA* (08/28/23 9:06 AM) Invalid Interpretation Code AO ADM SS Benzoylecgonine Screen Ql (U) Negative *NA* (08/28/23 9:06 AM) Invalid Interpretation Code AO ADM SS Cannabinoids Screen Ql (U) Negative *NA* (08/28/23 9:06 AM) Invalid Interpretation Code AO ADM SS Methadone Screen Ql (U) Negative *NA* (08/28/23 9:06 AM) Invalid Interpretation Code AO ADM SS Opiates Screen Ql (U) Positive *ABN* (08/28/23 9:06 AM) Invalid Interpretation Code AO ADM SS Phencyclidine Ql (U) Negative *NA* (08/28/23 9:06 AM) Invalid Interpretation Code AO ADM SS Urine Drugs screened: See Below 1 (08/28/23 9:06 AM) Normal AO Chemistry S Comment on above: Interpretive Data: T his drug screen is a presumptive screening only. No confirmation will be performed unless requested. Drugs screened include: Threshold Amphetamines/Methamphetamines 1,000 ng/mL Barbiturates 200 ng/mL Benzodiazepine metabolites 200 ng/mL Cannabinoids (THC metabolites) 50 ng/mL Cocaine 300 ng/mL Opiates 300 ng/mL Methadone 300 ng/mL Phencyclidine (PCP) 25 ng/mL Testing has been performed FOR MEDICAL PURPOSES ONLY. MADELINEon 08-28-2023 Amphetamine (u) Negative Normal Negative [facility] ([place]) Comment on above: Performed By: #### U DRUG #### [address] [address] Barbiturate (u) Negative Normal Negative [facility] ([place]) Comment on above: Performed By: #### U DRUG #### [address] [address] Benzodiazepine (u) Negative Normal Negative Pending sale to [facility] ([place]) Comment on above: Performed By: #### U DRUG #### [address] [address] Cannabinoid (u) Negative Normal Negative [facility] ([place]) Comment on above: Performed By: #### U DRUG #### [address] [address] Cocaine Ql (U) Negative Normal Negative [facility] ([place]) Comment on above: Performed By: #### U DRUG #### [address] [address] Methadone Ql (U) Negative Normal Negative [facility] ([place]) Comment on above: Performed By: #### U DRUG #### [address] [address] Opiate (u) Positive Abnormal Negative [facility] ([place]) Comment on above: Performed By: #### U DRUG #### [address] [address] PCP (u) Negative Normal Negative [facility] ([place]) Comment on above: Performed By: #### U DRUG #### [place] [address] [place], [place] [address] Urine Drugs screened: See Below Normal [facility] ([place]) Comment on above: Result Comment: This drug screen is a presumptive screening only. No confirmation will be performed unless requested. Drugs screened include: Threshold Amphetamines/Methamphetamines 1,000 ng/mL Barbiturates 200 ng/mL Benzodiazepine metabolites 200 ng/mL Cannabinoids (THC metabolites) 50 ng/mL Cocaine 300 ng/mL Opiates 300 ng/mL Methadone 300 ng/mL Phencyclidine (PCP) 25 ng/mL Testing has been performed FOR MEDICAL PURPOSES ONLY. Performed By: #### U DRUG #### [address] [address] .Auto Diffon 07-21-2023 Basophil, Absolute 0.1 10 3/mcL Normal 0.0-0.2 [facility] ([place]) Comment on above: Performed By: #### A 1C, CMP, ANEU, URIC, LIPID, ADIFF, CBC, GFR #### [address] [address] Basophils/100 WBC (Bld) 1.5 % Normal 0.0-2.5 [facility] ([place]) Comment on above: Performed By: #### A 1C, CMP, ANEU, URIC, LIPID, ADIFF, CBC, GFR #### [address] [address] Eosinophil, Absolute 0.5 10 3/mcL High 0.0-0.4 [facility] ([place]) Comment on above: Performed By: #### A 1C, CMP, ANEU, URIC, LIPID, ADIFF, CBC, GFR #### [address] [address] Eosinophils/100 WBC (Bld) 6.1 % Normal 0.0-7.0 [facility] ([place]) Comment on above: Performed By: #### A 1C, CMP, ANEU, URIC, LIPID, ADIFF, CBC, GFR #### [address] [address] Lymphocyte, Absolute 2.5 10 3/mcL Normal 0.8-3.9 [facility] ([place]) Comment on above: Performed By: #### A 1C, CMP, ANEU, URIC, LIPID, ADIFF, CBC, GFR #### [address] [address] Lymphocytes/100 WBC (Bld) 31.9 % Normal 10.0-50.0 [facility] ([place]) Comment on above: Performed By: #### A 1C, CMP, ANEU, URIC, LIPID, ADIFF, CBC, GFR #### [address] [address] Monocyte, Absolute 1.1 10 3/mcL High 0.2-1.0 [facility] ([place]) Comment on above: Performed By: #### A 1C, CMP, ANEU, URIC, LIPID, ADIFF, CBC, GFR #### [address] [address] Monocytes/100 WBC (Bld) 14.0 % High 1.7-13.0 [facility] ([place]) Comment on above: Performed By: #### A 1C, CMP, ANEU, URIC, LIPID, ADIFF, CBC, GFR #### [address] [address] Neutrophils/100 WBC (Bld) 46.5 % Normal 37.0-80.0 [facility] ([place]) Comment on above: Performed By: #### A 1C, CMP, ANEU, URIC, LIPID, ADIFF, CBC, GFR #### [address] [address] .GFRon 07-21-2023 GFR Non- 84 ml/min/1.73sqm Normal [facility] ([place]) Comment on above: Result Comment: GFR Population mean for , Non- Americans Ages 20-29 = 116 mL/min/1.73 sq.m. Ages 30-39 = 107 mL/min/1.73 sq.m. Ages 40-49 = 99 mL/min/1.73 sq.m. Ages 50-59 = 93 mL/min/1.73 sq.m. Ages 60-69 = 85 mL/min/1.73 sq.m. Ages 70+ = 75 mL/min/1.73 sq.m. Chronic Kidney Disease: Less than 60 mL/min/1.73 square meters End Stage Renal Disease: Less than 15 mL/min/1.73 square meters Performed By: #### A 1C, CMP, ANEU, URIC, LIPID, ADIFF, CBC, GFR #### [address] [address] GFR 102 ml/min/1.73sqm Normal [facility] ([place]) Comment on above: Result Comment: GFR Population mean for , Non- Americans Ages 20-29 = 116 mL/min/1.73 sq.m. Ages 30-39 = 107 mL/min/1.73 sq.m. Ages 40-49 = 99 mL/min/1.73 sq.m. Ages 50-59 = 93 mL/min/1.73 sq.m. Ages 60-69 = 85 mL/min/1.73 sq.m. Ages 70+ = 75 mL/min/1.73 sq.m. Chronic Kidney Disease: Less than 60 mL/min/1.73 square meters End Stage Renal Disease: Less than 15 mL/min/1.73 square meters Performed By: #### A 1C, CMP, ANEU, URIC, LIPID, ADIFF, CBC, GFR #### [address] [address] .NEUABSon 07-21-2023 Neutrophil, Absolute 3.7 10 3/mcL Normal 2.9-6.2 [facility] ([place]) Comment on above: Performed By: #### A 1C, CMP, ANEU, URIC, LIPID, ADIFF, CBC, GFR #### [address] [address] A1Con 07-21-2023 HbA1c (Bld) [Mass fraction] 5.4 % Normal 4.3-6.4 [facility] ([place]) Comment on above: Order Comment: cc josé miguel diaz to [facility] Performed By: #### U DRUG, MALBR #### [address] [address] CBCon 07-21-2023 Erythrocyte distribution width (RBC) [Ratio] 13.1 % Normal 11.5-14.5 [facility] ([place]) Comment on above: Order Comment: roopa diaz to [facility] Performed By: #### A 1C, CMP, ANEU, URIC, LIPID, ADIFF, CBC, GFR #### [address] [address] Hematocrit (Bld) [Volume fraction] 43.0 % Normal 42.0-52.0 [facility] ([place]) Comment on above: Order Comment: roopa diaz to [facility] Performed By: #### A 1C, CMP, ANEU, URIC, LIPID, ADIFF, CBC, GFR #### [place] [address] Hgb 15.3 G/dL Normal 14.0-18.0 [facility] ([place]) Comment on above: Order Comment: roopa diaz to [facility] Performed By: #### A 1C, CMP, ANEU, URIC, LIPID, ADIFF, CBC, GFR #### [address] [address] MCH (RBC) [Entitic mass] 33.2 pg High 27.0-31.2 [facility] ([place]) Comment on above: Order Comment: roopa diaz to [facility] Performed By: #### A 1C, CMP, ANEU, URIC, LIPID, ADIFF, CBC, GFR #### [place] [address] MCHC 35.6 G/dL High 31.8-35.4 [facility] ([place]) Comment on above: Order Comment: roopa diaz to [facility] Performed By: #### A 1C, CMP, ANEU, URIC, LIPID, ADIFF, CBC, GFR #### [address] [address] MCV (RBC) [Entitic vol] 93.3 fL Normal 80.0-94.0 [facility] ([place]) Comment on above: Order Comment: roopa diaz to [facility] Performed By: #### A 1C, CMP, ANEU, URIC, LIPID, ADIFF, CBC, GFR #### [address] [address] Platelet 238 10 3/mcL Normal 130-400 [facility] ([place]) Comment on above: Order Comment: roopa diaz to [facility] Performed By: #### A 1C, CMP, ANEU, URIC, LIPID, ADIFF, CBC, GFR #### [address] [address] Platelet mean volume (Bld) [Entitic vol] 8.3 fL Normal 7.4-10.4 [facility] ([place]) Comment on above: Order Comment: roopa diaz to [facility] Performed By: #### A 1C, CMP, ANEU, URIC, LIPID, ADIFF, CBC, GFR #### [address] [address] RBC 4.61 10 6/mcL Normal 4.04-6.13 [facility] ([place]) Comment on above: Order Comment: roopa diaz to [facility] Performed By: #### A 1C, CMP, ANEU, URIC, LIPID, ADIFF, CBC, GFR #### [address] [address] WBC 8.0 10 3/mcL Normal 4.6-10.8 [facility] ([place]) Comment on above: Order Comment: roopa diaz to [facility] Performed By: #### A 1C, CMP, ANEU, URIC, LIPID, ADIFF, CBC, GFR #### [address] [address] CMPon 07-21-2023 Albumin Level 3.7 G/dL Normal 3.4-4.8 [facility] ([place]) Comment on above: Order Comment: roopa diaz to [facility] Performed By: #### A 1C, CMP, ANEU, URIC, LIPID, ADIFF, CBC, GFR #### [address] [address] Albumin/Globulin [Mass ratio] 1.2 {ratio} Normal 1.1-2.5 [facility] ([place]) Comment on above: Order Comment: roopa diaz to [facility] Performed By: #### A 1C, CMP, ANEU, URIC, LIPID, ADIFF, CBC, GFR #### [address] [address] ALP [Catalytic activity/Vol] 63 U/L Normal 40-135 [facility] ([place]) Comment on above: Order Comment: roopa diaz to [facility] Performed By: #### A 1C, CMP, ANEU, URIC, LIPID, ADIFF, CBC, GFR #### [address] [address] ALT [Catalytic activity/Vol] 35 U/L Normal 16-63 [facility] ([place]) Comment on above: Order Comment: roopa diaz to [facility] Performed By: #### A 1C, CMP, ANEU, URIC, LIPID, ADIFF, CBC, GFR #### [address] [address] AST [Catalytic activity/Vol] 22 U/L Normal 10-40 [facility] ([place]) Comment on above: Order Comment: roopa diaz to [facility] Performed By: #### A 1C, CMP, ANEU, URIC, LIPID, ADIFF, CBC, GFR #### [address] [address] Bili Total 0.5 mg/dL Normal 0.2-1.0 [facility] ([place]) Comment on above: Order Comment: roopa daiz to [facility] Result Comment: Use of this assay is not recommended for patients undergoing treatment with eltrombopag due to the potential for falsely elevated results. Performed By: #### A 1C, CMP, ANEU, URIC, LIPID, ADIFF, CBC, GFR #### [address] [address] BUN/Creatinine Ratio 17 ratio Normal 7-27 [facility] ([place]) Comment on above: Order Comment: cc josé miguel sults to [facility] Performed By: #### A 1C, CMP, ANEU, URIC, LIPID, ADIFF, CBC, GFR #### [address] [address] Calcium [Mass/Vol] 10.6 mg/dL High 8.4-10.2 Pending sale to [facility] ([place]) Comment on above: Order Comment: cc josé miguel sults to [facility] Performed By: #### A 1C, CMP, ANEU, URIC, LIPID, ADIFF, CBC, GFR #### [place] [address] Chloride [Moles/Vol] 103 mmol/L Normal 98-107 [facility] ([place]) Comment on above: Order Comment: cc josé miguel sults to [facility] Performed By: #### A 1C, CMP, ANEU, URIC, LIPID, ADIFF, CBC, GFR #### [place] [address] CO2 [Moles/Vol] 31 mmol/L Normal 23-31 [facility] ([place]) Comment on above: Order Comment: roopa diaz to [facility] Performed By: #### A 1C, CMP, ANEU, URIC, LIPID, ADIFF, CBC, GFR #### [address] [address] Creatinine [Mass/Vol] 0.90 mg/dL Normal 0.70-1.30 [facility] ([place]) Comment on above: Order Comment: roopa diaz to [facility] Performed By: #### A 1C, CMP, ANEU, URIC, LIPID, ADIFF, CBC, GFR #### [place] [address] Electrolyte Balance 6.0 mEq/L Normal 4.0-15.0 [facility] ([place]) Comment on above: Order Comment: roopa valdez sults to [facility] Performed By: #### A 1C, CMP, ANEU, URIC, LIPID, ADIFF, CBC, GFR #### [address] [address] Globulin 3.2 G/dL Normal [facility] ([place]) Comment on above: Order Comment: roopa diaz to [facility] Performed By: #### A 1C, CMP, ANEU, URIC, LIPID, ADIFF, CBC, GFR #### [address] [address] Glucose [Mass/Vol] 103 mg/dL Normal 80-115 Pending sale to [facility] ([place]) Comment on above: Order Comment: roopa diaz to [facility] Performed By: #### A 1C, CMP, ANEU, URIC, LIPID, ADIFF, CBC, GFR #### [address] [address] Potassium [Moles/Vol] 5.3 mmol/L High 3.5-5.1 [facility] ([place]) Comment on above: Order Comment: roopa diaz to [facility] Performed By: #### A 1C, CMP, ANEU, URIC, LIPID, ADIFF, CBC, GFR #### [address] [address] Sodium [Moles/Vol] 140 mmol/L Normal 136-145 Pending sale to [facility] ([place]) Comment on above: Order Comment: roopa diaz to [facility] Performed By: #### A 1C, CMP, ANEU, URIC, LIPID, ADIFF, CBC, GFR #### [address] [address] Total Protein 6.9 G/dL Normal 6.4-8.2 [facility] ([place]) Comment on above: Order Comment: roopa diaz to [facility] Performed By: #### A 1C, CMP, ANEU, URIC, LIPID, ADIFF, CBC, GFR #### [address] [address] Urea nitrogen [Mass/Vol] 15 mg/dL Normal 7-18 [facility] ([place]) Comment on above: Order Comment: roopa diaz to [facility] Performed By: #### A 1C, CMP, ANEU, URIC, LIPID, ADIFF, CBC, GFR #### [address] [address] LIPIDon 07-21-2023 Cholesterol [Mass/Vol] 202 mg/dL High 0-200 [facility] ([place]) Comment on above: Order Comment: roopa diaz to [facility] Result Comment: Chol esterol Reference Interval: Less than 200 Desirable 200-239 Borderline high risk 240 and above High risk Performed By: #### A 1C, CMP, ANEU, URIC, LIPID, ADIFF, CBC, GFR #### [address] [address] Cholesterol in HDL [Mass/Vol] 66 mg/dL High 40-60 [facility] ([place]) Comment on above: Order Comment: roopa diaz to [facility] Performed By: #### A 1C, CMP, ANEU, URIC, LIPID, ADIFF, CBC, GFR #### [address] [address] Cholesterol in LDL [Mass/Vol] 115 mg/dL Normal 0-130 [facility] ([place]) Comment on above: Order Comment: roopa diaz to [facility] Performed By: #### A 1C, CMP, ANEU, URIC, LIPID, ADIFF, CBC, GFR #### [address] [address] Triglyceride [Mass/Vol] 105 mg/dL Normal 0-150 [facility] ([place]) Comment on above: Order Comment: roopa diaz to [facility] Result Comment: Trig lyceride Reference Interval: Less than 150 Normal 150-199 Borderline high risk 200-499 High risk 500 or higher Very high risk Performed By: #### A 1C, CMP, ANEU, URIC, LIPID, ADIFF, CBC, GFR #### [address] [address] URICon 07-21-2023 Uric Acid Lvl 6.9 mg/dL Normal 3.5-7.2 [facility] ([place]) Comment on above: Order Comment: cc josé miguel diaz to [facility] Performed By: #### A 1C, CMP, ANEU, URIC, LIPID, ADIFF, CBC, GFR #### [place] [address] [place], [place] [address] LABORATORYOrdered By: Jose Karimi on 05-22-2023 Albumin DL <= 20 mg/L (U) [Mass/Vol] 949 mcg/dL Invalid Interpretation Code AO ADM SS Albumin/Creatinine DL <= 20 mg/L (U) [Mass ratio] 17 mcg/mg Normal 0 - 30 mcg/mg AO ADM SS Amphetamines Screen Ql (U) Negative *NA* (05/22/23 8:46 AM) Invalid Interpretation Code Negative AO ADM SS Barbiturates Screen Ql (U) Negative *NA* (05/22/23 8:46 AM) Invalid Interpretation Code Negative AO ADM SS Benzodiazepines Ql (U) Negative *NA* (05/22/23 8:46 AM) Invalid Interpretation Code Negative AO ADM SS Benzoylecgonine Screen Ql (U) Negative *NA* (05/22/23 8:46 AM) Invalid Interpretation Code Negative AO ADM SS Cannabinoids Screen Ql (U) Negative *NA* (05/22/23 8:46 AM) Invalid Interpretation Code Negative AO ADM SS Creatinine (U) [Mass/Vol] 56.8 mg/dL Normal 39.0 - 259.0 mg/dL AO ADM SS Methadone Screen Ql (U) Negative *NA* (05/22/23 8:46 AM) Invalid Interpretation Code Negative AO ADM SS Opiates Screen Ql (U) Positive *ABN* (05/22/23 8:46 AM) Invalid Interpretation Code Negative AO ADM SS Phencyclidine Ql (U) Negative *NA* (05/22/23 8:46 AM) Invalid Interpretation Code Negative AO ADM SS Urine Drugs screened: See Below 1 (05/22/23 8:46 AM) Normal AO Chemistry S Comment on above: Interpretive Data: T his drug screen is a presumptive screening only. No confirmation will be performed unless requested. Drugs screened include: Threshold Amphetamines/Methamphetamines 1,000 ng/mL Barbiturates 200 ng/mL Benzodiazepine metabolites 200 ng/mL Cannabinoids (THC metabolites) 50 ng/mL Cocaine 300 ng/mL Opiates 300 ng/mL Methadone 300 ng/mL Phencyclidine (PCP) 25 ng/mL Testing has been performed FOR MEDICAL PURPOSES ONLY. MALBRon 05-22-2023 U Creatinine 56.8 mg/dL Normal 39.0-259.0 [facility] ([place]) Comment on above: Order Comment: roopa diaz to [facility] Performed By: #### U DRUG, MALBR #### [place] [address] U Microalb 949 mcg/dL Normal [facility] ([place]) Comment on above: Order Comment: roopa diaz to [facility] Performed By: #### U DRUG, MALBR #### [place] [address] U Ratio Alb/Cre 17 mcg/mg Normal 0-30 [facility] ([place]) Comment on above: Order Comment: roopa diaz to [facility] Performed By: #### U DRUG, MALBR #### [place] [address] UDRUGon 05-22-2023 Amphetamine (u) Negative Normal Negative [facility] ([place]) Comment on above: Performed By: #### U DRUG, MALBR #### [place] [address] Barbiturate (u) Negative Normal Negative [facility] ([place]) Comment on above: Performed By: #### U DRUG, MALBR #### [place] [address] Benzodiazepine (u) Negative Normal Negative Pending sale to [facility] ([place]) Comment on above: Performed By: #### U DRUG, MALBR #### [place] [address] Cannabinoid (u) Negative Normal Negative [facility] ([place]) Comment on above: Performed By: #### U DRUG, MALBR #### [place] [address] Cocaine Ql (U) Negative Normal Negative [facility] ([place]) Comment on above: Performed By: #### U DRUG, MALBR #### [address] [address] Methadone Ql (U) Negative Normal Negative [facility] ([place]) Comment on above: Performed By: #### U DRUG, MALBR #### [address] [address] Opiate (u) Positive Abnormal Negative [facility] ([place]) Comment on above: Performed By: #### U DRUG, MALBR #### [address] [address] PCP (u) Negative Normal Negative [facility] ([place]) Comment on above: Performed By: #### U DRUG, MALBR #### [address] [address] Urine Drugs screened: See Below Normal [facility] ([place]) Comment on above: Result Comment: This drug screen is a presumptive screening only. No confirmation will be performed unless requested. Drugs screened include: Threshold Amphetamines/Methamphetamines 1,000 ng/mL Barbiturates 200 ng/mL Benzodiazepine metabolites 200 ng/mL Cannabinoids (THC metabolites) 50 ng/mL Cocaine 300 ng/mL Opiates 300 ng/mL Methadone 300 ng/mL Phencyclidine (PCP) 25 ng/mL Testing has been performed FOR MEDICAL PURPOSES ONLY. Performed By: #### U DRUG, MALBR #### [address] [address] .Auto Diffon 11-24-2022 Basophil, Absolute 0.1 10 3/mcL Normal 0.0-0.2 [facility] ([place]) Comment on above: Performed By: #### U DRUG, MALBR #### [address] [address] Basophils/100 WBC (Bld) 0.7 % Normal 0.0-2.5 [facility] ([place]) Comment on above: Performed By: #### U DRUG, MALBR #### [address] [address] Eosinophil, Absolute 0.2 10 3/mcL Normal 0.0-0.4 [facility] ([place]) Comment on above: Performed By: #### U DRUG, MALBR #### [address] [address] Eosinophils/100 WBC (Bld) 2.6 % Normal 0.0-7.0 [facility] ([place]) Comment on above: Performed By: #### U DRUG, MALBR #### [address] [address] Lymphocyte, Absolute 1.7 10 3/mcL Normal 0.8-3.9 [facility] ([place]) Comment on above: Performed By: #### U DRUG, MALBR #### [address] [address] Lymphocytes/100 WBC (Bld) 22.1 % Normal 10.0-50.0 [facility] ([place]) Comment on above: Performed By: #### U DRUG, MALBR #### [address] [address] Monocyte, Absolute 0.6 10 3/mcL Normal 0.2-1.0 [facility] ([place]) Comment on above: Performed By: #### U DRUG, MALBR #### [address] [address] Monocytes/100 WBC (Bld) 7.3 % Normal 1.7-13.0 [facility] ([place]) Comment on above: Performed By: #### U DRUG, MALBR #### [address] [address] Neutrophils/100 WBC (Bld) 67.3 % Normal 37.0-80.0 [facility] ([place]) Comment on above: Performed By: #### U DRUG, MALBR #### [address] [address] .GFRon 11-24-2022 GFR 117 ml/min/1.73sqm Normal [facility] ([place]) Comment on above: Result Comment: GFR Population mean for , Non- Americans Ages 20-29 = 116 mL/min/1.73 sq.m. Ages 30-39 = 107 mL/min/1.73 sq.m. Ages 40-49 = 99 mL/min/1.73 sq.m. Ages 50-59 = 93 mL/min/1.73 sq.m. Ages 60-69 = 85 mL/min/1.73 sq.m. Ages 70+ = 75 mL/min/1.73 sq.m. Chronic Kidney Disease: Less than 60 mL/min/1.73 square meters End Stage Renal Disease: Less than 15 mL/min/1.73 square meters Performed By: #### U DRUG, MALBR #### Dejan [address] [address] GFR Non- 97 ml/min/1.73sqm Normal [facility] ([place]) Comment on above: Result Comment: GFR Population mean for , Non- Americans Ages 20-29 = 116 mL/min/1.73 sq.m. Ages 30-39 = 107 mL/min/1.73 sq.m. Ages 40-49 = 99 mL/min/1.73 sq.m. Ages 50-59 = 93 mL/min/1.73 sq.m. Ages 60-69 = 85 mL/min/1.73 sq.m. Ages 70+ = 75 mL/min/1.73 sq.m. Chronic Kidney Disease: Less than 60 mL/min/1.73 square meters End Stage Renal Disease: Less than 15 mL/min/1.73 square meters Performed By: #### U DRUG, MALBR #### [address] [address] .NEUABSon 11-24-2022 Neutrophil, Absolute 5.2 10 3/mcL Normal 2.9-6.2 [facility] ([place]) Comment on above: Performed By: #### U DRUG, MALBR #### [address] [address] A1Con 11-24-2022 HbA1c (Bld) [Mass fraction] 5.5 % Normal 4.3-6.4 [facility] ([place]) Comment on above: Order Comment: cc josé miguel diaz to [facility] Performed By: #### U DRUG, MALBR #### Dejan [address] [address] CBCon 11-24-2022 Erythrocyte distribution width (RBC) [Ratio] 13.3 % Normal 11.5-14.5 [facility] ([place]) Comment on above: Order Comment: roopa diaz to [facility] Performed By: #### U DRUG, MALBR #### [address] [address] Hematocrit (Bld) [Volume fraction] 44.4 % Normal 42.0-52.0 [facility] ([place]) Comment on above: Order Comment: cc josé miguel sults to [facility] Performed By: #### U DRUG, MALBR #### [place] [id number] Hgb 15.2 G/dL Normal 14.0-18.0 [facility] ([place]) Comment on above: Order Comment: roopa diaz to [facility] Performed By: #### U DRUG, MALBR #### [address] [address] MCH (RBC) [Entitic mass] 32.0 pg High 27.0-31.2 [facility] ([place]) Comment on above: Order Comment: roopa diaz to [facility] Performed By: #### U DRUG, MALBR #### [address] [address] MCHC 34.3 G/dL Normal 31.8-35.4 [facility] ([place]) Comment on above: Order Comment: cc josé miguel diaz to [facility] Performed By: #### U DRUG, MALBR #### [address] [address] MCV (RBC) [Entitic vol] 93.5 fL Normal 80.0-94.0 [facility] ([place]) Comment on above: Order Comment: roopa diaz to [facility] Performed By: #### U DRUG, MALBR #### [address] [address] Platelet 225 10 3/mcL Normal 130-400 [facility] ([place]) Comment on above: Order Comment: roopa diaz to [facility] Performed By: #### U DRUG, MALBR #### [facility] [address] [place], [place] [address] Platelet mean volume (Bld) [Entitic vol] 8.5 fL Normal 7.4-10.4 [facility] ([place]) Comment on above: Order Comment: cc josé miguel diaz to [facility] Performed By: #### U DRUG, MALBR #### [address] [address] RBC 4.75 10 6/mcL Normal 4.04-6.13 [facility] ([place]) Comment on above: Order Comment: roopa diaz to [facility] Performed By: #### U DRUG, MALBR #### [address] [address] WBC 7.7 10 3/mcL Normal 4.6-10.8 [facility] ([place]) Comment on above: Order Comment: roopa diaz to [facility] Performed By: #### U DRUG, MALBR #### [address] [address] CMPon 11-24-2022 Albumin Level 4.1 G/dL Normal 3.4-4.8 [facility] ([place]) Comment on above: Order Comment: roopa diaz to [facility] Performed By: #### U DRUG, MALBR #### [address] [address] Albumin/Globulin [Mass ratio] 1.3 {ratio} Normal 1.1-2.5 [facility] ([place]) Comment on above: Order Comment: roopa diaz to [facility] Performed By: #### U DRUG, MALBR #### [address] [address] ALP [Catalytic activity/Vol] 62 U/L Normal 40-135 [facility] ([place]) Comment on above: Order Comment: roopa diaz to [facility] Performed By: #### U DRUG, MALBR #### [address] [address] ALT [Catalytic activity/Vol] 30 U/L Normal 16-63 [facility] ([place]) Comment on above: Order Comment: roopa diaz to [facility] Performed By: #### U DRUG, MALBR #### [address] [address] AST [Catalytic activity/Vol] 20 U/L Normal 10-40 [facility] ([place]) Comment on above: Order Comment: roopa diaz to [facility] Performed By: #### U DRUG, MALBR #### [address] [address] Bili Total 0.8 mg/dL Normal 0.2-1.0 [facility] ([place]) Comment on above: Order Comment: roopa diaz to [facility] Result Comment: Use of this assay is not recommended for patients undergoing treatment with eltrombopag due to the potential for falsely elevated results. Performed By: #### U DRUG, MALBR #### [address] [address] BUN/Creatinine Ratio 14 ratio Normal 7-27 [facility] ([place]) Comment on above: Order Comment: roopa diaz to [facility] Performed By: #### U DRUG, MALBR #### [address] [address] Calcium [Mass/Vol] 10.5 mg/dL High 8.4-10.2 Pending sale to [facility] ([place]) Comment on above: Order Comment: roopa diaz to [facility] Performed By: #### U DRUG, MALBR #### [address] [address] Chloride [Moles/Vol] 104 mmol/L Normal 98-107 [facility] ([place]) Comment on above: Order Comment: cc re sults to [facility] Performed By: #### U DRUG, MALBR #### [address] [address] CO2 [Moles/Vol] 27 mmol/L Normal 23-31 [facility] ([place]) Comment on above: Order Comment: cc re sults to [facility] Performed By: #### U DRUG, MALBR #### [place] [id number] Creatinine [Mass/Vol] 0.80 mg/dL Normal 0.70-1.30 [facility] ([place]) Comment on above: Order Comment: cc re sults to [facility] Performed By: #### U DRUG, MALBR #### [place] [address] Electrolyte Balance 8.0 mEq/L Normal 4.0-15.0 [facility] ([place]) Comment on above: Order Comment: cc re sults to [facility] Performed By: #### U DRUG, MALBR #### [address] [address] Globulin 3.2 G/dL Normal [facility] ([place]) Comment on above: Order Comment: cc re sults to [facility] Performed By: #### U DRUG, MALBR #### [address] [address] Glucose [Mass/Vol] 113 mg/dL Normal 80-115 Pending sale to [facility] ([place]) Comment on above: Order Comment: cc re sults to [facility] Performed By: #### U DRUG, MALBR #### [address] [address] Potassium [Moles/Vol] 5.2 mmol/L High 3.5-5.1 [facility] ([place]) Comment on above: Order Comment: cc re sults to [facility] Performed By: #### U DRUG, MALBR #### [address] [address] Sodium [Moles/Vol] 139 mmol/L Normal 136-145 Pending sale to [facility] ([place]) Comment on above: Order Comment: roopa diaz to [facility] Performed By: #### U DRUG, MALBR #### [facility] [address] [place], [place] [address] Total Protein 7.3 G/dL Normal 6.4-8.2 [facility] ([place]) Comment on above: Order Comment: roopa diaz to [facility] Performed By: #### U DRUG, MALBR #### [facility] [address] [place], [place] [address] Urea nitrogen [Mass/Vol] 11 mg/dL Normal 7-18 [facility] ([place]) Comment on above: Order Comment: roopa diaz to [facility] Performed By: #### U DRUG, MALBR #### [place] [id number] [place], [place] [address] LABORATORYOrdered By: Keesha Lal on 11-24-2022 Albumin DL <= 20 mg/L (U) [Mass/Vol] 517 mcg/dL Invalid Interpretation Code AO ADM SS Albumin/Creatinine DL <= 20 mg/L (U) [Mass ratio] 6 mcg/mg Invalid Interpretation Code 0 - 30 mcg/mg AO ADM SS Creatinine (U) [Mass/Vol] 86.1 mg/dL Invalid Interpretation Code 39.0 - 259.0 mg/dL AO ADM SS Cholesterol [Mass/Vol] 241 mg/dL Invalid Interpretation Code 0 - 200 mg/dL AO ADM SS Comment on above: Interpretive Data: C holesterol Reference Interval: Less than 200 Desirable 200-239 Borderline high risk 240 and above High risk Cholesterol in HDL [Mass/Vol] 63 mg/dL Invalid Interpretation Code 40 - 60 mg/dL AO ADM SS Cholesterol in LDL [Mass/Vol] 165 mg/dL Invalid Interpretation Code 0 - 130 mg/dL AO ADM SS Triglyceride [Mass/Vol] 66 mg/dL Invalid Interpretation Code 0 - 150 mg/dL AO ADM SS Comment on above: Interpretive Data: T riglyceride Reference Interval: Less than 150 Normal 150-199 Borderline high risk 200-499 High risk 500 or higher Very high risk LABORATORYOrdered By: SYSTEM SYSTEM on 11-24-2022 Albumin BCP dye [Mass/Vol] 4.1 G/dL Invalid Interpretation Code 3.4 - 4.8 G/dL AO ADM SS Albumin/Globulin [Mass ratio] 1.3 {ratio} Invalid Interpretation Code 1.1 - 2.5 ratio AO ADM SS ALP [Catalytic activity/Vol] 62 U/L Invalid Interpretation Code 40 - 135 U/L AO ADM SS ALT With P-5'-P [Catalytic activity/Vol] 30 U/L Invalid Interpretation Code 16 - 63 U/L AO ADM SS AST With P-5'-P [Catalytic activity/Vol] 20 U/L Invalid Interpretation Code 10 - 40 U/L AO ADM SS Basophil, Absolute 0.1 103/mcL Invalid Interpretation Code 0.0 - 0.2 10^3/mcL AO Workflow SS Basophils/100 WBC (Bld) 0.7 % Invalid Interpretation Code 0.0 - 2.5 % AO Workflow SS Bilirubin [Mass/Vol] 0.8 mg/dL Invalid Interpretation Code 0.2 - 1.0 mg/dL AO ADM SS Comment on above: Interpretive Data: U se of this assay is not recommended for patients undergoing treatment with eltrombopag due to the potential for falsely elevated results. Calcium [Mass/Vol] 10.5 mg/dL Invalid Interpretation Code 8.4 - 10.2 mg/dL AO ADM SS Chloride [Moles/Vol] 104 mmol/L Invalid Interpretation Code 98 - 107 mmol/L AO ADM SS CO2 [Moles/Vol] 27 mmol/L Invalid Interpretation Code 23 - 31 mmol/L AO ADM SS Creatinine [Mass/Vol] 0.80 mg/dL Invalid Interpretation Code 0.70 - 1.30 mg/dL AO ADM SS Electrolyte Balance 8.0 mEq/L Invalid Interpretation Code 4.0 - 15.0 mEq/L AO ADM SS Eosinophil, Absolute 0.2 103/mcL Invalid Interpretation Code 0.0 - 0.4 10^3/mcL AO Workflow SS Eosinophils/100 WBC (Bld) 2.6 % Invalid Interpretation Code 0.0 - 7.0 % AO Workflow SS Erythrocyte distribution width (RBC) [Ratio] 13.3 % Invalid Interpretation Code 11.5 - 14.5 % AO Workflow SS GFR/1.73 sq M.predicted among blacks MDRD (S/P/Bld) [Vol rate/Area] 117 ml/min/1.73sqm Invalid Interpretation Code AO Chemistry S Comment on above: Interpretive Data: GFR Population mean for , Non- Americans Ages 20-29 = 116 mL/min/1.73 sq.m. Ages 30-39 = 107 mL/min/1.73 sq.m. Ages 40-49 = 99 mL/min/1.73 sq.m. Ages 50-59 = 93 mL/min/1.73 sq.m. Ages 60-69 = 85 mL/min/1.73 sq.m. Ages 70+ = 75 mL/min/1.73 sq.m. Chronic Kidney Disease: Less than 60 mL/min/1.73 square meters End Stage Renal Disease: Less than 15 mL/min/1.73 square meters GFR/1.73 sq M.predicted among non-blacks MDRD (S/P/Bld) [Vol rate/Area] 97 ml/min/1.73sqm Invalid Interpretation Code AO Chemistry S Comment on above: Interpretive Data: GFR Population mean for , Non- Americans Ages 20-29 = 116 mL/min/1.73 sq.m. Ages 30-39 = 107 mL/min/1.73 sq.m. Ages 40-49 = 99 mL/min/1.73 sq.m. Ages 50-59 = 93 mL/min/1.73 sq.m. Ages 60-69 = 85 mL/min/1.73 sq.m. Ages 70+ = 75 mL/min/1.73 sq.m. Chronic Kidney Disease: Less than 60 mL/min/1.73 square meters End Stage Renal Disease: Less than 15 mL/min/1.73 square meters Globulin 3.2 G/dL Invalid Interpretation Code AO ADM SS Glucose [Mass/Vol] 113 mg/dL Invalid Interpretation Code 80 - 115 mg/dL AO ADM SS HbA1c (Bld) [Mass fraction] 5.5 % Invalid Interpretation Code 4.3 - 6.4 % AO ADM SS Hematocrit (Bld) [Volume fraction] 44.4 % Invalid Interpretation Code 42.0 - 52.0 % AO Workflow SS Hemoglobin (Bld) [Mass/Vol] 15.2 G/dL Invalid Interpretation Code 14.0 - 18.0 G/dL AO Workflow SS Lymphocyte, Absolute 1.7 103/mcL Invalid Interpretation Code 0.8 - 3.9 10^3/mcL AO Workflow SS Lymphocytes/100 WBC (Bld) 22.1 % Invalid Interpretation Code 10.0 - 50.0 % AO Workflow SS MCH (RBC) [Entitic mass] 32.0 pg Invalid Interpretation Code 27.0 - 31.2 pg AO Workflow SS MCHC 34.3 G/dL Invalid Interpretation Code 31.8 - 35.4 G/dL AO Workflow SS MCV (RBC) [Entitic vol] 93.5 fL Invalid Interpretation Code 80.0 - 94.0 fL AO Workflow SS Monocyte, Absolute 0.6 103/mcL Invalid Interpretation Code 0.2 - 1.0 10^3/mcL AO Workflow SS Monocytes/100 WBC (Bld) 7.3 % Invalid Interpretation Code 1.7 - 13.0 % AO Workflow SS Neutrophil, Absolute 5.2 103/mcL Invalid Interpretation Code 2.9 - 6.2 10^3/mcL AO Workflow SS Neutrophils/100 WBC (Bld) 67.3 % Invalid Interpretation Code 37.0 - 80.0 % AO Workflow SS Platelet mean volume (Bld) [Entitic vol] 8.5 fL Invalid Interpretation Code 7.4 - 10.4 fL AO Workflow SS Platelets (Bld) [#/Vol] 225 103/mcL Invalid Interpretation Code 130 - 400 10^3/mcL AO Workflow SS Potassium [Moles/Vol] 5.2 mmol/L Invalid Interpretation Code 3.5 - 5.1 mmol/L AO ADM SS Prostate specific Ag [Mass/Vol] 1.05 ng/mL Invalid Interpretation Code 0.00 - 4.00 ng/mL AO ADM SS Protein [Mass/Vol] 7.3 G/dL Invalid Interpretation Code 6.4 - 8.2 G/dL AO ADM SS RBC (Bld) [#/Vol] 4.75 106/mcL Invalid Interpretation Code 4.04 - 6.13 10^6/mcL AO Workflow SS Sodium [Moles/Vol] 139 mmol/L Invalid Interpretation Code 136 - 145 mmol/L AO ADM SS Urea nitrogen [Mass/Vol] 11 mg/dL Invalid Interpretation Code 7 - 18 mg/dL AO ADM SS Urea nitrogen/Creatinine [Mass ratio] 14 ratio Invalid Interpretation Code 7 - 27 ratio AO ADM SS Uric Acid Lvl 6.2 mg/dL Invalid Interpretation Code 3.5 - 7.2 mg/dL AO ADM SS WBC (Bld) [#/Vol] 7.7 103/mcL Invalid Interpretation Code 4.6 - 10.8 10^3/mcL AO Workflow SS LIPIDon 11-24-2022 Cholesterol [Mass/Vol] 241 mg/dL High 0-200 [facility] ([place]) Comment on above: Order Comment: roopa diaz to [facility] Result Comment: Chol esterol Reference Interval: Less than 200 Desirable 200-239 Borderline high risk 240 and above High risk Performed By: #### U DRUG, MALBR #### [facility] [address] [place], [place] [address] Cholesterol in HDL [Mass/Vol] 63 mg/dL High 40-60 [facility] ([place]) Comment on above: Order Comment: roopa diaz to [facility] Performed By: #### U DRUG, MALBR #### [address] [address] Cholesterol in LDL [Mass/Vol] 165 mg/dL High 0-130 [facility] ([place]) Comment on above: Order Comment: roopa diaz to [facility] Performed By: #### U DRUG, MALBR #### [address] [address] Triglyceride [Mass/Vol] 66 mg/dL Normal 0-150 [facility] ([place]) Comment on above: Order Comment: roopa diaz to [facility] Result Comment: Trig lyceride Reference Interval: Less than 150 Normal 150-199 Borderline high risk 200-499 High risk 500 or higher Very high risk Performed By: #### U DRUG, MALBR #### [facility] [address] [place], [place] [address] MALBRon 11-24-2022 U Creatinine 86.1 mg/dL Normal 39.0-259.0 [facility] ([place]) Comment on above: Order Comment: roopa diaz to [facility]/Dr. Burgos and Dr. Carolina Performed By: #### U DRUG, MALBR #### [place] [address] [place], [place] [address] U Microalb 517 mcg/dL Normal [facility] ([place]) Comment on above: Order Comment: cc re sults to [facility]/Dr. Burgos and Dr. Carolina Performed By: #### U DRUG, MALBR #### [place] [address] [place], [place] [address] U Ratio Alb/Cre 6 mcg/mg Normal 0-30 [facility] ([place]) Comment on above: Order Comment: cc re sults to [facility]/Dr. Burgos and Dr. Carolina Performed By: #### U DRUG, MALBR #### [address] [address] PSAon 11-24-2022 Prostate Specific Antigen 1.05 ng/mL Normal 0.00-4.00 [facility] ([place]) Comment on above: Order Comment: cc re sults to [facility] Performed By: #### U DRUG, MALBR #### [address] [address] URICon 11-24-2022 Uric Acid Lvl 6.2 mg/dL Normal 3.5-7.2 [facility] ([place]) Comment on above: Order Comment: cc re sults to [facility] Performed By: #### U DRUG, MALBR #### [address] [address] Absolute lymphocyte countOrd ered By: Dr. Etienne on 04-29-2022 Lymphocytes Auto (Unsp spec) [#/Vol] 2.92 10*3/uL 0.83-4.51 [facility] Basophil percentageOrdered B y: Dr. Etienne on 04-29-2022 Basophils/100 WBC (Bld) 1.8 % 0-1 [facility] Bilirubin [Mass/Vol] 0.60 mg/dL 0.20-1.00 [facility] Comment on above: For patients on eltr ombopag therapy, use of Dimension [place] TBIL is not recommended. Chloride [Moles/Vol] 110 mmol/L 98-107 [facility] Cholesterol [Mass/Vol] 211 mg/dL <200 [facility] Comment on above: <200 mg/dL Desirable 200-240 mg/dL Borderline >240 mg/dL High Risk Eosinophils/100 WBC (Bld) 5.1 % 0-5 [facility] Glucose [Mass/Vol] 102 mg/dL 74-106 [facility] Comment on above: Fasting Glucose resu lt from 100 to 125 mg/dL suggests IMPAIRED HOMEOSTASIS per A.D.A. criteria. Neutrophils (Bld) [#/Vol] 3.3 10*3/uL 2.0-7.7 [facility] Neutrophils/100 WBC (Bld) 42.0 % 47-70 [facility] Potassium [Moles/Vol] 4.1 mmol/L 3.5-5.1 [facility] Protein [Mass/Vol] 7.1 g/dL 6.4-8.2 [facility] Sodium [Moles/Vol] 142 mmol/L 136-145 [facility] Triglyceride [Mass/Vol] 90 mg/dL <199 [facility] Comment on above: The drugs N-Acetylcy steine and Metamizole may falsely depress this assay.Serum Triglycerides Reference Interval Normal <150 mg/dL Borderline high 150 - 199 mg/dL High 200 - 499 mg/dL Very High > or = 500 mg/dL WBC (Bld) [#/Vol] 7.8 10*3/uL 4.4-11.0 [facility] Blood erythrocytes count (nu mber/volume)Ordered By: Dr. Etienne on 04-29-2022 RBC (Bld) [#/Vol] 4.60 10*6/uL 4.6-6.2 [facility] Blood hemoglobin measurement (mass/volume)Ordered By: Dr. Etienne on 04-29-2022 Hemoglobin (Bld) [Mass/Vol] 14.6 g/dL 13.0-16.5 [facility] Blood lymphocytes/100 leukoc ytesOrdered By: Dr. Etienne on 04-29-2022 Lymphocytes/100 WBC (Bld) 37.4 % 19-41 [facility] Blood monocytes/100 leukocyt esOrdered By: Dr. Etienne on 04-29-2022 Monocytes/100 WBC (Bld) 13.2 % 0-10 [facility] Blood platelet mean volumeOr dered By: Dr. Etienne on 04-29-2022 Platelet mean volume (Bld) [Entitic vol] 10.3 fL 6.2-12.0 [facility] Determination of erythrocyte mean corpuscular volume (MCV)Ordered By: Dr. Etienne on 04-29-2022 MCV (RBC) [Entitic vol] 98.3 fL 80-94 [facility] Erythrocyte sedimentation ra teOrdered By: Dr. Etienne on 04-29-2022 ESR (Bld) [Velocity] 5 mm/h 0-20 [facility] Hematocrit Auto (Bld) [Volum e fraction]Ordered By: Dr. Etienne on 04-29-2022 Hematocrit (Bld) [Volume fraction] 45.2 % 40-54 [facility] Laboratory - Chemistry and C hemistry - challengeOrdered By: Dr. Etienne on 04-29-2022 ALP [Catalytic activity/Vol] 53 U/L 45-117 [facility] ALT [Catalytic activity/Vol] 22 U/L 16-61 [facility] CO2 [Moles/Vol] 28.0 mmol/L 21.0-32.0 [facility] Globulin (S) [Mass/Vol] 3.5 g/dL 2.2-4.2 [facility] Urea nitrogen/Creatinine [Mass ratio] 20.4 mg/mg 10-20 [facility] Laboratory - Hematology and Cell countsOrdered By: Dr. Etienne on 04-29-2022 Erythrocyte distribution width (RBC) [Entitic vol] 46.6 fL 35.1-43.9 [facility] Erythrocyte distribution width (RBC) [Ratio] 12.9 % 11.6-14.6 [facility] Immature granulocytes/100 WBC (Bld) 0.500 % 0.0-0.9 [facility] Comment on above: IG% - Immature Granu locytes (promyelocytes, myelocytes and metamyelocytes) > 1% indicates that a LEFT SHIFT is Present. MCH (RBC) [Entitic mass] 31.7 pg 27.0-32.0 [facility] Nucleated RBC/100 WBC (Bld) [Ratio] 0 % 0-5 [facility] MCHC Auto (RBC) [Mass/Vol]Or dered By: Dr. Etienne on 04-29-2022 MCHC (RBC) [Mass/Vol] 32.3 g/dL 32-36 [facility] No Panel InformationOrdered By: Dr. Etienne on 04-29-2022 Estimated GFR (MDRD) Amer 118 mL/min >60 [facility] Comment on above: GFR Calc Estimated GFR (MDRD) Non-Af Amer 98 mL/min >60 [facility] Comment on above: Non- GFR Calc Hepatitis B Surface Antigen Non-Reactive Nonreactive [facility] Hepatitis C Antibody Non-Reactive Nonreactive [facility] Comment on above: Non Reactive: < 0.8 Equivocal: >/= 0.8 to < 1.0 Reactive: >/= 1.0The CDC recommends that a reactive/equivocal HCV antibody result be followed up by the HCV Nucleic Acid Amplificationtest (996602) Platelets bldOrdered By: Dr. Etienne on 04-29-2022 Platelets (Bld) [#/Vol] 286 10*3/uL 150-450 [facility] Serum cyclic citrullinated p eptide IgG antibody assay (units/volume)Ordered By: Dr. Etienne on 04-29-2022 Cyclic citrullinated peptide IgG Qn 0 units 0-19 [facility] Comment on above: Negative <20 Weak po sitive 20 - 39 Moderate positive 40 - 59 Strong positive >59Performed at: [address] [place] [id number] Director: Zia Gardner PhD, Phone: [phone] at: [address] [id number] Director: Rachid Oakley PhD, Phone: [phone] Serum hepatitis B virus surf mary ann antibody IgG detectionOrdered By: Dr. Etienne on 04-29-2022 HBV surface IgG Ql (S) Non-Reactive [facility] Comment on above: Non Reactive: Incons istent with immunity less than <10 mIU/mL Reactive: Consistent with immunity greater than or equal to 10 mIU/mL Serum or plasma C reactive p rotein measurement (mass/volume)Ordered By: Dr. Etienne on 04-29-2022 CRP [Mass/Vol] mg/L 0.0-3.0 [facility] Comment on above: C-Reactive Protein ( CRP) provides useful information for thediagnosis, therapy and monitoring of inflammatory processesand associated diseases. For the evaluation of Relative Riskfor Cardiovascular Disease, a High Sensitivity CRP (HSCRP)should be ordered. Serum or plasma albumin lois urement (mass/volume)Ordered By: Dr. Etienne on 04-29-2022 Albumin [Mass/Vol] 3.6 g/dL 3.2-5.0 [facility] Serum or plasma albumin/glob ulin mass ratioOrdered By: Dr. Etienne on 04-29-2022 Albumin/Globulin [Mass ratio] 1.0 {ratio} 0.9-2.4 [facility] Serum or plasma calcium lois urement (mass/volume)Ordered By: Dr. Etienne on 04-29-2022 Calcium [Mass/Vol] 10.3 mg/dL 8.5-10.1 [facility] Serum or plasma cholesterol in HDL measurement (mass/volume)Ordered By: Dr. Etienne on 04-29-2022 Cholesterol in HDL [Mass/Vol] 66 mg/dL >40 [facility] Comment on above: The drugs N-Acetylcy steine and Metamizole may falsely depress this assay. Reference Range HDL <40 mg/dL Low HDL Cholesterol HDL >or= 60 mg/dL High HDL Cholesterol Serum or plasma cholesterol in VLDL measurement (mass/volume)Ordered By: Dr. Etienne on 04-29-2022 Cholesterol in VLDL [Mass/Vol] 18 mg/dL 5-40 [facility] Serum or plasma creatinine m easurement (mass/volume)Ordered By: Dr. Etienne on 04-29-2022 Creatinine [Mass/Vol] 0.84 mg/dL 0.70-1.30 [facility] Comment on above: The validity of the calculated GFR & GFRAA in patients over 70 years has not been determined. Clinical correlation is essential. Serum or plasma low density lipoprotein (LDL) cholesterol measurement (mass/volume)Ordered By: Dr. Etienne on 04-29-2022 Cholesterol in LDL [Mass/Vol] 127 mg/dL 0-130 [facility] Serum or plasma urea nitroge n measurement (mass/volume)Ordered By: Dr. Etienne on 04-29-2022 Urea nitrogen [Mass/Vol] 17 mg/dL 7-18 [facility] Serum or plasma uric acid me asurement (mass/volume)Ordered By: Dr. Etienne on 04-29-2022 Urate [Mass/Vol] 6.6 mg/dL 3.5-7.2 [facility] Comment on above: The drugs N-Acetylcy steine and Metamizole may falsely depress this assay. Serum rheumatoid factor dete ctionOrdered By: Dr. Etienne on 04-29-2022 Rheumatoid factor Ql (S) < 10.0 IU/mL <15 [facility] Thin prep Papanicolaou smear with manual screeningOrdered By: Dr. Etienne on 04-29-2022 Thin prep Papanicolaou smear with manual screening 20 U/L 15-37 [facility] Thin prep Papanicolaou smear with manual screening 4 5-15 [facility] Thin prep Papanicolaou smear with manual screening 26.1 mg/L NO RANGE EST. [facility] Thin prep Papanicolaou smear with manual screening Positive . [facility] Comment on above: HLA-B*27 PositiveThi s patient is positive for HLA-B*27. This procedure rulesout the B*27:06 and 27:09 alleles, which the literaturesuggests are not associated with spondyloarthropathies.B27 allele interpretation for all loci based on IMGT/HLAdatabase version 3.44This test was developed and its performance characteristicsdetermined by [facility]. It has not been cleared or approvedby the Food and Drug Administration.[facility] CLIA ID Number [id number] test was performed using PCR (Polymerase ChainReaction)/SSOP (Sequence Specific Oligonucleotide Probes)technique. SBT (Sequence Based Typing) and/or SSP(Sequence Specific Primers) may be used as supplementalmethods when necessary. Please contact [facility] at if you have any questions. Director of [facility] Dr Zia Gardner, PhD Whole blood hemoglobin A1c/t otal hemoglobin ratio (mass fraction)Ordered By: Dr. Etienne on 04-29-2022 HbA1c (Bld) [Mass fraction] 5.0 % 3.8-5.6 [facility] Comment on above: Normal < 5.7 % Predi abetic 5.7 - 6.4 % Diabetic >or= 6.5 % Please note range changes. LABORATORYOrdered By: Amaris Tushar on 01-24-2022 Basophil, Absolute 0.1 103/mcL Invalid Interpretation Code 0.0 - 0.2 10^3/mcL AO Workflow SS Basophils/100 WBC (Bld) 1.3 % Invalid Interpretation Code 0.0 - 2.5 % AO Workflow SS Eosinophil, Absolute 0.2 103/mcL Invalid Interpretation Code 0.0 - 0.4 10^3/mcL AO Workflow SS Eosinophils/100 WBC (Bld) 2.2 % Invalid Interpretation Code 0.0 - 7.0 % AO Workflow SS Erythrocyte distribution width (RBC) [Ratio] 13.6 % Invalid Interpretation Code 11.5 - 14.5 % AO Workflow SS ESR 15 minute reading (Bld) [Velocity] 4 mm/hr Invalid Interpretation Code 0 - 20 mm/hr AO Man Heme SS Hematocrit (Bld) [Volume fraction] 44.9 % Invalid Interpretation Code 42.0 - 52.0 % AO Workflow SS Hemoglobin (Bld) [Mass/Vol] 15.4 G/dL Invalid Interpretation Code 14.0 - 18.0 G/dL AO Workflow SS Lymphocyte, Absolute 2.1 103/mcL Invalid Interpretation Code 0.8 - 3.9 10^3/mcL AO Workflow SS Lymphocytes/100 WBC (Bld) 24.2 % Invalid Interpretation Code 10.0 - 50.0 % AO Workflow SS MCH (RBC) [Entitic mass] 31.8 pg Invalid Interpretation Code 27.0 - 31.2 pg AO Workflow SS MCHC 34.3 G/dL Invalid Interpretation Code 31.8 - 35.4 G/dL AO Workflow SS MCV (RBC) [Entitic vol] 92.7 fL Invalid Interpretation Code 80.0 - 94.0 fL AO Workflow SS Monocyte, Absolute 0.8 103/mcL Invalid Interpretation Code 0.2 - 1.0 10^3/mcL AO Workflow SS Monocytes/100 WBC (Bld) 8.7 % Invalid Interpretation Code 1.7 - 13.0 % AO Workflow SS Neutrophil, Absolute 5.5 103/mcL Invalid Interpretation Code 2.9 - 6.2 10^3/mcL AO Workflow SS Neutrophils/100 WBC (Bld) 63.6 % Invalid Interpretation Code 37.0 - 80.0 % AO Workflow SS Platelet mean volume (Bld) [Entitic vol] 8.5 fL Invalid Interpretation Code 7.4 - 10.4 fL AO Workflow SS Platelets (Bld) [#/Vol] 255 103/mcL Invalid Interpretation Code 130 - 400 10^3/mcL AO Workflow SS RBC (Bld) [#/Vol] 4.84 106/mcL Invalid Interpretation Code 4.04 - 6.13 10^6/mcL AO Workflow SS WBC (Bld) [#/Vol] 8.7 103/mcL Invalid Interpretation Code 4.6 - 10.8 10^3/mcL AO Workflow SS LABORATORYOrdered By: Jose Karimi on 01-24-2022 Calcium [Mass/Vol] 10.3 mg/dL Invalid Interpretation Code 8.4 - 10.2 mg/dL AO ADM SS Chloride [Moles/Vol] 103 mmol/L Invalid Interpretation Code 98 - 107 mmol/L AO ADM SS CO2 [Moles/Vol] 24 mmol/L Invalid Interpretation Code 23 - 31 mmol/L AO ADM SS Creatinine [Mass/Vol] 0.80 mg/dL Invalid Interpretation Code 0.70 - 1.30 mg/dL AO ADM SS CRP [Mass/Vol] mg/dL Invalid Interpretation Code 0.0 - 0.9 mg/dL AO Chemistry S Electrolyte Balance 11.0 mEq/L Invalid Interpretation Code 4.0 - 15.0 mEq/L AO ADM SS Glucose [Mass/Vol] 95 mg/dL Invalid Interpretation Code 80 - 115 mg/dL AO ADM SS Potassium [Moles/Vol] 4.6 mmol/L Invalid Interpretation Code 3.5 - 5.1 mmol/L AO ADM SS Sodium [Moles/Vol] 138 mmol/L Invalid Interpretation Code 136 - 145 mmol/L AO ADM SS Urea nitrogen [Mass/Vol] 15 mg/dL Invalid Interpretation Code 7 - 18 mg/dL AO ADM SS Urea nitrogen/Creatinine [Mass ratio] 19 ratio Invalid Interpretation Code 7 - 27 ratio AO ADM SS Uric Acid Lvl 7.8 mg/dL Invalid Interpretation Code 3.5 - 7.2 mg/dL AO ADM SS LABORATORYOrdered By: SYSTEM SYSTEM on 01-24-2022 GFR 118 ml/min/1.73sqm Invalid Interpretation Code AO Chemistry S GFR Non- 97 ml/min/1.73sqm Invalid Interpretation Code AO Chemistry S LABORATORYOrdered By: SYSTEM SYSTEM on 02-02-2021 Troponin I.cardiac DL <= 0.01 ng/mL [Mass/Vol] 10.62 ng/L Invalid Interpretation Code 0.00 - 54.00 ng/L AH ADM SS Albumin BCP dye [Mass/Vol] 2.4 G/dL Invalid Interpretation Code 3.2 - 4.8 G/dL AH ADM SS Albumin/Globulin [Mass ratio] 0.9 {ratio} Invalid Interpretation Code 0.9 - 1.6 ratio AH ADM SS ALP [Catalytic activity/Vol] 76 U/L Invalid Interpretation Code 38 - 126 U/L AH ADM SS ALT No additional P-5'-P [Catalytic activity/Vol] 85 U/L Invalid Interpretation Code 12 - 55 U/L AH ADM SS AST [Catalytic activity/Vol] 31 U/L Invalid Interpretation Code 8 - 34 U/L AH ADM SS Basophils (Bld) [#/Vol] 0.00 103/mcL Invalid Interpretation Code 0.00 - 0.27 10^3/mcL AH Remisol SS Basophils/100 WBC (Bld) 0.0 % Invalid Interpretation Code 0.0 - 2.5 % AH Remisol SS Bilirubin [Mass/Vol] 0.50 mg/dL Invalid Interpretation Code 0.20 - 1.20 mg/dL AH ADM SS Calcium [Mass/Vol] 9.7 mg/dL Invalid Interpretation Code 8.7 - 10.4 mg/dL AH ADM SS Cells Counted Total (Unsp spec) [#] 100 Invalid Interpretation Code AH Remisol SS Chloride [Moles/Vol] 104 mmol/L Invalid Interpretation Code 98 - 110 mEq/L AH ADM SS CO2 [Moles/Vol] 31 mmol/L Invalid Interpretation Code 22 - 32 mEq/L AH ADM SS Creatinine [Mass/Vol] 0.52 mg/dL Invalid Interpretation Code 0.60 - 1.40 mg/dL AH ADM SS Electrolyte Balance 3.0 mEq/L Invalid Interpretation Code 4.0 - 15.0 mEq/L AH ADM SS Eosinophils (Bld) [#/Vol] 0.11 103/mcL Invalid Interpretation Code 0.00 - 0.65 10^3/mcL AH Remisol SS Eosinophils/100 WBC (Bld) 1.0 % Invalid Interpretation Code 0.0 - 6.0 % AH Remisol SS Erythrocyte distribution width (RBC) [Ratio] 13.7 % Invalid Interpretation Code 11.5 - 15.5 % AH Remisol SS GFR/1.73 sq M.predicted among blacks MDRD (S/P/Bld) [Vol rate/Area] ml/min/1.73sqm Invalid Interpretation Code Chemistry S GFR/1.73 sq M.predicted among non-blacks MDRD (S/P/Bld) [Vol rate/Area] ml/min/1.73sqm Invalid Interpretation Code Chemistry S Globulin 2.8 G/dL Invalid Interpretation Code 1.5 - 3.8 G/dL ADM SS Glucose [Mass/Vol] 84 mg/dL Invalid Interpretation Code 82 - 115 mg/dL AH ADM SS Hematocrit (Bld) [Volume fraction] 31.7 % Invalid Interpretation Code 40.0 - 52.0 % AH Remisol SS Hemoglobin (Bld) [Mass/Vol] 10.9 G/dL Invalid Interpretation Code 13.0 - 17.5 G/dL AH Remisol SS Lymphocytes (Bld) [#/Vol] 1.90 103/mcL Invalid Interpretation Code 0.90 - 4.32 10^3/mcL AH Remisol SS Lymphocytes/100 WBC (Bld) 17.0 % Invalid Interpretation Code 20.0 - 40.0 % AH Remisol SS MCH (RBC) [Entitic mass] 31.9 pg Invalid Interpretation Code 27.0 - 33.0 pg AH Remisol SS MCHC (RBC) [Mass/Vol] 34.3 G/dL Invalid Interpretation Code 32.0 - 36.0 G/dL AH Remisol SS MCV (RBC) [Entitic vol] 93.1 fL Invalid Interpretation Code 81.0 - 100.0 fL AH Remisol SS Metamyelocytes/100 WBC (Bld) 1.0 % Invalid Interpretation Code AH Remisol SS Monocytes (Bld) [#/Vol] 0.56 103/mcL Invalid Interpretation Code 0.09 - 1.40 10^3/mcL AH Remisol SS Monocytes/100 WBC (Bld) 5.0 % Invalid Interpretation Code 2.0 - 13.0 % AH Remisol SS Myelocytes/100 WBC (Bld) 2.0 % Invalid Interpretation Code AH Remisol SS Neutrophils (Bld) [#/Vol] 8.29 103/mcL Invalid Interpretation Code 2.25 - 8.10 10^3/mcL AH Remisol SS Neutrophils/100 WBC (Bld) 74.0 % Invalid Interpretation Code 50.0 - 75.0 % AH Remisol SS Platelet mean volume (Bld) [Entitic vol] 8.5 fL Invalid Interpretation Code 6.4 - 10.5 fL AH Remisol SS Platelets (Bld) [#/Vol] 365 103/mcL Invalid Interpretation Code 150 - 450 10^3/mcL AH Remisol SS Platelets LM Ql (Bld) Normal *NA* (02/02/21 4:12 AM) Invalid Interpretation Code AH Remisol SS Potassium [Moles/Vol] 4.5 mmol/L Invalid Interpretation Code 3.5 - 5.0 mEq/L AH ADM SS Protein [Mass/Vol] 5.2 G/dL Invalid Interpretation Code 5.7 - 8.2 G/dL AH ADM SS RBC (Bld) [#/Vol] 3.41 106/mcL Invalid Interpretation Code 4.50 - 6.00 10^6/mcL AH Remisol SS RBC morphology finding Nom (Bld) Normal *NA* (02/02/21 4:12 AM) Invalid Interpretation Code AH Remisol SS Sodium [Moles/Vol] 138 mmol/L Invalid Interpretation Code 136 - 145 mEq/L AH ADM SS Urea nitrogen [Mass/Vol] 19.0 mg/dL Invalid Interpretation Code 8.0 - 22.0 mg/dL AH ADM SS Urea nitrogen/Creatinine [Mass ratio] 36.5 ratio Invalid Interpretation Code 10.0 - 22.0 ratio AH ADM SS WBC (Bld) [#/Vol] 11.20 103/mcL Invalid Interpretation Code 4.50 - 10.80 10^3/mcL AH Remisol SS LABORATORYOrdered By: Raven Shaver on 02-02-2021 Blood Glucose Testing Reason Routine (02/02/21 11:03 AM) [facility] Work Phone: Glucose [Mass/Vol] 152 mg/dL Invalid Interpretation Code 82 - 115 mg/dL [facility] Work Phone: Blood Glucose Interventions Administered food/juice (02/02/21 6:59 AM) [facility] Work Phone: Blood Glucose Testing Reason Routine (02/02/21 6:59 AM) [facility] Work Phone: Glucose [Mass/Vol] 73 mg/dL Invalid Interpretation Code 82 - 115 mg/dL [facility] Work Phone: LABORATORYOrdered By: Carlos Mchugh on 02-01-2021 Glucose [Mass/Vol] 135 mg/dL Invalid Interpretation Code 82 - 115 mg/dL [facility] Work Phone: LABORATORYOrdered By: Bernardo Gonzalez on 02-01-2021 Blood Glucose Testing Reason Routine (02/01/21 10:57 AM) [facility] Work Phone: Blood Glucose Interventions Administered food/juice (02/01/21 6:45 AM) [facility] Work Phone: LABORATORYOrdered By: SYSTEM SYSTEM on 02-01-2021 Albumin BCP dye [Mass/Vol] 2.5 G/dL Invalid Interpretation Code 3.2 - 4.8 G/dL ADM SS Albumin/Globulin [Mass ratio] 0.9 {ratio} Invalid Interpretation Code 0.9 - 1.6 ratio ADM SS ALP [Catalytic activity/Vol] 75 U/L Invalid Interpretation Code 38 - 126 U/L ADM SS ALT No additional P-5'-P [Catalytic activity/Vol] 79 U/L Invalid Interpretation Code 12 - 55 U/L ADM SS AST [Catalytic activity/Vol] 34 U/L Invalid Interpretation Code 8 - 34 U/L ADM SS Basophils (Bld) [#/Vol] 0.00 103/mcL Invalid Interpretation Code 0.00 - 0.27 10^3/mcL Remisol SS Basophils/100 WBC (Bld) 0.0 % Invalid Interpretation Code 0.0 - 2.5 % Remisol SS Bilirubin [Mass/Vol] 0.50 mg/dL Invalid Interpretation Code 0.20 - 1.20 mg/dL AH ADM SS Calcium [Mass/Vol] 9.6 mg/dL Invalid Interpretation Code 8.7 - 10.4 mg/dL AH ADM SS Cells Counted Total (Unsp spec) [#] 100 Invalid Interpretation Code AH Remisol SS Chloride [Moles/Vol] 105 mmol/L Invalid Interpretation Code 98 - 110 mEq/L ADM SS CO2 [Moles/Vol] 29 mmol/L Invalid Interpretation Code 22 - 32 mEq/L ADM SS Creatinine [Mass/Vol] 0.51 mg/dL Invalid Interpretation Code 0.60 - 1.40 mg/dL ADM SS Electrolyte Balance 4.0 mEq/L Invalid Interpretation Code 4.0 - 15.0 mEq/L AH ADM SS Eosinophils (Bld) [#/Vol] 0.00 103/mcL Invalid Interpretation Code 0.00 - 0.65 10^3/mcL AH Remisol SS Eosinophils/100 WBC (Bld) 0.0 % Invalid Interpretation Code 0.0 - 6.0 % AH Remisol SS Erythrocyte distribution width (RBC) [Ratio] 13.8 % Invalid Interpretation Code 11.5 - 15.5 % AH Remisol SS GFR/1.73 sq M.predicted among blacks MDRD (S/P/Bld) [Vol rate/Area] ml/min/1.73sqm Invalid Interpretation Code AH Chemistry S GFR/1.73 sq M.predicted among non-blacks MDRD (S/P/Bld) [Vol rate/Area] ml/min/1.73sqm Invalid Interpretation Code Chemistry S Globulin 2.9 G/dL Invalid Interpretation Code 1.5 - 3.8 G/dL ADM SS Glucose [Mass/Vol] 74 mg/dL Invalid Interpretation Code 82 - 115 mg/dL ADM SS Hematocrit (Bld) [Volume fraction] 32.8 % Invalid Interpretation Code 40.0 - 52.0 % AH Remisol SS Hemoglobin (Bld) [Mass/Vol] 11.2 G/dL Invalid Interpretation Code 13.0 - 17.5 G/dL AH Remisol SS Lymphocytes (Bld) [#/Vol] 1.22 103/mcL Invalid Interpretation Code 0.90 - 4.32 10^3/mcL AH Remisol SS Lymphocytes/100 WBC (Bld) 12.0 % Invalid Interpretation Code 20.0 - 40.0 % AH Remisol SS MCH (RBC) [Entitic mass] 31.9 pg Invalid Interpretation Code 27.0 - 33.0 pg AH Remisol SS MCHC (RBC) [Mass/Vol] 34.3 G/dL Invalid Interpretation Code 32.0 - 36.0 G/dL AH Remisol SS MCV (RBC) [Entitic vol] 92.9 fL Invalid Interpretation Code 81.0 - 100.0 fL AH Remisol SS Metamyelocytes/100 WBC (Bld) 1.0 % Invalid Interpretation Code AH Remisol SS Monocytes (Bld) [#/Vol] 0.51 103/mcL Invalid Interpretation Code 0.09 - 1.40 10^3/mcL AH Remisol SS Monocytes/100 WBC (Bld) 5.0 % Invalid Interpretation Code 2.0 - 13.0 % AH Remisol SS Neutrophils (Bld) [#/Vol] 8.36 103/mcL Invalid Interpretation Code 2.25 - 8.10 10^3/mcL AH Remisol SS Neutrophils/100 WBC (Bld) 82.0 % Invalid Interpretation Code 50.0 - 75.0 % AH Remisol SS Platelet mean volume (Bld) [Entitic vol] 8.5 fL Invalid Interpretation Code 6.4 - 10.5 fL AH Remisol SS Platelets (Bld) [#/Vol] 390 103/mcL Invalid Interpretation Code 150 - 450 10^3/mcL AH Remisol SS Platelets LM Ql (Bld) Normal *NA* (02/01/21 7:57 AM) Invalid Interpretation Code AH Remisol SS Potassium [Moles/Vol] 4.6 mmol/L Invalid Interpretation Code 3.5 - 5.0 mEq/L AH ADM SS Protein [Mass/Vol] 5.4 G/dL Invalid Interpretation Code 5.7 - 8.2 G/dL AH ADM SS RBC (Bld) [#/Vol] 3.53 106/mcL Invalid Interpretation Code 4.50 - 6.00 10^6/mcL AH Remisol SS RBC morphology finding Nom (Bld) Normal *NA* (02/01/21 7:57 AM) Invalid Interpretation Code AH Remisol SS Sodium [Moles/Vol] 138 mmol/L Invalid Interpretation Code 136 - 145 mEq/L AH ADM SS Urea nitrogen [Mass/Vol] 22.0 mg/dL Invalid Interpretation Code 8.0 - 22.0 mg/dL AH ADM SS Urea nitrogen/Creatinine [Mass ratio] 43.1 ratio Invalid Interpretation Code 10.0 - 22.0 ratio AH ADM SS WBC (Bld) [#/Vol] 10.20 103/mcL Invalid Interpretation Code 4.50 - 10.80 10^3/mcL AH Remisol SS LABORATORYOrdered By: SYSTEM SYSTEM on 01-31-2021 Albumin BCP dye [Mass/Vol] 2.3 G/dL Invalid Interpretation Code 3.2 - 4.8 G/dL AH ADM SS Albumin/Globulin [Mass ratio] 0.8 {ratio} Invalid Interpretation Code 0.9 - 1.6 ratio AH ADM SS ALP [Catalytic activity/Vol] 74 U/L Invalid Interpretation Code 38 - 126 U/L AH ADM SS ALT No additional P-5'-P [Catalytic activity/Vol] 56 U/L Invalid Interpretation Code 12 - 55 U/L AH ADM SS AST [Catalytic activity/Vol] 23 U/L Invalid Interpretation Code 8 - 34 U/L AH ADM SS Basophils (Bld) [#/Vol] 0.00 103/mcL Invalid Interpretation Code 0.00 - 0.27 10^3/mcL AH Remisol SS Basophils/100 WBC (Bld) 0.2 % Invalid Interpretation Code 0.0 - 2.5 % AH Remisol SS Bilirubin [Mass/Vol] 0.40 mg/dL Invalid Interpretation Code 0.20 - 1.20 mg/dL AH ADM SS Calcium [Mass/Vol] 9.8 mg/dL Invalid Interpretation Code 8.7 - 10.4 mg/dL ADM SS Chloride [Moles/Vol] 107 mmol/L Invalid Interpretation Code 98 - 110 mEq/L ADM SS CO2 [Moles/Vol] 25 mmol/L Invalid Interpretation Code 22 - 32 mEq/L AH ADM SS Creatinine [Mass/Vol] 0.41 mg/dL Invalid Interpretation Code 0.60 - 1.40 mg/dL AH ADM SS Electrolyte Balance 6.0 mEq/L Invalid Interpretation Code 4.0 - 15.0 mEq/L AH ADM SS Eosinophils (Bld) [#/Vol] 0.00 103/mcL Invalid Interpretation Code 0.00 - 0.65 10^3/mcL AH Remisol SS Eosinophils/100 WBC (Bld) 0.0 % Invalid Interpretation Code 0.0 - 6.0 % AH Remisol SS Erythrocyte distribution width (RBC) [Ratio] 13.2 % Invalid Interpretation Code 11.5 - 15.5 % AH Remisol SS GFR/1.73 sq M.predicted among blacks MDRD (S/P/Bld) [Vol rate/Area] ml/min/1.73sqm Invalid Interpretation Code Chemistry S GFR/1.73 sq M.predicted among non-blacks MDRD (S/P/Bld) [Vol rate/Area] ml/min/1.73sqm Invalid Interpretation Code Chemistry S Globulin 3.0 G/dL Invalid Interpretation Code 1.5 - 3.8 G/dL AH ADM SS Glucose [Mass/Vol] 101 mg/dL Invalid Interpretation Code 82 - 115 mg/dL AH ADM SS Hematocrit (Bld) [Volume fraction] 31.8 % Invalid Interpretation Code 40.0 - 52.0 % AH Remisol SS Hemoglobin (Bld) [Mass/Vol] 10.9 G/dL Invalid Interpretation Code 13.0 - 17.5 G/dL AH Remisol SS Lymphocytes (Bld) [#/Vol] 0.50 103/mcL Invalid Interpretation Code 0.90 - 4.32 10^3/mcL AH Remisol SS Lymphocytes/100 WBC (Bld) 2.6 % Invalid Interpretation Code 20.0 - 40.0 % AH Remisol SS MCH (RBC) [Entitic mass] 32.0 pg Invalid Interpretation Code 27.0 - 33.0 pg AH Remisol SS MCHC (RBC) [Mass/Vol] 34.4 G/dL Invalid Interpretation Code 32.0 - 36.0 G/dL AH Remisol SS MCV (RBC) [Entitic vol] 93.3 fL Invalid Interpretation Code 81.0 - 100.0 fL AH Remisol SS Monocytes (Bld) [#/Vol] 0.90 103/mcL Invalid Interpretation Code 0.09 - 1.40 10^3/mcL AH Remisol SS Monocytes/100 WBC (Bld) 4.3 % Invalid Interpretation Code 2.0 - 13.0 % AH Remisol SS Neutrophils (Bld) [#/Vol] 18.70 103/mcL Invalid Interpretation Code 2.25 - 8.10 10^3/mcL AH Remisol SS Neutrophils/100 WBC (Bld) 92.9 % Invalid Interpretation Code 50.0 - 75.0 % AH Remisol SS Platelet mean volume (Bld) [Entitic vol] 8.6 fL Invalid Interpretation Code 6.4 - 10.5 fL AH Remisol SS Platelets (Bld) [#/Vol] 408 103/mcL Invalid Interpretation Code 150 - 450 10^3/mcL AH Remisol SS Potassium [Moles/Vol] 4.5 mmol/L Invalid Interpretation Code 3.5 - 5.0 mEq/L AH ADM SS Comment on above: Result Comment: Spec imen slightly hemolyzed. Protein [Mass/Vol] 5.3 G/dL Invalid Interpretation Code 5.7 - 8.2 G/dL AH ADM SS RBC (Bld) [#/Vol] 3.41 106/mcL Invalid Interpretation Code 4.50 - 6.00 10^6/mcL AH Remisol SS Sodium [Moles/Vol] 138 mmol/L Invalid Interpretation Code 136 - 145 mEq/L AH ADM SS Urea nitrogen [Mass/Vol] 19.0 mg/dL Invalid Interpretation Code 8.0 - 22.0 mg/dL AH ADM SS Urea nitrogen/Creatinine [Mass ratio] 46.3 ratio Invalid Interpretation Code 10.0 - 22.0 ratio AH ADM SS WBC (Bld) [#/Vol] 20.10 103/mcL Invalid Interpretation Code 4.50 - 10.80 10^3/mcL AH Remisol SS LABORATORYOrdered By: SYSTEM SYSTEM on 01-30-2021 Basophils (Bld) [#/Vol] 0.00 103/mcL Invalid Interpretation Code 0.00 - 0.27 10^3/mcL AH Remisol SS Basophils/100 WBC (Bld) 0.1 % Invalid Interpretation Code 0.0 - 2.5 % AH Remisol SS CRP [Mass/Vol] 4.8 mg/dL Invalid Interpretation Code 0.0 - 1.0 mg/dL AH ADM SS Eosinophils (Bld) [#/Vol] 0.00 103/mcL Invalid Interpretation Code 0.00 - 0.65 10^3/mcL AH Remisol SS Eosinophils/100 WBC (Bld) 0.1 % Invalid Interpretation Code 0.0 - 6.0 % AH Remisol SS Ferritin [Mass/Vol] 1093.8 ng/mL Invalid Interpretation Code 26.0 - 388.0 ng/mL AH ADM SS Lymphocytes (Bld) [#/Vol] 0.50 103/mcL Invalid Interpretation Code 0.90 - 4.32 10^3/mcL AH Remisol SS Lymphocytes/100 WBC (Bld) 2.4 % Invalid Interpretation Code 20.0 - 40.0 % AH Remisol SS Monocytes (Bld) [#/Vol] 0.70 103/mcL Invalid Interpretation Code 0.09 - 1.40 10^3/mcL AH Remisol SS Monocytes/100 WBC (Bld) 3.1 % Invalid Interpretation Code 2.0 - 13.0 % AH Remisol SS Neutrophils (Bld) [#/Vol] 20.00 103/mcL Invalid Interpretation Code 2.25 - 8.10 10^3/mcL AH Remisol SS Neutrophils/100 WBC (Bld) 94.3 % Invalid Interpretation Code 50.0 - 75.0 % AH Remisol SS Platelets LM Ql (Bld) Normal *NA* (01/30/21 7:24 AM) Invalid Interpretation Code AH Remisol SS RBC morphology finding Nom (Bld) Normal *NA* (01/30/21 7:24 AM) Invalid Interpretation Code AH Remisol SS Toxic granules LM Ql (Bld) Slight *NA* (01/30/21 7:24 AM) Invalid Interpretation Code AH Remisol SS LABORATORYOrdered By: SYSTEM SYSTEM on 01-29-2021 Band form neutrophils/100 WBC (Bld) 2.0 % Invalid Interpretation Code 0.0 - 5.0 % AH Remisol SS Basophils (Bld) [#/Vol] 0.00 103/mcL Invalid Interpretation Code 0.00 - 0.27 10^3/mcL AH Remisol SS Basophils/100 WBC (Bld) 0.0 % Invalid Interpretation Code 0.0 - 2.5 % AH Remisol SS Cells Counted Total (Unsp spec) [#] 100 Invalid Interpretation Code AH Remisol SS Eosinophils (Bld) [#/Vol] 0.14 103/mcL Invalid Interpretation Code 0.00 - 0.65 10^3/mcL AH Remisol SS Eosinophils/100 WBC (Bld) 1.0 % Invalid Interpretation Code 0.0 - 6.0 % AH Remisol SS Lymphocytes (Bld) [#/Vol] 1.30 103/mcL Invalid Interpretation Code 0.90 - 4.32 10^3/mcL AH Remisol SS Lymphocytes/100 WBC (Bld) 9.0 % Invalid Interpretation Code 20.0 - 40.0 % AH Remisol SS Monocytes (Bld) [#/Vol] 2.16 103/mcL Invalid Interpretation Code 0.09 - 1.40 10^3/mcL AH Remisol SS Monocytes/100 WBC (Bld) 15.0 % Invalid Interpretation Code 2.0 - 13.0 % AH Remisol SS Neutrophils (Bld) [#/Vol] 10.80 103/mcL Invalid Interpretation Code 2.25 - 8.10 10^3/mcL AH Remisol SS Neutrophils/100 WBC (Bld) 73.0 % Invalid Interpretation Code 50.0 - 75.0 % AH Remisol SS LABORATORYOrdered By: SYSTEM SYSTEM on 01-28-2021 Natriuretic peptide.B prohormone N-Terminal [Mass/Vol] 305 pg/mL Invalid Interpretation Code 0 - 900 pg/mL AH ADM SS Band form neutrophils/100 WBC (Bld) 8.0 % Invalid Interpretation Code 0.0 - 5.0 % AH Remisol SS Toxic granules LM Ql (Bld) Slight *NA* (01/28/21 6:47 AM) Invalid Interpretation Code AH Remisol SS LABORATORYOrdered By: Lynne Singh on 01-27-2021 Bili Indirect 0.4 mg/dL Invalid Interpretation Code 0.1 - 10.0 mg/dL Chemistry S Bilirubin.conjugated [Mass/Vol] 0.3 mg/dL Invalid Interpretation Code 0.0 - 0.4 mg/dL AH ADM SS LABORATORYOrdered By: SYSTEM SYSTEM on 01-27-2021 Magnesium [Mass/Vol] 2.2 mg/dL Invalid Interpretation Code 1.6 - 2.4 mg/dL AH ADM SS Phosphate [Mass/Vol] 3.3 mg/dL Invalid Interpretation Code 2.4 - 5.1 mg/dL AH ADM SS LABORATORYOrdered By: SYSTEM SYSTEM on 01-25-2021 Magnesium [Mass/Vol] 2.3 mg/dL Invalid Interpretation Code 1.6 - 2.4 mg/dL ADM SS Phosphate [Mass/Vol] 3.1 mg/dL Invalid Interpretation Code 2.4 - 5.1 mg/dL AH ADM SS LABORATORYOrdered By: SYSTEM SYSTEM on 01-24-2021 Band form neutrophils/100 WBC (Bld) 3.0 % Invalid Interpretation Code 0.0 - 5.0 % AH Remisol SS CRP [Mass/Vol] 1.1 mg/dL Invalid Interpretation Code 0.0 - 1.0 mg/dL AH ADM SS Ferritin [Mass/Vol] 1608.8 ng/mL Invalid Interpretation Code 26.0 - 388.0 ng/mL AH ADM SS Magnesium [Mass/Vol] 2.4 mg/dL Invalid Interpretation Code 1.6 - 2.4 mg/dL AH ADM SS Metamyelocytes/100 WBC (Bld) 1.0 % Invalid Interpretation Code AH Remisol SS LABORATORYOrdered By: Francisco Walker on 01-24-2021 Fibrin D-dimer DDU (PPP) [Mass/Vol] 432 ng/mL D-DU Invalid Interpretation Code 0 - 230 ng/mL D-DU AH Auto Coag SS Comment on above: Result Comment: Resu lts reported in D-DU ng/ml. Positive for D-dimer. A positive D-dimer may occur in the following: DVT, PE, DIC, Trauma, Cancer, Sepsis, , Rheumatoid arthritis, Myocardial infarction and Cirrhosis. Note: Not affected by Rheumatoid Factor <=1400 IU/mL Fibrinogen Coag (PPP) [Mass/Vol] mg/dL Invalid Interpretation Code 250 - 550 mg/dL AH Auto Coag SS LABORATORYOrdered By: Sobeida Weiss on 01-23-2021 aPTT Coag (PPP) [Time] 39.4 s Invalid Interpretation Code 25.0 - 35.0 seconds AH Auto Coag SS Fibrin D-dimer DDU (PPP) [Mass/Vol] 578 ng/mL D-DU Invalid Interpretation Code 0 - 230 ng/mL D-DU AH Auto Coag SS Comment on above: Result Comment: Resu lts reported in D-DU ng/ml. Positive for D-dimer. A positive D-dimer may occur in the following: DVT, PE, DIC, Trauma, Cancer, Sepsis, , Rheumatoid arthritis, Myocardial infarction and Cirrhosis. Note: Not affected by Rheumatoid Factor <=1400 IU/mL Fibrinogen Coag (PPP) [Mass/Vol] mg/dL Invalid Interpretation Code 250 - 550 mg/dL AH Auto Coag SS Heparin dose (APTT) Unknown (01/23/21 4:25 AM) Invalid Interpretation Code AH Auto Coag SS INR Coag (PPP) [Relative time] 1.1 {INR} Invalid Interpretation Code AH Auto Coag SS PT Coag (PPP) [Time] 13.4 s Invalid Interpretation Code 9.0 - 14.8 seconds AH Auto Coag SS LABORATORYOrdered By: SYSTEM SYSTEM on 01-23-2021 CRP [Mass/Vol] 3.1 mg/dL Invalid Interpretation Code 0.0 - 1.0 mg/dL AH ADM SS Ferritin [Mass/Vol] 1337.2 ng/mL Invalid Interpretation Code 26.0 - 388.0 ng/mL ADM SS Troponin I.cardiac DL <= 0.01 ng/mL [Mass/Vol] 4.11 ng/L Invalid Interpretation Code 0.00 - 54.00 ng/L ADM SS LABORATORYOrdered By: Lakeisha Chan on 01-22-2021 aPTT Coag (PPP) [Time] 39.8 s Invalid Interpretation Code 25.0 - 35.0 seconds AH Auto Coag SS Fibrin D-dimer DDU (PPP) [Mass/Vol] 726 ng/mL D-DU Invalid Interpretation Code 0 - 230 ng/mL D-DU Auto Coag SS Comment on above: Result Comment: Resu lts reported in D-DU ng/ml. Positive for D-dimer. A positive D-dimer may occur in the following: DVT, PE, DIC, Trauma, Cancer, Sepsis, , Rheumatoid arthritis, Myocardial infarction and Cirrhosis. Note: Not affected by Rheumatoid Factor <=1400 IU/mL Fibrinogen Coag (PPP) [Mass/Vol] mg/dL Invalid Interpretation Code 250 - 550 mg/dL Auto Coag SS Heparin dose (APTT) Unknown (01/22/21 4:09 AM) Invalid Interpretation Code AH Auto Coag SS INR Coag (PPP) [Relative time] 1.2 {INR} Invalid Interpretation Code AH Auto Coag SS PT Coag (PPP) [Time] 14.4 s Invalid Interpretation Code 9.0 - 14.8 seconds AH Auto Coag SS LABORATORYOrdered By: SYSTEM SYSTEM on 01-22-2021 Nucleated RBC 2.0 /100 WBC Invalid Interpretation Code Remisol SS Troponin I.cardiac DL <= 0.01 ng/mL [Mass/Vol] 3.34 ng/L Invalid Interpretation Code 0.00 - 54.00 ng/L ADM SS LABORATORYOrdered By: Shaneka Suero on 01-21-2021 aPTT Coag (PPP) [Time] 38.6 s Invalid Interpretation Code 25.0 - 35.0 seconds AH Auto Coag SS Heparin dose (APTT) Unknown (01/21/21 4:45 AM) Invalid Interpretation Code AH Auto Coag SS INR Coag (PPP) [Relative time] 1.2 {INR} Invalid Interpretation Code AH Auto Coag SS PT Coag (PPP) [Time] 14.4 s Invalid Interpretation Code 9.0 - 14.8 seconds AH Auto Coag SS LABORATORYOrdered By: FRANCISCO JAVIER WHITE on 01-21-2021 CBC Path Review Marked thrombocytosi s, and moderate leukocytosis with absolute neutrophilia noted. Rule out infection. Rule out stress response. Invalid Interpretation Code AH Path Review Subsection Work Phone: LABORATORYOrdered By: SYSTEM SYSTEM on 01-21-2021 Toxic granules LM Ql (Bld) Slight *NA* (01/21/21 4:45 AM) Invalid Interpretation Code AH Remisol SS LABORATORYOrdered By: SYSTEM SYSTEM on 01-20-2021 Myelocytes/100 WBC (Bld) 1.0 % Invalid Interpretation Code AH Remisol SS LABORATORYOrdered By: SYSTEM SYSTEM on 01-19-2021 Myelocytes/100 WBC (Bld) 1.0 % Invalid Interpretation Code AH Remisol SS LABORATORYOrdered By: SYSTEM SYSTEM on 01-17-2021 CK [Catalytic activity/Vol] 266 U/L Invalid Interpretation Code 7 - 185 U/L AH ADM SS LDH Lactate to pyruvate reaction [Catalytic activity/Vol] 696 1 Invalid Interpretation Code 120 - 246 U/L AH ADM SS Basophils (Bld) [#/Vol] 0.00 103/mcL Invalid Interpretation Code 0.00 - 0.27 10^3/mcL AH Remisol SS Basophils/100 WBC (Bld) 0.1 % Invalid Interpretation Code 0.0 - 2.5 % AH Remisol SS Eosinophils (Bld) [#/Vol] 0.00 103/mcL Invalid Interpretation Code 0.00 - 0.65 10^3/mcL AH Remisol SS Eosinophils/100 WBC (Bld) 0.1 % Invalid Interpretation Code 0.0 - 6.0 % AH Remisol SS Lymphocytes (Bld) [#/Vol] 0.40 103/mcL Invalid Interpretation Code 0.90 - 4.32 10^3/mcL AH Remisol SS Lymphocytes/100 WBC (Bld) 4.3 % Invalid Interpretation Code 20.0 - 40.0 % AH Remisol SS Monocytes (Bld) [#/Vol] 0.30 103/mcL Invalid Interpretation Code 0.09 - 1.40 10^3/mcL AH Remisol SS Monocytes/100 WBC (Bld) 3.2 % Invalid Interpretation Code 2.0 - 13.0 % AH Remisol SS Neutrophils (Bld) [#/Vol] 9.40 103/mcL Invalid Interpretation Code 2.25 - 8.10 10^3/mcL AH Remisol SS Neutrophils/100 WBC (Bld) 92.3 % Invalid Interpretation Code 50.0 - 75.0 % AH Remisol SS LABORATORYOrdered By: SYSTEM SYSTEM on 01-16-2021 CK [Catalytic activity/Vol] 399 U/L Invalid Interpretation Code 7 - 185 U/L AH ADM SS Comment on above: Result Comment: Spec imen slightly hemolyzed. LDH Lactate to pyruvate reaction [Catalytic activity/Vol] 915 1 Invalid Interpretation Code 120 - 246 U/L AH ADM SS Nucleated RBC 1.0 /100 WBC Invalid Interpretation Code AH Remisol SS GFR 213 ml/min/1.73sqm Invalid Interpretation Code AO Chemistry S GFR Non- 175 ml/min/1.73sqm Invalid Interpretation Code AO Chemistry S LABORATORYOrdered By: Amaris Finley on 01-16-2021 Albumin BCP dye [Mass/Vol] 1.4 G/dL Invalid Interpretation Code 3.4 - 4.8 G/dL AO ADM SS Albumin/Globulin [Mass ratio] 0.5 {ratio} Invalid Interpretation Code 1.1 - 2.5 ratio AO ADM SS ALP [Catalytic activity/Vol] 80 U/L Invalid Interpretation Code 40 - 135 U/L AO ADM SS ALT With P-5'-P [Catalytic activity/Vol] 41 U/L Invalid Interpretation Code 16 - 63 U/L AO ADM SS AST With P-5'-P [Catalytic activity/Vol] 66 U/L Invalid Interpretation Code 10 - 40 U/L AO ADM SS Atypical Lymphs 1.0 1 Invalid Interpretation Code 0.0 - 5.0 % AO Auto Heme SS Band form neutrophils (Bld) [#/Vol] 1.0 10*3/uL Invalid Interpretation Code 0.0 - 5.0 % AO Auto Heme SS Basophil %, Manual 0.0 1 Invalid Interpretation Code 0.0 - 2.5 % AO Auto Heme SS Basophil, Abs Manual 0.00 103/mcL Invalid Interpretation Code 0.00 - 0.19 10^3/mcL AO Auto Heme SS Bilirubin [Mass/Vol] 1.2 mg/dL Invalid Interpretation Code 0.2 - 1.0 mg/dL AO ADM SS C-Reactive Protein mg/dL Invalid Interpretation Code 0.0 - 0.9 mg/dL AO Chemistry S Calcium [Mass/Vol] 6.3 mg/dL Invalid Interpretation Code 8.4 - 10.2 mg/dL AO ADM SS Chloride [Moles/Vol] 107 mmol/L Invalid Interpretation Code 98 - 107 mmol/L AO ADM SS CO2 [Moles/Vol] 19 mmol/L Invalid Interpretation Code 23 - 31 mmol/L AO ADM SS Creatinine [Mass/Vol] 0.48 mg/dL Invalid Interpretation Code 0.70 - 1.30 mg/dL AO ADM SS Electrolyte Balance 13.0 mEq/L Invalid Interpretation Code AO ADM SS Eosinophil %, Manual 0.0 1 Invalid Interpretation Code 0.0 - 7.0 % AO Auto Heme SS Eosinophil, Abs Manual 0.00 103/mcL Invalid Interpretation Code 0.00 - 0.40 10^3/mcL AO Auto Heme SS Erythrocyte distribution width (RBC) [Ratio] 13.4 % Invalid Interpretation Code 11.5 - 14.5 % AO Auto Heme SS Globulin 3.1 G/dL Invalid Interpretation Code AO ADM SS Glucose [Mass/Vol] 115 mg/dL Invalid Interpretation Code 80 - 115 mg/dL AO ADM SS Hematocrit (Bld) [Volume fraction] 39.9 % Invalid Interpretation Code 42.0 - 52.0 % AO Auto Heme SS Hemoglobin (Bld) [Mass/Vol] 13.6 G/dL Invalid Interpretation Code 14.0 - 18.0 G/dL AO Auto Heme SS Lymphocyte %, Manual 9.0 1 Invalid Interpretation Code 10.0 - 50.0 % AO Auto Heme SS Lymphocyte, Abs Manual 1.41 103/mcL Invalid Interpretation Code 0.77 - 3.85 10^3/mcL AO Auto Heme SS Magnesium [Mass/Vol] 2.0 mg/dL Invalid Interpretation Code 1.8 - 2.4 mg/dL AO ADM SS MCH (RBC) [Entitic mass] 30.8 pg Invalid Interpretation Code 27.0 - 31.2 pg AO Auto Heme SS MCHC (RBC) [Mass/Vol] 34.1 G/dL Invalid Interpretation Code 31.8 - 35.4 G/dL AO Auto Heme SS MCV (RBC) [Entitic vol] 90.4 fL Invalid Interpretation Code 80.0 - 94.0 fL AO Auto Heme SS Monocyte %, Manual 4.0 1 Invalid Interpretation Code 1.7 - 13.0 % AO Auto Heme SS Monocyte, Abs Manual 0.56 103/mcL Invalid Interpretation Code 0.15 - 1.00 10^3/mcL AO Auto Heme SS Neutrophil %, Manual 85.0 1 Invalid Interpretation Code 37.0 - 80.0 % AO Auto Heme SS Neutrophil, Abs Manual 12.12 103/mcL Invalid Interpretation Code 2.85 - 6.16 10^3/mcL AO Auto Heme SS Platelet Estimate Grt Increased (01/16/21 6:14 PM) Invalid Interpretation Code AO Auto Heme SS Platelet mean volume (Bld) [Entitic vol] 7.9 fL Invalid Interpretation Code 7.4 - 10.4 fL AO Auto Heme SS Platelets (Bld) [#/Vol] 648 103/mcL Invalid Interpretation Code 130 - 400 10^3/mcL AO Auto Heme SS Potassium [Moles/Vol] 3.4 mmol/L Invalid Interpretation Code 3.5 - 5.1 mmol/L AO ADM SS Protein [Mass/Vol] 4.5 G/dL Invalid Interpretation Code 6.4 - 8.2 G/dL AO ADM SS RBC (Bld) [#/Vol] 4.41 106/mcL Invalid Interpretation Code 4.04 - 6.13 10^6/mcL AO Auto Heme SS Sodium [Moles/Vol] 139 mmol/L Invalid Interpretation Code 136 - 145 mmol/L AO ADM SS Urea nitrogen [Mass/Vol] 16 mg/dL Invalid Interpretation Code 7 - 18 mg/dL AO ADM SS Urea nitrogen/Creatinine [Mass ratio] 33 ratio Invalid Interpretation Code 7 - 27 ratio AO ADM SS WBC (Bld) [#/Vol] 14.10 103/mcL Invalid Interpretation Code 4.60 - 10.80 10^3/mcL AO Auto Heme SS Fibrin D-dimer DDU (PPP) [Mass/Vol] 726 ng/mL D-DU Invalid Interpretation Code 0 - 230 ng/mL D-DU AO Coag SS Lactate [Moles/Vol] 3.3 mmol/L Invalid Interpretation Code 0.4 - 2.0 mmol/L AO ADM SS Natriuretic peptide.B prohormone N-Terminal [Mass/Vol] 995 pg/mL Invalid Interpretation Code 0 - 125 pg/mL AO ADM SS Troponin I.cardiac DL <= 0.01 ng/mL [Mass/Vol] 36.5 ng/L Invalid Interpretation Code 0.0 - 76.2 ng/L AO ADM SS No Panel Informationon 01-16 Microscopic examination of blood, culture Culture has been received in lab and is no growth to date. Routine cultures are held for 5 days. [facility] Work Phone: LABORATORYOrdered By: Leticia Patrick on 01-03-2021 ADMITTED TO INTENSIVE CARE UNIT FOR CONDITION OF INTEREST:FIND:PT:^PA TIENT:ORD: No (01/03/21 12:05 PM) Invalid Interpretation Code AO Auto Urine SS EMPLOYED IN A HEALTHCARE SETTING:FIND:PT:^PAT IENT:ORD: No (01/03/21 12:05 PM) Invalid Interpretation Code AO Auto Urine SS FIRST TEST FOR CONDITION OF INTEREST:FIND:PT:^PA TIENT:ORD: Yes (01/03/21 12:05 PM) Invalid Interpretation Code AO Auto Urine SS HAS SYMPTOMS RELATED TO CONDITION OF INTEREST:FIND:PT:^PA TIENT:ORD: Yes (01/03/21 12:05 PM) Invalid Interpretation Code AO Auto Urine SS Illness or injury onset date and time 20210101 Invalid Interpretation Code AO Auto Urine SS Patient was hospitalized because of this condition No (01/03/21 12:05 PM) Invalid Interpretation Code AO Auto Urine SS status Not (01/03/21 12:05 PM) Invalid Interpretation Code AO Auto Urine SS RESIDES IN A CONGREGATE CARE SETTING:FIND:PT:^PAT IENT:ORD: No (01/03/21 12:05 PM) Invalid Interpretation Code AO Auto Urine SS SARS-CoV-2 (COVID-19) RNA ELAINA+probe Ql (Resp) Positive *ABN* (01/03/21 12:05 PM) Invalid Interpretation Code Negative AO Auto Urine SS SARS-CoV-2 (COVID-19) RNA ELAINA+probe Ql (Unsp spec) Positive results are indicative of the presence of SARS-CoV-2 RNA; clinical correlation with patient history and other diagnostic information is necessary to determine patient infection status. Positive results do not rule out bacterial infection or co-infection with other viruses. The agent detected may not be the definite cause of disease. Laboratories within the [place] and its territories are required to report all positive results to the appropriate public health authorities.Detection of analyte target(s) does not imply that the corresponding virus(es) are infectious or are the causative agents for clinical symptoms.There is a risk of false positive values resulting from cross-contamination by target organisms, their nucleic acids or amplified product, or from non-specific signals in the assay.ASHVIN SARS-CoV-2 Assay is a Real-Time reverse-transcriptase polymerase chain reaction (RT-PCR) based qualitative in vitro diagnostic test intended for the qualitative detection of nucleic acid from the SARS-CoV-2 in nasopharyngeal swab specimens collected from individuals suspected of COVID-19 by their healthcare provider. Testing is limited to laboratories certified under the Clinical Laboratory Improvement Amendments of 1988 (CLIA), 42 U.S.C. 263a, to perform moderate and high complexity tests. Invalid Interpretation Code AO Auto Urine SS Vital Signs Date Time Vital Sign Value Performing Clinician Facility 01-09-2025 08:39-0500 Body height 180 cm Shanel Chandler MD Work Phone: [facility] 01-09-2025 08:39-0500 Body height 180.34 cm Shanel Chandler MD Work Phone: [facility] 01-09-2025 08:39-0500 Body mass index (BMI) [Ratio] 27.72 kg/m2 Shanel Chandler MD Work Phone: [facility] 01-09-2025 08:39-0500 Body weight 90 kg Shanel Chandler MD Work Phone: [facility] 01-09-2025 08:39-0500 Body weight 89.81 kg Shanel Chandler MD Work Phone: [facility] 01-09-2025 08:39-0500 BP SITE #1 Shanel Chandler MD Work Phone: [facility] 01-09-2025 08:39-0500 Diastolic blood pressure 72 mm[Hg] Shanel Chandler MD Work Phone: [facility] 01-09-2025 08:39-0500 Heart rate 55 /min Shanel Chandler MD Work Phone: [facility] 01-09-2025 08:39-0500 HGHTCHNVIS Shanel Chandler MD Work Phone: [facility] 01-09-2025 08:39-0500 Systolic blood pressure 135 mm[Hg] Shanel Chandler MD Work Phone: [facility] 01-09-2025 08:39-0500 VITALSDONE Shanel Chandler MD Work Phone: [facility] 12-18-2024 07:49-0400 Body height 180 cm Yen Dulgar [employer]NER [employer] SUPERVISOR Work Phone: [facility] 12-18-2024 07:49-0400 Body height 180.34 cm Yen Dulgar [employer]NER MARKET[employer]IST SUPERVISOR Work Phone: [facility] 12-18-2024 07:49-0400 Body mass index (BMI) [Ratio] 27.72 kg/m2 Yen Dulgar [employer]NER MARKET[employer]IST SUPERVISOR Work Phone: [facility] 12-18-2024 07:49-0400 Body weight 90 kg Yen Dulgar [employer]NER MARKETING [employer]IST SUPERVISOR Work Phone: [facility] 12-18-2024 07:49-0400 Body weight 89.81 kg Yen Dulgar [employer]NER MARKETING [employer]IST SUPERVISOR Work Phone: [facility] 12-18-2024 07:49-0400 BP SITE #1 Yen Dulgar [employer]NER MARKETING [employer]IST SUPERVISOR Work Phone: [facility] 12-18-2024 07:49-0400 Diastolic blood pressure 78 mm[Hg] Yen Dulgar [employer]NER MARKETING [employer]IST SUPERVISOR Work Phone: [facility] 12-18-2024 07:49-0400 Diastolic blood pressure 88 mm[Hg] Yen Dulgar [employer]NER MARKETING [employer]IST SUPERVISOR Work Phone: [facility] [place] 12-18-2024 07:49-0400 HGHTCHNVIS Yen Olivares [employer]NER MARKETING [employer]IST SUPERVISOR Work Phone: [facility] [place] 12-18-2024 07:49-0400 Systolic blood pressure 167 mm[Hg] Yen Olivares PARTNER MARKETING [employer]IST SUPERVISOR Work Phone: [facility] [place] 12-18-2024 07:49-0400 VITALSDONE Yen Olivares [employer]NER MARKET[employer]IST SUPERVISOR Work Phone: [facility] [place] 11-28-2024 11:01-0400 Body height 180 cm Romelia Layla PA-C Work Phone: [facility] 11-28-2024 11:01-0400 Body height 180.34 cm Romelia Layla PA-C Work Phone: [facility] 11-28-2024 11:01-0400 Body mass index (BMI) [Ratio] 29.11 kg/m2 Romelia Layla PA-C Work Phone: [facility] 11-28-2024 11:01-0400 Body weight 95 kg Romelia Layla PA-C Work Phone: [facility] 11-28-2024 11:01-0400 Body weight 94.35 kg Romelia Layla PA-C Work Phone: [facility] 11-28-2024 11:01-0400 BP SITE #1 Romelia Layla PA-C Work Phone: [facility] 11-28-2024 11:01-0400 Diastolic blood pressure 79 mm[Hg] Romelia Layla PA-C Work Phone: [facility] 11-28-2024 11:01-0400 Heart rate 48 /min Romelia Layla PA-C Work Phone: [facility] 11-28-2024 11:01-0400 HGHTCHNVIS Romelia Layla PA-C Work Phone: [facility] 11-28-2024 11:01-0400 Systolic blood pressure 138 mm[Hg] Romelia Gatesrbrough PA-C Work Phone: [facility] 11-28-2024 11:01-0400 VITALSDONE Romelia Gatesrbrough PA-C Work Phone: [facility] 11-13-2024 08:56-0400 Body height 183 cm Louise Hdz [employer]NER MARKETING [employer] SUPERVISOR Work Phone: [facility] [place] 11-13-2024 08:56-0400 Body height 182.88 cm Louise Hdz [employer]NER MARKETING [employer]IST SUPERVISOR Work Phone: [facility] [place] 11-13-2024 08:56-0400 Body mass index (BMI) [Ratio] 28.04 kg/m2 Louise Hdz [employer]NER MARKET[employer] SUPERVISOR Work Phone: [facility] [place] 11-13-2024 08:56-0400 Body weight 94 kg Louise Hdz [employer]NER MARKETING [employer]IST SUPERVISOR Work Phone: [facility] [place] 11-13-2024 08:56-0400 Body weight 93.44 kg Louise Hdz [employer]NER MARKETING [employer]IST SUPERVISOR Work Phone: [facility] [place] 11-13-2024 08:56-0400 BP SITE #1 Louise Hdz [employer]NER MARKETING [employer]IST SUPERVISOR Work Phone: [facility] [place] 11-13-2024 08:56-0400 BP SITE #2 Louise Hdz PARTNER MARKETING [employer]IST SUPERVISOR Work Phone: [facility] [place] 11-13-2024 08:56-0400 Diastolic blood pressure 72 mm[Hg] Louise Derhammer PARTNER MARKETING INTERN-FOREST FIRE SPECIALIST SUPERVISOR Work Phone: [facility] [place] 11-13-2024 08:56-0400 Diastolic blood pressure 76 mm[Hg] Louise Derhammer PARTNER MARKETING INTERN-FOREST FIRE SPECIALIST SUPERVISOR Work Phone: [facility] [place] 11-13-2024 08:56-0400 Heart rate 73 /min Louise Derhammer PARTNER MARKETING INTERN-FOREST FIRE SPECIALIST SUPERVISOR Work Phone: [facility] [place] 11-13-2024 08:56-0400 HGHTCHNVIS Louise Derhammer PARTNER MARKETING INTERN-FOREST FIRE SPECIALIST SUPERVISOR Work Phone: [facility] [place] 11-13-2024 08:56-0400 Systolic blood pressure 157 mm[Hg] Louise Derhammer PARTNER MARKETING INTERN-FOREST FIRE SPECIALIST SUPERVISOR Work Phone: [facility] [place] 11-13-2024 08:56-0400 Systolic blood pressure 154 mm[Hg] Louise Derhammer PARTNER MARKETING INTERN-FOREST FIRE SPECIALIST SUPERVISOR Work Phone: [facility] [place] 11-13-2024 08:56-0400 VITALSDONE Louise Derhammer PARTNER MARKETING INTERN-FOREST FIRE SPECIALIST SUPERVISOR Work Phone: [facility] [place] 11-10-2024 09:07-0400 Body height 180 cm Shanel Chandler MD Work Phone: [facility] 11-10-2024 09:07-0400 Body height 180.34 cm Shanel Chandler MD Work Phone: [facility] 11-10-2024 09:07-0400 Body mass index (BMI) [Ratio] 29.11 kg/m2 Shanel Chandler MD Work Phone: [facility] 11-10-2024 09:07-0400 Body weight 95 kg Shanel Chandler MD Work Phone: [facility] 11-10-2024 09:07-0400 Body weight 94.35 kg Shanel Chandler MD Work Phone: [facility] 11-10-2024 09:07-0400 BP SITE #1 Shanel Chandler MD Work Phone: [facility] 11-10-2024 09:07-0400 BP SITE #2 Shanel Chandler MD Work Phone: [facility] 11-10-2024 09:07-0400 Diastolic blood pressure 80 mm[Hg] Shanel Chandler MD Work Phone: [facility] 11-10-2024 09:07-0400 Diastolic blood pressure 77 mm[Hg] Shanel Chandler MD Work Phone: [facility] 11-10-2024 09:07-0400 HGHTCHNVIS Shanel Chandler MD Work Phone: [facility] 11-10-2024 09:07-0400 Systolic blood pressure 160 mm[Hg] Shanel Chandler MD Work Phone: [facility] 11-10-2024 09:07-0400 Systolic blood pressure 149 mm[Hg] Shanel Chandler MD Work Phone: [facility] 11-10-2024 09:07-0400 VITALSDONE Shanel Chandler MD Work Phone: [facility] 10-24-2024 14:24-0400 Body height 180 cm Romelia Rich PA-C Work Phone: [facility] 10-24-2024 14:24-0400 Body height 180.34 cm Romelia Layla PA-C Work Phone: [facility] 10-24-2024 14:24-0400 Body mass index (BMI) [Ratio] 29.11 kg/m2 Romelia Layla PA-C Work Phone: [facility] 10-24-2024 14:24-0400 Body weight 95 kg Romelia Layla PA-C Work Phone: [facility] 10-24-2024 14:24-0400 Body weight 94.35 kg Romelia Layla PA-C Work Phone: [facility] 10-24-2024 14:24-0400 BP SITE #1 Romelia Layla PA-C Work Phone: [facility] 10-24-2024 14:24-0400 Diastolic blood pressure 79 mm[Hg] Romelia Layla PA-C Work Phone: [facility] 10-24-2024 14:24-0400 Heart rate 59 /min Romelia Layla PA-C Work Phone: [facility] 10-24-2024 14:24-0400 HGHTCHNVIS Romelia Layla PA-C Work Phone: [facility] 10-24-2024 14:24-0400 Systolic blood pressure 132 mm[Hg] Romelia Layla PA-C Work Phone: [facility] 10-24-2024 14:24-0400 VITALSDONE Romelia Layla PA-C Work Phone: [facility] 10-11-2024 07:41-0400 Body temperature 97.39 [degF] Shanel Chandler MD Work Phone: [facility] [employer] 10-11-2024 07:41-0400 Diastolic blood pressure 46 mm[Hg] Shanel Chandler MD Work Phone: [facility] 10-11-2024 07:41-0400 Heart rate 51 /min Shanel Chandler MD Work Phone: [facility] 10-11-2024 07:41-0400 Respiratory rate 16 /min Shanel Chandler MD Work Phone: [facility] 10-11-2024 07:41-0400 SaO2% (BldA) [Mass fraction] 94 % Shanel Chandler MD Work Phone: [facility] 10-11-2024 07:41-0400 Systolic blood pressure 95 mm[Hg] Shanel Chandler MD Work Phone: [facility] 08-11-2024 06:48-0400 Body height 180.[address] Jose Etienne DO Work Phone: [facility] 08-11-2024 06:48-0400 Body mass index (BMI) [Ratio] 28 kg/m2 Dr. Jose Etienne DO Work Phone: [facility] 08-11-2024 06:48-0400 Body weight 91.[address] Jose Etienne DO Work Phone: [facility] 08-11-2024 06:48-0400 Diastolic blood pressure 88 mm[Hg] Dr. Jose Etienne DO Work Phone: [facility] 08-11-2024 06:48-0400 Heart rate 65 /min Dr. Jose Etienne DO Work Phone: [facility] 08-11-2024 06:48-0400 Respiratory rate 18 /min Dr. Jose Etienne DO Work Phone: [facility] 08-11-2024 06:48-0400 SaO2% (BldA) [Mass fraction] 94 % Dr. Jose Etienne DO Work Phone: [facility] 08-11-2024 06:48-0400 Systolic blood pressure 144 mm[Hg] Dr. Jose Etienne DO Work Phone: [facility] 07-24-2024 10:08-0400 Body height 180.[address] Jose Etienne DO Work Phone: [facility] 07-24-2024 10:08-0400 Body mass index (BMI) [Ratio] 28.5 kg/m2 Dr. Jose Etienne DO Work Phone: [facility] 07-24-2024 10:08-0400 Body weight 92.[address] Jose Etienne DO Work Phone: [facility] 07-24-2024 10:08-0400 Diastolic blood pressure 69 mm[Hg] Dr. Jose Etienne DO Work Phone: [facility] 07-24-2024 10:08-0400 Heart rate 64 /min Dr. Jose Etienne DO Work Phone: [facility] 07-24-2024 10:08-0400 Respiratory rate 18 /min Dr. Jose Etienne DO Work Phone: [facility] 07-24-2024 10:08-0400 SaO2% (BldA) [Mass fraction] 95 % Dr. Jose Etienne DO Work Phone: [facility] 07-24-2024 10:08-0400 Systolic blood pressure 125 mm[Hg] Dr. Jose Etienne DO Work Phone: [facility] 06-16-2024 09:45-0400 Body temperature 96.8 [degF] MIGDALIA LAL PARTNER MARKETING INTERN-FOREST FIRE SPECIALIST SUPERVISOR [facility] 06-16-2024 09:45-0400 Diastolic Blood Pressure Non-Invasive 89 mm[Hg] MIGDALIA LAL PARTNER MARKETING INTERN-FOREST FIRE SPECIALIST SUPERVISOR [facility] 06-16-2024 09:45-0400 Heart rate 62 /min MIGDALIA LAL PARTNER MARKETING INTERN-FOREST FIRE SPECIALIST SUPERVISOR [facility] 06-16-2024 09:45-0400 Respiratory rate 18 /min MIGDALIA LAL PARTNER MARKETING INTERN-FOREST FIRE SPECIALIST SUPERVISOR [address] [place] [address] 06-16-2024 09:45-0400 Systolic Blood Pressure Non-Invasive 153 mm[Hg] MIGDALIA LAL PARTNER MARKETING INTERN-FOREST FIRE SPECIALIST SUPERVISOR [address] [place] [address] 06-16-2024 06:21-0400 Body height 179.1 cm MIGDALIA LAL PARTNER MARKETING INTERN-FOREST FIRE SPECIALIST SUPERVISOR [address] [place] [address] 06-16-2024 06:21-0400 Body weight 93.6 kg MIGDALIA LAL PARTNER MARKETING INTERN-FOREST FIRE SPECIALIST SUPERVISOR [address] [place] [address] 06-16-2024 06:08-0400 Body temperature 97.52 [degF] MIGDALIA LAL PARTNER MARKETING INTERN-FOREST FIRE SPECIALIST SUPERVISOR [address] [place] [address] 06-16-2024 06:08-0400 Diastolic Blood Pressure Non-Invasive 77 mm[Hg] MIGDALIA LAL PARTNER MARKETING INTERN-FOREST FIRE SPECIALIST SUPERVISOR [address] [place] [address] 06-16-2024 06:08-0400 Heart rate 54 /min MIGDALIA LAL PARTNER MARKETING INTERN-FOREST FIRE SPECIALIST SUPERVISOR [address] [place] [address] 06-16-2024 06:08-0400 Respiratory rate 18 /min MIGDALIA LAL PARTNER MARKETING INTERN-FOREST FIRE SPECIALIST SUPERVISOR [address] [place] [address] 06-16-2024 06:08-0400 Systolic Blood Pressure Non-Invasive 130 mm[Hg] MIGDALIA LAL PARTNER MARKETING INTERN-FOREST FIRE SPECIALIST SUPERVISOR [address] [place] [address] 12-06-2022 13:36-0400 Body height 180.[address] Jose Etienne Work Phone: [facility] 12-06-2022 13:36-0400 Body mass index (BMI) [Ratio] 29.2 kg/m2 Dr. Jose Etienne Work Phone: [facility] 12-06-2022 13:36-0400 Body weight 95.[address] Jose Etienne Work Phone: [facility] 12-06-2022 13:36-0400 Diastolic blood pressure 81 mm[Hg] Dr. Jose Etienne Work Phone: [facility] 12-06-2022 13:36-0400 Heart rate 64 /min Dr. Jose Etienne Work Phone: [facility] 12-06-2022 13:36-0400 Respiratory rate 20 /min Dr. Jose Etienne Work Phone: [facility] 12-06-2022 13:36-0400 Systolic blood pressure 165 mm[Hg] Dr. Jose Etienne Work Phone: [facility] 02-09-2022 09:58-0500 Body height 180.[address] Jose Etienne Work Phone: [facility] 02-09-2022 09:58-0500 Body mass index (BMI) [Ratio] 28.7 kg/m2 Dr. Jose Etienne Work Phone: [facility] 02-09-2022 09:58-0500 Body weight 93.[address] Jose Etienne Work Phone: [facility] 02-09-2022 09:58-0500 Diastolic blood pressure 70 mm[Hg] Dr. Jose Etienne Work Phone: [facility] 02-09-2022 09:58-0500 Heart rate 64 /min Dr. Jose Etienne Work Phone: [facility] 02-09-2022 09:58-0500 Respiratory rate 16 /min Dr. Jose Etienne Work Phone: [facility] 02-09-2022 09:58-0500 Systolic blood pressure 112 mm[Hg] Dr. Jose Etienne Work Phone: [facility] 02-02-2021 14:43-0500 Body temperature 98.06 [degF] JAMEEL MARCUSUNK DO [facility] 02-02-2021 14:43-0500 Diastolic blood pressure 69 mm[Hg] JAMEEL PLUNK DO [facility] 02-02-2021 14:43-0500 Heart rate 79 /min JAMEEL MARCUSSova [facility] 02-02-2021 14:43-0500 Mean blood pressure 80 mm[Hg] JAMEEL MARCUSSova [facility] 02-02-2021 14:43-0500 Reason For Taking VItal Signs JAMEEL MARCUSSova [facility] 02-02-2021 14:43-0500 Respiratory rate 20 /min JAMEEL MARCUSUNK [employer]ro[employer] [facility] [employer] 02-02-2021 14:43-0500 Systolic blood pressure 101 mm[Hg] JAMEEL MARCUSSova [facility] 02-02-2021 11:29-0500 Heart rate 118 /min JAMEEL MARCUSSova [facility] [employer] 02-02-2021 10:40-0500 Body temperature 97.7 [degF] JAMEEL MARCUSSova [facility] 02-02-2021 10:40-0500 Diastolic blood pressure 58 mm[Hg] JAMEEL MARCUSUNK [employer] [facility] 02-02-2021 10:40-0500 Heart rate 110 /min JAMEEL MARCUSSova [facility] 02-02-2021 10:40-0500 Mean blood pressure 69 mm[Hg] JAMEEL MARCUSUNK [employer] [facility] 02-02-2021 10:40-0500 Reason For Taking VItal Signs JAMEEL HARRY [employer] [facility] 02-02-2021 10:40-0500 Respiratory rate 20 /min JAMEEL MARCUSUNK [employer] [facility] 02-02-2021 10:40-0500 Systolic blood pressure 91 mm[Hg] JAMEEL MARCUSSova [facility] 02-02-2021 06:53-0500 Body temperature 97.7 [degF] JAMEEL MARCUSSova [facility] 02-02-2021 06:53-0500 Diastolic blood pressure 60 mm[Hg] JAMEEL MARCUSSova [facility] 02-02-2021 06:53-0500 Heart rate 69 /min JAMEEL MARCUSSova [facility] 02-02-2021 06:53-0500 Mean blood pressure 72 mm[Hg] JAMEEL MARCUSSova [facility] 02-02-2021 06:53-0500 Reason For Taking VItal Signs JAMEEL MARCUSSova [facility] 02-02-2021 06:53-0500 Respiratory rate 18 /min JAMEEL MARCUSSova [facility] 02-02-2021 06:53-0500 Systolic blood pressure 95 mm[Hg] JAMEEL MARCUSUNK [employer] [facility] 02-02-2021 03:24-0500 Heart rate 63 /min JAMEEL MARCUSSova [facility] 01-31-2021 14:54-0500 Heart rate 59 /min JAMEEL PLUNK DO [facility] 01-31-2021 11:23-0500 Heart rate 78 /min JAMEEL PLUNK DO [facility] 01-31-2021 08:31-0500 Heart rate 70 /min JAMEEL PLUNK DO [facility] 01-30-2021 15:39-0500 Heart rate 74 /min JAMEEL PLUNK DO [facility] 01-25-2021 13:37-0500 Body height 182.9 cm JAMEEL UNK [facility] 01-25-2021 13:37-0500 Body weight 91.9 kg JAMEEL MARCUSUNK [facility] 01-25-2021 13:37-0500 Body weight 27.47 kg/m2 JAMEEL PLUNK DO [facility] 01-19-2021 23:53-0500 Body temperature 97.16 [degF] JAMEEL PLUNK DO [facility] 01-16-2021 23:22-0500 Body temperature 98.6 [degF] JAMEEL PLUNK DO [facility] 01-16-2021 20:40-0500 Diastolic Blood Pressure NBP 64 1 JAMEEL PLUNK DO [facility] 01-16-2021 20:40-0500 Systolic Blood Pressure NBP 136 1 JAMEEL PLUNK DO [facility] 01-16-2021 18:56-0500 Diastolic blood pressure 74 mm[Hg] EDVIN MUSTAFA MD [facility] 01-16-2021 18:56-0500 Heart rate 112 /min EDVIN MUSTAFA MD [facility] 01-16-2021 18:56-0500 Respiratory rate 30 /min EDVIN MUSTAFA MD [facility] 01-16-2021 18:56-0500 Systolic blood pressure 130 mm[Hg] EDVIN MUSTAFA MD [facility] 01-16-2021 17:30-0500 Respiratory rate 24 /min EDVIN MUSTAFA MD [facility] 01-16-2021 17:29-0500 Body temperature 98.42 [degF] EDVIN MUSTAFA MD [facility] 01-16-2021 17:29-0500 Diastolic blood pressure 70 mm[Hg] EDVIN MUSTAFA MD [facility] 01-16-2021 17:29-0500 Heart rate 118 /min EDVIN MUSTAFA MD [facility] 01-16-2021 17:29-0500 Respiratory rate 30 /min EDVIN MUSTAFA MD [facility] 01-16-2021 17:29-0500 Systolic blood pressure 136 mm[Hg] EDVIN MUSTAFA MD [facility] Encounters Encounter Date Encounter Type Care Provider Facility Start: 01-09-2025 In-person encounter Shanel Chandler MD Work Phone: [facility] Work Phone: Start: 01-09-2025 Visit out of hours Shanel youngblood MD Work Phone: [facility] Work Phone: Start: 12-18-2024 In-person encounter Yen Olivares PARTNER MARKETING INTERN-FOREST FIRE SPECIALIST SUPERVISOR Work Phone: [facility] Work Phone: Start: 12-18-2024 Visit out of hours Yen Olivares PARTNER MARKETING INTERN-FOREST FIRE SPECIALIST SUPERVISOR Work Phone: [facility] Work Phone: Start: 11-28-2024 In-person encounter Romelia starr PA-C Work Phone: [facility] Work Phone: Start: 11-28-2024 Visit out of hours Romelia neves PA-C Work Phone: [facility] Work Phone: Start: 11-17-2024 End: 11-17-2024 Patient encounter procedure [facility] Work Phone: Start: 11-17-2024 End: 11-17-[address] Jose Etienne DO Work Phone: [facility] Start: 11-13-2024 In-person encounter Louise Hdz PARTNER MARKETING INTERN-FOREST FIRE SPECIALIST SUPERVISOR Work Phone: [facility] Work Phone: Start: 11-13-2024 Visit out of hours Louise Mathew beltran PARTNER MARKETING INTERN-FOREST FIRE SPECIALIST SUPERVISOR Work Phone: [place] [employer] Work Phone: Start: 11-10-2024 In-person encounter Shanel Chandler MD Work Phone: [facility] Work Phone: Start: 11-10-2024 Visit out of hours Shanel youngblood MD Work Phone: [facility] Work Phone: Start: 11-04-2024 Non-patient / Non-visit Pippa cadet SPEECH AND LANGUAGE ASSISTANT-C -[facility] Work Phone: Start: 11-04-2024 ambulatory Pippa Weston NP Facili ty:[facility] Start: 10-29-2024 Non-patient / Non-visit Dr. Shailesh ALVES -[facility] Start: 10-29-2024 End: 10-29-[address] Jose Etienne DO Work Phone: -[facility] Start: 10-29-2024 End: 10-29-2024 Patient encounter procedure Pippa Weston SPEECH AND LANGUAGE ASSISTANT-C -[facility] Work Phone: Start: 10-29-2024 End: 10-29-2024 ambulatory Pippa Weston NP Facility:[facility] Start: 10-24-2024 Visit out of hours Romelia neves PA-C Work Phone: [place] [employer] Work Phone: Start: 10-24-2024 In-person encounter Romelia starr PA-C Work Phone: [facility] Work Phone: Start: 10-09-2024 End: 10-11-2024 Evaluation and management of inpatient Shanel Chandler MD Work Phone: [facility] Progressive Care Unit PCU H6 Comment on above: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 80 MG tablet Commonly known as: Pravachol predniSONE 1 MG tablet Commonly known as: Deltasone spironolactone 25 MG tablet Commonly known as: Aldactone tamsulosin 0.4 MG 24 hr capsule Commonly known as: Flomax TART RON PO ASK your doctor about these medications alendronate 10 MG tablet Commonly known as: Fosamax docusate sodium 100 MG capsule Commonly known as: Colace Take 1 capsule (100 mg) by mouth 2 times daily. Take by mouth twice daily Ask about: Should I take this medication? oxyCODONE 5 MG immediate release tablet Commonly known as: Roxicodone Take 2 tablets (10 mg) by mouth every 6 hours as needed for severe pain (7-10) for up to 5 days. Take one pill as needed for pain every six hours Ask about: Should I take this medication? Where to Get Your Medications These medications were sent to [facility] [address] [facility] [address] Hours: Sunday to Sunday 10 am to 6 pm docusate sodium 100 MG capsule These medications were sent to [facility]/pharmacy #[id number] - [place], [place] - [address] [facility] [address] [facility] [address] oxyCODONE 5 MG immediate release tablet DIET: No diet orders on file ACTIVITY: No heavy lifting COMPLEXITY OF FOLLOW UP: [] Moderate Complexity: follow up within 7-14 calendar days (79074) [] Severe Complexity: follow up within 7 calendar days (16039) FOLLOW UP TESTING, PENDING RESULTS OR REFERRALS AT TRANSITIONAL CARE VISIT: [] Yes [] No PENDING STUDIES: None DISPOSITION: Home Follow up with Shanel Chandler MD [address] [facility] [address] [facility] [address] Follow up in 2 week(s) Jose Etienne DO [address] [facility] [phone] INSTRUCTIONS TO MA/SW: Please call patient on day after discharge (must document patient contacted within 2 business days of discharge). FOLLOW UP QUESTIONS FOR MA/SW: 1. Did you get medications filled and taking them as instructed from discharge? 2. Are you following your discharge instructions from your hospital stay? 3. Please confirm patient is scheduled for a follow up appointment within the above time frame. SIGNED: GINA WALDRON MD 11/14/2024, 5:56 AM [facility] 10-11-2024 Nurse Note Discharge instructions reviewed with patient. All questions answered, patient verbalized understanding. Patient taken to private vehicle by wheelchair. [facility] 10-11-2024 Nurse Note Discharge instructions reviewed with patient. All questions answered, patient verbalized understanding. Patient taken to private vehicle by wheelchair. REPORT GIVEN TO THE FLOOR. PAULA LANDAVERDE TOOK REPORT FOR YEN RN FAMILY NOTIFIED OF PATIENTS ROOM NUMBER FAMILY NOTIFIED documented in this encounter [facility] 10-11-2024 Note Ortho Progress Note Patient: Clifford Alonzo Date of : 1955 Acct: [id number] PCP: Jose Etienne DO Date of Admission: 10/09/2024 Date of Service: Pt seen/examined on 10/11/2024 SUBJECTIVE: Doing well this morning. Answered questions regarding his dressing. Planning on DC home today. Denies any change to his paresthesias. Walking around unit without any difficulty. OBJECTIVE: General: alert and oriented to person, place and time, well-developed and well-nourished, in no acute distress VITALS: BP 113/57 (BP Location: Right arm, Patient Position: Lying) Pulse 58 Temp 36.1 ?C (96.9 ?F) (Temporal) Resp 16 SpO2 93% Exam: Lower Extremity Motor: HF Q TA EHL GSC Right 5 5 5 5 5 Left 4 5 5 5 5 Lower extremity sensation to light touch: L2 L3 L4 L5 S1 Right Intact Intact Intact Intact Intact Left Intact Intact Intact Intact Intact Lower extremity reflexes: Patellar Achilles Right 2+ 2+ Left 2+ 2+ Misc: Clonus Babinski Right None Absent Left None Absent Lower extremity pulses: DP Right palp Left palp Lab Results Component Value Date WBC 8.3 10/02/2024 HGB 15.8 10/02/2024 HCT 47.7 10/02/2024 PLT 250 10/02/2024 NA 137 10/02/2024 K 4.2 10/02/2024 CL 104 10/02/2024 CREATININE 0.74 10/02/2024 BUN 14 10/02/2024 CO2 23 10/02/2024 No results found for: RH, LABANTI Orthopaedic surgery to bedside to pull drain due to minimal output for previous shifts. Dressing over the drain site was removed. Drain was taken off of suction. The stitch for the drain was cut. The drain was then pulled without difficulty or resistant and came out in its entirety. There was no drainage from the site. The drain site was then dressed with 4x4 gauze and a tegaderm. The patient tolerated the procedure well. ASSESSMENT AND PLAN: This is a 69 y.o. male post op day 2 from L3-L4 laminectomy WBAT Drain removed today as above Spinal precautions PT/OT DVT post op day 3 (ASA) Antibiotics 24 hours post operatively Neurovascular and skin checks Medical and pain management per medicine physician Will activate discharge. Please contact orthopaedic resident optimization specialist [facility] Call RES with any questions or concerns. Gina Waldron MD PGY5 Orthopaedic Surgery 10/11/2024 7:35 AM [facility] 10-11-2024 Note Anesthesia Acute Eugenio n Service Progress Note 10/11/2024 Discharge Recommendations: Higher recommendation due to baseline tolerance. Appreciate orthopedics writing scripts. Oxycodone 10mg PO q6h prn for mod / severe pain. Finish surgical script, then resume chronic Wells. Call PCP 10/13/24 for follow up Tylenol 1g PO 3x daily prn for mild pain Robaxin 750mg PO q8h prn for muscle spasms Stool softeners Pain Management Adjuvants: 0700 --> 0700 10/09/24 10/10/24 Scheduled APAP 1950mg 2g Gabapentin Lidocaine patches PRN Hydromorphone IV 1.8mg 1.5mg Methocarbamol Oxycodone 30mg 50mg Morphine 1mg Assessment / Pain Management Plan: Recs made, signing off Thank you for the consult Acute Postsurgical Back pain Multimodal pain regimen: BLOCK: n/a Continue Lidocaine patch x 1. Cut and place as needed. Continue Acetaminophen 1g po 3x daily Continue Methocarbamol 500mg po q8h for muscle spasms Reduce Oxycodone to 10 mg po q4h prn moderate to severe breakthrough pain. Continue Hydromorphone 0.25 mg - 0.5 mg IVP q4h prn moderate to severe breakthrough pain. Please utilize oral medications first. Continue Naloxone 0.4 mg IVP prn opioid reversal. PRN if respiratory rate is less than 6/min and patient is difficult to arouse then notify physician STAT. Mix 9 mL of sodium chloride 0.9% with 0.4 mg (1 mL) of naloxone (NARCAN) in 10 mL syringe. (Note: dilution is 0.04 mg/mL) Give 0.08 mg (2 mL of special dilution), slow IV push, repeat up to 0.4 mg (10 mL) or until patient is responsive to physical stimulation and respiratory rate is equal to or greater than 6 breaths/min. Continue to observe, if no response within 3 minutes of administration of 0.4 mg (10 mL) total, repeat dose (0.4 mg as administered previously). Spinal stenosis, lumbar region without neurogenic claudication S/p L3-L4 laminectomy 10/09/24 See #1 The patient's medical history and physical assessment, medications, allergies, patient's current medical condition, imaging, and labs were reviewed as part of this consultation. Patient's Medications have been reviewed. PMH reviewed below Opioid Use, Acute on Chronic Reviewed and educated patient on responsible use of opioids: after surgery, it can be normal to experience pain. OARRS reviewed for past two years. (Recurrent opiates RX filled) Pain Management: PCP: Dr. Etienne Opioid Tolerant, Opioid Dependent Pt is maintained on Wells 5/325mg po 4x daily Please consider this patient may require higher doses of opiates in the acute post operative period due to baseline tolerance Constipation At risk for opioid induced constipation Patient currently receiving opioids for pain management necessitating a bowel regimen. Sennakot-S 8.6/50mg, 1 tablet PO BID, Milk of Magnesia 400mg/5ml, administer 30mL by mouth daily PRN. Patient educated on pain regimen, aware that oxycodone po, dilaudid IV are PRN and patient must ask for these medications when needed. Educated patient to utilize oral pain medications as first line and reserve IV pain medications for severe breakthrough pain. Pt is realistic about pain control: Not all pain will be taken away, but pain should be tolerable/manageable with current regimen. Pt instructed to have staff page APS if pain becomes uncontrolled when utilizing present regimen. Pt agreeable, denies further questions. Plan discussed with patient who appears to understand and agrees. Chief Complaint: post operative back pain HPI: We have been asked to see this 69 y.o. male for postoperative pain management s/p L3-L4 laminectomy 10/09/24 Reviewed EKG 10/04/24 sandra EDWARDS. On arrival, pt sitting in bedside chair. Sore, but pain controlled Going home Reviewed homegoing opiate plan. Finish surgical scripts, then resume chronic norco. Make appt with PCP for follow up Tolerating diet, -BM Denies f/c, cp, sob, n/v/d Pain Location: Back Aggravating Factors: Moving Sedation score: 1: Awake and alert Pain Severity: moderate Pain Quality: sore, tender Duration: cont Alleviating Factors: Rest/Pain medications REVIEW OF SYSTEMS: Review of Systems Constitutional: Negative. HENT: Negative. Eyes: Negative. Respiratory: Negative. Cardiovascular: Negative. Gastrointestinal: Negative. Musculoskeletal: Positive for back pain. Skin: Positive for wound. Surgical incision Neurological: Negative. Psychiatric/Behavioral: Negative. All other systems reviewed and are negative. PHYSICAL EXAM: Vitals: BP (!) 95/46 (BP Location: Right arm, Patient Position: Lying) Pulse 51 Temp 36.3 ?C (97.4 ?F) (Temporal) Resp 16 SpO2 94% BMI Classification: not documented General appearance: No apparent distress, appears stated age and cooperative. HEENT: Normal cephalic, atraumatic without obvious deformity. Pupils equal, round, and reactive to light. Extra ocular muscles intact. Conjunctivae/corneas cl (more content not included)... [facility] 10-10-2024 Patient's home Note Chart reviewed for possible home care needs. Noted PT recs for home with assist, having ambulated 630' with no assistive device. Home care will sign off. [facility] 10-10-2024 Miscellaneous Notes Chart reviewed for possible home care needs. Noted PT recs for home with assist, having ambulated 630' with no assistive device. Home care will sign off. Care Management Progress Note Short Medical why still here: Patient admitted to s/p L3-L4 laminectomy Planned Discharge Disposition: Home or Self Care. Per RN drain with increased output. Per TCC chart review PT recommending home with assist with no needed DME. Barriers/Today we still Wait: Clinical stability, Symptomatic control. Drain output to decrease. OT eval pending Length of Stay (Days): 1 GMLOS: No GMLOS Documented documented in this encounter [facility] 10-10-2024 Note Hospitalist Progress Note 10/10/2024 Subjective: Admit Date: 10/09/2024 PCP: Jose Etienne DO Room#: [id number]/[id number] A Interval History: Patient seen in consultation, denies any headache or dizziness. Afebrile. Has increased back pain. Ambulating with physical therapy. Discussed with nursing staff. Objective: Vitals: BP 102/52 (BP Location: Right arm, Patient Position: Sitting) Pulse 68 Temp 37 ?C (98.6 ?F) (Temporal) Resp 16 SpO2 94% Pulse Ox: SpO2 Av % Min: 93 % Max: 95 % Supplemental O2: O2 Flow Rate (L/min): 2 L/min Pertinent physical exam: Physical Exam Cardiovascular: Rate and Rhythm: Normal rate. Pulmonary: Effort: Pulmonary effort is normal. Breath sounds: Normal breath sounds. Abdominal: Palpations: Abdomen is soft. Neurological: General: No focal deficit present. Mental Status: He is oriented to person, place, and time. Assessment: Acute, acute on chronic, unstable/uncontrolled chronic problems: Lumbar spinal stenosis Stable chronic problems affecting care, new non-acute diagnoses: CAD History of DVT Hypertension Osteoarthritis Osteoporosi MDM/Plan: Status post laminectomy, lumbar drain in place, follow-up with orthopedics, continue with PT Continue rest of his medications -DVT prophylaxis: [] Lovenox [] Heparin [] SCDs [x] Encourage ambulation [] Already on Anticoagulation Medications: Scheduled Scheduled Meds[1] PRN PRN Meds[2] Total time spent (which include face to face and non face to face encounters) : minutes Toxic drug monitoring/narrow therapeutic index drug monitoring : # Drug name : # Route administered : # Method of monitoring : Advance Directive: Full Code Adult diet Regular 24HR INTAKE/OUTPUT: Intake/Output Summary (Last 24 hours) at 10/10/2024 1631 Last data filed at 10/10/2024 1215 Gross per 24 hour Intake -- Output 3305 ml Net -3305 ml LABS: CBC: No results for input(s): WBC, RBC, HGB, HCT, MCV, RDW, PLT in the last 72 hours. BMP:No results for input(s): NA, K, CL, CO2, BUN, CREATININE, GLUCOSE, CALCIUM, ANIONGAP in the last 72 hours. LIVER PROFILE:No results for input(s): AST, ALT, BILITOT, ALKPHOS, PROT in the last 72 hours. No lab exists for component: LABALBU PT/INR: No results for input(s): PROTIME, INR in the last 72 hours. CARDIAC ENZYMES: No results for input(s): TROPONINI in the last 72 hours. Procalcitonin: No results found for: PROCAL Extended Emergency Contact Information Primary Emergency Contact: Brandon Alonzo Relation: Other Oscar Estrada MD Division of Hospitalist Medicine [employer] [1] acetaminophen, 1,000 mg, Oral, TID cholecalciferol, 25 mcg, Oral, qPM dapagliflozin, 5 mg, Oral, Daily ezetimibe, 10 mg, Oral, qPM furosemide, 40 mg, Oral, Daily Lidocaine, 1 patch, Topical, Daily losartan, 25 mg, Oral, qPM methocarbamol, 500 mg, Oral, 3 times per day metoprolol succinate XL, 100 mg, Oral, Daily pravastatin, 80 mg, Oral, qPM predniSONE, 2 mg, Oral, Daily spironolactone, 12.5 mg, Oral, qPM tamsulosin, 0.4 mg, Oral, qPM [2] PRN medications: HYDROmorphone OR HYDROmorphone, naloxone, ondansetron ODT OR ondansetron, oxyCODONE OR oxyCODONE, polyethylene glycol (PEG) 3350 [facility] 10-10-2024 Note Care Management Prog ress Note Short Medical why still here: Patient admitted to H6 s/p L3-L4 laminectomy Planned Discharge Disposition: Home or Self Care. Per RN drain with increased output. Per TCC chart review PT recommending home with assist with no needed DME. Barriers/Today we still Wait: Clinical stability, Symptomatic control. Drain output to decrease. OT eval pending Length of Stay (Days): 1 GMLOS: No GMLOS Documented [facility] 10-10-2024 Progress note Formatting of t his note might be different from the original. Care Management Progress Note Short Medical why still here: Patient admitted to H6 s/p L3-L4 laminectomy Planned Discharge Disposition: Home or Self Care. Per RN drain with increased output. Per TCC chart review PT recommending home with assist with no needed DME. Barriers/Today we still Wait: Clinical stability, Symptomatic control. Drain output to decrease. OT eval pending Length of Stay (Days): 1 GMLOS: No GMLOS Documented [facility] 10-10-2024 Note PHYSICAL THERAPY [facility] Initial Evaluation Name/MRN: Clifford Alonzo ([id number]) Evaluation Date: 10/10/2024 Date of : 1955 Admission Date: 10/09/2024 5:25 AM Age: 69 y.o. Room/Bed: 6105/-6105 A Discharge Recommendation: Home with assist PRN Equipment Needed: No Assessment IMPRESSION: Patient is a 69 yo admitted due to s/p posterior laminectomy L3-L4 10/09/24. Patient is limited by back pain. Patient required modified independent for supine <> sit and SBA for sit <> stand transfers. Patient ambulated 630 feet using no device with supervision. No acute PT needs at this time, will discharge PT orders. Recommending home with assistance as needed. Admitting Diagnosis: s/p posterior laminectomy L3-L4 10/09/24 Prognosis: excellent Performance Deficits /Impairments: Increased Pain, Decreased ROM, and Decreased High Level IADLs Decision Making: Low Complexity Subjective RN cleared patient for therapy. Patient awake in bed, pleasant and agreeable to therapy. Pain: Reports incisional back pain Past Medical History: Medical History[1] Past Surgical History: Surgical History[2] Admission Diagnosis: Patient Active Problem List Diagnosis Date Noted Encounter for postoperative care 10/09/2024 Awareness under anesthesia 10/02/2024 Difficult intravenous access 10/02/2024 Medical Precautions: No active isolations Proper PPE donned/doffed in accordance with facility standards. Fall Risk: Girard Fall Risk Score: 35 (Medium Risk) Precautions/Restrictions: Spine Precautions: No Bending, No Lifting, No Twisting Lines/Drains/Airways: PIV Family/Caregiver Present: none Overall Cognitive Status: WNL Overall Orientation Status: Oriented x4 Social/Functional History Patient admitted from home. Lives With: Son Type of Home: single family home Home Layout: Two Level Home, ADLs on Main Level, and Able to Live on Main Level Home Access: Stairs to Enter with Rails (# of stairs: 4) Bathroom Shower/Tub: Walk in Shower Toilet: Home Equipment: none Homemaking Responsibilities: Independent Receives Help From: Family Active Contract Administration Specialist: Yes Prior Level of Function Prior Level of ADL Function: Independent Prior Level of Mobility: Independent; Device: None Prior Level of Transfers: Independent Objective Transfers/Mobility Sit to stand: SBA Stand to sit: SBA Pt able to complete transfers from EOB to chair without additional cues or assistance. Reported no lightheadedness with standing. Device(s) used: None Ambulation Ambulation 1 Assistive device(s) used: None Assist level: Supervision Distance (ft): 630 Quality of gait: No gait deviations, No LOB Pt able to ambulate without device, cues, or assistance. Reported no lightheadedness or fatigue. Reported not experiencing any of the shooting pains he had prior to surgery with walking. Bed Mobility Supine to sit: Modified Independent Rolling to right: Modified Independent Scooting: Independent Pt able to complete bed mobility with use of log rolling technique and bed rails. Reported no lightheadedness with sitting EOB. Educated on spinal precautions. Stairs Stairs 1 Assistive device(s) used: None Assist level: Supervision # of steps: 4 Rails: bilateral Additional factors: reciprocal going up, reciprocal going down Pt able to navigate stairs without cues or assistance. Reports feels capable to complete stairs at home independently. Reports not experiencing shooting paints felt prior to surgery with navigating stairs. Exercises Exercises Comments: IS x10, 2000 mL Educated pt on IS use, technique, and frequency. Outcome Measures AM-PAC How much HELP from another person do you currently need Turning from your back to your side while in a flat bed without using bedrails?: None Moving from lying on your back to sitting on the side of a flat bed without using bedrails?: None Moving to and from a bed to a chair (including a wheelchair)?: None Standing up from a chair using your arms (wheelchair or bedside chair)?: None Walking in a hospital room?: None Stair climbing assessed?: Yes Climbing 3-5 steps with a railing?+: None AM-PAC Inpatient Mobility Raw Score : 24 AM-PAC Inpatient Mobility Raw Score (No Stairs) : 20 JH-HLM -HL Score: Walked 250 ft or more (i.e. several laps on unit) Plan No skilled acute PT indicated at this time. Please reconsult should changes occur. Safety/Education Safety Safety Devices in place: All fall risk precautions in place, call light within reach, left in chair, gait belt, and no alarms engaged upon entry Restraints: No Education Education Given To: patient Education Provided: PT Role, PT Goals, Plan of Care, Precautions, and Discharge Recommendations Education Method: Verbal Barriers to Learning: None Education Outcome: Verbalized Understanding Goals Patient Stated Goal: To go home Therapy Time Individual Co-Treatment Co (more content not included)... [facility] 10-10-2024 Note Anesthesia Acute Eugenio n Consult Note 10/10/2024 Discharge Recommendations: pending Pain Management Adjuvants: 0700 --> 0700 10/09/24 Scheduled APAP 1950mg Gabapentin Lidocaine patches PRN Hydromorphone IV 1.8mg Methocarbamol Oxycodone 30mg Morphine 1mg Assessment / Pain Management Plan: Will follow Acute Postsurgical Back pain Multimodal pain regimen: BLOCK: n/a Continue Lidocaine patch x 1. Cut and place as needed. Continue Acetaminophen 1g po 3x daily Order Methocarbamol 500mg po q8h for muscle spasms Continue Oxycodone 5 - 10 mg po q4h prn moderate to severe breakthrough pain. Continue Hydromorphone 0.25 mg - 0.5 mg IVP q4h prn moderate to severe breakthrough pain. Please utilize oral medications first. Continue Naloxone 0.4 mg IVP prn opioid reversal. PRN if respiratory rate is less than 6/min and patient is difficult to arouse then notify physician STAT. Mix 9 mL of sodium chloride 0.9% with 0.4 mg (1 mL) of naloxone (NARCAN) in 10 mL syringe. (Note: dilution is 0.04 mg/mL) Give 0.08 mg (2 mL of special dilution), slow IV push, repeat up to 0.4 mg (10 mL) or until patient is responsive to physical stimulation and respiratory rate is equal to or greater than 6 breaths/min. Continue to observe, if no response within 3 minutes of administration of 0.4 mg (10 mL) total, repeat dose (0.4 mg as administered previously). Spinal stenosis, lumbar region without neurogenic claudication S/p L3-L4 laminectomy 10/09/24 See #1 The patient's medical history and physical assessment, medications, allergies, patient's current medical condition, imaging, and labs were reviewed as part of this consultation. Patient's Medications have been reviewed. PMH reviewed below Opioid Use, Acute on Chronic Reviewed and educated patient on responsible use of opioids: after surgery, it can be normal to experience pain. OARRS reviewed for past two years. (Recurrent opiates RX filled) Pain Management: PCP: Dr. Etienne Opioid Tolerant, Opioid Dependent Pt is maintained on Wells 5/325mg po 4x daily Please consider this patient may require higher doses of opiates in the acute post operative period due to baseline tolerance Constipation At risk for opioid induced constipation Patient currently receiving opioids for pain management necessitating a bowel regimen. Sennakot-S 8.6/50mg, 1 tablet PO BID, Milk of Magnesia 400mg/5ml, administer 30mL by mouth daily PRN. Patient educated on pain regimen, aware that oxycodone po, dilaudid IV are PRN and patient must ask for these medications when needed. Educated patient to utilize oral pain medications as first line and reserve IV pain medications for severe breakthrough pain. Pt is realistic about pain control: Not all pain will be taken away, but pain should be tolerable/manageable with current regimen. Pt instructed to have staff page APS if pain becomes uncontrolled when utilizing present regimen. Pt agreeable, denies further questions. Plan discussed with patient who appears to understand and agrees. Chief Complaint: post operative back pain HPI: We have been asked to see this 69 y.o. male for postoperative pain management s/p L3-L4 laminectomy 10/09/24 Reviewed EKG 10/04/24 GRACE, no pages. On arrival, pt sitting up in bed. Shooting nerve pain down the back of his leg is improved post surgery Is having incisional pain and back pain around surgical site Tired. Didn't sleep the night before surgery because he was nervous Got no sleep last night due to pain, being interrupted by staff, compression pump Takes Wells 4x daily 5/325mg per PCP at home. Tried gabapentin with no relief, no muscle relaxers Oxycodone is effective, discussed increasing due to baseline tolerance. Agreeable. Tolerating diet, - BM Denies f/c, cp, sob, n/v/d Pain Location: Back Aggravating Factors: Moving Sedation score: 1: Awake and alert Pain Severity: moderate Pain Quality: tender Duration: cont Alleviating Factors: Rest/Pain medications REVIEW OF SYSTEMS: Review of Systems Constitutional: Negative. HENT: Negative. Eyes: Negative. Respiratory: Negative. Cardiovascular: Negative. Gastrointestinal: Negative. Musculoskeletal: Positive for back pain. Skin: Positive for wound. Surgical incision with drain Neurological: Negative. Psychiatric/Behavioral: Negative. All other systems reviewed and are negative. PHYSICAL EXAM: Vitals: BP 102/52 (BP Location: Right arm, Patient Position: Sitting) Pulse 68 Temp 37 ?C (98.6 ?F) (Temporal) Resp 16 SpO2 94% BMI Classification: not documented General appearance: No apparent distress, appears stated age and cooperative. HEENT: Normal cephalic, atraumatic without obvious deformity. Pupils equal, round, and reactive to light. Extra ocular muscles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 for You Discharge Labs No qualifying data available. Discharge Radiology No qualifying data available. Other Therapies No qualifying data available. Post Acute Orders No qualifying data available. Someone Will Contact You Regarding These Home Health Referrals No home referrals have been ordered for you. No one will call you. Allergies Crestor (Moderate) Liver damage Ancef Unknown lisinopril Unknown Medications Please ask your primary doctor or pharmacist before taking any other medication not listed, including over the counter drugs, herbal medications, vitamins and or supplements as they may interact withyour home medications. What How Much When Why Instructions Last Dose Unchanged acetaminophen- hydrocodone ([facility]s 325- 5 mg oral tablet) 1 tab(s) by mouth Every 6 hours Generalized osteoarthritis Chronic pain Duration: 30 Days oarrs appropriate; to be filled on or after 2024 Unchanged alendronate (alendronate 10 mg oral tablet) 1 tab(s) by mouth Every other day Duration: 90 Days Unchanged aspirin (aspirin 81 mg oral delayed release tablet) 1 tab(s) by mouth Once a day Unchanged cholecalciferol (cholecalciferol 125 mcg (5000 intl units) oral tablet) 1 tab(s) by mouth Once a day Unchanged clopidogrel (clopidogrel 75 mg oral tablet) 1 tab(s) by mouth Once a day Unchanged DME (DME MISCellaneous) See instructions dx G56.00; dispense one left cock-up wrist brace sized to fit patient Unchanged DME (DME MISCellaneous) See instructions dx G56.00; dispense one right cock-up wrist brace sized to fit patient Unchanged ezetimibe (Zetia 10 mg oral tablet) 1 tab(s) by mouth Once a day Unchanged furosemide (furosemide 20 mg oral tablet) 1 tab(s) by mouth Once a day Unchanged gabapentin (gabapentin 300 mg oral capsule) 1 cap by mouth Three (3) times a day Lumbar radiculopathy Neck pain Duration: 30 Days Unchanged losartan (losartan 25 mg oral tablet) 1 tab(s) by mouth Once a day Unchanged metoprolol (metoprolol succinate 100 mg oral TABLET extended release) 1.5 tab(s) by mouth Once a day Duration: 90 Days Unchanged multivitamin (Multivitamin) 1 tab(s) by mouth Every day Unchanged pravastatin (pravastatin 80 mg oral tablet) 1 tab(s) by mouth Once a day Unchanged predniSONE (predniSONE 1 mg oral tablet) 3 tab(s) by mouth Once a day Duration: 30 Days on taper, take 6 mg daily prednisone for 2 weeks, then decrease to 5 mg daily for 2 weeks, then 4 mg daily for 2 weeks, then 3 mg daily Unchanged predniSONE (predniSONE 5 mg oral tablet) 1 tab(s) by mouth Once a day Duration: 90 Days Unchanged tamsulosin (tamsulosin 0.4 mg oral capsule) 1 cap by mouth Once a day Duration: 90 Days Unchanged TNF-Med (Ron Extract) 15 Milliliter by mouth Two (2) times a day Duration: 30 Days Please take this list to your next doctor s visit. Bring all medications you take, including over the counter medications, herbals and other supplements with you to your doctor s visit. Patients and families are reminded to discard old lists and to update any records with all medication providers or retail pharmacies. Education Materials [place] Myelogram Discharge Instructions Interventional Radiology [facility] [address] [place] [address] You had a procedure called a Myelogram to assist in diagnosing any abnormalities in your spine, spinal cord or surrounding structures that may be causing the symptoms you are experiencing. During this procedure, a specially-training physician, called a radiologist or a physician s assistant corporate controller (JHONNY), injected a contrast material into the cerebrospinal fluid (CSF) that surrounds your spinal canal. A series of x-rays may have been obtained and a CT scan was performed. The images obtained allow the radiologist to examine your spine. Please follow the instructions below to reduce the chance of experiencing complications. Diet: Resume your normal diet. Start with clear liquids; gradually add other foods as tolerated. Drink at least 8 to 10 glasses of water over the next 24 hours. Activity: Avoid strenuous activity for 24 hours after your procedure. Avoid sitting straight up for extended periods of time for 24 hours after your procedure. You may bathe or shower as usual 24 hours after your procedure. Dressing: Change the band aid as needed. It may be removed 24 hours after your procedure. Pain Control: The puncture site may be sore for 1 to 2 days following the procedure. About 1 in 5 patients develop a headache. If this occurs; follow the directions below: [id number]-[id number] pain medication should be used for pain or discomfort. Please check with the physician who ordered this procedure for you for their specific recommendations. ? Lay flat on your back and only get up to use the restroom for the remainder of the day. ? Drink extra fluids, including caffeinated beverages, unless otherwise directed by your ordering physician. If you were sedated for this procedure: Avoid alcoholic beverages for 24 hours after your procedure. Do not drive or operate heavy machinery for 24 hours after your procedure. Do not make any legal decisions for 24 hours after your procedure. Medication: Please resume on . When to seek medial care: Foul odor, pus drainage, redness, or swelling at puncture site. Excessive bleeding from puncture site. Fever greater than 101 degrees and chills. Severe postural headache: ? A headache that gets worse when standing and is relieved or improves when laying down, persists regardless of bed rest and increased fluids, and last more than 24 hours following the procedure. If you experience any of these issues during the first 24 hours, please follow the instruction below: 8:00 am- 5:00 pm call [phone] After 24 hours, contact the physician who ordered this procedure for you. Obtaining test results: Please make an appointment with your doctor to obtain your test results. They are usually availablewithin 4 to 7 business days. Do not assume everything is normal if you have not heard from your doctor or medical facility. It is important for you to follow up on all of your test results. Special Instructions: Additional Information VACCINATE! IT SAVES LIVES! Members of the community who have not yet received the COVID-19 vaccine and would like to receive it can visit one of [facility] vaccine clinics. There are many vaccine clinic locations within the [facility]. For locations and available times, please visit [email or web address] It is important to note that some COVID mobile vaccine clinics are held outdoors and may be canceled in rainy or stormy conditions. To learn more about pediatric vaccinations (ages 5-11), we invite you to visit the [facility] webpage. [email or web address] learn more about the COVID-19 vaccine, we invite you to visit the CDC website for a list of frequently asked questions.https://www.cdc.gov/coronavirus/2019-ncov/vaccines/faq.html [facility] Patient Portal Access Instructions: Stay connected with your healthcare team and access your personal medical information anytime with the [facility] Patient Portal. Please follow the directions below to create your [facility] account: 1.Access the email account you provided upon registration to the hospital/physician office.2.Look for an invitation email from [facility].3.Open the email and access the invitation link: AcceptInvitation to [facility].4.Fill in the required hurtado to create your account. To access your account, visit [employer]/[email or web address]. Click the blue button labeled Access Patient Portal and then log in with the username and password that you created in the steps above. You will be able to view your test results, lab results, a summary of your visits, upcoming appointments and more. There is also a convenient messaging option where you can send secure messages to your p [employer]. In addition, you will have the ability to download any documents or summaries to your computer and/or send the information securely to a physician. Remember that your healthcare information is confidential, so carefully consider who you will allowto register on the [facility] Patient Portal for access to your information. You can also access the [facility] Patient Portal on the [facility] ashley. Simply click on Patient Portal and then log into your account. If you would like to receive a full copy of your medical records, please contact the [facility] Medical Records Department by calling [phone], Sunday through Sunday between 8 a.m. and 4:30 p.m. HOW TO SAFELY DISPOSE OF PRESCRIPTION MEDICATIONS Please use one of the following methods to safely dispose of your unused medications. 1.Use a drug disposal kit: the drug disposal pouch allows you to safely discard your old and unuseddrugs. Ask your nurse to give you one when you are discharged.2.Visit a local take-back location: Many local pharmacies and police departments have programs that collect old and unwanted prescriptiondrugs. Call your local pharmacy or go to http://[email or web address]/5P8Es5u to find one close to you.3.Make use of household items: Use cat litter or old coffee grounds to dispose medications if other options arenot available. Mix your drugs with these household products, seal them in an airtight container andthrow it into the garbage. Call [facility]: [phone] to be sure your drugs can be disposed of in this way. Some medicines may require a different approach.4.Never flush your medications down the toilet. IF YOU HAVE BEEN PRESCRIBED AN OPIOID FOR PAIN If you have been prescribed an opioid (such as hydrocodone, oxycodone or morphine), it is critical to understand the possible side effects and risks of opioid pain medications. Even when taken as directed, opioids can have several side effects including: Tolerance, meaning you might need to take more of a medication for the same pain relief. Nausea, vomiting and/or constipation. Sleepiness, dizziness, dry mouth, confusion, depression or itching. Physical dependence, meaning you have withdrawal symptoms when a medication is stopped, can develop within a few days. KNOW YOUR RESPONSIBILITIES It is important to know exactly how much and how often to take the opioid pain medications you are prescribed. Never take opioids in higher amounts or more often than prescribed. Do not combine opioids with alcohol or other drugs that cause drowsiness, such as benzodiazepines, also known as benzos, including diazepam and alprazolam, muscle relaxants or sleep aids. Never sell or share prescription opioids. This is illegal. Store opioids in a secure place and out of reach of others (including children, family, friends and visitors). The last page of this document has been signed and retained as a CHART COPY. Signatures Patient Education Materials Radiology- Myelogram 12/14/2023(CUSTOM) Medication Leaflets My discharge plan and instructions have been reviewed and explained to me and I,AURELIANOJesusCLIFFORD [place] understand my current condition and have read and understand these discharge instructions. I have received a written copy of the plan/instructions. If I have questions, I am aware that I should contact my doctor. Patient/Structural Technician Signature: Date/Time: Relationship to Patient: Witness Name/Signature: Date/Time: [id number] Note* Exam Date Time Procedure Performing Provider Status 06/16/24 9:[address] Spine Cervical w/Contrast KESHA CARR MD; Auth (Verified) [id number] ORIGINAL EXAMINATION: CT OF THE CERVICAL SPINE WITH INTRATHECAL CONTRAST 06/16/2024 9:47 am: TECHNIQUE: CT of the cervical spine was performed after the administration of intrathecal contrast with multiplanar reconstructed images provided for interpretation. Dose modulation, iterative reconstruction, and/or weight based adjustment of the mA/kV was utilized to reduce the radiation dose to as low as reasonably achievable. COMPARISON: Cervical myelogram 06/16/2024. HISTORY: ORDERING SYSTEM PROVIDED HISTORY: Reason for Exam: CT myelogram cervical FINDINGS: BONES/ALIGNMENT: There is normal alignment of the spine. The vertebral body heights are maintained. No destructive osseous lesion is seen. Multilevel hypertrophic facet arthropathy. SOFT TISSUES: There is no prevertebral soft tissue swelling. C2-C3: There is no significant disc protrusion, spinal canal stenosis or neural foraminal narrowing. C3-C4: There is no significant disc protrusion, spinal canal stenosis or neural foraminal narrowing. C4-C5: There is no significant disc protrusion, spinal canal stenosis or neural foraminal narrowing. C5-C6: There is no significant disc protrusion or canal stenosis. Moderate left bony foraminal narrowing. C6-C7: There is no significant disc protrusion, spinal canal stenosis or neural foraminal narrowing. C7-T1: There is no significant disc protrusion, spinal canal stenosis or neural foraminal narrowing. SOFT TISSUES: There is no prevertebral soft tissue swelling. Biapical interstitial fibrosis and vascular congestion noted. IMPRESSION: No herniated disc or nerve root impingement. Moderate left bony foraminal narrowing C5-C6. Interpreted by: Jagjit Carr Preliminary Report By: Jagjit Carr Electronically signed By Jagjit Carr Dictated Date: 06/16/2024 9:51:25 AM Prelim Date: 06/16/2024 9:54:10 AM Sign Date: 06/16/2024 9:54:10 AM Ordering Provider: [facility]04-14-2025 Note* Exam Date Time Procedure Performing Provider Status 06/16/24 9:[address] Spine Lumbar w/ Contrast MANAN, KAM Catherine MD; Auth (Verified) [id number] ORIGINAL EXAMINATION: CT OF THE LUMBAR SPINE WITH INTRATHECAL CONTRAST 06/16/2024 9:48 am: TECHNIQUE: CT of the lumbar spine was performed after the administration of intrathecal contrast with multiplanar reconstructed images provided for interpretation. Dose modulation, iterative reconstruction, and/or weight based adjustment of the mA/kV was utilized to reduce the radiation dose to as low as reasonably achievable. COMPARISON: LUMBAR MYELOGRAM 06/16/2024. None. HISTORY: ORDERING SYSTEM PROVIDED HISTORY: Reason for Exam: Ct myelogram lumbar FINDINGS: BONES/ALIGNMENT: There is normal alignment of the spine. The vertebral body heights are maintained. No osseous destructive lesion is seen. SOFT TISSUES: No paraspinal mass is seen. L1-L2: There is no significant disc protrusion, central spinal canal stenosis or neural foraminal narrowing. L2-L3: There is no significant disc protrusion, central spinal canal stenosis or neural foraminal narrowing. L3-L4: Annular broad-based protrusion of disc with severe central canal stenosis and bilateral foraminal narrowing. L4-L5: Broad-based annular bulging of disc with moderate canal stenosis. Hypertrophic facet arthropathy with severe right foraminal narrowing. L5-S1: There is no significant disc protrusion, central spinal canal stenosis or neural foraminal narrowing. IMPRESSION: Broad-based protrusion of disc at L3-L4 with severe canal stenosis. Annular protrusion of disc at L4-L5 with moderate canal and severe right foraminal narrowing. Interpreted by: Jagjit Carr Preliminary Report By: Jagjit Carr Electronically signed By Jagjit Carr Dictated Date: 06/16/2024 9:54:21 AM Prelim Date: 06/16/2024 9:57:08 AM Sign Date: 06/16/2024 9:57:08 AM Ordering Provider: MIGDALIA LAL [id number] Procedure note IR Brief Post Procedure Note Preprocedure Dx: neck and back pain Post Procedure Dx: Same Procedure: LP for multi level myelogram Anesthesia: Local EBL: Minimal Complications: None Status: Unchanged Findings: 1. Successful LP. Injected 12 cc contrast intrathecal. Plan: 1. Sent to CT Full report to follow. Orders in [facility]. Malachi Redmond PA-C Interventional Radiology Pager: [phone] IR dept: [id number] Available on [employer] Digitally Signed by MALACHI REDMOND PA-C on 06/16/2024 09:23 AM [facility] [id number] Note* Exam Date Time Procedure Performing Provider Status 06/16/24 9:17 AM IR Myelography Multi-Level JOSE ANGEL ORONA MD; Auth (Verified) [id number] ORIGINAL PROCEDURE: 1. Fluoroscopically guided lumbar puncture for multilevel myelogram CLINICAL INFORMATION: Neck and back pain PLANNING RN: Malachi Redmond PA-C ANESTHESIA: Local NEEDLE: 20G spinal needle PUNCTURE LEVEL: L2-3 CONTRAST: 12 mL Isovue 200 FLUORO: 2.6 minute AIR KERMA DOSE: 192.60 mGy The risks, benefits, and alternatives of the procedure were carefully explained to the patient who wished to proceed. Informed written consent was obtained prior to beginning the study. The patient's medications were reviewed, including dosage and route of administration. Appropriate medications were held pre-myelogram, if indicated. The patient was placed prone on the fluoroscopy table. The skin over the lower back was prepped and draped in the usual, sterile fashion. Local anesthesia was administered. Under direct fluoroscopic visualization, a spinal needle was introduced into the spinal canal using a posterior interlaminar approach. Contrast was injected into the thecal sac. The needle was withdrawn and a band-aid placed over the puncture site. PLAIN FILM MYELOGRAM: Intrathecal contrast is present. Moderate to severe stenosis at L3-4 central canal. COMPLICATIONS: None EBL: Minimal PATIENT CONDITION: Stable, unchanged. IMPRESSION: 1. Successful myelography. 2. Please see the separately dictated CT Myelogram for details. This procedure was performed by Malachi Redmond PA-C. I concur with the contents of this report. DISCHARGE SUMMARY REASON FOR HOSPITALIZATION: Myelogram. OUTCOME: No acute complications. DISPOSITION: To home. FOLLOW UP: With referring physician. Interpreted by: Nayeli Orona MD Preliminary Report By: Malachi Redmond PA-C Electronically signed By Nayeli Orona MD Dictated Date: 06/16/2024 4:25:04 PM Prelim Date: 06/16/2024 4:27:35 PM Sign Date: 06/16/2024 6:47:48 PM Ordering Provider: [facility]04-14-2025 Note IR Procedure Record Summary Primary Physician: MALACHI REDMOND PA-C Finalized Date/Time: 06/16/24 09:04:58 Pt. Name: KERICLIFFORD/Sex: 1955 Male Med Rec #: [id number] Physician: Financial #: [id number] Pt. Type: S Room/Bed: [facility]/A Admit/Disch: 06/16/24 05:46:51 - Institution: Allergies identified in patient's electronic medical record at time of printing on 06/16/24 Entry 1 Entry 2 Entry 3 Substance Ancef Crestor lisinopril Reaction Type Allergy Allergy Allergy Last Modified By: Ligia Frost RN, MICHAEL DO Doan, Melissa RN 11/06/18 08:23:47 10/10/19 13:19:47 11/06/18 08:24:32 Case Attendance- IR Entry 1 Entry 2 Entry 3 Case Attendee MALACHI REDMOND PA-C, Rad Tech Kathy A Haas, Erin N RN Role Performed Primary Surgeon Scrub Technologist Procedure Nurse Details Time In 06/16/24 08:16:00 06/16/24 08:16:00 06/16/24 08:16:00 Time Out 06/16/24 08:43:00 06/16/24 08:43:00 06/16/24 08:43:00 Procedure/Preference IR Myelography IR Myelography IR Myelography Card Multi-Level SN Multi-Level SN Multi-Level SN Last Modified By: Mariam Valdes RN, Erin N RN Haas, Erin N RN 06/16/24 08:38:19 06/16/24 08:38:19 06/16/24 08:38:19 Radiology Procedures- IR Entry 1 Procedure/Preference IR Myelography Actual Procedure Myelo cervical/lumbar Card Multi-Level SN Primary Procedure Yes Primary Surgeon MALACHI REDMOND PA-C Anesthesia/Sedation Local Type Additional Procedure Times Start 06/16/24 08:28:00 Stop 06/16/24 08:38:00 Specialty Service SN Radiology Procedure EBL 0 mL Last Modified By: Mariam Valdes RN 06/16/24 08:38:22 Radiology Procedure Details - IR Entry 1 Radiology Sedation Case Times Sedation Total Time 0 Radiology - Fluid/Drainage Radiology Contrast Contrast Used? Yes Dose 12 mL Medication CONTRAST ISOVUE 300 100ML 10/BX 1315-35 Radiology Flouroscopy Fluoroscopy Used? Yes Fluoro Dose (mGy) 192.60 Fluoro Time 2.6 mins Radiology Local Local Used? Yes Local Type: lido 2% Local Dose 9 mL Radiology Procedure Site Site/Location back Site Condition No complications Dressing Type Bandaids Last Modified By: Mariam Valdes RN 06/16/24 09:02:32 General Case Data - IR Entry 1 Case Information Room IR 15 Case Level IR Level 2 Wound Class None Specialty SN Radiology Procedure ASA Class None Diagnosis Preop Diagnosis neck pain, low back Postop Same As Preop Yes pain radiating down bilateral lower extremities Postop Diagnosis neck pain, low back pain radiating down bilateral lower extremities Last Modified By: Mariam Valdes RN 06/16/24 08:20:12 Procedure Case Times- IR Entry 1 Patient In Procedure Patient In OR 06/16/24 08:16:00 Patient Out of OR 06/16/24 08:43:00 Procedure Start/Stop Procedure Start Time 06/16/24 08:28:00 Procedure Stop Time 06/16/24 08:38:00 Last Modified By: Mariam Valdes RN 06/16/24 08:38:17 Immediate Post OP Note - IR Entry 1 Immediate Post Yes Findings ,ulti level myelon Procedure Note displayed for Physician to review Closure Technique Closure Technique Other than Primary Last Modified By: Mariam Valdes RN 06/16/24 08:38:01 Immediate Post OP Note - IR Signed By: MALACHI REDMOND PA-C 06/16/24 08:37 Allergy Information- IR Entry 1 Allergies Reviewed? Yes Allergies Reviewed Patient With Last Modified By: Mariam Valdes RN 06/16/24 08:15:39 Radiology Protocols/Time Out- IR Entry 1 Preprocedure Clinician Verifies Correct patient ID When Clinically Confirmation of correct using name & date Indicated side(s) and site(s), or MRN, Accurate Correct diagnostic and procedure, complete radiology tests Informed Consent, H & P available, Required update immediately blood products, prior to procedure, if implants, devices applicable and/or special equipment available OR/Procedure Room/Bedside Time 06/16/24 08:28:00 Clinician Verifies Correct patient identity including EMR & records using name and date or medical record number, Accurate procedure consent form, Correct patient position, Necessary equipment is available, Anticipated non-routine events with surgical team (case duration, estimated blood loss, patient specific concerns)., [place] patient factors for recovery and management identified with surgical team. When Applicable Confirmation correct Team Members MALACHI REDMOND PA-C, side and site marked, Present for Time Out Terrell Casas Relevant images and A, Mariam Valdes RN results are properly labeled and appropriately displayed, Alcohol based prep dry, Double verification of sterility indicators complete Instrument Sterility Team Members MALACHI REDMOND PA-C, Verifying Sterility Terrell Casas Procedure IR Myelography Multi-Level SN Last Modified By: Mariam Valdes RN 06/16/24 08:30:07 Skin Prep- IR Entry 1 Procedure IR Myelography Multi-Level SN Skin Prep Prep Area Back Side Posterior By Terrell Casas Prep Agents Betadine Scrub Hair Removal Method N/A Last Modified By: Mariam Valdes RN 06/16/24 08:19:00 Patient Positioning- IR Entry 1 Procedure IR Myelography Body Position OP Prone Multi-Level SN Feet Uncrossed? Yes Pressure Points Yes Checked Last Modified By: Mariam Valdes RN 06/16/24 08:19:10 Radiology Procedure Plan - IR Entry 1 Radiology - Nursing Care Plan Outcome Statement The patient Outcome Statement The patient receives demonstrates knowledge Cont. appropriate of the expected medication(s), safely responses to the administered during the operative/invasive perioperative/invasive procedure., The period., The patient is patient's value system, free from signs and lifestyle, ethnicity, symptoms of injury and culture are caused by extraneous considered, respected, objects (equipment, and incorporated in the instrumentation, perioperative plan of sponges, or sharps). care., The patient is free from signs and symptoms of infection., The patient is free from signs and symptoms of injury related to positioning. Radiology - Action Plan Outcomes Met? Yes [facility] Consultant Mariam Valdes RN Completing Procedure Plan Last Modified By: Mariam Valdes RN 06/16/24 08:19:36 Case Comments Finalized By: Mariam Valdes RN Document Signatures Signed By: Mariam Valdes RN 06/16/24 09:02 Mariam Valdes RN 06/16/24 09:04 [id number] History and physical note IR PREPROCEDURE H&P UPDATE IF A HISTORY AND PHYSICAL EXAMINATION HAS BEEN COMPLETED PRIOR TO ADMISSION TO THE HOSPITAL, AN UPDATED EXAMINATION MUST BE COMPLETED AND DOCUMENTED WITHIN 24 HOURS AFTER ADMISSION OR REGISTRATION BUT BEFORE A SURGICAL PROCEDURE. I have examined the patient, reviewed the H&P, and there are no changes unless noted below: LD plavix: 06/10/2024 The most recent H&P/Office Note was performed on 06/03/2024 and can be found in the [facility] ([place]). Kelsie Aquino PA-C Interventional Radiology Pager: [phone] IR dept: [phone] Available on [employer] Digitally Signed by KELSIE AQUINO PA-C on 06/16/2024 07:49 AM [facility] [id number] Note ORIGINAL EXAMINATION: CT OF THE CHEST WITH CONTRAST 02/07/2024 9:47 am TECHNIQUE: CT of the chest was performed with the administration of intravenous contrast. Multiplanar reformatted images are provided for review. Automated exposure control, iterative reconstruction, and/or weight based adjustment of the mA/kV was utilized to reduce the radiation dose to as low as reasonably achievable. 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 There are mild degenerative changes noted in the spine. No acute osseous abnormality identified. Mild interstitial pulmonary fibrosis is evident. No focal area of consolidation is visible, and there is no pleural fluid present. No mediastinal adenopathy is evident. Coronary calcification noted. No additional contributory abnormality seen. IMPRESSION: Mild interstitial pulmonary fibrosis. No superimposed acute finding. No other pertinent abnormality. Interpreted by: Jose Pierre MD Preliminary Report By: Jose Pierre MD Electronically signed By Jose Pierre MD Dictated Date: 02/07/2024 9:51:44 AM Prelim Date: 02/07/2024 9:54:11 AM Sign Date: 02/07/2024 9:54:11 AM Ordering Provider: [facility]12-05-2024 Note ORIGINAL EXAMINATION: CT OF THE ABDOMEN AND PELVIS WITH CONTRAST 02/07/2024 9:48 am TECHNIQUE: CT of the abdomen and pelvis was performed with the administration of intravenous contrast. Multiplanar reformatted images are provided for review. Automated exposure control, iterative reconstruction, and/or weight based adjustment of the mA/kV was utilized to reduce the radiation dose to as low as reasonably achievable. COMPARISON: None. 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 Minor degenerative changes are noted in the spine. Minor left SI joint degenerative changes are noted as well. A bone island is noted at the body of the sacrum. Liver, spleen, adrenal glands and pancreas are unremarkable. Left midpole nephrolithiasis is present with 2 adjacent 3-4 mm stones. No other kidney abnormality, no ureteral stone seen. No adenopathy, free air or free fluid is evident. The urinary bladder is not well distended for assessment. Very minor scattered colonic diverticulosis is present, without diverticulitis. No other GI tract abnormality seen. No additional contributory finding. IMPRESSION: 1. Nonobstructive left nephrolithiasis. 2. Mild diverticulosis without diverticulitis. 3. No other significant finding. Interpreted by: Jose Pierre MD Preliminary Report By: Jose Pierre MD Electronically signed By Jose Pierre MD Dictated Date: 02/07/2024 9:48:48 AM Prelim Date: 02/07/2024 9:51:34 AM Sign Date: 02/07/2024 9:51:34 AM Ordering Provider: [facility]10-25-2024 Note . MICRO - Microbiology PROCEDURE: Urine Culture [*1] SOURCE: Urine, Clean Catch BODY SITE: COLLECTED DATE/TIME: 12/26/2023 16:04 EDT RECEIVED DATE/TIME: 12/26/2023 19:40 EDT START DATE/TIME: 12/26/2023 19:40 EDT FREE TEXT SOURCE: FINAL REPORTS Final Report [] Verified Date/Time/Personnel: 12/28/2023 07:42 EDT No growth at 48 hours. PRELIMINARY REPORTS Preliminary Report [] Verified Date/Time/Personnel: 12/27/2023 09:50 EDT No growth to date Performing Locations *1: This test was performed at: [facility], [address] [place] [address], [id number] , [facility]11-22-2021 Hospital Discharge instructions Patient Education 01/24/2021 09:10:27 COVID-19 COVID-19 COVID-19 is a respiratory infection that is caused by a virus called severe acute respiratory syndrome coronavirus 2 (SARS-CoV-2). The disease is also known as coronavirus disease or novel coronavirus. In some people, the virus may not cause any symptoms. In others, it may cause a serious infection. The infection can get worse quickly and can lead to complications, such as: Pneumonia, or infection of the lungs. Acute respiratory distress syndrome or ARDS. This is fluid build-up in the lungs. Acute respiratory failure. This is a condition in which there is not enough oxygen passing from thelungs to the body. Sepsis or septic shock. This is a serious bodily reaction to an infection. Blood clotting problems. Secondary infections due to bacteria or fungus. The virus that causes COVID-19 is contagious. This means that it can spread from person to person through droplets from coughs and sneezes (respiratory secretions). What are the causes? This illness is caused by a virus. You may catch the virus by: Breathing in droplets from an infected person's cough or sneeze. Touching something, like a table or a doorknob, that was exposed to the virus (contaminated) and then touching your mouth, nose, or eyes. What increases the risk? Risk for infection You are more likely to be infected with this virus if you: Live in or travel to an area with a COVID-19 outbreak. Come in contact with a sick person who recently traveled to an area with a COVID-19 outbreak. Provide care for or live with a person who is infected with COVID-19. Risk for serious illness You are more likely to become seriously ill from the virus if you: Are 65 years of age or older. Have a long-term disease that lowers your body's ability to fight infection (immunocompromised). Live in a jail or long-term care facility. Have a long-term (chronic) disease such as: ?Chronic lung disease, including chronic obstructive pulmonary disease or asthma ?Heart disease. ?Diabetes. ?Chronic kidney disease. ?Liver disease. Are obese. What are the signs or symptoms? Symptoms of this condition can range from mild to severe. Symptoms may appear any time from 2 to 14days after being exposed to the virus. They include: A fever. A cough. Difficulty breathing. Chills. Muscle pains. A sore throat. Loss of taste or smell. Some people may also have stomach problems, such as nausea, vomiting, or diarrhea. Other people may not have any symptoms of COVID-19. How is this diagnosed? This condition may be diagnosed based on: Your signs and symptoms, especially if: ?You live in an area with a COVID-19 outbreak. ?You recently traveled to or from an area where the virus is common. ?You provide care for or live with a person who was diagnosed with COVID-19. A physical exam. Lab tests, which may include: ?A nasal swab to take a sample of fluid from your nose. ?A throat swab to take a sample of fluid from your throat. ?A sample of mucus from your lungs (sputum). ?Blood tests. Imaging tests, which may include, X-rays, CT scan, or ultrasound. How is this treated? At present, there is no medicine to treat COVID-19. Medicines that treat other diseases are being used on a trial basis to see if they are effective against COVID-19. Your health care provider will talk with you about ways to treat your symptoms. For most people, the infection is mild and can be managed at home with rest, fluids, and vhzi-eyb-idieofr medicines. Treatment for a serious infection usually takes places in a hospital intensive care unit (ICU). It may include one or more of the following treatments. These treatments are given until your symptoms improve. Receiving fluids and medicines through an IV. Supplemental oxygen. Extra oxygen is given through a tube in the nose, a face mask, or a carrasco. Positioning you to lie on your stomach (prone position). This makes it easier for oxygen to get into the lungs. Continuous positive airway pressure (CPAP) or bi-level positive airway pressure (BPAP) machine. This treatment uses mild air pressure to keep the airways open. A tube that is connected to a motor delivers oxygen to the body. Ventilator. This treatment moves air into and out of the lungs by using a tube that is placed in your windpipe. Tracheostomy. This is a procedure to create a hole in the neck so that a breathing tube can be inserted. Extracorporeal membrane oxygenation (ECMO). This procedure gives the lungs a chance to recover by taking over the functions of the heart and lungs. It supplies oxygen to the body and removes carbon dioxide. Follow these instructions at home: Lifestyle If you are sick, stay home except to get medical care. Your health care provider will tell you how long to stay home. Call your health care provider before you go for medical care. Rest at home as told by your health care provider. Do not use any products that contain nicotine or tobacco, such as cigarettes, e- cigarettes, and chewing tobacco. If you need help quitting, ask your health care provider. Return to your normal activities as told by your health care provider. Ask your health care provider what activities are safe for you. General instructions Take rwqm-mvh-lkwdpum and prescription medicines only as told by your health care provider. Drink enough fluid to keep your urine pale yellow. Keep all follow-up visits as told by your health care provider. This is important. How is this prevented? There is no vaccine to help prevent COVID-19 infection. However, there are steps you can take to protect yourself and others from this virus. To protect yourself: Do not travel to areas where COVID-19 is a risk. The areas where COVID-19 is reported change often.To identify high-risk areas and travel restrictions, check the CDC travel website: wwwnc.cdc.gov/travel/notices If you live in, or must travel to, an area where COVID-19 is a risk, take precautions to avoid infection. ?Stay away from people who are sick. ?Wash your hands often with soap and water for 20 seconds. If soap and water are not available, usean alcohol-based hand hunter guide. ?Avoid touching your mouth, face, eyes, or nose. ?Avoid going out in public, follow guidance from your state and local health authorities. ?If you must go out in public, wear a cloth face covering or face mask. ?Disinfect objects and surfaces that are frequently touched every day. This may include: ?Counters and tables. ?Doorknobs and light switches. ?Sinks and faucets. ?Electronics, such as phones, remote controls, keyboards, computers, and tablets. To protect others: If you have symptoms of COVID-19, take steps to prevent the virus from spreading to others. If you think you have a COVID-19 infection, contact your health care provider right away. Tell yourhealth care team that you think you may have a COVID-19 infection. Stay home. Leave your house only to seek medical care. Do not use public transport. Do not travel while you are sick. Wash your hands often with soap and water for 20 seconds. If soap and water are not available, use alcohol-based hand hunter guide. Stay away from other members of your household. Let healthy household members care for children andpets, if possible. If you have to care for children or pets, wash your hands often and wear a mask.If possible, stay in your own room, separate from others. Use a different bathroom. Make sure that all people in your household wash their hands well and often. Cough or sneeze into a tissue or your sleeve or elbow. Do not cough or sneeze into your hand or into the air. Wear a cloth face covering or face mask. Where to find more information Centers for Disease Control and Prevention: www.cdc.gov/coronavirus/2019-ncov/index.html World Health Organization: www.who.int/health-topics/coronavirus Contact a health care provider if: You live in or have traveled to an area where COVID-19 is a risk and you have symptoms of the infection. You have had contact with someone who has COVID-19 and you have symptoms of the infection. Get help right away if: You have trouble breathing. You have pain or pressure in your chest. You have confusion. You have bluish lips and fingernails. You have difficulty waking from sleep. You have symptoms that get worse. These symptoms may represent a serious problem that is an emergency. Do not wait to see if the symptoms will go away. Get medical help right away. Call your local emergency services (911 in the [place] Do not drive yourself to the hospital. Let the emergency medical personnel know if you think you have COVID-19. Summary COVID-19 is a respiratory infection that is caused by a virus. It is also known as coronavirus disease or novel coronavirus. It can cause serious infections, such as pneumonia, acute respiratory distress syndrome, acute respiratory failure, or sepsis. The virus that causes COVID-19 is contagious. This means that it can spread from person to person through droplets from coughs and sneezes. You are more likely to develop a serious illness if you are 65 years of age or older, have a weak immunity, live in a jail, or have chronic disease. There is no medicine to treat COVID-19. Your health care provider will talk with you about ways to treat your symptoms. Take steps to protect yourself and others from infection. Wash your hands often and disinfect objects and surfaces that are frequently touched every day. Stay away from people who are sick and wear amask if you are sick. This information is not intended to replace advice given to you by your health care provider. Make sure you discuss any questions you have with your health care provider. Document Released: 03/27/2019 Document Revised: 07/17/2019 Document Reviewed: 03/27/2019 [employer] Patient Education 2020 [employer] 01/24/2021 09:10:18 Acute Respiratory Failure, Adult Acute Respiratory Failure, Adult Acute respiratory failure occurs when there is not enough oxygen passing from your lungs to your body. When this happens, your lungs have trouble removing carbon dioxide from the blood. This causes your blood oxygen level to drop too low as carbon dioxide builds up. Acute respiratory failure is a medical emergency. It can develop quickly, but it is temporary if treated promptly. Your lung capacity, or how much air your lungs can hold, may improve with time, exercise, and treatment. What are the causes? There are many possible causes of acute respiratory failure, including: Lung injury. Chest injury or damage to the ribs or tissues near the lungs. Lung conditions that affect the flow of air and blood into and out of the lungs, such as pneumonia,acute respiratory distress syndrome, and cystic fibrosis. Medical conditions, such as strokes or spinal cord injuries, that affect the muscles and nerves that control breathing. Blood infection (sepsis). Inflammation of the pancreas (pancreatitis). A blood clot in the lungs (pulmonary embolism). A large-volume blood transfusion. [place]. Near-drowning. Seizure. Smoke inhalation. Reaction to medicines. Alcohol or drug overdose. What increases the risk? This condition is more likely to develop in people who have: A blocked airway. Asthma. A condition or disease that damages or weakens the muscles, nerves, bones, or tissues that are involved in breathing. A serious infection. A health problem that blocks the unconscious reflex that is involved in breathing, such as hypothyroidism or sleep apnea. A lung injury or trauma. What are the signs or symptoms? Trouble breathing is the main symptom of acute respiratory failure. Symptoms may also include: Rapid breathing. Restlessness or anxiety. Skin, lips, or fingernails that appear blue (cyanosis). Rapid heart rate. Abnormal heart rhythms (arrhythmias). Confusion or changes in behavior. Tiredness or loss of energy. Feeling sleepy or having a loss of consciousness. How is this diagnosed? Your health care provider can diagnose acute respiratory failure with a medical history and physical exam. During the exam, your health care provider will listen to your heart and check for cracklingor wheezing sounds in your lungs. Your may also have tests to confirm the diagnosis and determine what is causing respiratory failure. These tests may include: Measuring the amount of oxygen in your blood (pulse oximetry). The measurement comes from a small device that is placed on your finger, earlobe, or toe. Other blood tests to measure blood gases and to look for signs of infection. Sampling your cerebral spinal fluid or tracheal fluid to check for infections. Chest X-ray to look for fluid in spaces that should be filled with air. Electrocardiogram (ECG) to look at the heart's electrical activity. How is this treated? Treatment for this condition usually takes places in a hospital intensive care unit (ICU). Treatment depends on what is causing the condition. It may include one or more treatments until your symptoms improve. Treatment may include: Supplemental oxygen. Extra oxygen is given through a tube in the nose, a face mask, or a carrasco. A device such as a continuous positive airway pressure (CPAP) or bi-level positive airway pressure (BiPAP or BPAP) machine. This treatment uses mild air pressure to keep the airways open. A mask or other device will be placed over your nose or mouth. A tube that is connected to a motor will deliveroxygen through the mask. Ventilator. This treatment helps move air into and out of the lungs. This may be done with a bag and mask or a machine. For this treatment, a tube is placed in your windpipe (trachea) so air and oxygen can flow to the lungs. Extracorporeal membrane oxygenation (ECMO). This treatment temporarily takes over the function of the heart and lungs, supplying oxygen and removing carbon dioxide. ECMO gives the lungs a chance to recover. It may be used if a ventilator is not effective. Tracheostomy. This is a procedure that creates a hole in the neck to insert a breathing tube. Receiving fluids and medicines. Rocking the bed to help breathing. Follow these instructions at home: Take wmpz-utj-lkecohv and prescription medicines only as told by your health care provider. Return to normal activities as told by your health care provider. Ask your health care provider what activities are safe for you. Keep all follow-up visits as told by your health care provider. This is important. How is this prevented? Treating infections and medical conditions that may lead to acute respiratory failure can help prevent the condition from developing. Contact a health care provider if: You have a fever. Your symptoms do not improve or they get worse. Get help right away if: You are having trouble breathing. You lose consciousness. Your have cyanosis or turn blue. You develop a rapid heart rate. You are confused. These symptoms may represent a serious problem that is an emergency. Do not wait to see if the symptoms will go away. Get medical help right away. Call your local emergency services (911 in the [place] Do not drive yourself to the hospital. This information is not intended to replace advice given to you by your health care provider. Make sure you discuss any questions you have with your health care provider. Document Released: 02/24/2014 Document Revised: 02/01/2018 Document Reviewed: 09/06/2016 [employer] Patient Education 2020 [employer]. Follow Up Care 01/16/2021 20:19:08 With:[facility] will be providing your home O2. Please call [phone] when you are leaving the hospital, as well as when you arrive home. Address: When: Unknown With:JOSE ETIENNE DO Address: [address] [facility] [place] [address]- When:1-2 days Comments:Please call the office to set up a follow up appointment [facility] 11-14-2021 Evaluation + Plan noteExtracted from: Title:History and Physical Author:UYMIKO COLON Date:01/16/21 66-year-old male with histor y of CAD, systolic heart failure unknown EF with an ICD, PVD, hypertension, hyperlipidemia, prediabetes, presents with respiratory distress secondary COVID-19 bilateral pneumonia COVID-19 bilateral pneumonia continue Decadron, start remdesivir, albuterol inhaler as needed Acute respiratory distress secondary #1 continue O2 support CAD with reported chest pain, will cycle EKGs and cardiac enzymes to rule out ACS Systolic heart failure unclear what his EF is caution not overload he is able to tolerate p.o. would not give him additional fluids, ICD in place Prediabetes we will add a sliding scale insulin with meals given he is on Decadron expect have hyperglycemia Elevated D-dimer with a reported history of chest pain or shortness of breath I will proceed with a CT PE now Hypocalcemia given calcium gluconate 2 g Hypokalemia supplementing Hypertension stable Hyperlipidemia stable PVD stable Anxiety and depression stable Chronic pain syndrome stable DVT prophylaxis Lovenox 40 daily Full code Diagnostic Tests Pending * Culture Respiratory with Gram Stain 01/21/21 Future Scheduled Tests Laboratory* Prostate Specific Antigen 07/20/20 * Complete Blood Count 04/05/20 * Lipid Profile 04/05/20 * Hepatitis C Antibody IgG 07/20/20 * Complete Metabolic Panel 04/05/20 [facility] 03-08-2019 Evaluation note* Diagnosis Onset Date Resolution Status Aortic valve stenosis, nonrheumatic acute Atherosclerotic heart diseas e of [place] coronary artery without angina pectoris chronic History of implantable cardiac defibrillator (ICD) [facility] 2018 chronic Ischemic cardiomyopathy security intern sol Presence of stent in coronary artery April, chronic Pure hypercholesterolemia ch ronic Ventricular tachyarrhythmia chronic History of implantable cardiac defibrillator (ICD) [facility] 2018 chronic Ischemic cardiomyopathy security intern sol Ventricular tachyarrhythmia [facility] Work Phone: [phone]) 790-166703-08-2019 Evaluation note* Diagnosis Onset Date Resolution Status History of implantable cardiac defibrillator (ICD) May 2018 chronic Ischemic cardiomyopathy security intern sol Ventricular tachyarrhythmia chronic Aortic valve stenosis, nonrheumatic chronic Coronary artery disease security intern sol Dyslipidemia chronic Essential hypertension chron ic History of implantable cardiac defibrillator (ICD) May 2018 chronic Ischemic cardiomyopathy security intern sol Presence of stent in coronary artery April, [facility] Work Phone: [phone]) 366-361403-08-2019 Evaluation note* Diagnosis Onset Date Resolution Status Admit Date History of implantable cardi ac defibrillator (ICD) May 10, 2018 chronic July 24 9:59am Ischemic cardiomyopathy chronic ay 2024 9:59am Ventricular tachyarrhythmia chronic July 24, 2024 9:59am Aortic valve stenosis, nonrheumatic chronic July 24, 2024 10:00am Atherosclerotic heart diseas e of [place] coronary artery without angina pectoris chronic July 24, 2024 10:00am Essential hypertension chronic Ma y 2024 10:00am History of implantable cardi ac defibrillator (ICD) May 10, 2018 chronic July 24 10:00am Ischemic cardiomyopathy chronic M ay 2024 10:00am Pure hypercholesterolemia chronic July 24, 2024 10:00am [facility] Work Phone: [phone] Evaluation note* Diagnosis Onset Date Resolution Status Admit Date History of implantable cardi ac defibrillator (ICD) May 10, 2018 chronic July 24 9:59am Ischemic cardiomyopathy chronic M ay 2024 9:59am Ventricular tachyarrhythmia chronic July 24, 2024 9:59am Aortic valve stenosis, nonrheumatic chronic July 24, 2024 10:00am Atherosclerotic heart diseas e of [place] coronary artery without angina pectoris chronic July 24, 2024 10:00am Essential hypertension chronic Ma y 2024 10:00am History of implantable cardi ac defibrillator (ICD) May 10, 2018 chronic July 24 10:00am Ischemic cardiomyopathy chronic M ay 2024 10:00am Pure hypercholesterolemia chronic July 24, 2024 10:00am Aortic valve stenosis, nonrheumatic chronic August 11, 2024 8:46am Atherosclerotic heart diseas e of [place] coronary artery without angina pectoris chronic August 11, 2024 8:46am Essential hypertension chronic 2024 8:46am History of implantable cardi ac defibrillator (ICD) May 10, 2018 chronic August 11 8:46am Ischemic cardiomyopathy chronic J une 2024 8:46am Pure hypercholesterolemia chronic August 11, 2024 8:46am [email or web address] [facility] Work Phone: [phone] Evaluation note* Diagnosis Onset Date Resolution Status Admit Date History of implantable cardi ac defibrillator (ICD) May 10, 2018 chronic July 24 9:59am Ischemic cardiomyopathy chronic M ay 2024 9:59am Ventricular tachyarrhythmia chronic July 24, 2024 9:59am Aortic valve stenosis, nonrheumatic chronic July 24, 2024 10:00am Atherosclerotic heart diseas e of [place] coronary artery without angina pectoris chronic July 24, 2024 10:00am Essential hypertension chronic Ma y 2024 10:00am History of implantable cardi ac defibrillator (ICD) May 10, 2018 chronic July 24 10:00am Ischemic cardiomyopathy chronic M ay 2024 10:00am Pure hypercholesterolemia chronic July 24, 2024 10:00am Preoperative cardiovascular examination acute August 11, 2024 8:46am Aortic valve stenosis, nonrheumatic chronic August 11, 2024 8:46am Atherosclerotic heart diseas e of [place] coronary artery without angina pectoris chronic August 11, 2024 8:46am Essential hypertension chronic Ju ne 2024 8:46am History of implantable cardi ac defibrillator (ICD) May 10, 2018 chronic August 11 8:46am Ischemic cardiomyopathy chronic J une 2024 8:46am Pure hypercholesterolemia chronic August 11, 2024 8:46am [employer] Work Phone: [phone] [id number] Evaluation note* Diagnosis Onset Date Resolution Status Admit Date History of implantable cardi ac defibrillator (ICD) May 10, 2018 chronic July 24 9:59am Ischemic cardiomyopathy chronic M ay 2024 9:59am Ventricular tachyarrhythmia chronic July 24, 2024 9:59am Aortic valve stenosis, nonrheumatic chronic July 24, 2024 10:00am Atherosclerotic heart diseas e of [place] coronary artery without angina pectoris chronic July 10:00am Essential hypertension chronic Ma y 2024 10:00am History of implantable cardi ac defibrillator (ICD) May 10, 2018 chronic July 24 10:00am Ischemic cardiomyopathy chronic M ay 2024 10:00am Pure hypercholesterolemia chronic July 24, 2024 10:00am Preoperative cardiovascular examination acute August 11, 2024 8:46am Aortic valve stenosis, nonrheumatic chronic August 11, 2024 8:46am Atherosclerotic heart diseas e of [place] coronary artery without angina pectoris chronic August 8:46am Essential hypertension chronic Ju ne 2024 8:46am History of implantable cardi ac defibrillator (ICD) May 10, 2018 chronic August 11 8:46am Ischemic cardiomyopathy chronic J une 2024 8:46am Pure hypercholesterolemia chronic August 11, 2024 8:46am History of implantable cardi ac defibrillator (ICD) May 10, 2018 chronic November 172024 8:23am Ischemic cardiomyopathy chronic S eptember 2024 8:23am Ventricular tachyarrhythmia chronic November 17, 2024 8:23am [employer] Work Phone: Evaluation + Plan note Future Appointments Appointment Date:01/31/2021 09:00:00 AM Scheduled Provider:JOSE ETIENNE DO Location:[facility] Appointment Type: OV Future Scheduled Tests Laboratory* Prostate Specific Antigen 07/20/20 * Complete Blood Count 04/05/20 * Lipid Profile 04/05/20 * Hepatitis C Antibody IgG 07/20/20 * Complete Metabolic Panel 04/05/20 [facility] Evaluation + Plan note Future Appointments Appointment Date:03/21/2021 09:15:00 AM Scheduled Provider:JOSE ETIENNE DO Location:[facility] Appointment Type:PC OV Future Scheduled Tests Laboratory* Complete Blood Count 04/05/20 * Lipid Profile 04/05/20 * Complete Metabolic Panel 04/05/20 [facility] Evaluation + Plan note Future Appointments Appointment Date:02/21/2022 08:00:00 AM Scheduled Provider:JOSE ETIENNE DO Location:[facility] Appointment Type:PC OV Appointment Date:03/28/2022 08:30:00 AM Scheduled Provider:JOSE ETIENNE DO Location:[facility] Appointment Type:PC OV Appointment Date:04/25/2022 08:00:00 AM Scheduled Provider:JOSE ETIENNE DO Location:[facility] Appointment Type:PC OV Appointment Date:05/23/2022 08:00:00 AM Scheduled Provider:JOSE ETIENNE DO Location[facility] Appointment Type:PC OV Diagnostic Tests Pending * Rheumatoid Factor 01/24/22 * Antinuclear Antibody Screen, Serum 01/24/22 * Cytoplasmic Neutro. Antibody 01/24/22 Future Scheduled Tests Laboratory* Prostate Specific Antigen 08/23/21 * A1C Hemoglobin 08/23/21 * Complete Blood Count 08/23/21 * Lipid Profile 08/23/21 * Complete Metabolic Panel 08/23/21 [facility] Evaluation + Plan note Future Appointments Appointment Date:09/19/2022 08:15:00 AM Scheduled Provider:JOSE ETIENNE DO Location:[facility] Appointment Type:PC OV Appointment Date:10/17/2022 10:00:00 AM Scheduled Provider:JOSE ETIENNE DO Location:[facility] Appointment Type:PC Wellness Annual Appointment Date:11/28/2022 08:30:00 AM Scheduled Provider:JOSE ETIENNE DO Location:[facility] Appointment Type:PC OV Appointment Date:12/19/2022 08:30:00 AM Scheduled Provider:JOSE ETIENNE DO Location:[facility] Appointment Type:PC OV Appointment Date:01/30/2023 08:00:00 AM Scheduled Provider:JOSE ETIENNE DO Location:[facility] Appointment Type:PC OV Appointment Date:02/13/2023 08:00:00 AM Scheduled Provider:JOSE ETIENNE DO Location:[facility] Appointment Type:PC OV Diagnostic Tests Pending * Lyme AB Early Disease 08/26/22 * Lyme Disease PCR 08/26/22 [facility] Evaluation + Plan note Future Appointments Appointment Date:11/28/2022 08:30:00 AM Scheduled Provider:JOSE ETIENNE DO Location:[facility] Appointment Type:PC OV Appointment Date:12/19/2022 08:30:00 AM Scheduled Provider:JOSE ETIENNE DO Location:[facility] Appointment Type:PC OV Appointment Date:01/30/2023 08:00:00 AM Scheduled Provider:JOSE ETIENNE DO Location:[facility] Appointment Type:PC OV Appointment Date:02/13/2023 08:00:00 AM Scheduled Provider:JOSE ETIENNE DO Location:[facility] Appointment Type:PC OV Appointment Date:03/27/2023 08:30:00 AM Scheduled Provider:JOSE ETIENNE DO Location:[facility] Appointment Type:PC OV Appointment Date:04/24/2023 08:00:00 AM Scheduled Provider:JOSE ETIENNE DO Location:[facility] Appointment Type:PC OV Appointment Date:05/22/2023 08:30:00 AM Scheduled Provider:JOSE ETIENNE DO Location:[facility] Appointment Type:PC OV Appointment Date:06/26/2023 08:30:00 AM Scheduled Provider:JOSE ETIENNE DO Location:[facility] Appointment Type:PC OV Future Scheduled Tests Radiology* BD Bone Density DEXA Axial Skeleton 02/14/23 [facility] evaluation + Plan note Future Appointments Appointment Date:04/24/2023 08:00:00 AM Scheduled Provider:JOSE ETIENNE DO Location:[facility] Appointment Type:PC OV Appointment Date:05/22/2023 08:30:00 AM Scheduled Provider:JOSE ETIENNE DO Location:[facility] Appointment Type:PC OV Appointment Date:06/26/2023 08:30:00 AM Scheduled Provider:JOSE ETIENNE DO Location:[facility] Appointment Type:PC OV Future Scheduled Tests Radiology* BD Bone Density DEXA Axial Skeleton 02/14/23 [facility] Evaluation + Plan note Future Appointments Appointment Date:06/26/2023 08:30:00 AM Scheduled Provider:JOSE ETIENNE DO Location:[facility] Appointment Type:PC OV Appointment Date:07/26/2023 08:00:00 AM Scheduled Provider:JOSE ETIENNE DO Location:[facility] Appointment Type:PC OV Appointment Date:08/28/2023 09:00:00 AM Scheduled Provider:JOSE ETIENNE DO Location:[facility] Appointment Type:PC OV Appointment Date:09/25/2023 08:00:00 AM Scheduled Provider:JOSE ETIENNE DO Location:[facility] Appointment Type:PC OV Future Scheduled Tests Laboratory* Uric Acid 05/22/23 * A1C Hemoglobin 05/22/23 * Complete Blood Count 05/22/23 * Lipid Profile 05/22/23 * Complete Metabolic Panel 05/22/23 Radiology* BD Bone Density DEXA Axial Skeleton 02/14/23 [facility] Evaluation + Plan note Future Appointments Appointment Date:09/25/2023 08:00:00 AM Scheduled Provider:JOSE ETIENNE DO Location:[facility] Appointment Type:PC OV Appointment Date:10/30/2023 08:00:00 AM Scheduled Provider:JOSE ETIENNE DO Location:[facility] Appointment Type:PC OV Future Scheduled Tests Laboratory* Calcium Level Ionized 07/26/23 * Magnesium Level 07/26/23 * PTH, Intact 07/26/23 * Renal Function Panel 07/26/23 * Vitamin D Level 07/26/23 Radiology* BD Bone Density DEXA Axial Skeleton 02/14/23 [facility] Evaluation + Plan note Future Appointments Appointment Date:01/17/2024 09:00:00 AM Scheduled Provider:JOSE ETIENNE DO Location:[facility] Appointment Type:PC OV Future Scheduled Tests Laboratory* Calcium Level Ionized 09/25/23 * Magnesium Level 09/25/23 * PTH, Intact 09/25/23 * Renal Function Panel 09/25/23 * Vitamin D Level 09/25/23 Radiology* BD Bone Density DEXA Axial Skeleton 02/14/23 [facility] Evaluation + Plan note Future Appointments Appointment Date:02/11/2024 01:00:00 PM Scheduled Provider:JOSE ETIENNE DO Location:[facility] Appointment Type:PC OV Follow Up Appointment Date:04/22/2024 08:00:00 AM Scheduled Provider:JOSE ETIENNE DO Location:[facility] Appointment Type:PC OV Follow Up Future Scheduled Tests Laboratory* SAM by IFA Screen 01/08/24 * Calcium Level Ionized 01/17/24 * Calcium Level Ionized 01/08/24 * C-Reactive Protein 01/17/24 * C-Reactive Protein 01/08/24 * Hepatic Function Panel 01/08/24 * Magnesium Level 01/08/24 * Prostate Specific Antigen 01/08/24 * Thyroid Stimulating Hormone 01/17/24 * Uric Acid 01/08/24 * A1C Hemoglobin 01/08/24 * Rheumatoid Factor 01/08/24 * Complete Blood Count 01/17/24 * Complete Blood Count 01/08/24 * CPK 01/17/24 * Cytoplasmic Neutro. Antibody 01/08/24 * Lipid Profile 01/08/24 * PTH, Intact 01/17/24 * PTH, Intact 01/08/24 * Renal Function Panel 01/17/24 * Renal Function Panel 01/08/24 * Sedimentation Rate Automated 01/17/24 * Sedimentation Rate Automated 01/08/24 * Vitamin D Level 01/17/24 * Vitamin D Level 01/08/24 Radiology* BD Bone Density DEXA Axial Skeleton 02/14/23 [facility] Evaluation + Plan note Future Appointments Appointment Date:06/16/2024 07:30:00 AM Scheduled Provider: Location:[facility] Appointment Type:CT Spine Lumbar w/ Contrast Appointment Date:06/16/2024 07:45:00 AM Scheduled Provider: Location:[facility] Appointment Type:CT Spine Cervical w/ Contrast Appointment Date:06/16/2024 08:00:00 AM Scheduled Provider: Location:IR Appointment Type:yyIR Myelogram Cervical/Lumbar Appointment Date:07/22/2024 09:00:00 AM Scheduled Provider:JOSE ETIENNE DO Location:[facility] Appointment Type:PC OV Appointment Date:10/21/2024 08:30:00 AM Scheduled Provider:JOSE ETIENNE DO Location:[facility] Appointment Type:PC OV Future Scheduled Tests Laboratory* SAM by IFA Screen 01/08/24 * Calcium Level Ionized 01/17/24 * Calcium Level Ionized 01/08/24 * C-Reactive Protein 01/17/24 * C-Reactive Protein 01/08/24 * Hepatic Function Panel 01/08/24 * Magnesium Level 01/08/24 * Prostate Specific Antigen 01/08/24 * Thyroid Stimulating Hormone 01/17/24 * Uric Acid 01/08/24 * A1C Hemoglobin 01/08/24 * Rheumatoid Factor 01/08/24 * Complete Blood Count 01/17/24 * Complete Blood Count 01/08/24 * CPK 01/17/24 * Cytoplasmic Neutro. Antibody 01/08/24 * Lipid Profile 01/08/24 * PTH, Intact 01/17/24 * PTH, Intact 01/08/24 * Renal Function Panel 01/17/24 * Renal Function Panel 01/08/24 * Sedimentation Rate Automated 01/17/24 * Sedimentation Rate Automated 01/08/24 * Vitamin D Level 01/17/24 * Vitamin D Level 01/08/24 Radiology* CT Spine Lumbar w/ Contrast 06/16/24 * CT Spine Cervical w/ Contrast 06/16/24 * IR Myelography Multi-Level 06/16/24 * XR Spine Lumbar AP/LAT/FLEX/EXT 06/03/24 * XR Spine Cervical AP/LAT/Flex/Ext 06/03/24 [facility] Evaluation + Plan note Future Appointments Appointment Date:07/22/2024 09:00:00 AM Scheduled Provider:JOSE ETIENNE DO Location:[facility] Appointment Type:PC OV Appointment Date:07/25/2024 08:40:00 AM Scheduled Provider:ZACH BARGER MD Location:[facility] Appointment Type:PM SPEECH AND LANGUAGE ASSISTANT Appointment Date:10/21/2024 08:30:00 AM Scheduled Provider:JOSE ETIENNE DO Location:[facility] Appointment Type:PC OV Future Scheduled Tests Laboratory* SAM by IFA Screen 01/08/24 * Calcium Level Ionized 01/17/24 * Calcium Level Ionized 01/08/24 * C-Reactive Protein 01/17/24 * C-Reactive Protein 01/08/24 * Hepatic Function Panel 01/08/24 * Magnesium Level 01/08/24 * Prostate Specific Antigen 01/08/24 * Thyroid Stimulating Hormone 01/17/24 * Uric Acid 01/08/24 * A1C Hemoglobin 01/08/24 * Rheumatoid Factor 01/08/24 * Complete Blood Count 01/17/24 * Complete Blood Count 01/08/24 * CPK 01/17/24 * Cytoplasmic Neutro. Antibody 01/08/24 * Lipid Profile 01/08/24 * PTH, Intact 01/17/24 * PTH, Intact 01/08/24 * Renal Function Panel 01/17/24 * Renal Function Panel 01/08/24 * Sedimentation Rate Automated 01/17/24 * Sedimentation Rate Automated 01/08/24 * Vitamin D Level 01/17/24 * Vitamin D Level 01/08/24 Radiology* XR Spine Lumbar AP/LAT/FLEX/EXT 06/03/24 * XR Spine Cervical AP/LAT/Flex/Ext 06/03/24 [facility] Evaluation note* Diagnosis Encounter for postoperative care- Primary Pre-op exam Encounter for postoperative care [facility] Narrative No data available for this section [facility] Discharge instructions No data available for this section [facility] Progress note No data available for this section [facility] Reason for referral (narrative)No reason for referral [facility] Work Phone: Reason for visit Narrative* Auth/Cert (Routine) Specialty Diagnoses / Procedures Referred By Contac t Referred To Contact Diagnoses Spinal stenosis, lumbar region without neurogenic claudication Procedures AL SALOMON FACETECTOMY & FORAMOTOMY 1 VRT SGM LUMBAR [place] FACETECTOMY&FORAMOT 1 VRT SGM EA ADDL SGM POSTERIOR LAMINECTOMY LUMBAR 3,4 POSTERIOR LAMINECTOMY LUMBAR 3,4 Shanel Chandler MD [address] [place] [address] Phone: tel: fax: [facility] [address] [place] [address] Phone: tel: Referral ID Status Reason Start Date Expiration Date Visits Re quested Visits Authorized [id number] 1 1 [facility] Chief Complaint and Reason for Visit Chief Complaint 6 mos f/u per pt. Se es PFM @ 10AM 2 ORDERS- LAB AND XRAY Reason for Visit Aortic valve stenosi s, nonrheumatic Atherosclerotic heart disease of [place] coronary artery without angina pectoris History of implantable cardiac defibrillator (ICD) Ischemic cardiomyopathy Presence of stent in coronary artery Pure hypercholesterolemia Ventricular tachyarrhythmia History of implantable cardiac defibrillator (ICD) Ischemic cardiomyopathy Ventricular tachyarrhythmia Chief Complaint OVERDUE FOR OV/AR @ 1:45 3 M FU PREV PFM PT/1 PM W/ DEBORA Nonrheumatic aortic (valve) stenosis Amb Documentation Reason for Visit History of implantab le cardiac defibrillator (ICD) Ischemic cardiomyopathy Ventricular tachyarrhythmia Aortic valve stenosis, nonrheumatic Coronary artery disease Dyslipidemia Essential hypertension History of implantable cardiac defibrillator (ICD) Ischemic cardiomyopathy Presence of stent in coronary artery Chief Complaint Admit Date 6 M ICD Check/Sees KR @ 10:30 July 24, 2024 9:59am Surgical Clearance/6 M FU/Sees Debora @ July 24, 2024 10:00am CHF July 24, 2024 12:33 pm Reason for Visit Admit Date History of implantable cardiac defibrill ator (ICD) July 24, 2024 9:59am Ischemic cardiomyopathy July 24, 2024 9 :59am Ventricular tachyarrhythmia July 24 9:59am Aortic valve stenosis, nonrheumatic July 24, 2024 10:00am Atherosclerotic heart diseas e of [place] coronary artery without angina pectoris July 24, 2024 10:00am Essential hypertension July 24, 2024 10 :00am History of implantable cardiac defibrill ator (ICD) July 24, 2024 10:00am Ischemic cardiomyopathy July 24, 2024 1 0:00am Pure hypercholesterolemia July 24, 2024 10:00am Chief Complaint Admit Date 6 M ICD Check/Sees KR @ 10:30 July 24, 2024 9:59am Surgical Clearance/6 M FU/Sees Debora @ 10 July 24, 2024 10:00am CHF July 24, 2024 12:33 pm SEE NOTES August 11, 2024 8:46a m Reason for Visit Admit Date History of implantable cardiac defibrill ator (ICD) July 24, 2024 9:59am Ischemic cardiomyopathy July 24, 2024 9 :59am Ventricular tachyarrhythmia July 24 9:59am Aortic valve stenosis, nonrheumatic July 24, 2024 10:00am Atherosclerotic heart diseas e of [place] coronary artery without angina pectoris July 24, 2024 10:00am Essential hypertension July 24, 2024 10 :00am History of implantable cardiac defibrill ator (ICD) July 24, 2024 10:00am Ischemic cardiomyopathy July 24, 2024 1 0:00am Pure hypercholesterolemia July 24, 2024 10:00am Aortic valve stenosis, nonrheumatic August 11, 2024 8:46am Atherosclerotic heart diseas e of [place] coronary artery without angina pectoris August 11, 2024 8:46am Essential hypertension August 11, 2024 8: 46am History of implantable cardiac defibrill ator (ICD) August 11, 2024 8:46am Ischemic cardiomyopathy August 11, 2024 8 :46am Pure hypercholesterolemia August 11, 2024 8:46am Chief Complaint Admit Date Pacer Check Remote July 24, 2024 9:00a m 6 M ICD Check/Sees KR @ 10:30 July 24, 2024 9:59am Surgical Clearance/6 M FU/Sees Debora @ 10 July 24, 2024 10:00am CHF July 24, 2024 12:33 pm SEE NOTES August 11, 2024 8:46a m Reason for Visit Admit Date History of implantable cardiac defibrill ator (ICD) July 24, 2024 9:59am Ischemic cardiomyopathy July 24, 2024 9 :59am Ventricular tachyarrhythmia July 24 9:59am Aortic valve stenosis, nonrheumatic July 24, 2024 10:00am Atherosclerotic heart diseas e of [place] coronary artery without angina pectoris July 24, 2024 10:00am Essential hypertension July 24, 2024 10 :00am History of implantable cardiac defibrill ator (ICD) July 24, 2024 10:00am Ischemic cardiomyopathy July 24, 2024 1 0:00am Pure hypercholesterolemia July 24, 2024 10:00am Preoperative cardiovascular examination August 11, 2024 8:46am Aortic valve stenosis, nonrheumatic August 11, 2024 8:46am Atherosclerotic heart diseas e of [place] coronary artery without angina pectoris August 11, 2024 8:46am Essential hypertension August 11, 2024 8: 46am History of implantable cardiac defibrill ator (ICD) August 11, 2024 8:46am Ischemic cardiomyopathy August 11, 2024 8 :46am Pure hypercholesterolemia August 11, 2024 8:46am Chief Complaint Admit Date Pacer Check Remote July 24, 2024 9:00a m 6 M ICD Check/Sees KR @ 10:30 July 24, 2024 9:59am Surgical Clearance/6 M FU/Sees Debora @ 10 July 24, 2024 10:00am CHF July 24, 2024 12:33 pm SEE NOTES August 11, 2024 8:46a m I25.5 - Ischemic cardiomyopathy October 042024 7:46am Amb Documentation November 04, 2024 2:54pm Chief Complaint Admit Date Pacer Check Remote July 24, 2024 9:00a m 6 M ICD Check/Sees KR @ 10:30 July 24, 2024 9:59am Surgical Clearance/6 M FU/Sees Debora @ 10 July 24, 2024 10:00am CHF July 24, 2024 12:33 pm SEE NOTES August 11, 2024 8:46a m I25.5 - Ischemic cardiomyopathy October 042024 7:46am Amb Documentation November 04, 2024 2:54pm 6 M ICD CHECK November 17, 2024 8:23am Reason for Visit Admit Date History of implantable cardiac defibrill ator (ICD) July 24, 2024 9:59am Ischemic cardiomyopathy July 24, 2024 9 :59am Ventricular tachyarrhythmia July 24 9:59am Aortic valve stenosis, nonrheumatic July 24, 2024 10:00am Atherosclerotic heart diseas e of [place] coronary artery without angina pectoris July 24, 2024 10:00am Essential hypertension July 24, 2024 10 :00am History of implantable cardiac defibrill ator (ICD) July 24, 2024 10:00am Ischemic cardiomyopathy July 24, 2024 1 0:00am Pure hypercholesterolemia July 24, 2024 10:00am Preoperative cardiovascular examination August 11, 2024 8:46am Aortic valve stenosis, nonrheumatic August 11, 2024 8:46am Atherosclerotic heart diseas e of [place] coronary artery without angina pectoris August 11, 2024 8:46am Essential hypertension August 11, 2024 8: 46am History of implantable cardiac defibrill ator (ICD) August 11, 2024 8:46am Ischemic cardiomyopathy August 11, 2024 8 :46am Pure hypercholesterolemia August 11, 2024 8:46am History of implantable cardiac defibrill ator (ICD) November 17, 2024 8:23am Ischemic cardiomyopathy November 17, 2024 8:23am Ventricular tachyarrhythmia November 172024 8:23am Chief Complaint Admit Date Pacer Check Remote July 24, 2024 9:00a m 6 M ICD Check/Sees KR @ 10:30 July 24, 2024 9:59am Surgical Clearance/6 M FU/Sees Debora @ 10 July 24, 2024 10:00am CHF July 24, 2024 12:33 pm SEE NOTES August 11, 2024 8:46a m I25.5 - Ischemic cardiomyopathy October 042024 7:46am Amb Documentation November 04, 2024 2:54pm 6 M ICD CHECK November 17, 2024 8:23am Pacer Check Remote November 17, 2024 9:00am Family History Relationship Condition Age at Onset Recorded Date/T juan father Peripheral vascular disease Unknown Myocardial infarction Unknown Malignant neoplasm Unknown brother Kidney disorder Unknown Family Member Condition Full Brother Cancer Father Mother Family Member Condition Full Brother Cancer Father Mother Family Member Condition Full Brother Cancer Father Mother Family Member Condition Full Brother Cancer Father Mother Family Member Condition Full Brother Cancer Father Mother Family Member Condition Full Brother Cancer Father Mother Advance Directives Advance Directive Response Recorded Date/ Time Advance Directives No May 09 10:43am Living Will No May 09, 2018 10:43am Power of Crop Or Grain Farmer No May 09 9 10:43am Advance Directive Response Recorded Date/ Time Advance Directives No May 09 11:43am Living Will No May 09, 2018 11:43am Power of Crop Or Grain Farmer No May 09 9 11:43am Advance Directive Response Recorded Date/ Time Advance Directives No May 09 11:43am Date Activated Date Inactivated Comments 10/09/2024 11:31 AM 10/11/2024 2:05 PM Summary Purpose Additional Source Comments Care Team (unrecognized sect ion and content) Care Team Personnel Name: JOSE ETIENNE DO Position: P4 Physician - Primary Care Member Role: Primary Care Physician Address: Address: [address] [facility] [place] [address]- [place] Name: OREN CERDA MD 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 Jose Etienne DO Family Provider Active Dr. Jose Etienne DO Primary Care Provider Active Team Status: Inactive Member Role Status Dates Dr. Jose Etienne DO Primary Care Provider, Referrin g Provider Active Monica Guevara Attending Provider Active Team Status: Inactive Member Role Status Dates Dr. Jose Etienne DO Primary Care Prov ider, Attending Provider, Referring Provider Active Dr. Jasmin Carolina MD Other Provider Active Team Status: Inactive Member Role Status Dates Dr. Jose Etienne DO Primary Care Provider, Referrin g Provider Active Dr. Chapis Courtney MD Attending Provider Active Team Status: Active Member Role Status Dates Dr. Jose Etienne DO Primary Care Provider Active Dr. Chapis Courtney MD Attending Provider Active Team Status: Active Member Role Status Dates Dr. Jose Etienne DO Primary Care Provider Active Pippa Weston SPEECH AND LANGUAGE ASSISTANT, SPEECH AND LANGUAGE ASSISTANT-C Attending Provider Active Team Status: Inactive Member Role Status Dates Dr. Jose Etienne DO Primary Care Provider Active Dr. Chapis Courtney MD Attending Provider, Referring Pr ovider Active Team Status: Active Member Role Status Dates Dr. Jose Etienne DO Primary Care Provider Active Team Status: Inactive Member Role Status Dates Dr. Jose Etienne DO Primary Care Provider Active Start: July 24, 2024 End: July 24, 2024 Dr. Jose Etienne DO Referring Provider Active Start: July 24, 2024 End: July 24, 2024 Monica Guevara Attending Provider Active Start: 2024 End: July 24, 2024 Team Status: Inactive Member Role Status Dates Dr. Jose Etienne DO Primary Care Provider Active Start: July 24, 2024 End: July 24, 2024 Dr. Jose Etienne DO Referring Provider Active Start: July 24, 2024 End: July 24, 2024 Pippa Weston SPEECH AND LANGUAGE ASSISTANT, SPEECH AND LANGUAGE ASSISTANT-C Attending Provider Active Start: July 24, 2024 End: July 24, 2024 Team Status: Inactive Member Role Status Dates Dr. Jose Etienne DO Primary Care Provider Active Start: July 24, 2024 End: July 24, 2024 Dr. Jose Villafana MD Attending Provider Active Start: July 24, 2024 End: July 24, 2024 Dr. Jose Villafana MD Referring Provider Active Start: July 24, 2024 End: July 24, 2024 Team Status: Active Member Role Status Dates Dr. Jose Etienne DO Primary Care Provider Active Start: July 24, 2024 Dr. Deni Burgos MD Attending Provider Active S tart: July 24, 2024 Team Status: Inactive Member Role Status Dates Dr. Jose Etienne DO Primary Care Provider Active Start: August 11, 2024 End: August 11, 2024 Dr. Jose Etienne DO Referring Provider Active Start: August 11, 2024 End: August 11, 2024 Pippa Weston NP, SPEECH AND LANGUAGE ASSISTANT-C Attending Provider Active Start: August 11, 2024 End: August 11, 2024 Team Status: Inactive Member Role Status Dates Dr. Jose Etienne DO Primary Care Provider Active Start: July 24, 2024 End: July 24, 2024 Dr. Deni Burgos MD Attending Provider Active S tart: July 24, 2024 End: July 24, 2024 Team Status: Inactive Member Role Status Dates Dr. Jose Etienne DO Primary Care Provider Active Start: July 24, 2024 End: July 24, 2024 Dr. Deni Burgos MD Attending Provider Active S tart: July 24, 2024 End: July 24, 2024 Dr. Deni Burgos MD Referring Provider Active S tart: July 24, 2024 End: July 24, 2024 [facility] Consult[facility] Relationship Specialty Start Date End Date Jose Etienne DO [address] [place] [address] PCP - General Family Medicine 10/02/24 Meagan Puckett, RN Registered Nurse Copy Preparer Manager 10/06/24 [facility] Consultant Relationship Specialty Start Date End Date Jose Etienne DO [address] [place] [address] PCP - General Family Medicine 10/02/24 Meagan Puckett, RN Registered Nurse Copy Preparer Manager 10/06/24 Team Status: Active Member Role/Relationship Status Dates Dr. Jose Etienne DO Primary Care Provider Active Team Status: Inactive Member Role/Relationship Status Dates Dr. Jose Etienne DO Primary Care Provider Active Start: July 24, 2024 End: July 24, 2024 Dr. Deni Burgos MD Attending Provider Active S tart: July 24, 2024 End: July 24, 2024 Dr. Deni Burgos MD Referring Provider Active S tart: July 24, 2024 End: July 24, 2024 Team Status: Inactive Member Role/Relationship Status Dates Dr. Jose Etienne DO Primary Care Provider Active Start: July 24, 2024 End: July 24, 2024 Dr. Deni Burgos MD Attending Provider Active S tart: July 24, 2024 End: July 24, 2024 Dr. Deni Burgos MD Referring Provider Active S tart: July 24, 2024 End: July 24, 2024 Team Status: Inactive Member Role/Relationship Status Dates Dr. Jose Etienne DO Primary Care Provider Active Start: July 24, 2024 End: July 24, 2024 Dr. Jose Etienne DO Referring Provider Active Start: July 24, 2024 End: July 24, 2024 Pippa Weston SPEECH AND LANGUAGE ASSISTANT, SPEECH AND LANGUAGE ASSISTANT-C Attending Provider Active Start: July 24, 2024 End: July 24, 2024 Team Status: Inactive Member Role/Relationship Status Dates Dr. Jose Etienne DO Primary Care Provider Active Start: July 24, 2024 End: July 24, 2024 Dr. Jose Villafana MD Attending Provider Active Start: July 24, 2024 End: July 24, 2024 Dr. Jose Villafana MD Referring Provider Active Start: July 24, 2024 End: July 24, 2024 Team Status: Active Member Role/Relationship Status Dates Dr. Jose Etienne DO Primary Care Provider Active Start: July 24, 2024 Dr. Deni Burgos MD Attending Provider Active S tart: July 24, 2024 Team Status: Inactive Member Role/Relationship Status Dates Dr. Jose Etienne DO Primary Care Provider Active Start: August 11, 2024 End: August 11, 2024 Dr. Jose Etienne DO Referring Provider Active Start: August 11, 2024 End: August 11, 2024 Pippa Weston SPEECH AND LANGUAGE ASSISTANT, SPEECH AND LANGUAGE ASSISTANT-C Attending Provider Active Start: August 11, 2024 End: August 11, 2024 Team Status: Inactive Member Role/Relationship Status Dates Dr. Jose Etienne DO Primary Care Provider Active Start: October 29, 2024 End: October 29, 2024 Pippa Weston SPEECH AND LANGUAGE ASSISTANT, SPEECH AND LANGUAGE ASSISTANT-C Attending Provider Active Start: October 29, 2024 End: October 29, 2024 Pippa Weston SPEECH AND LANGUAGE ASSISTANT, SPEECH AND LANGUAGE ASSISTANT-C Referring Provider Active Start: October 29, 2024 End: October 29, 2024 Team Status: Active Member Role/Relationship Status Dates Dr. Jose Etienne DO Primary Care Provider Active Start: October 29, 2024 Dr. Deni Burgos MD Attending Provider Active S tart: October 29, 2024 Team Status: Active Member Role/Relationship Status Dates Dr. Jose Etienne DO Primary Care Provider Active Start: November 04, 2024 Pippa Weston SPEECH AND LANGUAGE ASSISTANT, SPEECH AND LANGUAGE ASSISTANT-C Attending Provider Active Start: November 04, 2024 Team Status: Inactive Member Role/Relationship Status Dates Dr. Jose Etienne DO Primary Care Provider Active Start: November 17, 2024 End: November 17, 2024 Dr. Jose Etienne DO Referring Provider Active Start: November 17, 2024 End: November 17, 2024 Monica Guevara Attending Provider Active Start: Cassidy monsalve 2024 End: November 17, 2024 Team Status: Active Member Role/Relationship Status Dates Dr. Jose Etienne DO Primary care physician Active Team Status: Inactive Member Role/Relationship Status Dates Dr. Jose Etienne DO Primary care physician Active Start: July 24, 2024 End: July 24, 2024 Dr. Deni Burgos MD Attending physician Active Start: July 24, 2024 End: July 24, 2024 Dr. Deni Burgos MD Referring Provider Active S tart: July 24, 2024 End: July 24, 2024 Team Status: Inactive Member Role/Relationship Status Dates Dr. Jose Etienne DO Primary care physician Active Start: July 24, 2024 End: July 24, 2024 Dr. Deni Burgos MD Attending physician Active Start: July 24, 2024 End: July 24, 2024 Dr. Deni Burgos MD Referring Provider Active S tart: July 24, 2024 End: July 24, 2024 Team Status: Inactive Member Role/Relationship Status Dates Dr. Jose Etienne DO Primary care physician Active Start: July 24, 2024 End: July 24, 2024 Dr. Jose Etienne DO Referring Provider Active Start: July 24, 2024 End: July 24, 2024 Pippa Weston SPEECH AND LANGUAGE ASSISTANT, SPEECH AND LANGUAGE ASSISTANT-C Attending physician Active Start: July 24, 2024 End: July 24, 2024 Team Status: Inactive Member Role/Relationship Status Dates Dr. Jose Etienne DO Primary care physician Active Start: July 24, 2024 End: July 24, 2024 Dr. Jose Villafana MD Attending physician Active Start: July 24, 2024 End: July 24, 2024 Dr. Jose Villafana MD Referring Provider Active Start: July 24, 2024 End: July 24, 2024 Team Status: Active Member Role/Relationship Status Dates Dr. Jose Etienne DO Primary care physician Active Start: July 24, 2024 Dr. Deni Burgos MD Attending physician Active Start: July 24, 2024 Team Status: Inactive Member Role/Relationship Status Dates Dr. Jose Etienne DO Primary care physician Active Start: August 11, 2024 End: August 11, 2024 Dr. Jose Etienne DO Referring Provider Active Start: August 11, 2024 End: August 11, 2024 Pippa Weston SPEECH AND LANGUAGE ASSISTANT, SPEECH AND LANGUAGE ASSISTANT-C Attending physician Active Start: August 11, 2024 End: August 11, 2024 Team Status: Inactive Member Role/Relationship Status Dates Dr. Jose Etienne DO Primary care physician Active Start: October 29, 2024 End: October 29, 2024 Pippa Weston SPEECH AND LANGUAGE ASSISTANT, SPEECH AND LANGUAGE ASSISTANT-C Attending physician Active Start: October 29, 2024 End: October 29, 2024 Pippa Weston SPEECH AND LANGUAGE ASSISTANT, SPEECH AND LANGUAGE ASSISTANT-C Referring Provider Active Start: October 29, 2024 End: October 29, 2024 Team Status: Active Member Role/Relationship Status Dates Dr. Jose Etienne DO Primary care physician Active Start: October 29, 2024 Dr. Deni Burgos MD Attending physician Active Start: October 29, 2024 Team Status: Active Member Role/Relationship Status Dates Dr. Jose Etienne DO Primary care physician Active Start: November 04, 2024 Pippa Weston NP, SPEECH AND LANGUAGE ASSISTANT-C Attending physician Active Start: November 04, 2024 Team Status: Inactive Member Role/Relationship Status Dates Dr. Jose Etienne DO Primary care physician Active Start: November 17, 2024 End: November 17, 2024 Dr. Jose Etienne DO Referring Provider Active Start: November 17, 2024 End: November 17, 2024 Monica Guevara Attending physician Active Start: November 17, 2024 End: November 17, 2024 Team Status: Inactive Member Role/Relationship Status Dates Dr. Jose Etienne DO Primary care physician Active Start: November 17, 2024 End: November 17, 2024 Dr. Deni Burgos MD Attending physician Active Start: November 17, 2024 End: November 17, 2024 Goals (unrecognized section and content) Goals may be documented in a n alternate section (unrecognized sect ion and content) No Status Records FoundNo Status Records FoundNo Status Records FoundNo Status Records FoundNo Status Records FoundNo Status Records Found INFORMATION SOURCE (unrecogn ized section and content) DATE CREATED AUTHOR 09/03/2023 [facility] ([place]) DATE CREATED AUTHOR AUTHOR'S ORGANIZ ATION 02/12/2024 [facility] DATE CREATED AUTHOR AUTHOR'S ORGANIZ ATION 07/09/2024 [facility] DATE CREATED AUTHOR AUTHOR'S ORGANIZ ATION 10/27/2024 [facility] DATE CREATED AUTHOR AUTHOR'S ORGANIZ ATION 11/21/2024 [facility] DATE CREATED AUTHOR AUTHOR'S ORGANIZ ATION 12/11/2024 [facility] Reason for Visit (unrecogniz ed section and content) lower back pain, Follow-up b y complaint Reason Onset Date Comments Care Management Outreach 10/07/2024 Scheduled Active and Recently Administ ered Medications (unrecognized section and content) Medication Order 10/09/2024 10/10/2024 10/11/2024 acetaminophen (Tylenol) tablet 1,000 mg (COMPLETED) 1,000 mg, Oral, Once, On [place] 10/09/24 at 0600, For 1 dose, Preprocedure, Maximum dose of acetaminophen is 4000 mg from all sources in 24 hours. Do not administer if patient has taken tylenol <6 hours earlier. Do not give if contraindicated ie. patient has active liver disease or cirrhosis. 0557 (Given - Provider: Kristal Mendez RN) acetaminophen (Tylenol) tablet 1,000 mg 1,000 mg, Oral, 3 times daily, First dose (after last modification) on Sun10/10/24 at 1400, Phase II/On Unit, Maximum dose of acetaminophen is 4000 mg from all sources in 24 hours. 1318 (Given - Provider: Richard Mukherjee RN)2129 (Given - Provider: Elisabeth Edmondson RN) 0938 (Given - Provider: Joey Miranda)1400 (Canceled Entry - Provider: Automatic Discharge Provider - Comment: Automatically canceled at discontinue of medication order) acetaminophen (Tylenol) tablet 650 mg (CANCELED) 650 mg, Oral, Every 6 hours scheduled (4 times per day), First dose on Sun10/09/24 at 1200, Phase II/On Unit, Maximum dose of acetaminophen is 4000 mg from all sources in 24 hours. 1154 (Given - Provider: Yen Andrews, SAIMA)1827 (Given - Provider: Yen Andrews RN) 0000 (Not Given - Provider: Shaila Denise RN - Reason: Other)0612 (Given - Provider: Shaila Denise RN) cholecalciferol (Vitamin D-3) tablet 25 mcg 25 mcg, Oral, Every evening, First dose on Sun10/10/24 at 1800 1735 (Given - Provider: Yen Andrews, SAIMA) dapagliflozin (Farxiga) tablet 5 mg 5 mg, Oral, Daily, First dose on Sun10/10/24 at 0900 0820 (Given - Provider: Yen Andrews RN) 0941 (Given - Provider: Joey Miranda) ezetimibe (Zetia) tablet 10 mg 10 mg, Oral, Every evening, First dose on Sun10/09/24 at 2030 2030 (Not Given - Provider: Shaila Denise RN - Reason: Medication not available) 1736 (Given - Provider: Yen Andrews RN) famotidine (Pepcid) tablet 20 mg (COMPLETED)(Linked Group 1) 20 mg, Oral, Once, On Sun10/09/24 at 0600, For 1 dose, Preprocedure, IV or ORAL 0557 (Given - Provider: Kristal Mendez RN) furosemide (Lasix) tablet 40 mg 40 mg, Oral, Daily, First dose on Sun10/10/24 at 0900 0820 (Given - Provider: Yen Andrews RN) 0938 (Given - Provider: Joey Miranda) Lidocaine 4 % patch 1 patch 1 patch, Topical, Administer over 12 Hours, Daily, First dose on Sun10/09/24 at 1315, Apply patch to affected area. Patch may remain in place for up to 12 hours in any 24 hour period. 1459 (Not Given - Provider: Yen Andrews RN - Reason: Patient/family refused) 0822 (Not Given - Provider: Yen Andrews RN - Reason: Patient/family refused) 0939 (Medication Applied - Provider: Joey Miranda)1159 (Due: Medication Removed - Provider: Automatic Discharge Provider - Comment: Time automatically adjusted from order being discontinued) losartan (Cozaar) tablet 25 mg 25 mg, Oral, Every evening, First dose on Sun10/10/24 at 1800 1735 (Given - Provider: Yen Andrews RN) methocarbamol (Robaxin) injection 1,000 mg (COMPLETED) 1,000 mg, IntraVENous, Administer over 5 Minutes, Once, On Sun10/09/24 at 1015, For 1 dose, Recovery (only), Maximum dose: 3 g/day for no more than 3 consecutive days 1012 (Given - Provider: Eloise Carter RN) methocarbamol (Robaxin) tablet 500 mg 500 mg, Oral, Every 8 hours scheduled (3 times per day), First dose (after last modification) on Sun10/10/24 at 1400 1318 (Given - Provider: Richard Mukherjee RN)2129 (Given - Provider: Elisabeth Edmondson, SAIMA) 0504 (Given - Provider: Elisabeth Edmondson RN)1400 (Canceled Entry - Provider: Automatic Discharge Provider - Comment: Automatically canceled at discontinue of medication order) metoprolol succinate XL (Toprol-XL) 24 hr tablet 100 mg 100 mg, Oral, Daily, First dose on Sun10/10/24 at 0900, Do not crush or chew. 0823 (Given - Provider: Yen Andrews RN) 0939 (Given - Provider: Joey Miranda) morphine injection 1 mg (COMPLETED) 1 mg, IntraVENous, Once, On Sun10/09/24 at 1015, For 1 dose, Recovery (only), Protect from light. Discard any unusued portion. Do not use if color is darker than pale yellow or contains a precipate. 1023 (Given - Provider: Darien Kearns RN) pravastatin (Pravachol) tablet 80 mg 80 mg, Oral, Every evening, First dose on Sun10/09/24 at 2100 2045 (Given - Provider: Shaila Denise RN) 2128 (Given - Provider: Elisabeth Edmondson RN) predniSONE (Deltasone) tablet 2 mg 2 mg, Oral, Daily, First dose on Sun10/10/24 at 0900 0820 (Given - Provider: Yen Andrews RN) 0939 (Given - Provider: Joey Miranda) spironolactone (Aldactone) tablet 12.5 mg 12.5 mg, Oral, Every evening, First dose on Sun10/10/24 at 1800 1735 (Given - Provider: Yen Andrews, SAIMA) tamsulosin (Flomax) 24 hr capsule 0.4 mg 0.4 mg, Oral, Every evening, First dose on Sun10/10/24 at 1800, Do not crush, chew, or split. 1735 (Given - Provider: Yen Andrews, RN) Continuous Medication Order 10/09/2024 10/10/2024 10/11/2024 lactated Ringer's (LR) infusion (CANCELED) 50 mL/hr, IntraVENous, Continuous, Starting on Elizabeth 10/09/24 at 0600, Preprocedure, Upon admission to sameday - please start iv if patient does not have iv access. Use 500ml NS for patients on dialysis. 0557 (New Bag - Provider: Kristal Mendez RN)0732 (Continued by Anesthesia - Provider: Job Jean CRNA)0903 (Paused - Provider: Jbo Jean CRNA - Comment: Switch to gravity)0904 (New Bag - Provider: Job Jean CRNA)0943 (Stopped - Provider: Job Jean CRNA) PRN Medication Order 10/09/2024 10/10/2024 10/11/2024 gelatin absorbable (Gelfoam) sponge (CANCELED) As needed, Starting on Elizabeth 10/09/24 at 0802, Intraprocedure 0802 (Given - Provider: Shanel Chandler MD - Comment: COMBINED WITH THROMBIN) HYDROmorphone (Dilaudid) injection 0.25 mg(Linked Group 2) 0.25 mg, IntraVENous, Every 4 hours PRN, moderate pain (4-6), Starting on Elizabeth 10/09/24 at 1255, If oral and IV narcotics ordered, use oral first and only use IV if oral is ineffective or cannot take oral. Do Not give oral and IV within 1 hour of each other unless specifically ordered. 1335 (See Alternative - Provider: Soha Valdez RN)2046 (See Alternative - Provider: Shaila Denise RN) 0957 (See Alternative - Provider: Yen Andrews, SAIMA)1424 (See Alternative - Provider: Yen Andrews, SAIMA)2023 (See Alternative - Provider: Elisabeth Edmondson RN) HYDROmorphone (Dilaudid) injection 0.5 mg(Linked Group 2) 0.5 mg, IntraVENous, Every 4 hours PRN, severe pain (7-10), Starting on Elizabeth 10/09/24 at 1255, If oral and IV narcotics ordered, use oral first and only use IV if oral is ineffective or cannot take oral. Do Not give oral and IV within 1 hour of each other unless specifically ordered. 1335 (Given - Provider: Soha Valdez RN)204 (Given - Provider: Shaila Denise, RN) 0957 (Given - Provider: Yen Andrews, RN)1424 (Given - Provider: Yen Andrews, RN)2023 (Given - Provider: Elisabeth Edmondson RN) methocarbamol (Robaxin) tablet 1,000 mg (CANCELED) 1,000 mg, Oral, Every 8 hours PRN, muscle spasms, Starting on Elizabeth 10/09/24 at 1307 2044 (Given - Provider: Shaila Denise RN) 06 (Given - Provider: Shaila Denise, RN) naloxone (Narcan) injection 0.4 mg 0.4 mg, IntraVENous, Every 5 min PRN, opioid reversal, respiratory depression, Starting on Elizabeth 10/09/24 at 1147, +++ For RR <10, pinpoint pupils, over sedation for opioid reversal - MUST notify optimization specialist provider immediately after first dose, may give IM or SQ if no IV access +++ ondansetron (Zofran) injection 4 mg(Linked Group 3) 4 mg, IntraVENous, Every 6 hours PRN, nausea, vomiting, Starting on Elizabeth 10/09/24 at 1131, Phase II/On Unit, 1st Line. Give IV if patient is unable to take orally. If inadequate response within 60 minutes, proceed to next-line agent or contact provider if no further options ordered. ondansetron ODT (Zofran-ODT) disintegrating tablet 4 mg(Linked Group 3) 4 mg, Oral, Every 8 hours PRN, nausea, vomiting, Starting on Elizabeth 10/09/24 at 1131, Phase II/On Unit, 1st Line. If inadequate response within 60 minutes, proceed to next-line agent or contact provider if no further options ordered. Patient should allow tablet to dissolve on tongue. Do not remove from blister pack until just before administering. oxyCODONE (Roxicodone) immediate release tablet 10 mg (CANCELED) 10 mg, Oral, Every 4 hours PRN, severe pain (7-10), Starting on Elizabeth 8/7/25 at 1131, Phase II/On Unit 1154 (Given - Provider: Yen Andrews, SAIMA)1826 (Given - Provider: Yen Andrews, SAIMA) 0612 (Given - Provider: Shaila Denise RN) oxyCODONE (Roxicodone) immediate release tablet 10 mg(Linked Group 4) 10 mg, Oral, Every 4 hours PRN, moderate pain (4-6), Starting on Sun10/10/24 at 1006, Phase II/On Unit 1318 (See Alternative - Provider: Richard Mukherjee, SAIMA)1835 (See Alternative - Provider: Yen Andrews, SAIMA) 0107 (Given - Provider: Elisabeth Edmondson, SAIMA)0503 (Given - Provider: Elisabeth Edmondson RN)0939 (Given - Provider: Joey Miranda) oxyCODONE (Roxicodone) immediate release tablet 15 mg (CANCELED)(Linked Group 4) 15 mg, Oral, Every 4 hours PRN, severe pain (7-10), Starting on Sun10/10/24 at 1006, Phase II/On Unit 1318 (Given - Provider: Richard Mukherjee, SAIMA)1835 (Given - Provider: Yen Andrews RN) 0107 (See Alternative - Provider: Elisabeth Edmondson RN)0503 (See Alternative - Provider: Elisabeth Edmondson RN)0939 (See Alternative - Provider: Joey Miranda) polyethylene glycol (PEG) 3350 (Miralax) packet 17 g 17 g, Oral, Daily PRN, constipation, Starting on Sun10/09/24 at 1131, Phase II/On Unit, 1st line for treatment of constipation - give scheduled if no bowel movement in past 24 hours. 1329 (Given - Provider: Richard Mukherjee RN) sodium chloride 0.9 % irrigation solution (CANCELED) As needed, Starting on Sun10/09/24 at 0802, Intraprocedure 0802 (Given - Provider: Shanel Chandler MD - Comment: SURGICAL SITE)0849 (Given - Provider: Shanel Chandler MD - Comment: SURGICAL SITE) thrombin spray (CANCELED) As needed, Starting on Sun10/09/24 at 0802, Intraprocedure 0802 (Given - Provider: Shanel Chandlre MD - Comment: COMBINED WITH GELFOAM) vancomycin (Vancocin) vial for injection (CANCELED) As needed, Starting on Elizabeth 10/09/24 at 0849, Intraprocedure 0849 (Given - Provider: Shanel Chandler MD - Comment: SURGICAL SITE) Linked Groups Order Group 1: famotidine (Pepcid) tablet 20 mg (COMPLETED)Jump to med 20 mg, Oral, Once, On Elizabeth 10/09/24 at 0600, For 1 dose, Preprocedure, IV or ORAL Or famotidine (Pepcid) 20 mg in sodium chloride (PF) 0.9 % 10 mL injection (COMPLETED) 20 mg, IntraVENous, Administer over 2 Minutes, Once, On Elizabeth 10/09/24 at 0600, For 1 dose, Preprocedure, IV or ORAL Group 2: HYDROmorphone (Dilaudid) injection 0.25 mgJump to med 0.25 mg, IntraVENous, Every 4 hours PRN, moderate pain (4-6), Starting on Elizabeth 10/09/24 at 1255, If oral and IV narcotics ordered, use oral first and only use IV if oral is ineffective or cannot take oral. Do Not give oral and IV within 1 hour of each other unless specifically ordered. Or HYDROmorphone (Dilaudid) injection 0.5 mgJump to med 0.5 mg, IntraVENous, Every 4 hours PRN, severe pain (7-10), Starting on Elizabeth 10/09/24 at 1255, If oral and IV narcotics ordered, use oral first and only use IV if oral is ineffective or cannot take oral. Do Not give oral and IV within 1 hour of each other unless specifically ordered. Group 3: ondansetron ODT (Zofran-ODT) disintegrating tablet 4 mgJump to med 4 mg, Oral, Every 8 hours PRN, nausea, vomiting, Starting on Elizabeth 10/09/24 at 1131, Phase II/On Unit, 1st Line. If inadequate response within 60 minutes, proceed to next-line agent or contact provider if no further options ordered. Patient should allow tablet to dissolve on tongue. Do not remove from blister pack until just before administering. Or ondansetron (Zofran) injection 4 mgJump to med 4 mg, IntraVENous, Every 6 hours PRN, nausea, vomiting, Starting on Elizabeth 10/09/24 at 1131, Phase II/On Unit, 1st Line. Give IV if patient is unable to take orally. If inadequate response within 60 minutes, proceed to next-line agent or contact provider if no further options ordered. Group 4: oxyCODONE (Roxicodone) immediate release tablet 10 mgJump to med 10 mg, Oral, Every 4 hours PRN, moderate pain (4-6), Starting on Sun10/10/24 at 1006, Phase II/On Unit Or oxyCODONE (Roxicodone) immediate release tablet 15 mg (CANCELED)Jump to med 15 mg, Oral, Every 4 hours PRN, severe pain (7-10), Starting on Sun10/10/24 at 1006, Phase II/On Unit FOR RECORDS PERTAINING TO PATIENTS WHO ARE OR HAVE BEEN ENROLLED IN A CHEMICAL DEPENDENCY/SUBSTANCEABUSE PROGRAM, SOME INFORMATION MAY BE OMITTED. This clinical summary was aggregated from multiple sources. Caution should be exercised in using it in the provision of clinical care. This summary normalizes information from multiple sources, and as a consequence, information in this document may materially change the coding, format and clinical context of patient data. In addition, data may be omitted in some cases. CLINICAL DECISIONS SHOULD BE BASED ON THE PRIMARY CLINICAL RECORDS. [facility]. provides no warranty or guarantee of the accuracy or completeness of information in this document.
== END | disposition home or self-care (01) ==
LOC: PSN 06:52
PROVIDERS: PCP Student in an Organized Health Care Education/Training Program; Referring Provider Nurse Practitioner Gerontology; Visit Provider Nurse Practitioner Gerontology
DX: R00.1 Bradycardia, unspecified (principal)
CPT/HCPCS: 93225; 93226